=== PATIENT | male | born 1935 | race Caucasian/White ===

== ENCOUNTER 2023-01-17 07:59 | Outpatient (OUT) | payer MEDICARE, SELFPAY ==
[2023-01-17 08:34] LABS: Basophils Percent Auto 0.5 % (0.2-2.0); Eosinophils Absolute Auto 0.3 10^3/uL (0.0-0.7); Eosinophils Percent Auto 3.7 % (0.9-7.0); Hematocrit 41.1 % (42.0-54.0); Hemoglobin 12.4 g/dL (14.0-18.0); Immature Granulocytes Abs Auto 0.02 10^3/uL (0.00-0.03); Immature Granulocytes Pct Auto 0.3 % (0.0-0.5); Lymphocytes Absolute Auto 1.1 10^3/uL (1.2-3.8); Lymphocytes Percent Auto 13.6 % (20.5-60.0); Mean Corpuscular HGB Conc 30.2 g/dL (29.9-35.2); Mean Corpuscular Hemoglobin 26.6 pg (25.9-34.0); Mean Platelet Volume 11.6 fL (9.5-13.5); Monocytes Absolute Auto 0.4 10^3/uL (0.3-0.8); Monocytes Percent Auto 5.5 % (1.7-12.0); Neutrophils Percent Auto 76.4 % (43.0-75.0); Platelet Count 177 10^3/uL (150-450); Red Blood Count 4.67 10^6/uL (4.70-6.10); Red Cell Distribution Width 14.6 % (11.0-15.0); White Blood Count 7.8 10^3/uL (4.0-11.0)
[2023-01-17 09:03] LABS: Estimated Average Glucose 100 mg/dL; Glycohemoglobin A1C 5.1 % (4.5-6.2)
[2023-01-17 10:04] LABS: Alanine Aminotransferase 15 U/L (16-63); Albumin Level 3.7 g/dL (3.4-5.0); Alkaline Phosphatase 84 U/L (46-116); Anion Gap 13.5; Aspartate Amino Transferase 12 U/L (15-37); BUN Creatinine Ratio 11.6; Bilirubin Total 0.6 mg/dL (0.2-1.0); Calcium 9.2 mg/dL (8.5-10.1); Carbon Dioxide 25.6 mmol/L (21.0-32.0); Chloride 106 mmol/L (98-107); Chol HDL Ratio 2.8; Cholesterol 155 mg/dL (<=200); Estimated GFR (African America 43 (>=60); Estimated GFR (Non-African Ame 36 (>=60); Free T3 2.04 pg/mL (2.18-3.98); Globulin 3.7 g/dL; Glucose 105 mg/dL (74-106); HDL Cholesterol 56 mg/dL (40-60); LDL Cholesterol Calculated 70.2 mg/dL; Potassium 4.1 mmol/L (3.5-5.1); Sodium 141 mmol/L (136-145); Total Protein 7.4 g/dL (6.4-8.2); Triglycerides 144 mg/dL (<=150); Uric Acid 7.9 mg/dL (3.5-7.2); VLDL CHOLESTEROL 28.8 mg/dL
[2023-01-17 10:06] LABS: Prostate Specific Antigen Scrn 9.18 ng/mL (<=4.00)
[2023-01-18 10:08] LABS: Insulin 8.3 uIU/mL (2.6-24.9)
== END 2023-01-17 08:00 ==
LOC: LAB 08:07
PROVIDERS: PCP Family Medicine; Visit Provider Family Medicine
DX: E11.9 Type 2 diabetes mellitus without complications (principal); J44.9 Chronic obstructive pulmonary disease, unspecified; E78.5 Hyperlipidemia, unspecified; R73.09 Other abnormal glucose; Z12.5 Encounter for screening for malignant neoplasm of prostate; Z12.12 Encounter for screening for malignant neoplasm of rectum; I11.0 Hypertensive heart disease with heart failure; I50.30 Unspecified diastolic (congestive) heart failure
CPT/HCPCS: 36415; 80053; 80061; 83036; 83525; 83880; 84436; 84443; 84481; 84550; 85025; G0103

== ENCOUNTER 2023-04-07 12:32 | Emergency (ER) | payer MEDICARE, SELFPAY ==
[2023-04-07] VITALS (39 sets, daily range): BP systolic 88–142; BP diastolic 57–85; PULSE 71–130; RESP 14–29; TEMP 36.7–36.8; O2SAT 91–100; BMI 26.6
--- NOTE | 2023-04-07 12:58 | ECG_ITS ---
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
--- NOTE | 2023-04-07 12:59 | XR_ITS ---
The [address] [address] Patient Name: GABY KOO MRN: [id number] date: 1935 Sex: M Assigned Patient Location: ER Current Patient Location: ER Accession/Order Number: [id number] Exam Date: 04/07/2023 13:08 Report Date: 04/07/2023 13:38 At the request of: DELVIS PRASAD Procedure: XR chest 1V XR chest 1V CLINICAL: Hemoptysis COMPARISON: No prior studies are available. TECHNIQUE: Single AP view of the chest. FINDINGS: Heart size is within normal limits for technique. No regional airspace consolidation, effusion or evidence of pneumothorax. Thoracic aorta is tortuous and appears mildly ectatic. Linear densities in the right parahilar region likely atelectasis or scarring. 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 Osseous structures appear intact. Surgical clips noted medial left cardiophrenic angle. XR/XR chest 1V IMPRESSION: No acute cardiac or pulmonary findings. Electronically authenticated by: ELODIA WALKER Date: 04/07/2023 13:38
[2023-04-07 13:29] LABS: Basophils Percent Auto 0.2 % (0.2-2.0); Hematocrit 27.6 % (42.0-54.0); Hemoglobin 8.3 g/dL (14.0-18.0); Immature Granulocytes Abs Auto 0.14 10^3/uL (0.00-0.03); Immature Granulocytes Pct Auto 0.8 % (0.0-0.5); Lymphocytes Absolute Auto 0.8 10^3/uL (1.2-3.8); Lymphocytes Percent Auto 4.9 % (20.5-60.0); Mean Corpuscular HGB Conc 30.1 g/dL (29.9-35.2); Mean Corpuscular Hemoglobin 26.3 pg (25.9-34.0); Mean Corpuscular Volume 87.3 fL (80.0-94.0); Mean Platelet Volume 11.8 fL (9.5-13.5); Monocytes Absolute Auto 0.4 10^3/uL (0.3-0.8); Monocytes Percent Auto 2.6 % (1.7-12.0); Neutrophils Absolute Auto 15.2 10^3/uL (1.4-6.5); Neutrophils Percent Auto 91.5 % (43.0-75.0); Platelet Count 260 10^3/uL (150-450); Red Blood Count 3.16 10^6/uL (4.70-6.10); Red Cell Distribution Width 15.3 % (11.0-15.0); White Blood Count 16.6 10^3/uL (4.0-11.0)
[2023-04-07 13:42] LABS: Ethanol <3 mg/dL; Magnesium 1.7 mg/dL (1.8-2.4)
[2023-04-07] MEDS: ONDANSETRON PF 4 MG/2 ML VIAL IV (13:47)
[2023-04-07] MEDS: 0.9 % SODIUM CHLORIDE 1,000 ML 1000 ML IV (13:47)
[2023-04-07 13:53] LABS: Alanine Aminotransferase 12 U/L (16-63); Albumin Globulin Ratio 0.8; Albumin Level 2.8 g/dL (3.4-5.0); Alkaline Phosphatase 57 U/L (46-116); Anion Gap 16.7; Aspartate Amino Transferase 11 U/L (15-37); BUN Creatinine Ratio 34.3; Bilirubin Total 0.3 mg/dL (0.2-1.0); Calcium 8.4 mg/dL (8.5-10.1); Carbon Dioxide 22.4 mmol/L (21.0-32.0); Chloride 109 mmol/L (98-107); Estimated GFR (African America 43 (>=60); Estimated GFR (Non-African Ame 36 (>=60); Globulin 3.4 g/dL; Glucose 158 mg/dL (74-106); Potassium 5.1 mmol/L (3.5-5.1); Sodium 143 mmol/L (136-145); Total Protein 6.2 g/dL (6.4-8.2); Troponin I High Sensitivity 21.1 pg/mL (4.0-76.1)
[2023-04-07 13:55] LABS: INR 1.14
[2023-04-07] MEDS: PANTOPRAZOLE SODIUM 80 MG in 0.9 % SODIUM CHLORIDE 100 ML 10 MG IV (14:09)
--- NOTE | 2023-04-07 14:26 | ED.GENADUL1 ---
HPI - General Adult General Chief complaint: Nausea/Vomiting/Diarrhea Stated complaint: VOMITING Time Seen by Provider: 04/07/23 12:58 Source: patient and family Mode of arrival: Wheelchair Limitations: no limitations History of Present Illness HPI narrative: pt coming to the ER after he started having black stool last night in addition to 1 episode of vomiting this morning that had blood in it according to the , the patient have no previous history of any ulcer he did mention using NSAID at home The patient denies any abdominal pain no dizziness he denies any complaint at the moment hx of CAD on Plavix Related Data Home Medications Medication Instructions Recorded Confirmed clopidogrel 75 mg tablet 75 mg PO DAILY 04/07/23 04/07/23 diclofenac sodium 75 mg 75 mg PO Q12H 04/07/23 04/07/23 tablet,delayed release metoprolol tartrate 25 mg tablet 25 mg PO Q12H 04/07/23 04/07/23 simvastatin 20 mg tablet 20 mg PO DAILY 04/07/23 04/07/23 Allergies Allergy/AdvReac Type Severity Reaction Status Date / Time No Known Drug Allergies Allergy Verified 04/07/23 14:11 Review of Systems ROS Status of ROS 10 or more systems reviewed and unremarkable except as noted in history and below PFSH PFSH Social History Smoking status: Former smoker Exam Narrative Exam Narrative: Nurses notes and vital signs reviewed and patient is not hypoxic. General: Well-appearing and in no apparent distress. Skin: Warm, dry, no pallor noted. No rash. Head: Normocephalic, atraumatic. Neck: Supple, non-tender. Eye: Pupils are equal, round and EOMI. No scleral icterus. Ears, Nose, Mouth, and Throat: TM are clear, no nasal mucosal hypertrophy. Oral mucosa is moist, no posterior oropharynx erythema, uvula is mid-line Cardiovascular: Regular Rate and Rhythm without murmur, gallop or rub. Respiratory: No accessory muscle use or respiratory distress. Lungs are clear to auscultation, no wheezing, rales or rhonchi Chest Wall: no tenderness Back: No midline thoracic or lumbar vertebral tenderness. No CVA tenderness Musculoskeletal: normal ROM, no calf or popliteal tenderness, no lower extremity edema/swelling GI: Abdomen is soft, non-distended. Normal bowel sounds. No masses appreciated. No tenderness to palpation. No rebound, guarding, or rigidity noted. Neurological: A&O x4. No cranial nerve dysfunction observed. No truncal ataxia. Moves all extremities. Sensation intact. Psychiatric: Cooperative and interactive. Normal mood and affect. Rectal exam The patient have black stool at the rectal verge but no active bleeding and no hemorrhoids Constitutional Vital Signs, click to edit/add: Last Vital Signs Temp 98.0 F 04/07/23 17:00 Pulse 76 04/07/23 17:10 Resp 17 04/07/23 17:10 BP 137/62 04/07/23 17:10 Pulse Ox 97 04/07/23 17:10 O2 Del Method Room Air 04/07/23 14:25 Course Vital Signs Vital signs: Vital Signs Temperature 98.1 F 04/07/23 12:52 Pulse Rate 102 H 04/07/23 12:52 Respiratory Rate 22 04/07/23 12:52 Blood Pressure 124/64 04/07/23 12:52 Pulse Oximetry 95 04/07/23 12:52 Oxygen Delivery Method Room Air 04/07/23 12:52 Temperature 98.0 F 04/07/23 17:00 Pulse Rate 76 04/07/23 17:10 Respiratory Rate 17 04/07/23 17:10 Blood Pressure 137/62 04/07/23 17:10 Pulse Oximetry 97 04/07/23 17:10 Oxygen Delivery Method Room Air 04/07/23 14:25 Medical Decision Making [facility] Narrative Medical decision making narrative: EKG showing sinus rhythm with a heart rate of [address] elevation or depression Acute blood is positive in the stool The patient CBC shows a drop in hemoglobin from 12 in December to 8 and the patient is tachycardic upon presentation at heart rate of 102 The patient blood pressure was maintained within normal and he denies any complaints he also had an elevated BUN/creatinine ratio with a BUN around 60 and the creatinine is 1.8 The patient case was discussed with the neurosurgeon in [facility] and he agreed that patient need to be transferred, right now the patient is stable he will be kept n.p.o. he was started Protonix IV and protonix drip The patient was accepted by and she recommended pt receive 1 unit of PRBCS pt started on 1 unit of PRBCs Lab Data Labs: Lab Results 04/07/23 04/07/23 Range/Units 13:20 14:01 WBC 16.6 H (4.0-11.0) 10^3/uL RBC 3.16 L (4.70-6.10) 10^6/uL Hgb 8.3 L (14.0-18.0) g/dL Hct 27.6 L (42.0-54.0) % MCV 87.3 (80.0-94.0) fL MCH 26.3 (25.9-34.0) pg MCHC 30.1 (29.9-35.2) g/dL RDW 15.3 H (11.0-15.0) % Plt Count 260 (150-450) 10^3/uL MPV 11.8 (9.5-13.5) fL Neut % (Auto) 91.5 H (43.0-75.0) % Lymph % (Auto) 4.9 L (20.5-60.0) % [place] % (Auto) 2.6 (1.7-12.0) % Eos % (Auto) 0.0 L (0.9-7.0) % Baso % (Auto) 0.2 (0.2-2.0) % Neut # (Auto) 15.2 H (1.4-6.5) 10^3/uL Lymph # (Auto) 0.8 L (1.2-3.8) 10^3/uL [place] # (Auto) 0.4 (0.3-0.8) 10^3/uL Eos # (Auto) 0.0 (0.0-0.7) 10^3/uL Baso # (Auto) 0.0 (0.0-0.1) 10^3/uL Abs Immat Gran (auto) 0.14 H (0.00-0.03) 10^3/uL Imm/Tot Granulo (auto) 0.8 H (0.0-0.5) % PT 12.0 H (9.0-11.6) sec INR 1.14 Sodium 143 (136-145) mmol/L Potassium 5.1 (3.5-5.1) mmol/L Chloride 109 H (98-107) mmol/L Carbon Dioxide 22.4 (21.0-32.0) mmol/L Anion Gap 16.7 BUN 62.0 H (7.0-18.0) mg/dL Creatinine 1.81 H (0.70-1.30) mg/dL Est GFR ( Amer) 43 L (>=60) Est GFR (Non-Af Amer) 36 L (>=60) BUN/Creatinine Ratio 34.3 Glucose 158 H (74-106) mg/dL Calcium 8.4 L (8.5-10.1) mg/dL Magnesium 1.7 L (1.8-2.4) mg/dL Total Bilirubin 0.3 (0.2-1.0) mg/dL AST 11 L (15-37) U/L ALT 12 L (16-63) U/L Alkaline Phosphatase 57 (46-116) U/L Troponin I High Sens 21.1 (4.0-76.1) pg/mL Total Protein 6.2 L (6.4-8.2) g/dL Albumin 2.8 L (3.4-5.0) g/dL Globulin 3.4 g/dL Albumin/Globulin Ratio 0.8 Lipase 30.0 L (73.0-393.0) U/L Stool Occult Blood Positive A Ethanol Quant <3 mg/dL Blood Type O Positive Antibody Screen Negative Crossmatch See Detail Discharge Plan Discharge Chief Complaint: Nausea/Vomiting/Diarrhea Clinical Impression: Acute upper gastrointestinal bleeding Patient Disposition: [facility] Time of Disposition Decision: 17:10 Discharge Location: [facility] Discharge Date/Time: 04/07/23 17:28
[2023-04-07 15:30] LABS: Occult Blood Positive
== END 2023-04-07 17:28 | disposition short-term general hospital (02) ==
PROVIDERS: Emergency Provider Emergency Medicine; PCP Family Medicine
DX: K92.2 Gastrointestinal hemorrhage, unspecified (principal); I25.10 Atherosclerotic heart disease of native coronary artery without angina pectoris; Z79.02 Long term (current) use of antithrombotics/antiplatelets; Z87.891 Personal history of nicotine dependence; Z79.899 Other long term (current) drug therapy
CPT/HCPCS: 36415; 36430; 71045; 80053; 80320; 83690; 83735; 84484; 85025; 85610; 86850; 86900; 86901; 86920; 93005; 96365; 96375; 99285; G0328; P9016

== ENCOUNTER 2023-04-11 08:11 | Emergency (ER) | payer MEDICARE, SELFPAY ==
[2023-04-11 08:16] VITALS: BP 153/79; PULSE 90; RESP 16; TEMP 36.8; O2SAT 98; BMI 26.6
--- NOTE | 2023-04-11 08:36 | ECG_ITS ---
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
--- NOTE | 2023-04-11 08:37 | ED.GIBLEED1 ---
HPI - GI Bleed General Chief complaint: Abdominal Pain Stated complaint: ABD PAIN/BLOOD IN STOOL Time Seen by Provider: 04/11/23 08:31 Source: patient and family Mode of arrival: Wheelchair History of Present Illness HPI Narrative: 87-year-old male presents for two issues. 1st he has black stool. He had been admitted to the hospital in [place] and had a workup including endoscopy. An ulcer was identified and he was taken off the aspirin he was on and put on new medication. He was discharged yesterday. he continued to have some black stool today. 2nd, he was having trouble urinating and bladder scan when he arrived here showed seven hundred mL is. He's never had prostate issues in the past. Related Data Home Medications Medication Instructions Recorded Confirmed clopidogrel 75 mg tablet 75 mg PO DAILY 04/07/23 04/11/23 diclofenac sodium 75 mg 75 mg PO Q12H 04/07/23 04/11/23 tablet,delayed release metoprolol tartrate 25 mg tablet 25 mg PO Q12H 04/07/23 04/07/23 simvastatin 20 mg tablet 20 mg PO DAILY 04/07/23 04/11/23 pantoprazole 40 mg tablet,delayed 40 mg PO DAILY 04/11/23 04/11/23 release Previous Rx's Medication Instructions Recorded cephalexin 500 mg tablet 250 mg PO TID 7 days #11 tabs 04/11/23 tamsulosin 0.4 mg capsule (Flomax) 0.4 mg PO DAILY #14 caps 04/11/23 Allergies Allergy/AdvReac Type Severity Reaction Status Date / Time No Known Drug Allergies Allergy Verified 04/11/23 08:22 Review of Systems ROS Narrative A ten point review of systems is negative except as noted above. PFSH PFSH Social History Smoking status: Former smoker Exam Narrative Exam Narrative: Nurses note and vital signs reviewed and patient is not hypoxic. General: The patient appears well and in no apparent distress. Skin: Warm, dry, no pallor noted. There is no rash noted. Head: Normocephalic, atraumatic Eye: Normal conjunctiva, no drainage Ears, Nose, Mouth, and Throat: oral mucosa is moist. Nares patent. Cardiovascular: Regular Rate and Rhythm Respiratory: Patient is in no distress, no accessory muscle use, lungs are clear to auscultation, no wheezing, rales or rhonchi Back: non-tender GI: abdomen is mildly distended Musculoskeletal: The patient has no evidence of calf tenderness, no pitting edema, symmetrical pulses noted bilaterally Neurological: awake and alert Psychiatric: Cooperative Constitutional Vital Signs, click to edit/add: Last Vital Signs Temp 98.2 F 04/11/23 08:16 Pulse 90 04/11/23 08:16 Resp 16 04/11/23 08:16 BP 153/79 H 04/11/23 08:16 Pulse Ox 98 04/11/23 08:16 O2 Del Method Room Air 04/11/23 08:16 Course Vital Signs Vital signs: Vital Signs Temperature 98.2 F 04/11/23 08:16 Pulse Rate 90 04/11/23 08:16 Respiratory Rate 16 04/11/23 08:16 Blood Pressure 153/79 H 04/11/23 08:16 Pulse Oximetry 98 04/11/23 08:16 Oxygen Delivery Method Room Air 04/11/23 08:16 Temperature 98.2 F 04/11/23 08:16 Pulse Rate 90 04/11/23 08:16 Respiratory Rate 16 04/11/23 08:16 Blood Pressure 153/79 H 04/11/23 08:16 Pulse Oximetry 98 04/11/23 08:16 Oxygen Delivery Method Room Air 04/11/23 08:16 MDM - GI Bleed MDM Narrative Medical decision making narrative: the patient's hemoglobin is now up to 9.6. I do not suspect active bleeding. He had endoscopy two days ago and also was treated and he is already on Protonix at home. His main issue today with the urinary retention. Cota catheter placed and he feels much better. He is placed on Flomax and Keflex and he'll follow-up with urology. treatment diagnosis and follow-up were discussed with the patient and his doctor. Differential Diagnosis Differential diagnosis: Likely other (urinary retention, gastrointestinal bleed) Medical Records Attestation: I reviewed the patient's medical records. Medical records narrative: records from [facility] were reviewed including the endoscopy report Lab Data Labs: Lab Results 04/11/23 04/11/23 Range/Units 08:35 08:57 WBC 14.3 H (4.0-11.0) 10^3/uL RBC 3.70 L (4.70-6.10) 10^6/uL Hgb 9.6 L (14.0-18.0) g/dL Hct 30.9 L (42.0-54.0) % MCV 83.5 (80.0-94.0) fL MCH 25.9 (25.9-34.0) pg MCHC 31.1 (29.9-35.2) g/dL RDW 17.6 H (11.0-15.0) % Plt Count 199 (150-450) 10^3/uL MPV 11.6 (9.5-13.5) fL Neut % (Auto) 90.5 H (43.0-75.0) % Lymph % (Auto) 4.9 L (20.5-60.0) % [place] % (Auto) 3.5 (1.7-12.0) % Eos % (Auto) 0.5 L (0.9-7.0) % Baso % (Auto) 0.2 (0.2-2.0) % Neut # (Auto) 12.9 H (1.4-6.5) 10^3/uL Lymph # (Auto) 0.7 L (1.2-3.8) 10^3/uL [place] # (Auto) 0.5 (0.3-0.8) 10^3/uL Eos # (Auto) 0.1 (0.0-0.7) 10^3/uL Baso # (Auto) 0.0 (0.0-0.1) 10^3/uL Abs Immat Gran (auto) 0.06 H (0.00-0.03) 10^3/uL Imm/Tot Granulo (auto) 0.4 (0.0-0.5) % Sodium 138 (136-145) mmol/L Potassium 4.0 (3.5-5.1) mmol/L Chloride 102 (98-107) mmol/L Carbon Dioxide 25.7 (21.0-32.0) mmol/L Anion Gap 14.3 BUN 18.0 (7.0-18.0) mg/dL Creatinine 1.63 H (0.70-1.30) mg/dL Est GFR ( Amer) 49 L (>=60) Est GFR (Non-Af Amer) 40 L (>=60) BUN/Creatinine Ratio 11.0 Glucose 109 H (74-106) mg/dL Calcium 9.4 (8.5-10.1) mg/dL Urine Color Lt. yellow (YELLOW) Urine Clarity Clear (CLEAR) Urine pH 7.0 (5.0-9.0) Ur Specific [place] 1.015 (1.005-1.025) Urine Protein Negative (NEG/TRACE) mg/dL Urine Glucose (UA) Negative (NEGATIVE) mg/dL Urine Ketones Negative (NEGATIVE) mg/dL Urine Occult Blood Small A (NEGATIVE) Urine Nitrite Negative (NEGATIVE) Urine Bilirubin Negative (NEGATIVE) Urine Urobilinogen 0.2 (0.2-1.0) EU/dL Ur Leukocyte Esterase Negative (NEGATIVE) Urine RBC 5-10 A (0-2) #/HPF Urine WBC None seen (NONE SEEN) #/HPF Ur Squamous Epith Cells Rare (NONE/RARE) #/LPF Urine Crystals None seen (None Seen) #/HPF Urine Bacteria None seen (NONE SEEN) #/HPF Urine Casts None seen (NONE SEEN) #/LPF Urine Mucus None seen (NONE SEEN) Ur Culture Indicated? No Discharge Plan Discharge Chief Complaint: Abdominal Pain Clinical Impression: Acute urinary retention Patient Disposition: Home, Self-Care Time of Disposition Decision: 11:10 Condition: Good Mode of Transportation: Private Vehicle Prescriptions / Home Meds: New tamsulosin [Flomax] 0.4 mg capsule 0.4 mg PO DAILY Qty: 14 0RF cephalexin 500 mg tablet 250 mg PO TID 7 Days Qty: 11 0RF No Action clopidogrel 75 mg tablet 75 mg PO DAILY diclofenac sodium 75 mg tablet,delayed release (DR/EC) 75 mg PO Q12H Hold Instructions: Doctor's Order metoprolol tartrate 25 mg tablet 25 mg PO Q12H simvastatin 20 mg tablet 20 mg PO DAILY pantoprazole 40 mg tablet,delayed release (DR/EC) 40 mg PO DAILY Instructions: Urinary Retention in Men (ED), Cota Catheter Placement and Care (ED) Additional Instructions: follow-up with Dr. Adams Stand Alone Forms: Portal Instructions Referrals: Deng Fabian MD [Primary Care Provider] - 1 week
[2023-04-11 09:05] LABS: Basophils Percent Auto 0.2 % (0.2-2.0); Eosinophils Absolute Auto 0.1 10^3/uL (0.0-0.7); Eosinophils Percent Auto 0.5 % (0.9-7.0); Hematocrit 30.9 % (42.0-54.0); Hemoglobin 9.6 g/dL (14.0-18.0); Immature Granulocytes Abs Auto 0.06 10^3/uL (0.00-0.03); Immature Granulocytes Pct Auto 0.4 % (0.0-0.5); Lymphocytes Absolute Auto 0.7 10^3/uL (1.2-3.8); Lymphocytes Percent Auto 4.9 % (20.5-60.0); Mean Corpuscular HGB Conc 31.1 g/dL (29.9-35.2); Mean Corpuscular Hemoglobin 25.9 pg (25.9-34.0); Mean Corpuscular Volume 83.5 fL (80.0-94.0); Mean Platelet Volume 11.6 fL (9.5-13.5); Monocytes Absolute Auto 0.5 10^3/uL (0.3-0.8); Monocytes Percent Auto 3.5 % (1.7-12.0); Neutrophils Absolute Auto 12.9 10^3/uL (1.4-6.5); Neutrophils Percent Auto 90.5 % (43.0-75.0); Platelet Count 199 10^3/uL (150-450); Red Cell Distribution Width 17.6 % (11.0-15.0); White Blood Count 14.3 10^3/uL (4.0-11.0)
[2023-04-11] MEDS: PANTOPRAZOLE SODIUM 40 MG VIAL IV (09:05)
[2023-04-11 09:19] LABS: Anion Gap 14.3; Calcium 9.4 mg/dL (8.5-10.1); Carbon Dioxide 25.7 mmol/L (21.0-32.0); Chloride 102 mmol/L (98-107); Estimated GFR (African America 49 (>=60); Estimated GFR (Non-African Ame 40 (>=60); Glucose 109 mg/dL (74-106); Sodium 138 mmol/L (136-145)
[2023-04-11 09:38] LABS: Bilirubin Urine NEGATIVE (NEGATIVE); Blood Urine SMALL (NEGATIVE); Clarity Urine CLEAR (CLEAR); Color Urine LT. YELLOW (YELLOW); Glucose Urine UA NEGATIVE (NEGATIVE); Ketones Urine NEGATIVE (NEGATIVE); Leukocyte Esterase Urine NEGATIVE (NEGATIVE); Nitrite Urine NEGATIVE (NEGATIVE); Protein Urine NEGATIVE (NEG/TRACE); Specific Gravity Urine 1.015 (1.005-1.025); Urobilinogen Urine 0.2 EU/dL (0.2-1.0)
[2023-04-11 09:47] LABS: Bacteria Urine NONE SEEN #/HPF (NONE SEEN); Cast Seen? NONE SEEN #/LPF (NONE SEEN); Crystals Seen? None Seen #/HPF (None Seen); Mucus Urine NONE SEEN (NONE SEEN); Squamous Epithelial Cell Urine RARE #/LPF (NONE/RARE); Urine Culture Indicated NO; WBC Urine NONE SEEN #/HPF (NONE SEEN)
== END 2023-04-11 11:38 | disposition home or self-care (01) ==
PROVIDERS: Emergency Provider Emergency Medicine; PCP Family Medicine
DX: R33.9 Retention of urine, unspecified (principal); Z79.899 Other long term (current) drug therapy; Z87.891 Personal history of nicotine dependence
CPT/HCPCS: 36415; 80048; 81001; 85025; 93005; 96374; 99285

== ENCOUNTER 2023-04-16 10:26 | Outpatient (OUT) | payer MEDICARE, SELFPAY ==
[2023-04-16 10:49] LABS: Basophils Percent Auto 0.5 % (0.2-2.0); Eosinophils Absolute Auto 0.1 10^3/uL (0.0-0.7); Hematocrit 29.7 % (42.0-54.0); Immature Granulocytes Abs Auto 0.02 10^3/uL (0.00-0.03); Immature Granulocytes Pct Auto 0.3 % (0.0-0.5); Lymphocytes Absolute Auto 0.8 10^3/uL (1.2-3.8); Lymphocytes Percent Auto 10.3 % (20.5-60.0); Mean Corpuscular HGB Conc 30.3 g/dL (29.9-35.2); Mean Corpuscular Hemoglobin 26.2 pg (25.9-34.0); Mean Corpuscular Volume 86.6 fL (80.0-94.0); Monocytes Absolute Auto 0.5 10^3/uL (0.3-0.8); Neutrophils Absolute Auto 6.5 10^3/uL (1.4-6.5); Neutrophils Percent Auto 81.9 % (43.0-75.0); Platelet Count 176 10^3/uL (150-450); Red Blood Count 3.43 10^6/uL (4.70-6.10); Red Cell Distribution Width 17.2 % (11.0-15.0)
== END 2023-04-16 10:27 | disposition home or self-care (01) ==
LOC: LAB 10:28
PROVIDERS: PCP Family Medicine
DX: D62 Acute posthemorrhagic anemia (principal)
CPT/HCPCS: 36415; 85025

== ENCOUNTER 2023-04-19 09:22 | Outpatient (OUT) | payer MEDICARE, SELFPAY ==
[2023-04-19 09:53] LABS: Basophils Absolute Auto 0.1 10^3/uL (0.0-0.1); Basophils Percent Auto 0.7 % (0.2-2.0); Eosinophils Absolute Auto 0.1 10^3/uL (0.0-0.7); Eosinophils Percent Auto 0.9 % (0.9-7.0); Hematocrit 32.6 % (42.0-54.0); Hemoglobin 9.7 g/dL (14.0-18.0); Immature Granulocytes Abs Auto 0.03 10^3/uL (0.00-0.03); Immature Granulocytes Pct Auto 0.4 % (0.0-0.5); Lymphocytes Absolute Auto 0.7 10^3/uL (1.2-3.8); Lymphocytes Percent Auto 8.5 % (20.5-60.0); Mean Corpuscular HGB Conc 29.8 g/dL (29.9-35.2); Mean Corpuscular Hemoglobin 25.9 pg (25.9-34.0); Mean Corpuscular Volume 86.9 fL (80.0-94.0); Mean Platelet Volume 12.4 fL (9.5-13.5); Monocytes Absolute Auto 0.5 10^3/uL (0.3-0.8); Neutrophils Absolute Auto 7.2 10^3/uL (1.4-6.5); Neutrophils Percent Auto 83.5 % (43.0-75.0); Platelet Count 215 10^3/uL (150-450); Red Blood Count 3.75 10^6/uL (4.70-6.10); Red Cell Distribution Width 16.8 % (11.0-15.0); White Blood Count 8.6 10^3/uL (4.0-11.0)
[2023-04-19 10:14] LABS: INR 1.02; Partial Thromboplastin Time 26.3 sec (22.3-36.2); Prothrombin Time 10.8 sec (9.0-11.6)
[2023-04-19 10:15] LABS: Alanine Aminotransferase 13 U/L (16-63); Albumin Level 3.5 g/dL (3.4-5.0); Alkaline Phosphatase 76 U/L (46-116); Anion Gap 14.5; Aspartate Amino Transferase 11 U/L (15-37); BUN Creatinine Ratio 10.7; Bilirubin Total 0.6 mg/dL (0.2-1.0); Calcium 9.1 mg/dL (8.5-10.1); Carbon Dioxide 24.6 mmol/L (21.0-32.0); Chloride 104 mmol/L (98-107); Estimated GFR (African America 50 (>=60); Estimated GFR (Non-African Ame 42 (>=60); Globulin 3.4 g/dL; Glucose 106 mg/dL (74-106); Potassium 4.1 mmol/L (3.5-5.1); Sodium 139 mmol/L (136-145); Total Protein 6.9 g/dL (6.4-8.2)
== END 2023-04-19 09:23 | disposition home or self-care (01) ==
LOC: LAB 09:24
PROVIDERS: PCP Family Medicine; Visit Provider Family Medicine
DX: K25.3 Acute gastric ulcer without hemorrhage or perforation (principal)
CPT/HCPCS: 36415; 80053; 85025; 85610; 85730

== ENCOUNTER 2023-08-31 08:44 | Outpatient (OUT) | payer MEDICARE, SELFPAY ==
--- NOTE | 2023-08-31 09:07 | US_ITS ---
The [address] [address] Patient Name: GABY KOO MRN: [id number] date: 1935 Sex: M Assigned Patient Location: US Current Patient Location: US Accession/Order Number: [id number] Exam Date: 08/31/2023 09:15 Report Date: 08/31/2023 10:46 At the request of: SHILA CHERRY Procedure: US renal bladder EXAMINATION: US renal bladder HISTORY: influenza vaccination given Z23 , hematuria COMPARISON: No relevant comparison available. TECHNIQUE: Ultrasound examination was performed of the kidneys and urinary bladder. FINDINGS: RIGHT KIDNEY: No evidence of pelvocaliectasis, mass, or calculi. Normal renal cortical parenchymal echogenicity. Color Doppler demonstrates blood flow within the kidney. Kidney: 9.6 x 4.7 x 4.9 cm LEFT KIDNEY: No evidence of pelvocaliectasis, mass, or calculi. Normal renal cortical parenchymal echogenicity. Color Doppler demonstrates blood flow within the kidney. Kidney: 9.0 x 3.8 x 4.8 cm BLADDER: Hyperechoic material layering within posterior bladder; likely blood products or proteinaceous material. 8 mm nodule versus blood clot versus noncalcified stone within bladder. Numerous small bladder diverticula. Prevoid volume: 307 mL. Post void residual: 257 mL URETERAL JETS: Visualized bilaterally. US/US renal bladder IMPRESSION: 1. Layering material within bladder suspected represent blood products or proteinaceous material. A small focal area may represent blood products, mass/nodule, or stone. Follow-up ultrasound evaluation or direct visualization is recommended. 2. Very poor emptying of the urinary bladder with joint 57 mL remaining after voiding. 3. Numerous small bladder diverticula. 4. Cholelithiasis incidentally noted with a large stone seen in the noninflamed gallbladder. Electronically authenticated by: GABRIEL ALVAREZ Date: 08/31/2023 10:46
[2023-08-31 09:43] LABS: Basophils Absolute Auto 0.1 10^3/uL (0.0-0.1); Basophils Percent Auto 0.6 % (0.2-2.0); Eosinophils Absolute Auto 0.1 10^3/uL (0.0-0.7); Eosinophils Percent Auto 0.9 % (0.9-7.0); Hematocrit 42.1 % (42.0-54.0); Hemoglobin 12.6 g/dL (14.0-18.0); Immature Granulocytes Abs Auto 0.03 10^3/uL (0.00-0.03); Immature Granulocytes Pct Auto 0.2 % (0.0-0.5); Lymphocytes Absolute Auto 1.3 10^3/uL (1.2-3.8); Lymphocytes Percent Auto 10.1 % (20.5-60.0); Mean Corpuscular HGB Conc 29.9 g/dL (29.9-35.2); Mean Corpuscular Hemoglobin 26.1 pg (25.9-34.0); Mean Corpuscular Volume 87.3 fL (80.0-94.0); Mean Platelet Volume 12.5 fL (9.5-13.5); Monocytes Absolute Auto 0.7 10^3/uL (0.3-0.8); Monocytes Percent Auto 5.7 % (1.7-12.0); Neutrophils Absolute Auto 10.4 10^3/uL (1.4-6.5); Neutrophils Percent Auto 82.5 % (43.0-75.0); Platelet Count 194 10^3/uL (150-450); Red Blood Count 4.82 10^6/uL (4.70-6.10); Red Cell Distribution Width 15.9 % (11.0-15.0); White Blood Count 12.7 10^3/uL (4.0-11.0)
[2023-08-31 09:55] LABS: Alanine Aminotransferase 13 U/L (16-63); Albumin Globulin Ratio 0.9; Albumin Level 3.4 g/dL (3.4-5.0); Alkaline Phosphatase 107 U/L (46-116); Anion Gap 13.7; Aspartate Amino Transferase 13 U/L (15-37); BUN Creatinine Ratio 15.9; Bilirubin Total 0.6 mg/dL (0.2-1.0); Calcium 8.8 mg/dL (8.5-10.1); Carbon Dioxide 25.7 mmol/L (21.0-32.0); Chloride 101 mmol/L (98-107); Estimated GFR (African America 47 (>=60); Estimated GFR (Non-African Ame 38 (>=60); Glucose 95 mg/dL (74-106); Potassium 4.4 mmol/L (3.5-5.1); Sodium 136 mmol/L (136-145); Total Protein 7.4 g/dL (6.4-8.2)
[2023-08-31 10:05] LABS: Prostate Specific Antigen Dx 11.43 ng/mL (<=4.00)
== END 2023-08-31 08:45 | disposition home or self-care (01) ==
LOC: US 08:47
PROVIDERS: PCP Family Medicine; Visit Provider Family Medicine
DX: N32.0 Bladder-neck obstruction (principal); N18.9 Chronic kidney disease, unspecified; Z23 Encounter for immunization; Z12.5 Encounter for screening for malignant neoplasm of prostate; N32.3 Diverticulum of bladder; K80.20 Calculus of gallbladder without cholecystitis without obstruction
CPT/HCPCS: 36415; 76770; 80053; 84153; 85025

== ENCOUNTER 2023-12-27 06:34 | Outpatient (OUT) | payer MEDICARE, SELFPAY ==
--- OUTSIDE RECORDS SUMMARY | 2023-12-27 06:38 | XMS_ITS | CCD ---
Author Organization [facility] Care Team Providers Care Testing Analyst Name Role Phone DR SHILA FABIAN Attending Unavailable DILIP, DR FUCHS Admitting Unavailable DILIP, DR FUCHS Primary Care Unavailable DILIP, DR FUCHS Consulting Unavailable DILIP, DR FUCHS Admitting Unavailable DILIP, DR FUCHS Primary Care Unavailable DILIP, DR FUCHS Consulting Unavailable DILIP, DR FUCHS Attending Unavailable DIO VAZQUEZ Attending Unavailab Shila Marina Primary Care Unavailable Vitaly Kennedy Attending Unavailable Piotr Barnett Admitting Unavailable Asaad, Imad Consulting Unavailable CHOA CHAWLA Attending Unavailable SHILA FABIAN Referring Unavailable SHILA FABIAN Primary Care Unavailable Shila Fabian MD Primary Care Provider [phone] SHILA FABIAN Referring Unavailable SHILA FABIAN Primary Care Unavailable CHAO CHAWLA Admitting Unavailable CHAO CHAWLA Attending Unavailable CHAO CHAWLA Referring Unavailable SHILA FABIAN Primary Care Unavailable Allergies Allergy Classification Reported Allergen(s) Allergy Type Date of Onset Reaction(s) Facility (1 source) No Known Medication Allergies; Translations: [No Known Medication Allergies] Propensity to adverse reactions (disorder) [facility] Repository Medications Current Medications Medication Drug Class(es) Dates Sig (Normalized) Sig (Original) clopidogrel 75 mg oral tablet (1 source) P2Y12 Platelet Inhibitor take 1 tablet by mouth in the morning clopidogreL (PLAVIX) 75 mg tablet Take 1 tablet (75 mg total) by mouth in the morning. 0 Active ibuprofen 600 mg oral tablet (1 source) Nonsteroidal Anti-inflammatory Drug Start: 07-05-2018 take 1 tablet by mouth every six hours as needed for pain ibuprofen (ADVIL,MOTRIN) 600 mg tablet Take 1 tablet (600 mg total) by mouth every 6 (six) hours as needed for pain for up to 30 doses. 30 tablet 0 07/05/2018 Active metoprolol tartrate 25 mg oral tablet (1 source) beta-Adrenergic Jerry take 1 tablet by mouth in the morning, then take 1 tablet by mouth at bedtime metoprolol tartrate (LOPRESSOR) 25 mg tablet Take 1 tablet (25 mg total) by mouth in the morning and 1 tablet (25 mg total) before bedtime. 0 Active pantoprazole 40 mg delayed release oral tablet (1 source) Proton Pump Inhibitor Start: 04-10-2023 pantoprazole (PROTONIX) 40 mg EC tablet Take 1 tablet (40 mg total) by mouth in the morning. Oral for 8 weeks take twice daily then once daily. 0 04/10/2023 Active simvastatin 20 mg oral tablet (1 source) HMG-CoA Reductase Inhibitor Start: 04-10-2023 take 1 tablet by mouth once daily, then take 1 tablet by mouth once daily simvastatin (ZOCOR) 20 mg tablet Take 1 tablet (20 mg total) by mouth nightly. Take one daily 0 04/10/2023 Active tamsulosin hydrochloride 0.4 mg oral capsule (1 source) alpha-Adrenergic Jerry Start: 05-23-2023 take 1 capsule by mouth in the morning tamsulosin (FLOMAX) 0.4 mg capsule Take 1 capsule (0.4 mg total) by mouth in the morning. 30 capsule 11 05/23/2023 Active Problems Active Problems Problem Classification Problem Date Documented Da te Episodic/Chronic Acute posthemorrhagic anemia (1 source) Acute posthemorrhagic anemia; Translations: [Acute posthemorrhagic anemia] Onset: 3 Episodic Chronic obstructive pulmonary disease and bronchiectasis (1 source) Chronic obstructive pulmonary disease, unspecified; Translations: [COPD UNSPECIFIED] Onset: 2 Chronic Congestive heart failure; nonhypertensive (1 source) Unspecified diastolic (congestive) heart failure; Translations: [UNSPECIFIED DIASTOLIC HEART FAILURE] Onset: 2 Chronic Coronary atherosclerosis and other heart disease (1 source) Atherosclerotic heart disease of [place] coronary artery without angina pectoris; Translations: [Atherosclerotic heart disease of [place] coronary artery without angina pectoris] Onset: 3 Chronic Diabetes mellitus with complications (1 source) Type 2 diabetes mellitus with diabetic autonomic (poly)neuropathy; Translations: [TYPE 2 DM W/DIAB AUTONOM NEUROPATHY] Onset: 2 Chronic Diabetes mellitus without complication (5 sources) Type 2 diabetes mellitus without complications; Translations: [TYPE 2 DM WITHOUT COMPLICATIONS] Onset: 1 Chronic Diabetes mellitus without complication (1 source) Other abnormal glucose; Translations: [OTHER ABNORMAL GLUCOSE] Onset: 2 Episodic Disorders of lipid metabolism (3 sources) Hyperlipidemia, unspecified; Translations: [Pure hyperglyceridemia] Onset: 1 Chronic Essential hypertension (1 source) Essential (primary) hypertension; Translations: [ESSENTIAL PRIMARY HYPERTENSION] Onset: 2 Chronic Gastroduodenal ulcer (except hemorrhage) (1 source) Gastric ulcer, unspecified as acute or chronic, without hemorrhage or perforation; Translations: [Gastric ulcer, unspecified as acute or chronic, without hemorrhage or perforation] Onset: 3 Chronic Gastrointestinal hemorrhage (1 source) Melena; Translations: [Melena] Onset: 3 Episodic Gastrointestinal hemorrhage (1 source) Gastrointestinal hemorrhage; Translations: [Gastrointestinal hemorrhage, unspecified] Onset: 3 Hyperplasia of prostate (1 source) Benign prostatic hyperplasia with lower urinary tract symptoms; Translations: [BENIGN PROSTATIC HYPERPLASIA W/LUTS] Onset: 1 Chronic Hypertension with complications and secondary hypertension (1 source) Hypertensive heart disease with heart failure; Translations: [HTN HEART DISEASE W/HEART FAIL] Onset: 2 Chronic Nutritional deficiencies (5 sources) Vitamin D deficiency, unspecified; Translations: [VITAMIN D DEFICIENCY UNSPECIFIED] Onset: 1 Chronic Open wounds of extremities (1 source) Laceration without foreign body of left forearm, initial encounter; Translations: [Laceration without foreign body of left forearm, initial encounter] Onset: 3 Episodic Other aftercare (1 source) retirement (current) use of non-steroidal anti-inflammatories (NSAID); Translations: [retirement (current) use of non-steroidal anti-inflammatories (NSAID)] Onset: 3 Episodic Other diseases of bladder and urethra (2 sources) Bladder disorder, unspecified; Translations: [Bladder disorder, unspecified] Onset: 4 Chronic Other diseases of bladder and urethra (2 sources) Lesion of bladder; Translations: [Bladder disorder, unspecified] Onset: 4 09-13-2023 Chronic Other diseases of kidney and ureters (1 source) Disorder of kidney and ureter, unspecified; Translations: [Disorder of kidney and ureter, unspecified] Onset: 3 Episodic Other nutritional; endocrine; and metabolic disorders (1 source) Abnormal weight loss; Translations: [ABNORMAL WEIGHT LOSS] Onset: 2 Episodic Pulmonary heart disease (1 source) Pulmonary hypertension, unspecified; Translations: [PULMONARY HYPERTENSION UNSPECIFIED] Onset: 1 Chronic Past or Other Problems Problem Classification Problem Date Documented Da te Episodic/Chronic Deficiency and other anemia (1 source) Anemia, unspecified; Translations: [ANEMIA UNSPECIFIED] Onset: 06-09-2021 Episodic Genitourinary symptoms and ill-defined conditions (2 sources) Retention of urine, unspecified; Translations: [Retention of urine] Onset: 04-20-2023 10-09-2023 Episodic Other lower respiratory disease (1 source) Shortness of breath; Translations: [SHORTNESS OF BREATH] Onset: 06-09-2021 Episodic Other screening for suspected conditions (not mental disorders or infectious disease) (3 sources) Encounter for screening for malignant neoplasm of prostate; Translations: [Elevated prostate specific antigen [PSA]] Onset: 04-19-2022 09-04-2023 Episodic Results Test Name Value Interpretation Reference Range Facility Auth for Release of Medical Recordson 04-18-2023 Auth for Release of Medical Records [id number] 1.00CD:127 Normal [facility] Basic Metabolic Panelon 03-30 Anion gap [Moles/Vol] 9.8 mmol/L Normal 6.0-15.0 [facility] Comment on above: Performed By: #### H H #### [address] Calcium [Mass/Vol] 8.3 mg/dL Low 8.6-10.3 [facility] Comment on above: Performed By: #### H H #### [facility] [address] [place] [address] [place] Chloride [Moles/Vol] 108 mmol/L High 98-107 [facility] Comment on above: Performed By: #### H H #### [facility] [address] [place] [address] [place] CO2 [Moles/Vol] 26.2 mmol/L Normal 21.0-31.[address] [facility] Comment on above: Performed By: #### H H #### [facility] [address] [place] [address] [place] Creatinine [Mass/Vol] 1.47 mg/dL High 0.70-1.30 [facility] Comment on above: Performed By: #### H H #### [place] [address] [place] Creatinine Clr Calc Pharmacy 36.74 [facility] Comment on above: Result Comment: PERF ORMED BY: [place] [address] PATHOLOGIST TRANSFORMER MECHANIC FEROZ DIEHL M.D. Performed By: #### H H #### [place] [address] [place] GFR/1.73 sq M.predicted MDRD (S/P/Bld) [Vol rate/Area] 46.453 mL/min/{1.73_m2} [facility] Comment on above: Performed By: #### H H #### [facility] [address] [place] [address] [place] Glucose [Mass/Vol] 96 mg/dL Normal 70-100 [facility] Comment on above: Result Comment: [place] Glucose Reference Range is dependent on time and content of last meal. Glucose of more than 200 mg/dL in a nonstressed, ambulatory subject supports the diagnosis of Diabetes Mellitus. ADA recommended reference range Performed By: #### H H #### [facility] [address] [place] [address] [place] Potassium [Moles/Vol] 4.0 mmol/L Normal 3.5-5.1 [facility] Comment on above: Performed By: #### H H #### [address] Sodium [Moles/Vol] 140 mmol/L Normal 136-145 [facility] Comment on above: Performed By: #### H H #### [address] Urea nitrogen [Mass/Vol] 21 mg/dL Normal 7-25 [facility] Comment on above: Performed By: #### H H #### [address] Complete Blood Count Auto Di ffon 04-10-2023 Basophils (Bld) [#/Vol] 0.1 10*3/uL Normal 0.0-0.2 [facility] Comment on above: Result Comment: PERF ORMED BY: [place] [address] PATHOLOGIST TRANSFORMER MECHANIC FEROZ DIEHL M.D. Performed By: #### H H #### [address] Basophils/100 WBC (Bld) 0.5 % Normal . [facility] Comment on above: Performed By: #### H H #### [address] Eosinophils (Bld) [#/Vol] 0.2 10*3/uL Normal 0.0-0.45 [facility] Comment on above: Performed By: #### H H #### [address] Eosinophils/100 WBC (Bld) 1.5 % Normal . [facility] Comment on above: Performed By: #### H H #### [address] Erythrocyte distribution width (RBC) [Ratio] 17.1 % High 12.0-14.8 [facility] Comment on above: Performed By: #### H H #### [address] Hematocrit (Bld) [Volume fraction] 24.1 % Low 38.8-50.0 [facility] Comment on above: Performed By: #### H H #### [address] Hemoglobin (Bld) [Mass/Vol] 8.0 g/dL Low 13.0-17.0 [facility] Comment on above: Performed By: #### H H #### [address] Lymphocytes (Bld) [#/Vol] 0.8 10*3/uL Low 1.00-4.8 [facility] Comment on above: Performed By: #### H H #### [address] Lymphocytes/100 WBC (Bld) 8.1 % Normal . [facility] Comment on above: Performed By: #### H H #### [address] MCH (RBC) [Entitic mass] 26.3 pg Low 27.5-35.2 [facility] Comment on above: Performed By: #### H H #### [address] MCV (RBC) [Entitic vol] 79.4 fL Low 83.5-101 [facility] Comment on above: Performed By: #### H H #### [address] Mean Corpuscular HGB Conc 33.1 g/dL Normal 32.5-35.6 [facility] Comment on above: Performed By: #### H H #### [address] Monocytes (Bld) [#/Vol] 0.5 10*3/uL Normal 0.0-0.8 [facility] Comment on above: Performed By: #### H H #### [address] [place] [address] [place] Monocytes/100 WBC (Bld) 4.4 % Normal . [facility] Comment on above: Performed By: #### H H #### [address] Neutrophils (Bld) [#/Vol] 8.9 10*3/uL High 1.8-7.7 [facility] Comment on above: Performed By: #### H H #### [address] Neutrophils/100 WBC (Bld) 85.5 % Normal . [facility] Comment on above: Performed By: #### H H #### [address] NRBC% 0.0 /100{WBC} Normal 0-0.5 [facility] Comment on above: Performed By: #### H H #### [address] Platelet mean volume (Bld) [Entitic vol] 8.9 fL Normal 6.6-10.1 [facility] Comment on above: Performed By: #### H H #### [address] Platelets (Bld) [#/Vol] 146 10*3/uL Low 150-450 [facility] Comment on above: Performed By: #### H H #### [address] RBC (Bld) [#/Vol] 3.04 10*6/uL Low 3.90-5.60 [facility] Comment on above: Performed By: #### H H #### [address] WBC (Bld) [#/Vol] 10.5 10*3/uL Normal 4.1-10.5 [facility] Comment on above: Performed By: #### H H #### [address] Basic Metabolic Panelon 09-1 Anion gap [Moles/Vol] 7.3 mmol/L Normal 6.0-15.0 [facility] Comment on above: Performed By: #### C WILBER, BMP #### [facility] [address] Calcium [Mass/Vol] 8.2 mg/dL Low 8.6-10.3 [facility] Comment on above: Performed By: #### C WILBER, BMP #### [facility] [address] Chloride [Moles/Vol] 111 mmol/L High 98-107 [facility] Comment on above: Performed By: #### C WILBER, BMP #### [facility] [address] CO2 [Moles/Vol] 26.2 mmol/L Normal 21.0-31.[address] [facility] Comment on above: Performed By: #### C WILBER, BMP #### [address] Creatinine [Mass/Vol] 1.54 mg/dL High 0.70-1.30 [facility] Comment on above: Performed By: #### C WILBER, BMP #### [place] [address] [place] Creatinine Clr Calc Pharmacy 35.07 [facility] Comment on above: Result Comment: PERF ORMED BY: [place] [address] PATHOLOGIST TRANSFORMER MECHANIC FEROZ DIEHL M.D. Performed By: #### C WILBER, BMP #### [facility] [address] [place] [address] [place] GFR/1.73 sq M.predicted MDRD (S/P/Bld) [Vol rate/Area] 43.931 mL/min/{1.73_m2} [facility] Comment on above: Performed By: #### C WILBER, BMP #### [facility] [address] [place] [address] [place] Glucose [Mass/Vol] 91 mg/dL Normal 70-100 [facility] Comment on above: Result Comment: [place] Glucose Reference Range is dependent on time and content of last meal. Glucose of more than 200 mg/dL in a nonstressed, ambulatory subject supports the diagnosis of Diabetes Mellitus. ADA recommended reference range Performed By: #### C BCNO, BMP #### [facility] [address] Potassium [Moles/Vol] 4.5 mmol/L Normal 3.5-5.1 [facility] Comment on above: Performed By: #### C BCNO, BMP #### [facility] [address] Sodium [Moles/Vol] 140 mmol/L Normal 136-145 [facility] Comment on above: Performed By: #### C BCNO, BMP #### [place] [address] [place] Urea nitrogen [Mass/Vol] 34 mg/dL High 7-25 [facility] Comment on above: Performed By: #### C BCNO, BMP #### [place] [address] [place] Hemoglobin and Hematocriton 04-09-2023 Hematocrit (Bld) [Volume fraction] 25.9 % Low 38.8-50.0 [facility] Comment on above: Result Comment: PERF ORMED BY: [place] [address] PATHOLOGIST TRANSFORMER MECHANIC FEROZ DIEHL M.D. Performed By: #### H H #### [address] Hemoglobin (Bld) [Mass/Vol] 8.4 g/dL Low 13.0-17.0 [facility] Comment on above: Performed By: #### H H #### [address] Hemogram CBC Without Diffon 04-09-2023 Erythrocyte distribution width (RBC) [Ratio] 17.3 % High 12.0-14.8 [facility] Comment on above: Performed By: #### C BCNO, BMP #### [facility] [address] Hematocrit (Bld) [Volume fraction] 22.7 % Low 38.8-50.0 [facility] Comment on above: Performed By: #### C BCNO, BMP #### [facility] [address] Hemoglobin (Bld) [Mass/Vol] 7.5 g/dL Low 13.0-17.0 [facility] Comment on above: Performed By: #### C BCSHAQUILLE, BMP #### [facility] [address] MCH (RBC) [Entitic mass] 26.1 pg Low 27.5-35.2 [facility] Comment on above: Performed By: #### C BCSHAQUILLE, BMP #### [facility] [address] MCV (RBC) [Entitic vol] 79.2 fL Low 83.5-101 [facility] Comment on above: Performed By: #### C WILBER, BMP #### [facility] [address] Mean Corpuscular HGB Conc 32.9 g/dL Normal 32.5-35.6 [facility] Comment on above: Performed By: #### C WILBER, BMP #### [address] Platelet mean volume (Bld) [Entitic vol] 9.0 fL Normal 6.6-10.1 [facility] Comment on above: Result Comment: PERF ORMED BY: [place] [address] PATHOLOGIST TRANSFORMER MECHANIC FEROZ DIEHL M.D. Performed By: #### C BCSHAQUILLE, BMP #### [facility] [address] Platelets (Bld) [#/Vol] 145 10*3/uL Low 150-450 [facility] Comment on above: Performed By: #### C BCSHAQUILLE, BMP #### [facility] [address] RBC (Bld) [#/Vol] 2.86 10*6/uL Low 3.90-5.60 [facility] Comment on above: Performed By: #### C BCNO, BMP #### [facility] [address] [place] [id number] [facility] WBC (Bld) [#/Vol] 9.9 10*3/uL Normal 4.1-10.5 [facility] Comment on above: Performed By: #### C BCNO, BMP #### [facility] [address] Naresh 04-09-2023 L Specimen: [id number] Received: 04/09/23 Status: BENITO Kyaw Num: [id number] Spec Type: Surgical Subm Dr: Sade Pinto MD Tissues: A GASTRIC FOR HP (GASTRIC HP) Procedures: HE/2, Gross/Micro L4, H PYLORI Age/ Patient Sex Location Account Attending Physician Feroz Koo 87/M 4P [id number] Vitaly Kennedy MD SPEC NUM: [id number] RECD: 04/09/23 STATUS: BENITO CARD NUM: [id number] JAZLYN: 04/09/23 DR: Sade Pinto MD ENTERED: 04/09/[address] [facility] [address]: SPEC TYPE: Surgical DEPT: S ORDERED: HE/2, Gross/Micro L4, H PYLORI ORDERED: HE/2, Gross/Micro L4, H PYLORI Pathological Diagnosis Stomach, biopsy: - 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 pylori (immunohistochemical staining) Clinical Information Gastric ulcer, rule out H. pylori Gross Description Received in formalin labeled with the patient's name, date of and gastric biopsies is one kramer tissue measuring 0.4 x 0.3 x 0.2 cm. Entirely submitted in one cassette labeled A1. Microscopic Description Two H E slides reviewed. The microscopic examination confirms the diagnosis. Specimen: [id number] Received: 04/09/23 Status: BENITO Card Num: [id number] Spec Type: Surgical Subm Dr: Sade Pinto MD Tissues: A GASTRIC FOR HP (GASTRIC HP) Procedures: HE/2, Gross/Micro L4, H PYLORI Patient: LarryFeroz Jeremy [id number] (Continued) Specimen: [id number] Received: 04/09/23 (Continued) Signed (signature on file) Porfirio Augustin MD 04/11/23 1434 Specimen: [id number] Received: 04/09/23 Status: BENITO Card Num: [id number] Spec Type: Surgical Subm Dr: Sade Pinto MD Tissues: A GASTRIC FOR HP (GASTRIC HP) Procedures: HE/2, Gross/Micro L4, H PYLORI Patient: SharleneFeroz kern [id number] (Continued) Specimen: [id number] Received: 04/09/23 (Continued) CPT Codes 69306 Specimen: [id number] Received: 04/09/23 Status: BENITO Card Num: [id number] Spec Type: Surgical Subm Dr: Sade Pinto MD Tissues: A GASTRIC FOR HP (GASTRIC HP) Procedures: HE/2, Gross/Micro L4, H PYLORI Patient: Feroz Koo [id number] (Continued) Signed (signature on file) Porfirio Augustin MD 04/11/23 1434 Normal [facility] Complete Blood Count Auto Di ffon 04-08-2023 Basophils (Bld) [#/Vol] 0.0 10*3/uL Normal 0.0-0.2 [facility] Comment on above: Result Comment: PERF ORMED BY: [place] [address] PATHOLOGIST TRANSFORMER MECHANIC FEROZ DIEHL M.D. Performed By: #### H H #### [address] Basophils/100 WBC (Bld) 0.5 % Normal . [facility] Comment on above: Performed By: #### H H #### [address] Eosinophils (Bld) [#/Vol] 0.1 10*3/uL Normal 0.0-0.45 [facility] Comment on above: Performed By: #### H H #### [address] Eosinophils/100 WBC (Bld) 1.0 % Normal . [facility] Comment on above: Performed By: #### H H #### [address] Erythrocyte distribution width (RBC) [Ratio] 15.9 % High 12.0-14.8 [facility] Comment on above: Performed By: #### H H #### [place] [address] [place] Lymphocytes (Bld) [#/Vol] 1.7 10*3/uL Normal 1.00-4.8 [facility] Comment on above: Performed By: #### H H #### [address] Lymphocytes/100 WBC (Bld) 16.6 % Normal . [facility] Comment on above: Performed By: #### H H #### [address] MCH (RBC) [Entitic mass] 26.5 pg Low 27.5-35.2 [facility] Comment on above: Performed By: #### H H #### [address] MCV (RBC) [Entitic vol] 81.8 fL Low 83.5-101 [facility] Comment on above: Performed By: #### H H #### [address] Mean Corpuscular HGB Conc 32.4 g/dL Low 32.5-35.6 [facility] Comment on above: Performed By: #### H H #### [address] Monocytes (Bld) [#/Vol] 0.5 10*3/uL Normal 0.0-0.8 [facility] Comment on above: Performed By: #### H H #### [address] Monocytes/100 WBC (Bld) 4.7 % Normal . [facility] Comment on above: Performed By: #### H H #### [address] Neutrophils (Bld) [#/Vol] 7.8 10*3/uL High 1.8-7.7 [facility] Comment on above: Performed By: #### H H #### [address] Neutrophils/100 WBC (Bld) 77.2 % Normal . [facility] Comment on above: Performed By: #### H H #### [address] NRBC% 0.3 /100{WBC} Normal 0-0.5 [facility] Comment on above: Performed By: #### H H #### [address] Platelet mean volume (Bld) [Entitic vol] 9.4 fL Normal 6.6-10.1 [facility] Comment on above: Performed By: #### H H #### [address] Platelets (Bld) [#/Vol] 173 10*3/uL Normal 150-450 [facility] Comment on above: Performed By: #### H H #### [address] RBC (Bld) [#/Vol] 2.98 10*6/uL Low 3.90-5.60 [facility] Comment on above: Performed By: #### H H #### [address] WBC (Bld) [#/Vol] 10.1 10*3/uL Normal 4.1-10.5 [facility] Comment on above: Performed By: #### H H #### [address] Comprehensive Metabolic Pane naresh 04-08-2023 Albumin [Mass/Vol] 3.1 g/dL Low 3.5-5.7 [facility] Comment on above: Performed By: #### H H #### [address] Albumin/Globulin [Mass ratio] 1.5 {ratio} Normal [facility] Comment on above: Performed By: #### H H #### [address] ALP [Catalytic activity/Vol] 41 U/L Normal 34-104 [facility] Comment on above: Performed By: #### H H #### [facility] [address] [place] [address] ALT [Catalytic activity/Vol] 5 U/L Low 7-52 [facility] Comment on above: Performed By: #### H H #### [address] Anion gap [Moles/Vol] 10.0 mmol/L Normal 6.0-15.0 [facility] Comment on above: Performed By: #### H H #### [facility] [address] [place] [address] AST [Catalytic activity/Vol] 10 U/L Low 13-39 [facility] Comment on above: Performed By: #### H H #### [address] Bilirubin [Mass/Vol] 0.4 mg/dL Normal 0.3-1.0 [facility] Comment on above: Performed By: #### H H #### [address] Calcium [Mass/Vol] 8.5 mg/dL Low 8.6-10.3 [facility] Comment on above: Performed By: #### H H #### [facility] [address] [place] [address] Chloride [Moles/Vol] 113 mmol/L High 98-107 [facility] Comment on above: Performed By: #### H H #### [facility] [address] [place] [address] CO2 [Moles/Vol] 23.1 mmol/L Normal 21.0-31.[address] [facility] Comment on above: Performed By: #### H H #### [facility] [address] [place] [address] Creatinine [Mass/Vol] 1.56 mg/dL High 0.70-1.30 [facility] Comment on above: Performed By: #### H H #### [facility] [address] [place] [address] Creatinine Clr Calc Pharmacy 34.62 [facility] Comment on above: Performed By: #### H H #### [place] [address] [place] GFR/1.73 sq M.predicted MDRD (S/P/Bld) [Vol rate/Area] 43.256 mL/min/{1.73_m2} [facility] Comment on above: Performed By: #### H H #### [place] [address] [place] Globulin (S) [Mass/Vol] 2.1 g/dL [facility] Comment on above: Performed By: #### H H #### [address] Glucose [Mass/Vol] 93 mg/dL Normal 70-100 [facility] Comment on above: Result Comment: [facility] Glucose Reference Range is dependent on time and content of last meal. Glucose of more than 200 mg/dL in a nonstressed, ambulatory subject supports the diagnosis of Diabetes Mellitus. ADA recommended reference range Performed By: #### H H #### [address] Potassium [Moles/Vol] 4.1 mmol/L Normal 3.5-5.1 [facility] Comment on above: Performed By: #### H H #### [address] Protein [Mass/Vol] 5.2 g/dL Low 6.4-8.9 [facility] Comment on above: Performed By: #### H H #### [place] [address] [place] Sodium [Moles/Vol] 142 mmol/L Normal 136-145 [facility] Comment on above: Performed By: #### H H #### [place] [address] [place] Urea nitrogen [Mass/Vol] 47 mg/dL High 7-25 [facility] Comment on above: Performed By: #### H H #### [place] [address] [place] Dipstick and Microscopicon 0 9-10-2023 Appearance (U) Clear Normal Clear [facility] Comment on above: Order Comment: Name Collection Type:: Voided Performed By: #### H H #### [address] Bacteria,Urine None Seen Normal None Seen [facility] Comment on above: Order Comment: Name Collection Type:: Voided Performed By: #### H H #### [place] [address] [place] Bilirubin,Urine Negative Normal Negative [facility] Comment on above: Order Comment: Name Collection Type:: Voided Performed By: #### H H #### [address] Color (U) Yellow Normal Yellow [facility] Comment on above: Order Comment: Name Collection Type:: Voided Performed By: #### H H #### [address] Glucose Ql (U) Normal Normal Normal [facility] Comment on above: Order Comment: Name Collection Type:: Voided Performed By: #### H H #### [address] Hyaline Casts,Urine None Seen Normal 0-8 [facility] Comment on above: Order Comment: Name Collection Type:: Voided Result Comment: PERF ORMED BY: [address] [address] PATHOLOGIST TRANSFORMER MECHANIC FEROZ DIEHL M.D. Performed By: #### H H #### [place] [address] [place] Ketones Ql (U) Negative Normal Negative [facility] Comment on above: Order Comment: Name Collection Type:: Voided Performed By: #### H H #### [address] Leukocyte esterase Test strip Ql (U) 1+ High Negative [facility] Comment on above: Order Comment: Name Collection Type:: Voided Performed By: #### H H #### [address] Nitrite,Urine Negative Normal Negative [facility] Comment on above: Order Comment: Name Collection Type:: Voided Performed By: #### H H #### [address] Occult Blood,Urine Negative Normal Negative [facility] Comment on above: Order Comment: Name Collection Type:: Voided Result Comment: PERF ORMED BY: [place] [address] PATHOLOGIST TRANSFORMER MECHANIC FEROZ DIEHL M.D. Performed By: #### H H #### [address] pH (U) 5.0 [pH] Normal 5.0-9.0 [facility] Comment on above: Order Comment: Name Collection Type:: Voided Performed By: #### H H #### [address] Protein,Urine Negative Normal Negative [facility] Comment on above: Order Comment: Name Collection Type:: Voided Performed By: #### H H #### [address] RBC,Urine None Seen Normal 0-4 [facility] Comment on above: Order Comment: Name Collection Type:: Voided Performed By: #### H H #### [address] Specificy [place],Urine 1.016 Normal 1.001-1.030 [facility] Comment on above: Order Comment: Name Collection Type:: Voided Performed By: #### H H #### [address] Squamous Epithelial Cell,Urine None Seen Normal 0-2 [facility] Comment on above: Order Comment: Name Collection Type:: Voided Performed By: #### H H #### [address] Urobilinogen,Urine Normal Normal Normal [facility] Comment on above: Order Comment: Name Collection Type:: Voided Performed By: #### H H #### [address] WBC LM.HPF (Urine sed) [#/Area] 0 /[HPF] Normal 0-4 [facility] Comment on above: Order Comment: Name Collection Type:: Voided Performed By: #### H H #### [address] Hemoglobin and Hematocriton 04-08-2023 Hematocrit (Bld) [Volume fraction] 25.0 % Low 38.8-50.0 [facility] Comment on above: Result Comment: PERF ORMED BY: [place] [address] PATHOLOGIST TRANSFORMER MECHANIC FEROZ DIEHL M.D. Performed By: #### H H #### [address] Hemoglobin (Bld) [Mass/Vol] 8.2 g/dL Low 13.0-17.0 [facility] Comment on above: Performed By: #### H H #### [address] Hematocrit (Bld) [Volume fraction] 22.3 % Low 38.8-50.0 [facility] Comment on above: Result Comment: PERF ORMED BY: [place] [address] PATHOLOGIST TRANSFORMER MECHANIC FEROZ DIEHL M.D. Performed By: #### H H #### [address] Hemoglobin (Bld) [Mass/Vol] 7.4 g/dL Low 13.0-17.0 [facility] Comment on above: Performed By: #### H H #### [address] Hematocrit (Bld) [Volume fraction] 24.3 % Low 38.8-50.0 [facility] Comment on above: Result Comment: PERF ORMED BY: [address] [address] PATHOLOGIST TRANSFORMER MECHANIC FEROZ DIEHL M.D. Performed By: #### H H #### [facility] [address] Hemoglobin (Bld) [Mass/Vol] 7.9 g/dL Low 13.0-17.0 [facility] Comment on above: Performed By: #### H H #### [address] Hematocrit (Bld) [Volume fraction] 24.4 % Low 38.8-50.0 [facility] Comment on above: Result Comment: PERF ORMED BY: [place] [address] PATHOLOGIST TRANSFORMER MECHANIC FEROZ DIEHL M.D. Performed By: #### H H #### [address] Hemoglobin (Bld) [Mass/Vol] 7.8 g/dL Low 13.0-17.0 [facility] Comment on above: Performed By: #### H H #### [address] Magnesiumon 04-08-2023 Magnesium [Mass/Vol] 1.6 mg/dL Low 1.9-2.7 [facility] Comment on above: Result Comment: PERF ORMED BY: [place] [address] PATHOLOGIST TRANSFORMER MECHANIC FEROZ DIEHL M.D. Performed By: #### H H #### [address] Prothrombin Time INRon 04-08 INR Coag (PPP) [Relative time] 1.1 {INR} Normal [facility] Comment on above: Result Comment: INR Therapeutic Range A) Pre- and Peroperative OAT started two weeks before surgery. NOT HIP SURGERY: 1.5 - 2.5 HIP SURGERY: 2 - 3 B) Primary and secondary prevention of venous THROMBOSIS: 2 - 3 C) Active venous thrombosis, pulmonary embolism and prevention of recurrent venous thrombosis: 2 - 3 D) Prevention of arterial thromboembolism including patients with mechanical heart valves: 3 - 4.5 PERFORMED BY: [place] [address] PATHOLOGIST TRANSFORMER MECHANIC FEROZ DIEHL M.D. Performed By: #### H H #### [address] PT Coag (PPP) [Time] 13.2 s High 9.0-12.9 [facility] Comment on above: Result Comment: A he matocrit value greater than 55% may lead to inaccurate results in coagulation testing. Patients having hematocrit values >55% require a special collection tube for coagulation studies. Please contact the laboratory at [phone] for redraw instructions. Performed By: #### H H #### [address] ABO/Rh Retypeon 04-07-2023 ABO/RH Recheck Result Positive Normal [facility] Comment on above: Result Comment: PERF ORMED BY: [place] [address] PATHOLOGIST TRANSFORMER MECHANIC FEROZ DIEHL M.D. Complete Blood Count Auto Di ffon 04-07-2023 Basophils (Bld) [#/Vol] 0.0 10*3/uL Normal 0.0-0.2 [facility] Comment on above: Result Comment: PERF ORMED BY: [place] [address] PATHOLOGIST TRANSFORMER MECHANIC FEROZ DIEHL M.D. Performed By: #### C BC, CMP #### [place] [address] [place] Basophils/100 WBC (Bld) 0.1 % Normal . [facility] Comment on above: Performed By: #### C BC, CMP #### [address] Eosinophils (Bld) [#/Vol] 0.0 10*3/uL Normal 0.0-0.45 [facility] Comment on above: Performed By: #### C BC, CMP #### [facility] [address] Eosinophils/100 WBC (Bld) 0.1 % Normal . [facility] Comment on above: Performed By: #### C BC, CMP #### [facility] [address] Erythrocyte distribution width (RBC) [Ratio] 16.1 % High 12.0-14.8 [facility] Comment on above: Performed By: #### C BC, CMP #### [facility] [address] Hematocrit (Bld) [Volume fraction] 26.6 % Low 38.8-50.0 [facility] Comment on above: Performed By: #### C BC, CMP #### [address] Hemoglobin (Bld) [Mass/Vol] 8.6 g/dL Low 13.0-17.0 [facility] Comment on above: Performed By: #### C BC, CMP #### [address] Lymphocytes (Bld) [#/Vol] 1.1 10*3/uL Normal 1.00-4.8 [facility] Comment on above: Performed By: #### C BC, CMP #### [address] Lymphocytes/100 WBC (Bld) 9.8 % Normal . [facility] Comment on above: Performed By: #### C BC, CMP #### [place] [address] [place] MCH (RBC) [Entitic mass] 26.3 pg Low 27.5-35.2 [facility] Comment on above: Performed By: #### C BC, CMP #### [address] MCV (RBC) [Entitic vol] 81.8 fL Low 83.5-101 [facility] Comment on above: Performed By: #### C BC, CMP #### [address] Mean Corpuscular HGB Conc 32.2 g/dL Low 32.5-35.6 [facility] Comment on above: Performed By: #### C BC, CMP #### [address] Monocytes (Bld) [#/Vol] 0.5 10*3/uL Normal 0.0-0.8 [facility] Comment on above: Performed By: #### C BC, CMP #### [address] Monocytes/100 WBC (Bld) 4.3 % Normal . [facility] Comment on above: Performed By: #### C BC, CMP #### [address] Neutrophils (Bld) [#/Vol] 9.7 10*3/uL High 1.8-7.7 [facility] Comment on above: Performed By: #### C BC, CMP #### [address] Neutrophils/100 WBC (Bld) 85.7 % Normal . [facility] Comment on above: Performed By: #### C BC, CMP #### [address] NRBC% 0.1 /100{WBC} Normal 0-0.5 [facility] Comment on above: Performed By: #### C BC, CMP #### [address] Platelet mean volume (Bld) [Entitic vol] 9.4 fL Normal 6.6-10.1 [facility] Comment on above: Performed By: #### C BC, CMP #### [address] Platelets (Bld) [#/Vol] 184 10*3/uL Normal 150-450 [facility] Comment on above: Performed By: #### C BC, CMP #### [place] [address] [place] RBC (Bld) [#/Vol] 3.25 10*6/uL Low 3.90-5.60 [facility] Comment on above: Performed By: #### C BC, CMP #### [facility] [address] WBC (Bld) [#/Vol] 11.3 10*3/uL High 4.1-10.5 [facility] Comment on above: Performed By: #### C BC, CMP #### [facility] [address] Comprehensive Metabolic Pane naresh 04-07-2023 Albumin [Mass/Vol] 3.2 g/dL Low 3.5-5.7 [facility] Comment on above: Performed By: #### C BC, CMP #### [address] Albumin/Globulin [Mass ratio] 1.5 {ratio} Normal [facility] Comment on above: Performed By: #### C BC, CMP #### [address] ALP [Catalytic activity/Vol] 43 U/L Normal 34-104 [facility] Comment on above: Performed By: #### C BC, CMP #### [address] ALT [Catalytic activity/Vol] 5 U/L Low 7-52 [facility] Comment on above: Performed By: #### C BC, CMP #### [address] Anion gap [Moles/Vol] 12.0 mmol/L Normal 6.0-15.0 [facility] Comment on above: Performed By: #### C BC, CMP #### [address] AST [Catalytic activity/Vol] 10 U/L Low 13-39 [facility] Comment on above: Performed By: #### C BC, CMP #### [address] Bilirubin [Mass/Vol] 0.4 mg/dL Normal 0.3-1.0 [facility] Comment on above: Performed By: #### C BC, CMP #### [facility] [address] Calcium [Mass/Vol] 8.2 mg/dL Low 8.6-10.3 [facility] Comment on above: Performed By: #### C BC, CMP #### [facility] [address] Chloride [Moles/Vol] 110 mmol/L High 98-107 [facility] Comment on above: Performed By: #### C BC, CMP #### [facility] [address] CO2 [Moles/Vol] 21.0 mmol/L Normal 21.0-31.[address] [facility] Comment on above: Performed By: #### C BC, CMP #### [facility] [address] Creatinine [Mass/Vol] 1.52 mg/dL High 0.70-1.30 [facility] Comment on above: Performed By: #### C BC, CMP #### [facility] [address] Creatinine Clr Calc Pharmacy 35.53 [facility] Comment on above: Result Comment: PERF ORMED BY: [place] [address] PATHOLOGIST TRANSFORMER MECHANIC FEROZ DIEHL M.D. Performed By: #### C BC, CMP #### [facility] [address] GFR/1.73 sq M.predicted MDRD (S/P/Bld) [Vol rate/Area] 44.626 mL/min/{1.73_m2} [facility] Comment on above: Performed By: #### C BC, CMP #### [facility] [address] Globulin (S) [Mass/Vol] 2.1 g/dL [facility] Comment on above: Performed By: #### C BC, CMP #### [facility] [address] [place] [address] [place] Glucose [Mass/Vol] 106 mg/dL High 70-100 [facility] Comment on above: Result Comment: [place] Glucose Reference Range is dependent on time and content of last meal. Glucose of more than 200 mg/dL in a nonstressed, ambulatory subject supports the diagnosis of Diabetes Mellitus. ADA recommended reference range Performed By: #### C BC, CMP #### [facility] [address] Potassium [Moles/Vol] 4.0 mmol/L Normal 3.5-5.1 [facility] Comment on above: Performed By: #### C BC, CMP #### [facility] [address] Protein [Mass/Vol] 5.3 g/dL Low 6.4-8.9 [facility] Comment on above: Performed By: #### C BC, CMP #### [facility] [address] Sodium [Moles/Vol] 139 mmol/L Normal 136-145 [facility] Comment on above: Performed By: #### C BC, CMP #### [facility] [address] [place] [id number] [place] Urea nitrogen [Mass/Vol] 55 mg/dL High 7-25 [facility] Comment on above: Performed By: #### C BC, CMP #### [facility] [address] [place] [address] [place] LeukoReduced RBCon 3 LeukoReduced RBC TRANSFUSED 04/08/23 1406 [facility] Type and Screenon 04-07-2023 ABO and Rh group Nom (Bld) Blood group O Rh(D) positive [facility] Comment on above: Order Comment: Trans fuse now? Y Number of units to transfuse now? 1 INSULINon 04-19-2022 Insulin 8.1 uIU/mL Normal 2.6-24.9 [facility] Comment on above: Performed By: #### C MP, TSH, BNP, LIPID, T7 #### [facility] [address] [place], [place] [address] Dr. Juan Hill PSA, FREE AND TOTAL RATIOon 04-19-2022 % Free PSA 25.1 % Normal [facility] Comment on above: Result Comment: The table below lists the probability of prostate cancer for men with non-suspicious DEISI results and total PSA between 4 and 10 ng/mL, by patient age (Promise et al, HELEN 1998, 279:1542). % Free PSA 50-64 yr 65-75 yr 0.00-10.00% 56% 55% 10.01-15.00% 24% 35% 15.01-20.00% 17% 23% 20.01-25.00% 10% 20% >25.00% 5% 9% Please note: Promise et al did not make specific recommendations regarding the use of percent free PSA for any other population of men. Performed By: #### C MP, TSH, BNP, LIPID, T7 #### [facility] [address] [place] [address] [address] uJan Hill Prostate specific Ag [Mass/Vol] 10.1 ng/mL Critically high 0.0-4.0 [facility] Comment on above: Result Comment: Sharda montenegro ECLIA methodology. . According to the [place] [employer], Serum PSA should decrease and remain at undetectable levels after radical prostatectomy. The AUA defines biochemical recurrence as an initial PSA value 0.2 ng/mL or greater followed by a subsequent confirmatory PSA value 0.2 ng/mL or greater. Values obtained with different assay methods or kits cannot be used interchangeably. Results cannot be interpreted as absolute evidence of the presence or absence of malignant disease. Performed By: #### C MP, TSH, BNP, LIPID, T7 #### [facility] [address] [place], [place] [address] Dr. Juan Hill PSA, Free 2.54 ng/mL Normal N/A [facility] Comment on above: Result Comment: Roch lan ECLIA methodology. Performed By: #### C MP, TSH, BNP, LIPID, T7 #### [facility] [address] [place] [id number] Juan Hill T4, T3U, FTI LABCORPon 04-19 Free Thyroxine Index 1.4 Normal 1.2-4.9 [facility] Comment on above: Performed By: #### C MP, TSH, BNP, LIPID, T7 #### [facility] [address] [place] [address] Dr. Juan Hill T3 Uptake 28 % Normal 24-39 [facility] Comment on above: Performed By: #### C MP, TSH, BNP, LIPID, T7 #### [facility] [address] [place] [address] Dr. Juan Hill T4 [Mass/Vol] 5.1 ug/dL Normal 4.5-12.0 [facility] Comment on above: Performed By: #### C MP, TSH, BNP, LIPID, T7 #### [facility] [address] [place] [address] Dr. Juan Hill BNPon 04-18-2022 Natriuretic peptide B (Bld) [Mass/Vol] 360.0 pg/mL Normal <=1,800.0 [facility] Comment on above: Performed By: #### U SUSANNAH, CMP, LIPID, TSH, BNP #### [facility] [address] [place] [address] Dr. Juan Hill CBC AUTO DIFFon 04-18-2022 BASO # 0.1 103/ul Normal 0.0-0.1 [facility] Comment on above: Performed By: #### C MP, TSH, BNP, LIPID, T7 #### [facility] [address] [place] [address] Dr. Juan Hill Basophils/100 WBC (Bld) 0.9 % Normal 0.2-2.0 [facility] Comment on above: Performed By: #### C MP, TSH, BNP, LIPID, T7 #### [facility] [address] [place] [address] Dr. Juan Hill EO # 0.2 103/ul Normal 0.0-0.7 [facility] Comment on above: Performed By: #### C MP, TSH, BNP, LIPID, T7 #### [facility] [address] [place] [address] Dr. Juan Hill Eosinophils/100 WBC (Bld) 3.0 % Normal 0.9-7.0 [facility] Comment on above: Performed By: #### C MP, TSH, BNP, LIPID, T7 #### [facility] [address] [place] [address] Dr. Juan Hill Erythrocyte distribution width (RBC) [Ratio] 15.7 % Critically high 11.0-15.0 [facility] Comment on above: Performed By: #### C MP, TSH, BNP, LIPID, T7 #### [facility] [address] [place] [address] Dr. Juan Hill Hematocrit (Bld) [Volume fraction] 40.4 % Critically low 42.0-54.0 [facility] Comment on above: Performed By: #### C MP, TSH, BNP, LIPID, T7 #### [facility] [address] [place] [address] Dr. Juan Hill Hemoglobin (Bld) [Mass/Vol] 12.4 g/dL Critically low 14.0-18.0 [facility] Comment on above: Performed By: #### C MP, TSH, BNP, LIPID, T7 #### [facility] [address] [place] [address] Dr. Juan Hill IG # 0.02 10e3/ul Normal 0.00-0.03 [facility] Comment on above: Performed By: #### C MP, TSH, BNP, LIPID, T7 #### [facility] [address] [place] [address] Dr. Juan Hill IG % 0.3 % Normal 0.0-0.5 [facility] Comment on above: Performed By: #### C MP, TSH, BNP, LIPID, T7 #### [facility] [address] [place] [address] Dr. Juan Hill LYMPH # 1.2 103/ul Normal 1.2-3.8 [facility] Comment on above: Performed By: #### C MP, TSH, BNP, LIPID, T7 #### [facility] [address] [place] [address] Dr. Juan Hill Lymphocytes/100 WBC (Bld) 15.6 % Critically low 20.5-60.0 [facility] Comment on above: Performed By: #### C MP, TSH, BNP, LIPID, T7 #### [facility] [address] [place] [address] Dr. Juan Hill MANUAL DIFF REQ NO Normal [facility] Comment on above: Performed By: #### C MP, TSH, BNP, LIPID, T7 #### [facility] [address] [place] [address] Dr. Juan Hill MCH (RBC) [Entitic mass] 27.3 pg Normal 25.9-34.0 [facility] Comment on above: Performed By: #### C MP, TSH, BNP, LIPID, T7 #### [facility] [address] [place] [address] Dr. Juan Hill MCHC (RBC) [Mass/Vol] 30.7 g/dL Normal 29.9-35.2 [facility] Comment on above: Performed By: #### C MP, TSH, BNP, LIPID, T7 #### [facility] [address] [place] [address] Dr. Juan Hill MCV (RBC) [Entitic vol] 89.0 fL Normal 80.0-94.0 [facility] Comment on above: Performed By: #### C MP, TSH, BNP, LIPID, T7 #### [facility] [address] [place] [address] Dr. Juan Hill MONO # 0.5 103/ul Normal 0.3-0.8 [facility] Comment on above: Performed By: #### C MP, TSH, BNP, LIPID, T7 #### [facility] [address] [place] [address] Dr. Juan Hill Monocytes/100 WBC (Bld) 6.2 % Normal 1.7-12.0 [facility] Comment on above: Performed By: #### C MP, TSH, BNP, LIPID, T7 #### [facility] [address] [place] [address] Dr. Juan Hill NEUT # 5.9 103/ul Normal 1.4-6.5 [facility] Comment on above: Performed By: #### C MP, TSH, BNP, LIPID, T7 #### [facility] [address] [place] [address] [address] Juan Hill Neutrophils/100 WBC (Bld) 74.0 % Normal 43.0-75.0 [facility] Comment on above: Performed By: #### C MP, TSH, BNP, LIPID, T7 #### [facility] [address] [place] [address] [address] Juan Hill Platelet mean volume (Bld) [Entitic vol] 12.1 fL Normal 9.5-13.5 [facility] Comment on above: Performed By: #### C MP, TSH, BNP, LIPID, T7 #### [facility] [address] [place] [address] Dr. Juan Hill PLT 180 103/ul Normal 150-450 [facility] Comment on above: Performed By: #### C MP, TSH, BNP, LIPID, T7 #### [facility] [address] [place] [address] Dr. Juan Hill RBC 4.54 106/ul Critically low 4.70-6.10 [facility] Comment on above: Performed By: #### C MP, TSH, BNP, LIPID, T7 #### [facility] [address] [place] [address] Dr. Juan Hill WBC 8.0 103/ul Normal 4.0-11.0 [facility] Comment on above: Performed By: #### C MP, TSH, BNP, LIPID, T7 #### [facility] [address] [place] [address] Dr. Juan Hill GLYCOHEMOGLOBIN A1Con 2021 ADA RECOMMENDATION SEE BELOW Normal [facility] Comment on above: Result Comment: ADA RECOMMENDED LIMIT 4.0 - 6.0 ADA THERAPEUTIC TARGET < 7.0 ACTION SUGGESTED > 7.0 Performed By: #### C MP, TSH, BNP, LIPID, T7 #### [facility] [address] [place] [address] Dr. Juan Hill Glucose [Mass/Vol] 100 mg/dL Normal [facility] Comment on above: Performed By: #### C MP, TSH, BNP, LIPID, T7 #### [facility] [address] [place] [address] [address] Juan Hill HbA1c (Bld) [Mass fraction] 5.1 % Normal 4.5-6.2 [facility] Comment on above: Performed By: #### C MP, TSH, BNP, LIPID, T7 #### [facility] [address] [address] [address] Juan Hill LIPID PROFILEon 04-18-2022 CHOL-HDL RATIO NORM SEE BELOW Normal [facility] Comment on above: Result Comment: 3.3 - 4.4 LOW RISK 4.4 - 7.1 AVERAGE RISK 7.1 - 11.0 MODERATE RISK >11.0 HIGH RISK Performed By: #### U SUSANNAH, CMP, LIPID, TSH, BNP #### [facility] [address] [place] [address] Dr. Juan Hill Cholesterol [Mass/Vol] 166 mg/dL Normal <=200 [facility] Comment on above: Performed By: #### U SUSANNAH, CMP, LIPID, TSH, BNP #### [facility] [address] [place] [address] Dr. Juan Hill Cholesterol in HDL [Mass/Vol] 46 mg/dL Normal 40-60 [facility] Comment on above: Performed By: #### U SUSANNAH, CMP, LIPID, TSH, BNP #### [facility] [address] [place] [address] Dr. Juan Hill Cholesterol in LDL [Mass/Vol] 90.6 mg/dL Normal [facility] Comment on above: Performed By: #### U SUSANNAH, CMP, LIPID, TSH, BNP #### [facility] [address] [place] [address] Dr. Juan Hill Cholesterol.total/Cho lesterol in HDL [Mass ratio] 3.6 {ratio} Normal [facility] Comment on above: Performed By: #### U SUSANNAH, CMP, LIPID, TSH, BNP #### [facility] [address] [place] [address] Dr. Juan Hill HDL NORMAL > or = 60 mg/dl - LOW CARDIOVASCULAR RISK <40 mg/dl - HIGH CARDIOVASCULAR RISK Normal [facility] Comment on above: Performed By: #### U SUSANNAH, CMP, LIPID, TSH, BNP #### [facility] [address] [address] [address] Juan Hill LDL CALC NORMAL SEE BELOW Normal [facility] Comment on above: Result Comment: <100 mg/dl OPTIMAL 100 - 129 mg/dl NEAR OR ABOVE OPTIMAL 130 - 159 mg/dl BORDERLINE HIGH 160 - 189 mg/dl HIGH >190 mg/dl VERY HIGH Performed By: #### U SUSANNAH, CMP, LIPID, TSH, BNP #### [facility] [address] [address] [address] Juan Hill Triglyceride [Mass/Vol] 147 mg/dL Normal <=150 [facility] Comment on above: Performed By: #### U SUSANNAH, CMP, LIPID, TSH, BNP #### [facility] [address] [address] [address] Juan Hill VLDL CALC 29.4 mg/dL Normal [facility] Comment on above: Performed By: #### U SUSANNAH, CMP, LIPID, TSH, BNP #### [facility] [address] [address] [address] Juan Hill PROF 14(COMP METB)on 022 Albumin [Mass/Vol] 4.0 g/dL Normal 3.4-5.0 [facility] Comment on above: Performed By: #### U SUSANNAH, CMP, LIPID, TSH, BNP #### [facility] [address] [address] [address] Juan Hill Albumin/Globulin [Mass ratio] 1.2 {ratio} Normal [facility] Comment on above: Performed By: #### U SUSANNAH, CMP, LIPID, TSH, BNP #### [facility] [address] [address] [address] Juan Hill ALP [Catalytic activity/Vol] 96 U/L Normal 46-116 [facility] Comment on above: Performed By: #### U SUSANNAH, CMP, LIPID, TSH, BNP #### [facility] [address] [address] [address] Juan Hill ALT [Catalytic activity/Vol] 11 U/L Critically low 16-63 [facility] Comment on above: Performed By: #### U SUSANNAH, CMP, LIPID, TSH, BNP #### [facility] [address] [address] [address] Juan Hill Anion gap [Moles/Vol] 11.9 mmol/L Normal [facility] Comment on above: Performed By: #### U SUSANNAH, CMP, LIPID, TSH, BNP #### [facility] [address] [address] [address] Juan Hill AST [Catalytic activity/Vol] 13 U/L Critically low 15-37 [facility] Comment on above: Performed By: #### U SUSANNAH, CMP, LIPID, TSH, BNP #### [facility] [address] [place] [address] Dr. Juan Hill Bilirubin [Mass/Vol] 0.7 mg/dL Normal 0.2-1.0 [facility] Comment on above: Performed By: #### U SUSANNAH, CMP, LIPID, TSH, BNP #### [facility] [address] [address] [address] Juan Hill Calcium [Mass/Vol] 9.2 mg/dL Normal 8.5-10.1 [facility] Comment on above: Performed By: #### U SUSANNAH, CMP, LIPID, TSH, BNP #### [facility] [address] [address] [address] Juan Hill Chloride [Moles/Vol] 108 mmol/L Critically high 98-107 [facility] Comment on above: Performed By: #### U SUSANNAH, CMP, LIPID, TSH, BNP #### [facility] [address] [address] [address] Juan Hill CO2 [Moles/Vol] 26.5 mmol/L Normal 21.0-32.0 [facility] Comment on above: Performed By: #### U SUSANNAH, CMP, LIPID, TSH, BNP #### [facility] [address] [place] [address] Dr. Juan Hill Creatinine [Mass/Vol] 2.38 mg/dL Critically high 0.70-1.30 [facility] Comment on above: Performed By: #### U SUSANNAH, CMP, LIPID, TSH, BNP #### [facility] [address] [address] [address] Juan Hill EGFR-AF ENGLISH 32 mL/min/1.73m2 Critically low >=60 [facility] Comment on above: Performed By: #### U SUSANNAH, CMP, LIPID, TSH, BNP #### [facility] [address] [address] [address] Juan Hill EGFR-NON AF ENGLISH 26 mL/min/1.73m2 Critically low >=60 [facility] Comment on above: Performed By: #### U SUSANNAH, CMP, LIPID, TSH, BNP #### [facility] [address] [address] [address] Juan Hill Globulin (S) [Mass/Vol] 3.4 g/dL Normal [facility] Comment on above: Performed By: #### U SUSANNAH, CMP, LIPID, TSH, BNP #### [facility] [address] [address] [address] Juan Hill Glucose [Mass/Vol] 98 mg/dL Normal 74-106 [facility] Comment on above: Performed By: #### U SUSANNAH, CMP, LIPID, TSH, BNP #### [facility] [address] [address] [address] Juan Hill Potassium [Moles/Vol] 4.4 mmol/L Normal 3.5-5.1 [facility] Comment on above: Performed By: #### U SUSANNAH, CMP, LIPID, TSH, BNP #### [facility] [address] [address] [address] Juan Hill Protein [Mass/Vol] 7.4 g/dL Normal 6.4-8.2 [facility] Comment on above: Performed By: #### U SUSANNAH, CMP, LIPID, TSH, BNP #### [facility] [address] [address] [address] Juan Hill Sodium [Moles/Vol] 142 mmol/L Normal 136-145 [facility] Comment on above: Performed By: #### U SUSANNAH, CMP, LIPID, TSH, BNP #### [facility] [address] [place] [address] Dr. Juan Hill Urea nitrogen [Mass/Vol] 36.0 mg/dL Critically high 7.0-18.0 [facility] Comment on above: Performed By: #### U SUSANNAH, CMP, LIPID, TSH, BNP #### [facility] [address] [place] [address] Dr. Juan Hill Urea nitrogen/Creatinine [Mass ratio] 15.1 mg/mg Normal [facility] Comment on above: Performed By: #### U SUSANNAH, CMP, LIPID, TSH, BNP #### [facility] [address] [place] [address] Dr. Juan Hill TSHon 04-18-2022 TSH 1.492 uIU/mL Normal 0.358-3.740 [facility] Comment on above: Performed By: #### U SUSANNAH, CMP, LIPID, TSH, BNP #### [facility] [address] [place] [address] Dr. Juan Hill URIC ACID SERUMon 04-18-2022 Urate [Mass/Vol] 9.2 mg/dL Critically high 3.5-7.2 [facility] Comment on above: Performed By: #### C MP, TSH, BNP, LIPID, T7 #### [facility] [address] [place] [address] Dr. Juan Hill VITAMIN D 25 OHon 04-18-2022 VIT D 25-OH 42.8 ng/mL Normal [facility] Comment on above: Performed By: #### V ITAD #### [facility] [address] [place] [address] Dr. Juan Hill VIT D RANGES SEE BELOW Normal [facility] Comment on above: Result Comment: <20 ng/mL Vit D deficient 20 - <30 ng/mL Vit D insufficient 30 - 100 ng/mL Vit D sufficient >100 ng/mL Potential Toxicity Performed By: #### V ITAD #### [facility] [address] [place] [address] Dr. Juan Hill PSA, FREE AND TOTAL RATIOon 06-03-2021 % Free PSA 28.1 % Normal [facility] Comment on above: Result Comment: The table below lists the probability of prostate cancer for men with non-suspicious DEISI results and total PSA between 4 and 10 ng/mL, by patient age (Promise et al, HELEN 1998, 279:1542). % Free PSA 50-64 yr 65-75 yr 0.00-10.00% 56% 55% 10.01-15.00% 24% 35% 15.01-20.00% 17% 23% 20.01-25.00% 10% 20% >25.00% 5% 9% Please note: Promise et al did not make specific recommendations regarding the use of percent free PSA for any other population of men. Performed By: #### C MP, TSH, BNP, LIPID, T7 #### [facility] [address] [address] [address] Juan Hill Prostate specific Ag [Mass/Vol] 9.1 ng/mL Critically high 0.0-4.0 [facility] Comment on above: Result Comment: Roch e ECLIA methodology. . According to the [employer] [employer], Serum PSA should decrease and remain at undetectable levels after radical prostatectomy. The AUA defines biochemical recurrence as an initial PSA value 0.2 ng/mL or greater followed by a subsequent confirmatory PSA value 0.2 ng/mL or greater. Values obtained with different assay methods or kits cannot be used interchangeably. Results cannot be interpreted as absolute evidence of the presence or absence of malignant disease. Performed By: #### C MP, TSH, BNP, LIPID, T7 #### [facility] [address] [address] [address] Juan Hill PSA, Free 2.56 ng/mL Normal N/A [facility] Comment on above: Result Comment: Roch e ECLIA methodology. Performed By: #### C MP, TSH, BNP, LIPID, T7 #### [facility] [address] [address] [address] Juan Hill INSULINon 06-02-2021 Insulin 9.6 uIU/mL Normal 2.6-24.9 [facility] Comment on above: Performed By: #### C MP, TSH, BNP, LIPID, T7 #### [facility] [address] [address] [address] Juan Hill BNPon 06-01-2021 Natriuretic peptide B (Bld) [Mass/Vol] 269.0 pg/mL Normal <=1,800.0 [facility] Comment on above: Performed By: #### C MP, TSH, BNP, LIPID, T7 #### [facility] [address] [place] [address] Dr. Juan Hill CBC AUTO DIFFon 06-01-2021 BASO # 0.1 103/ul Normal 0.0-0.1 [facility] Comment on above: Performed By: #### C MP, TSH, BNP, LIPID, T7 #### [facility] [address] [place] [address] Dr. Juan Hill Basophils/100 WBC (Bld) 0.7 % Normal 0.2-2.0 [facility] Comment on above: Performed By: #### C MP, TSH, BNP, LIPID, T7 #### [facility] [address] [place] [address] Dr. Juan Hill EO # 0.2 103/ul Normal 0.0-0.7 [facility] Comment on above: Performed By: #### C MP, TSH, BNP, LIPID, T7 #### [facility] [address] [place] [address] Dr. Juan Hill Eosinophils/100 WBC (Bld) 2.0 % Normal 0.9-7.0 [facility] Comment on above: Performed By: #### C MP, TSH, BNP, LIPID, T7 #### [facility] [address] [place] [address] Dr. Juan Hill Erythrocyte distribution width (RBC) [Ratio] 14.7 % Normal 11.0-15.0 [facility] Comment on above: Performed By: #### C MP, TSH, BNP, LIPID, T7 #### [facility] [address] [place] [address] Dr. Juan Hill Hematocrit (Bld) [Volume fraction] 43.9 % Normal 42.0-54.0 [facility] Comment on above: Performed By: #### C MP, TSH, BNP, LIPID, T7 #### [facility] [address] [place] [address] Dr. Juan Hill Hemoglobin (Bld) [Mass/Vol] 13.6 g/dL Critically low 14.0-18.0 [facility] Comment on above: Performed By: #### C MP, TSH, BNP, LIPID, T7 #### [facility] [address] [place] [address] Dr. Juan Hill IG # 0.01 10e3/ul Normal 0.00-0.03 [facility] Comment on above: Performed By: #### C MP, TSH, BNP, LIPID, T7 #### [facility] [address] [place] [address] Dr. Juan Hill IG % 0.1 % Normal 0.0-0.5 [facility] Comment on above: Performed By: #### C MP, TSH, BNP, LIPID, T7 #### [facility] [address] [place] [address] Dr. Juan Hill LYMPH # 1.1 103/ul Critically low 1.2-3.8 [facility] Comment on above: Performed By: #### C MP, TSH, BNP, LIPID, T7 #### [facility] [address] [place] [address] Dr. Juan Hill Lymphocytes/100 WBC (Bld) 14.9 % Critically low 20.5-60.0 [facility] Comment on above: Performed By: #### C MP, TSH, BNP, LIPID, T7 #### [facility] [address] [place] [address] Dr. Juan Hill MANUAL DIFF REQ NO Normal [facility] Comment on above: Performed By: #### C MP, TSH, BNP, LIPID, T7 #### [facility] [address] [place] [address] Dr. Juan Hill MCH (RBC) [Entitic mass] 28.0 pg Normal 25.9-34.0 [facility] Comment on above: Performed By: #### C MP, TSH, BNP, LIPID, T7 #### [facility] [address] [place] [address] Dr. Juan Hill MCHC (RBC) [Mass/Vol] 31.0 g/dL Normal 29.9-35.2 [facility] Comment on above: Performed By: #### C MP, TSH, BNP, LIPID, T7 #### [facility] [address] [place] [address] Dr. Juan Hill MCV (RBC) [Entitic vol] 90.5 fL Normal 80.0-94.0 [facility] Comment on above: Performed By: #### C MP, TSH, BNP, LIPID, T7 #### [facility] [address] [place] [address] Dr. Juan Hill MONO # 0.4 103/ul Normal 0.3-0.8 [facility] Comment on above: Performed By: #### C MP, TSH, BNP, LIPID, T7 #### [facility] [address] [place] [address] Dr. Juan Hill Monocytes/100 WBC (Bld) 6.0 % Normal 1.7-12.0 [facility] Comment on above: Performed By: #### C MP, TSH, BNP, LIPID, T7 #### [facility] [address] [place] [address] Dr. Juan Hill NEUT # 5.6 103/ul Normal 1.4-6.5 [facility] Comment on above: Performed By: #### C MP, TSH, BNP, LIPID, T7 #### [facility] [address] [place] [address] Dr. Juan Hill Neutrophils/100 WBC (Bld) 76.3 % Critically high 43.0-75.0 [facility] Comment on above: Performed By: #### C MP, TSH, BNP, LIPID, T7 #### [facility] [address] [place] [address] Dr. Juan Hill Platelet mean volume (Bld) [Entitic vol] 11.6 fL Normal 9.5-13.5 [facility] Comment on above: Performed By: #### C MP, TSH, BNP, LIPID, T7 #### [facility] [address] [place] [address] Dr. Juan Hill PLT 163 103/ul Normal 150-450 [facility] Comment on above: Performed By: #### C MP, TSH, BNP, LIPID, T7 #### [facility] [address] [place] [address] Dr. Juan Hill RBC 4.85 106/ul Normal 4.70-6.10 [facility] Comment on above: Performed By: #### C MP, TSH, BNP, LIPID, T7 #### [facility] [address] [place] [address] Dr. Juan Hill WBC 7.4 103/ul Normal 4.0-11.0 [facility] Comment on above: Performed By: #### C MP, TSH, BNP, LIPID, T7 #### [facility] [address] [place] [address] Dr. Juan Hill FREE THYROXINE INDEX T7on FTI 1.72 Normal [facility] Comment on above: Performed By: #### C MP, TSH, BNP, LIPID, T7 #### [facility] [address] [place] [address] Dr. Juan Hill T3U 33.0 % Normal 23.5-40.5 [facility] Comment on above: Performed By: #### C MP, TSH, BNP, LIPID, T7 #### [facility] [address] [place] [address] Dr. Juan Hill T4 [Mass/Vol] 5.20 ug/dL Critically low 5.53-11.00 [facility] Comment on above: Performed By: #### C MP, TSH, BNP, LIPID, T7 #### [facility] [address] [place] [address] Dr. Juan Hill GLYCOHEMOGLOBIN A1Con 2020 ADA RECOMMENDATION ADA THERAPEUTIC TARGET 6.0 - 7.0 ACTION SUGGESTED > 7.0 Normal [facility] Comment on above: Performed By: #### C MP, TSH, BNP, LIPID, T7 #### [facility] [address] [address] [address] Juan Hill Glucose [Mass/Vol] 100 mg/dL Normal [facility] Comment on above: Performed By: #### C MP, TSH, BNP, LIPID, T7 #### [facility] [address] [address] [address] Juan Hill HbA1c (Bld) [Mass fraction] 5.1 % Normal <=6.0 [facility] Comment on above: Performed By: #### C MP, TSH, BNP, LIPID, T7 #### [facility] [address] [address] [address] Juan Hill IRONon 06-01-2021 Iron [Mass/Vol] 81.0 ug/dL Normal 49.0-181.0 [facility] Comment on above: Performed By: #### C MP, TSH, BNP, LIPID, T7 #### [facility] [address] [address] [address] Juan Hill LIPID PROFILEon 06-01-2021 CHOL-HDL RATIO NORM SEE BELOW Normal [facility] Comment on above: Result Comment: 3.3 - 4.4 LOW RISK 4.4 - 7.1 AVERAGE RISK 7.1 - 11.0 MODERATE RISK >11.0 HIGH RISK Performed By: #### C MP, TSH, BNP, LIPID, T7 #### [facility] [address] [address] [address] Juan Hill Cholesterol [Mass/Vol] 187 mg/dL Normal <=200 [facility] Comment on above: Performed By: #### C MP, TSH, BNP, LIPID, T7 #### [facility] [address] [address] [address] Juan iHll Cholesterol in HDL [Mass/Vol] 48 mg/dL Normal [facility] Comment on above: Performed By: #### C MP, TSH, BNP, LIPID, T7 #### [facility] [address] [address] [address] Juan Hill Cholesterol in LDL [Mass/Vol] 110.6 mg/dL Normal [facility] Comment on above: Performed By: #### C MP, TSH, BNP, LIPID, T7 #### [facility] [address] [address] [address] Juan Hill Cholesterol.total/Cho lesterol in HDL [Mass ratio] 3.9 {ratio} Normal [facility] Comment on above: Performed By: #### C MP, TSH, BNP, LIPID, T7 #### [facility] [address] [address] [address] Juan Hill HDL NORMAL > or = 60 mg/dl - LOW CARDIOVASCULAR RISK <40 mg/dl - HIGH CARDIOVASCULAR RISK Normal [facility] Comment on above: Performed By: #### C MP, TSH, BNP, LIPID, T7 #### [facility] [address] [address] [address] Juan Hill LDL CALC NORMAL SEE BELOW Normal [facility] Comment on above: Result Comment: <100 mg/dl OPTIMAL 100 - 129 mg/dl NEAR OR ABOVE OPTIMAL 130 - 159 mg/dl BORDERLINE HIGH 160 - 189 mg/dl HIGH >190 mg/dl VERY HIGH Performed By: #### C MP, TSH, BNP, LIPID, T7 #### [facility] [address] [address] [address] Juan Hill Triglyceride [Mass/Vol] 142 mg/dL Normal <=150 [facility] Comment on above: Performed By: #### C MP, TSH, BNP, LIPID, T7 #### [facility] [address] [address] [address] Juan Hill VLDL CALC 28.4 mg/dL Normal [facility] Comment on above: Performed By: #### C MP, TSH, BNP, LIPID, T7 #### [facility] [address] [address] [address] Juan Hill PROF 14(COMP METB)on 021 Albumin [Mass/Vol] 4.0 g/dL Normal 3.5-5.0 [facility] Comment on above: Performed By: #### C MP, TSH, BNP, LIPID, T7 #### [facility] [address] [address] [address] Juan Hill Albumin/Globulin [Mass ratio] 1.1 {ratio} Normal [facility] Comment on above: Performed By: #### C MP, TSH, BNP, LIPID, T7 #### [facility] [address] [place] [address] Dr. Juan Hill ALP [Catalytic activity/Vol] 99 U/L Normal 38-126 [facility] Comment on above: Performed By: #### C MP, TSH, BNP, LIPID, T7 #### [facility] [address] [place] [address] Dr. Juan Hill ALT [Catalytic activity/Vol] 11 U/L Critically low 21-72 [facility] Comment on above: Performed By: #### C MP, TSH, BNP, LIPID, T7 #### [facility] [address] [place] [address] Dr. Juan Hill Anion gap [Moles/Vol] 10.8 mmol/L Normal [facility] Comment on above: Performed By: #### C MP, TSH, BNP, LIPID, T7 #### [facility] [address] [place] [address] Dr. Juan Hill AST [Catalytic activity/Vol] 12 U/L Critically low 17-59 [facility] Comment on above: Performed By: #### C MP, TSH, BNP, LIPID, T7 #### [facility] [address] [place] [address] Dr. Juan Hill Bilirubin [Mass/Vol] 0.6 mg/dL Normal 0.2-1.3 [facility] Comment on above: Performed By: #### C MP, TSH, BNP, LIPID, T7 #### [facility] [address] [place] [address] Dr. Juan Hill Calcium [Mass/Vol] 9.4 mg/dL Normal 8.4-10.2 [facility] Comment on above: Performed By: #### C MP, TSH, BNP, LIPID, T7 #### [facility] [address] [place] [address] Dr. Juan Hill Chloride [Moles/Vol] 104 mmol/L Normal 98-107 [facility] Comment on above: Performed By: #### C MP, TSH, BNP, LIPID, T7 #### [facility] [address] [address] [address] Juan Hill CO2 [Moles/Vol] 29.2 mmol/L Normal 22.0-30.0 [facility] Comment on above: Performed By: #### C MP, TSH, BNP, LIPID, T7 #### [facility] [address] [place] [address] Dr. Juan Hill Creatinine [Mass/Vol] 2.04 mg/dL Critically high 0.66-1.25 [facility] Comment on above: Performed By: #### C MP, TSH, BNP, LIPID, T7 #### [facility] [address] [place] [address] Dr. Juan Hill EGFR-AF ENGLISH 38 mL/min/1.73m2 Critically low >=60 [facility] Comment on above: Performed By: #### C MP, TSH, BNP, LIPID, T7 #### [facility] [address] [place] [address] Dr. Juan Hill EGFR-NON AF ENGLISH 31 mL/min/1.73m2 Critically low >=60 [facility] Comment on above: Performed By: #### C MP, TSH, BNP, LIPID, T7 #### [facility] [address] [place] [address] Dr. Juan Hill Globulin (S) [Mass/Vol] 3.7 g/dL Normal [facility] Comment on above: Performed By: #### C MP, TSH, BNP, LIPID, T7 #### [facility] [address] [place] [address] Dr. Juan Hill Glucose [Mass/Vol] 98 mg/dL Normal 74-106 [facility] Comment on above: Performed By: #### C MP, TSH, BNP, LIPID, T7 #### [facility] [address] [place] [address] Dr. Juan Hill Potassium [Moles/Vol] 5.0 mmol/L Normal 3.4-5.0 [facility] Comment on above: Performed By: #### C MP, TSH, BNP, LIPID, T7 #### [facility] [address] [place] [address] Dr. Juan Hill Protein [Mass/Vol] 7.7 g/dL Normal 6.1-8.2 [facility] Comment on above: Performed By: #### C MP, TSH, BNP, LIPID, T7 #### [facility] [address] [place] [address] Dr. Juan Hill Sodium [Moles/Vol] 139 mmol/L Normal 137-145 [facility] Comment on above: Performed By: #### C MP, TSH, BNP, LIPID, T7 #### [facility] [address] [place] [address] Dr. Juan Hill Urea nitrogen [Mass/Vol] 26.0 mg/dL Critically high 9.0-20.0 [facility] Comment on above: Performed By: #### C MP, TSH, BNP, LIPID, T7 #### [facility] [address] [place] [address] Dr. Juan Hill Urea nitrogen/Creatinine [Mass ratio] 12.7 mg/mg Normal [facility] Comment on above: Performed By: #### C MP, TSH, BNP, LIPID, T7 #### [facility] [address] [place] [address] Dr. Juan Hill TSHon 06-01-2021 TSH 2.986 uIU/mL Normal 0.470-4.680 [facility] Comment on above: Performed By: #### C MP, TSH, BNP, LIPID, T7 #### [facility] [address] [place] [address] Dr. Juan Hill TSH RANGE SEE BELOW Normal [facility] Comment on above: Result Comment: <0.3 4 UIU/ml HYPERTHYROID 0.34-5.60 UIU/ml EUTHYROID >5.60 UIU/ml HYPOTHYROID Performed By: #### C MP, TSH, BNP, LIPID, T7 #### [facility] [address] [place] [address] Dr. Juan Hill VITAMIN D 25 OHon 06-01-2021 VIT D 25-OH 43.8 ng/mL Normal [facility] Comment on above: Performed By: #### C MP, TSH, BNP, LIPID, T7 #### [facility] [address], [place] [address] Dr. Juan Hill VIT D RANGES SEE BELOW Normal [facility] Comment on above: Result Comment: <20 ng/mL Vit D deficient 20 - <30 ng/mL Vit D insufficient 30 - 100 ng/mL Vit D sufficient >100 ng/mL Potential Toxicity Performed By: #### C MP, TSH, BNP, LIPID, T7 #### [facility] [address], [place] [address] Dr. Juan Hill Encounters Encounter Date Encounter Type Care Provider Facility Start: 10-09-2023 End: 10-09-2023 Evaluation and management of inpatient [facility] Start: 10-08-2023 End: 10-08-2023 ambulatory [facility] Pat Phone Call Provider 1 [facility] - Pre Admit Start: 10-08-2023 End: 10-08-2023 ambulatory SHILA FABIAN [facility] Start: 09-04-2023 End: 09-04-2023 ambulatory [facility] Start: 05-01-2023 ambulatory MONICA-Musa Ambrocio acility:[facility] [place] Start: 04-07-2023 End: 04-10-2023 Evaluation and management of inpatient Shila Fabian Facility:[facility] Start: 04-18-2022 End: 04-19-[address] SHILA FABIAN Facility:[facility] Start: 06-01-2021 End: 06-02-[address] SHILA FBAIAN Facility:[facility] Procedures Date Procedure Procedure Detail Performing Clinician Start: 09-04-2023 Follow-up visit Follow-up CHAO Jacques CAMMY Start: 04-07-2023 Antibody screen Shila Fabian Comment on above: Order Comment: Trans fuse now? Y Number of units to transfuse now? 1 Result Comment: PERF ORMED BY: [facility] [address] [place] [place] [address] PATHOLOGIST TRANSFORMER MECHANIC FEROZ DIEHL M.D. Start: 06-01-[address] LÓPEZ FABIAN Comment on above: Performed By: #### C MP, TSH, BNP, LIPID, T7 #### [facility] [address] [place] [address] Dr. Juan Hill Plan of Treatment Date Care Activity Detail Author Start: 10-08-2024 Tobacco Screening Tobacco Screening [facility] Start: 09-04-2024 Adult BMI Screening Adult BMI Screening [facility] Start: 03-30-2023 COVID-19 Vaccine () COVID-19 Vaccine ( season) [facility] Start: 03-30-2023 Influenza vaccination Influenza Vaccine [facility] Start: 2002 Fall Risk Screening Fall Risk Screening [facility] Start: 12-25-1987 Administration of varicella zoster vaccine Zoster (Shingles) Vaccine (1 of 2) [facility] Start: 1956 DTaP,Tdap and Td Vaccines (1 - Tdap) DTaP,Tdap and Td Vaccines (1 - Tdap) [facility] Start: 12-25-1955 Adult BMI Follow Up Plan Adult BMI Follow Up Plan [facility] Start: 1949 Depression Screening Depression Screening [facility] Start: 1935 Medicare Annual Wellness Visit Medicare Annual Wellness Visit [facility] Immunizations Immunization Date Immunization Notes Care Provider Fa wilder 09-16-2020 COVID-19, mRNA, LNP- S, PF, 100mcg/0.5mL Dose Pmh 1 [facility] 08-20-2020 COVID-19, mRNA, LNP- S, PF, 100mcg/0.5mL Dose P[facility] 1 [facility] 06-18-2020 influenza virus vacc ine, unspecified formulation Pmh 1 [facility] Payers Date Payer Category Payer Medicare [id number] 2023 Self-pay 2021 Medicare A[employer]NA MEDICARE A ETNA MEDICARE PLAN (PPO) [id number] 2021-Present [phone] [address] [place] [address] [id number] 1959 Medicare [id number] 1959 Medicare [id number] 1935 Unknown [id number] 1935 Unknown [id number] 1937 Unknown [id number] 1937 Unknown [id number] 1937 Unknown [id number] 1937 Unknown [id number] Unknown [id number] Social History Date Type Detail Facility Start: 04-20-2023 Tobacco smoking stat [facility] Ex-smoker [facility] History of tobacco use Current smoker [facility] Start: 04-20-2023 Tobacco use and exposure Smoke less tobacco non-user [facility] Start: 09-04-2023 Alcohol intake Current non-dr brick setter of alcohol (finding) [facility] Start: 07-05-2018 End: 08-19-2020 History of Social function [facility] Start: 07-05-2018 End: 08-19-2020 Alcohol Use Disorder Identification Test - Consumption [AUDIT-C] [facility] Frequency of Alcohol Consumption Never [facility] Start: 1935 Sex Assigned At Not on file P [facility] Note 10-08-2023 Perioperative Nursing Note - Amanda Corbin RN - 10/08/2023 3:40 PM EDT Note Date & Type Note Facility 10-08-2023 Miscellaneous Notes Formattin g of this note is different from the original. Preoperative Education Checklist- General Surgery date: 10/10/23 Surgery time: 1030 Arrival time: 929 1. Bring a photo ID and your insurance card with you the day of surgery. You will check in at the main lobby at the registration desk near the [facility]. 2. If you have a Living Will/Durable Power of Screw Machine Operator Single Spindle for Health Care that is not on file here, please bring a copy the day of surgery. 3. Please shower/tub bath the night before surgery or morning of. 4. NO powder, lotion, perfume/cologne, aftershave, make-up, nail english, deodorant, or hair products after you have bathed. 5. Avoid ALL Aspirin and non-steroidal anti-inflammatory drugs (Ibuprofen, Advil, Aleve, Excedrin, Meloxicam, etc.) for 7 days prior to surgery OR as instructed by your surgeon. Tylenol IS ALLOWED. If you are on Ticlid, Xarelto, Eliquis, Pradaxa, Plavix, or Coumadin, please check with your prescribing doctor for instructions for when to stop them. 6. Refrain from smoking or any type of tobacco use for at least 8 hours prior to arrival for your surgery. Pre-Surgery Instructions: Medication Instructions clopidogreL (PLAVIX) 75 mg tablet Check with prescribing doctor for instructions ibuprofen (ADVIL,MOTRIN) 600 mg tablet Check with prescribing doctor for instructions metoprolol tartrate (LOPRESSOR) 25 mg tablet Check with prescribing doctor for instructions pantoprazole (PROTONIX) 40 mg EC tablet Check with prescribing doctor for instructions simvastatin (ZOCOR) 20 mg tablet Check with prescribing doctor for instructions tamsulosin (FLOMAX) 0.4 mg capsule Check with prescribing doctor for instructions documented in this encounter [facility] Nurse Note 10-08-2023 Perioperative Nursing Note - Amanda Corbin RN - 10/08/2023 3:40 PM EDT Note Date & Type Note Facility 10-08-2023 Nurse Note Preoperative Education Checklist- General Surgery date: 10/10/23 Surgery time: 1030 Arrival time: 929 1. Bring a photo ID and your insurance card with you the day of surgery. You will check in at the main lobby at the registration desk near the [facility]. 2. If you have a Living Will/Durable Power of Screw Machine Operator Single Spindle for Health Care that is not on file here, please bring a copy the day of surgery. 3. Please shower/tub bath the night before surgery or morning of. 4. NO powder, lotion, perfume/cologne, aftershave, make-up, nail english, deodorant, or hair products after you have bathed. 5. Avoid ALL Aspirin and non-steroidal anti-inflammatory drugs (Ibuprofen, Advil, Aleve, Excedrin, Meloxicam, etc.) for 7 days prior to surgery OR as instructed by your surgeon. Tylenol IS ALLOWED. If you are on Ticlid, Xarelto, Eliquis, Pradaxa, Plavix, or Coumadin, please check with your prescribing doctor for instructions for when to stop them. 6. Refrain from smoking or any type of tobacco use for at least 8 hours prior to arrival for your surgery. Pre-Surgery Instructions: Medication Instructions clopidogreL (PLAVIX) 75 mg tablet Check with prescribing doctor for instructions ibuprofen (ADVIL,MOTRIN) 600 mg tablet Check with prescribing doctor for instructions metoprolol tartrate (LOPRESSOR) 25 mg tablet Check with prescribing doctor for instructions pantoprazole (PROTONIX) 40 mg EC tablet Check with prescribing doctor for instructions simvastatin (ZOCOR) 20 mg tablet Check with prescribing doctor for instructions tamsulosin (FLOMAX) 0.4 mg capsule Check with prescribing doctor for instructions [facility] Instructions Note Date & Type Note Facility Instructions Not on filedocumented in this en counter [facility] Summary Purpose Family History No Family History Records FoundNo Family History Records FoundNo Family History Records FoundNo Family History Records FoundNo Family History Records Found Advance Directives No Advanced Directives Records FoundDocuments on File Type Date Recorded Patient Social Worker Health Services Expl anation Durable Power of Screw Machine Operator Single Spindle 04/23/2023 9:17 AM [facility] / [facility] 08/12/12 Living Will 04/23/2023 9:15 AM [facility] / [facility] 1/14/13 Additional Source Comments (unrecognized sect ion and content) No Status Records FoundNo Status Records FoundNo Status Records FoundNo Status Records FoundNo Status Records Found INFORMATION SOURCE (unrecogn ized section and content) DATE CREATED AUTHOR 04/30/2022 [facility] DATE CREATED AUTHOR AUTHOR'S ORGANIZ ATION 04/19/2023 Puga Syed [facility] DATE CREATED AUTHOR AUTHOR'S ORGANIZ ATION 04/20/2023 [facility] DATE CREATED AUTHOR AUTHOR'S ORGANIZ ATION 09/10/2023 [facility] DATE CREATED AUTHOR AUTHOR'S ORGANIZ ATION 10/10/2023 [facility] Care Teams (unrecognized sec tion and content) Testing Analyst Relationship Specialty Start Date End Date Shila Fabian MD [address] [place] [address] PCP - General 07/05/18 FOR RECORDS PERTAINING TO PATIENTS WHO ARE OR HAVE BEEN ENROLLED IN A CHEMICAL DEPENDENCY/SUBSTANCEABUSE PROGRAM, SOME INFORMATION MAY BE OMITTED. This clinical summary was aggregated from multiple sources. Caution should be exercised in using it in the provision of clinical care. This summary normalizes information from multiple sources, and as a consequence, information in this document may materially change the coding, format and clinical context of patient data. In addition, data may be omitted in some cases. CLINICAL DECISIONS SHOULD BE BASED ON THE PRIMARY CLINICAL RECORDS. [facility] [employer] [facility]. provides no warranty or guarantee of the accuracy or completeness of information in this document.
--- NOTE | 2023-12-27 07:01 | XR_ITS ---
The [address] [address] Patient Name: GABY KOO MRN: [id number] date: 1935 Sex: M Assigned Patient Location: LAB Current Patient Location: LAB Accession/Order Number: [id number] Exam Date: 12/27/2023 06:55 Report Date: 12/27/2023 07:29 At the request of: SHILA CHERRY Procedure: XR chest 2V EXAMINATION: XR chest 2V HISTORY: Advanced Chronic Obstructive Pulmonary Disease J44.9 COMPARISON: 04/07/2023 TECHNIQUE: AP portable FINDINGS: LUNGS: No significant pulmonary parenchymal abnormalities. VASCULATURE: No increased pulmonary vasculature. PLEURA: No pneumothorax, effusion, or pleural thickening. CARDIAC: No cardiomegaly or cardiac silhouette abnormality. MEDIASTINUM: No visible mass or adenopathy. Median sternotomy wires BONES: No fracture or visible bone lesion. Remote healed right posterior rib fractures OTHER: Negative. XR/XR chest 2V IMPRESSION: No acute cardiopulmonary process Electronically authenticated by: ELODIA ALONZO Date: 12/27/2023 07:29
[2023-12-27 07:27] LABS: Alanine Aminotransferase 11 U/L (16-63); Albumin Globulin Ratio 0.9; Albumin Level 3.5 g/dL (3.4-5.0); Alkaline Phosphatase 114 U/L (46-116); Anion Gap 14.2; Aspartate Amino Transferase 15 U/L (15-37); BUN Creatinine Ratio 13.6; Bilirubin Total 0.7 mg/dL (0.2-1.0); Calcium 8.9 mg/dL (8.5-10.1); Chloride 107 mmol/L (98-107); Estimated GFR (African America 43 (>=60); Estimated GFR (Non-African Ame 35 (>=60); Globulin 3.8 g/dL; Glucose 101 mg/dL (74-106); Potassium 4.2 mmol/L (3.5-5.1); Sodium 143 mmol/L (136-145); Total Protein 7.3 g/dL (6.4-8.2)
[2023-12-27 07:38] LABS: Basophils Absolute Auto 0.1 10^3/uL (0.0-0.1); Basophils Percent Auto 0.8 % (0.2-2.0); Eosinophils Absolute Auto 0.2 10^3/uL (0.0-0.7); Eosinophils Percent Auto 1.9 % (0.9-7.0); Hematocrit 41.4 % (42.0-54.0); Hemoglobin 12.3 g/dL (14.0-18.0); Immature Granulocytes Abs Auto 0.02 10^3/uL (0.00-0.03); Immature Granulocytes Pct Auto 0.3 % (0.0-0.5); Lymphocytes Absolute Auto 1.4 10^3/uL (1.2-3.8); Mean Corpuscular HGB Conc 29.7 g/dL (29.9-35.2); Mean Corpuscular Hemoglobin 25.5 pg (25.9-34.0); Mean Corpuscular Volume 85.9 fL (80.0-94.0); Mean Platelet Volume 12.6 fL (9.5-13.5); Monocytes Absolute Auto 0.5 10^3/uL (0.3-0.8); Monocytes Percent Auto 5.8 % (1.7-12.0); Neutrophils Absolute Auto 5.7 10^3/uL (1.4-6.5); Neutrophils Percent Auto 73.2 % (43.0-75.0); Platelet Count 156 10^3/uL (150-450); Red Blood Count 4.82 10^6/uL (4.70-6.10); Red Cell Distribution Width 14.6 % (11.0-15.0); White Blood Count 7.7 10^3/uL (4.0-11.0)
== END 2023-12-27 06:35 | disposition home or self-care (01) ==
LOC: LAB 06:36
PROVIDERS: PCP Family Medicine; Visit Provider Family Medicine
DX: J44.9 Chronic obstructive pulmonary disease, unspecified (principal)
CPT/HCPCS: 36415; 71046; 80053; 83880; 85025

== ENCOUNTER 2024-01-01 09:44 | Outpatient (RCR) | payer MEDICARE, SELFPAY | END 2024-01-02 12:00 | disposition home or self-care (01) | LOC: PT 09:44 | PROVIDERS: PCP Family Medicine; Visit Provider Family Medicine | DX: R42 Dizziness and giddiness (principal) | CPT/HCPCS: 97140; 97162 ==

== ENCOUNTER 2024-05-19 07:36 | Outpatient (OUT) | payer MEDICARE, SELFPAY ==
--- OUTSIDE RECORDS SUMMARY | 2024-05-19 07:41 | XMS_ITS | CCD ---
Author Organization [facility] ion Partnership [facility] Care Team Providers Care Melangeur Operator Name Role Phone DR SHILA FABIAN Attending [...] Barnett Admitting Unavailable Asaad, Imad Consulting Unavailable CHAO CHAWLA Attending Unavailable SHILA FABIAN Referring Unavailable SHILA FABIAN Primary Care Unavailable Shila Fabian MD Primary Care Provider [phone] SHILA FABIAN Referring Unavailable SHILA FABIAN Primary Care Unavailable CHAO CHAWLA Admitting Unavailable CHAO CHAWLA Attending Unavailable CHAO CHAWLA Referring Unavailable SHILA FABIAN Primary Care Unavailable Allergies Allergy Classification Reported Allergen(s) Allergy Type Date of Onset Reaction(s) Facility (1 source) No Known Medication Allergies; Translations: [No Known Medication Allergies] Propensity to adverse reactions (disorder) [facility] Repository Medications Current Medications Medication Drug Class(es) [...] disease (1 source) Atherosclerotic heart disease of [place] coronary artery without angina pectoris; Translations: [Atherosclerotic heart disease of [place] coronary artery without angina pectoris] Onset: 3 [...] Onset: 3 Episodic Other aftercare (1 source) residential (current) use of non-steroidal anti-inflammatories (NSAID); Translations: [residential (current) use of non-steroidal anti-inflammatories (NSAID)] Onset: [...] 04-18-2023 Auth for Release of Medical Records [id number] 1.00CD:127 Normal [facility] Basic Metabolic Panelon 03-30 Anion gap [Moles/Vol] 9.8 mmol/L Normal 6.0-15.0 [facility] Comment on above: Performed By: #### H H #### [address] Calcium [Mass/Vol] 8.3 mg/dL Low 8.6-10.3 [facility] Comment on above: Performed By: #### H H #### [facility] [address] [place] [address] [place] Chloride [Moles/Vol] 108 mmol/L High 98-[address] [facility] Comment on above: Performed By: #### H H #### [facility] [address] CO2 [Moles/Vol] 26.2 mmol/L Normal 21.0-31.[address] [facility] Comment on above: Performed By: #### H H #### [address] Creatinine [Mass/Vol] 1.47 mg/dL High 0.70-1.30 [facility] Comment on above: Performed By: #### H H #### [address] Creatinine Clr Calc Pharmacy 36.74 [facility] Comment on above: Result Comment: PERF ORMED BY: [place] [address] PATHOLOGIST HUMAN RELATIONS MANAGER FEROZ DIEHL M.D. Performed By: #### H H #### [address] GFR/1.73 sq M.predicted MDRD (S/P/Bld) [Vol rate/Area] 46.453 mL/min/{1.73_m2} Normal [facility] Comment on above: Performed By: #### H H #### [address] Glucose [Mass/Vol] 96 mg/dL Normal 70-100 [facility] Comment on above: Result Comment: [place] om Glucose Reference Range is dependent on time and content of last meal. Glucose of more than 200 mg/dL in a nonstressed, ambulatory subject supports the diagnosis of Diabetes Mellitus. ADA recommended reference range Performed By: #### H H #### [place] [address] [place] Potassium [Moles/Vol] 4.0 mmol/L Normal 3.5-5.1 [facility] Comment on above: Performed By: #### H H #### [address] Sodium [Moles/Vol] 140 mmol/L Normal 136-145 [facility] Comment on above: Performed By: #### H H #### [address] Urea nitrogen [Mass/Vol] 21 mg/dL Normal 7-25 [facility] Comment on above: Performed By: #### H H #### [address] Complete Blood Count Auto Di ffon 04-10-2023 Basophils (Bld) [#/Vol] 0.1 10*3/uL Normal 0.0-0.2 [facility] Comment on above: Result Comment: PERF ORMED BY: [place] [address] PATHOLOGIST HUMAN RELATIONS MANAGER FEROZ DIEHL M.D. Performed By: #### H H #### [address] Basophils/100 WBC (Bld) 0.5 % Normal . [facility] Comment on above: Performed By: #### H H #### [address] Eosinophils (Bld) [#/Vol] 0.2 10*3/uL Normal 0.0-0.45 [facility] Comment on above: Performed By: #### H H #### [address] Eosinophils/100 WBC (Bld) 1.5 % Normal . [facility] Comment on above: Performed By: #### H H #### [address] Erythrocyte distribution width (RBC) [Ratio] 17.1 % High 12.0-14.8 [facility] Comment on above: Performed By: #### H H #### [place] [address] Hematocrit (Bld) [Volume fraction] 24.1 % Low 38.8-50.0 [facility] Comment on above: Performed By: #### H H #### [address] Hemoglobin (Bld) [Mass/Vol] 8.0 g/dL Low 13.0-17.0 [facility] Comment on above: Performed By: #### H H #### [address] Lymphocytes (Bld) [#/Vol] 0.8 10*3/uL Low 1.00-4.8 [facility] Comment on above: Performed By: #### H H #### [address] Lymphocytes/100 WBC (Bld) 8.1 % Normal . [facility] Comment on above: Performed By: #### H H #### [address] MCH (RBC) [Entitic mass] 26.3 pg Low 27.5-35.2 [facility] Comment on above: Performed By: #### H H #### [address] MCV (RBC) [Entitic vol] 79.4 fL Low 83.5-101 [facility] Comment on above: Performed By: #### H H #### [address] Mean Corpuscular HGB Conc 33.1 g/dL Normal 32.5-35.6 [facility] Comment on above: Performed By: #### H H #### [address] Monocytes (Bld) [#/Vol] 0.5 10*3/uL Normal 0.0-0.8 [facility] Comment on above: Performed By: #### H H #### [address] Monocytes/100 WBC (Bld) 4.4 % Normal . [facility] Comment on above: Performed By: #### H H #### [facility] [address] Neutrophils (Bld) [#/Vol] 8.9 10*3/uL High 1.8-7.7 [facility] Comment on above: Performed By: #### H H #### [facility] [address] Neutrophils/100 WBC (Bld) 85.5 % Normal . [facility] Comment on above: Performed By: #### H H #### [facility] [address] NRBC% 0.0 /100{WBC} Normal 0-0.5 [facility] Comment on above: Performed By: #### H H #### [address] Platelet mean volume (Bld) [Entitic vol] 8.9 fL Normal 6.6-10.1 [facility] Comment on above: Performed By: #### H H #### [address] Platelets (Bld) [#/Vol] 146 10*3/uL Low 150-450 [facility] Comment on above: Performed By: #### H H #### [address] RBC (Bld) [#/Vol] 3.04 10*6/uL Low 3.90-5.60 [facility] Comment on above: Performed By: #### H H #### [place] [address] [place] WBC (Bld) [#/Vol] 10.5 10*3/uL Normal 4.1-10.5 [facility] Comment on above: Performed By: #### H H #### [address] Basic Metabolic Panelon 03-30 Anion gap [Moles/Vol] 7.3 mmol/L Normal 6.0-15.0 [facility] Comment on above: Performed By: #### C BCNO, BMP #### [facility] [address] [place] [address] [place] Calcium [Mass/Vol] 8.2 mg/dL Low 8.6-10.3 [facility] Comment on above: Performed By: #### C BCNO, BMP #### [facility] [address] [place] [address] [place] Chloride [Moles/Vol] 111 mmol/L High 98-[address] [facility] Comment on above: Performed By: #### C BCNO, BMP #### [facility] [address] [place] [address] [place] CO2 [Moles/Vol] 26.2 mmol/L Normal 21.0-31.[address] [facility] Comment on above: Performed By: #### C BCSHAQUILLE, BMP #### [facility] [address] [place] [address] [place] Creatinine [Mass/Vol] 1.54 mg/dL High 0.70-1.30 [facility] Comment on above: Performed By: #### C BCSHAQUILLE, BMP #### [facility] [address] [place] [address] [place] Creatinine Clr Calc Pharmacy 35.07 [facility] Comment on above: Result Comment: PERF ORMED BY: [place] [address] PATHOLOGIST HUMAN RELATIONS MANAGER FEROZ DIEHL M.D. Performed By: #### C BCNO, BMP #### [facility] [address] [place] [address] [place] GFR/1.73 sq M.predicted MDRD (S/P/Bld) [Vol rate/Area] 43.931 mL/min/{1.73_m2} [facility] Comment on above: Performed By: #### C BCNO, BMP #### [facility] [address] [place] [address] [place] Glucose [Mass/Vol] 91 mg/dL Normal 70-100 [facility] Comment on above: Result Comment: [place] Glucose Reference Range is dependent on time and content of last meal. Glucose of more than 200 mg/dL in a nonstressed, ambulatory subject supports the diagnosis of Diabetes Mellitus. ADA recommended reference range Performed By: #### C WILBER, BMP #### [facility] [address] Potassium [Moles/Vol] 4.5 mmol/L Normal 3.5-5.1 [facility] Comment on above: Performed By: #### C WILBER, BMP #### [facility] [address] Sodium [Moles/Vol] 140 mmol/L Normal 136-145 [facility] Comment on above: Performed By: #### C WILBER, BMP #### [address] Urea nitrogen [Mass/Vol] 34 mg/dL High 7-25 [facility] Comment on above: Performed By: #### C WILBER, BMP #### [address] Hemoglobin and Hematocriton 04-09-2023 Hematocrit (Bld) [Volume fraction] 25.9 % Low 38.8-50.0 [facility] Comment on above: Result Comment: PERF ORMED BY: [place] [address] PATHOLOGIST HUMAN RELATIONS MANAGER FEROZ DIEHL M.D. Performed By: #### H H #### [address] Hemoglobin (Bld) [Mass/Vol] 8.4 g/dL Low 13.0-17.0 [facility] Comment on above: Performed By: #### H H #### [address] Hemogram CBC Without Diffon 04-09-2023 Erythrocyte distribution width (RBC) [Ratio] 17.3 % High 12.0-14.8 [facility] Comment on above: Performed By: #### C WILBER, BMP #### [address] [place] [address] [place] Hematocrit (Bld) [Volume fraction] 22.7 % Low 38.8-50.0 [facility] Comment on above: Performed By: #### C WILBER, BMP #### [address] Hemoglobin (Bld) [Mass/Vol] 7.5 g/dL Low 13.0-17.0 [facility] Comment on above: Performed By: #### C WILBER, BMP #### [address] MCH (RBC) [Entitic mass] 26.1 pg Low 27.5-35.2 [facility] Comment on above: Performed By: #### C WILBER, BMP #### [address] MCV (RBC) [Entitic vol] 79.2 fL Low 83.5-101 [facility] Comment on above: Performed By: #### C WILBER, BMP #### [address] Mean Corpuscular HGB Conc 32.9 g/dL Normal 32.5-35.6 [facility] Comment on above: Performed By: #### C WILBER, BMP #### [address] Platelet mean volume (Bld) [Entitic vol] 9.0 fL Normal 6.6-10.1 [facility] Comment on above: Result Comment: PERF ORMED BY: [place] [address] PATHOLOGIST HUMAN RELATIONS MANAGER FEROZ DIEHL M.D. Performed By: #### C WILBER, BMP #### [address] Platelets (Bld) [#/Vol] 145 10*3/uL Low 150-450 [facility] Comment on above: Performed By: #### C WILBER, BMP #### [address] RBC (Bld) [#/Vol] 2.86 10*6/uL Low 3.90-5.60 [facility] Comment on above: Performed By: #### C BCNO, BMP #### [facility] [address] WBC (Bld) [#/Vol] 9.9 10*3/uL Normal 4.1-10.5 [facility] Comment on above: Performed By: #### C BCNO, BMP #### [facility] [address] Naresh 04-09-2023 L Specimen: [id number] Received: 04/09/23 Status: BENITO Garciajose Num: [id number] Spec Type: Surgical Subm Dr: Sade Pinto MD Tissues: A GASTRIC FOR HP (GASTRIC HP) Procedures: HE/2, Gross/Micro L4, H PYLORI Age/ Patient Sex Location Account Attending Physician Batesole,Feroz D 87/M 4P [id number] Vitaly Kennedy MD SPEC NUM: [id number] RECD: 04/09/23 STATUS: RIDDHIAustin CARD NUM: [id number] JAZLYN: 04/09/23 DR: Sade Pinto MD ENTERED: 04/09/23 [facility] DR: SPEC TYPE: Surgical DEPT: [...] The microscopic examination confirms the diagnosis. Specimen: [id number] Received: 04/09/23 Status: BENITO Kyaw Num: [id number] Spec Type: Surgical Subm Dr: Sade Pinto MD Tissues: A GASTRIC FOR HP (GASTRIC HP) Procedures: HE/2, Gross/Micro L4, H PYLORI Patient: Feroz Koo [id number] (Continued) Specimen: [id number] Received: 04/09/23 (Continued) Signed (signature on file) Porfirio Augustin MD 04/11/23 1434 Specimen: [id number] Received: 04/09/23 Status: BENITO Card Num: [id number] Spec Type: Surgical Subm Dr: Sade Pinto MD Tissues: A GASTRIC FOR HP (GASTRIC HP) Procedures: HE/2, Gross/Micro L4, H PYLORI Patient: Feroz Koo [id number] (Continued) Specimen: [id number] Received: 04/09/23 (Continued) CPT Codes 77340 Specimen: [id number] Received: 04/09/23 Status: BENITO Card Num: [id number] Spec Type: Surgical Subm Dr: Sade Pinto MD Tissues: A GASTRIC FOR HP (GASTRIC HP) Procedures: HE/2, Gross/Micro L4, H PYLORI Patient: Feroz Koo [id number] (Continued) Signed (signature on file) Porfirio Augustin MD 04/11/23 1434 Normal [facility] Complete Blood Count Auto Di ffon 04-08-2023 Basophils (Bld) [#/Vol] 0.0 10*3/uL Normal 0.0-0.2 [facility] Comment on above: Result Comment: PERF ORMED BY: [place] [address] PATHOLOGIST HUMAN RELATIONS MANAGER FEROZ DEIHL M.D. Performed By: #### H H #### [address] Basophils/100 WBC (Bld) 0.5 % Normal . [facility] Comment on above: Performed By: #### H H #### [address] Eosinophils (Bld) [#/Vol] 0.1 10*3/uL Normal 0.0-0.45 [facility] Comment on above: Performed By: #### H H #### [address] Eosinophils/100 WBC (Bld) 1.0 % Normal . [facility] Comment on above: Performed By: #### H H #### [address] Erythrocyte distribution width (RBC) [Ratio] 15.9 % High 12.0-14.8 [facility] Comment on above: Performed By: #### H H #### [address] Lymphocytes (Bld) [#/Vol] 1.7 10*3/uL Normal 1.00-4.8 [facility] Comment on above: Performed By: #### H H #### [place] [address] [place] Lymphocytes/100 WBC (Bld) 16.6 % Normal . [facility] Comment on above: Performed By: #### H H #### [address] MCH (RBC) [Entitic mass] 26.5 pg Low 27.5-35.2 [facility] Comment on above: Performed By: #### H H #### [address] MCV (RBC) [Entitic vol] 81.8 fL Low 83.5-101 [facility] Comment on above: Performed By: #### H H #### [address] Mean Corpuscular HGB Conc 32.4 g/dL Low 32.5-35.6 [facility] Comment on above: Performed By: #### H H #### [place] [address] [place] Monocytes (Bld) [#/Vol] 0.5 10*3/uL Normal 0.0-0.8 [facility] Comment on above: Performed By: #### H H #### [address] Monocytes/100 WBC (Bld) 4.7 % Normal . [facility] Comment on above: Performed By: #### H H #### [address] Neutrophils (Bld) [#/Vol] 7.8 10*3/uL High 1.8-7.7 [facility] Comment on above: Performed By: #### H H #### [address] Neutrophils/100 WBC (Bld) 77.2 % Normal . [facility] Comment on above: Performed By: #### H H #### [place] [address] NRBC% 0.3 /100{WBC} Normal 0-0.5 [facility] Comment on above: Performed By: #### H H #### [address] Platelet mean volume (Bld) [Entitic vol] 9.4 fL Normal 6.6-10.1 [facility] Comment on above: Performed By: #### H H #### [address] Platelets (Bld) [#/Vol] 173 10*3/uL Normal 150-450 [facility] Comment on above: Performed By: #### H H #### [address] RBC (Bld) [#/Vol] 2.98 10*6/uL Low 3.90-5.60 [facility] Comment on above: Performed By: #### H H #### [address] WBC (Bld) [#/Vol] 10.1 10*3/uL Normal 4.1-10.5 [facility] Comment on above: Performed By: #### H H #### [address] Comprehensive Metabolic Pane naresh 04-08-2023 Albumin [Mass/Vol] 3.1 g/dL Low 3.5-5.7 [facility] Comment on above: Performed By: #### H H #### [address] Albumin/Globulin [Mass ratio] 1.5 {ratio} Normal [facility] Comment on above: Performed By: #### H H #### [address] ALP [Catalytic activity/Vol] 41 U/L Normal 34-104 [facility] Comment on above: Performed By: #### H H #### [address] ALT [Catalytic activity/Vol] 5 U/L Low 7-52 [facility] Comment on above: Performed By: #### H H #### [facility] [address] Anion gap [Moles/Vol] 10.0 mmol/L Normal 6.0-15.0 [facility] Comment on above: Performed By: #### H H #### [facility] [address] [place] [address] AST [Catalytic activity/Vol] 10 U/L Low 13-39 [facility] Comment on above: Performed By: #### H H #### [facility] [address] [place] [address] Bilirubin [Mass/Vol] 0.4 mg/dL Normal 0.3-1.[address] [facility] Comment on above: Performed By: #### H H #### [facility] [address] [place] [address] Calcium [Mass/Vol] 8.5 mg/dL Low 8.6-10.3 [facility] Comment on above: Performed By: #### H H #### [facility] [address] [place] [address] Chloride [Moles/Vol] 113 mmol/L High 98-[address] [facility] Comment on above: Performed By: #### H H #### [facility] [address] [place] [address] CO2 [Moles/Vol] 23.1 mmol/L Normal 21.0-31.[address] [facility] Comment on above: Performed By: #### H H #### [facility] [address] [place] [address] Creatinine [Mass/Vol] 1.56 mg/dL High 0.70-1.30 [facility] Comment on above: Performed By: #### H H #### [facility] [address] [place] [address] Creatinine Clr Calc Pharmacy 34.62 Normal [facility] Comment on above: Performed By: #### H H #### [place] [address] [place] GFR/1.73 sq M.predicted MDRD (S/P/Bld) [Vol rate/Area] 43.256 mL/min/{1.73_m2} Normal [facility] Comment on above: Performed By: #### H H #### [address] Globulin (S) [Mass/Vol] 2.1 g/dL Normal [facility] Comment on above: Performed By: #### H H #### [address] Glucose [Mass/Vol] 93 mg/dL Normal 70-100 [facility] Comment on above: Result Comment: [facility] Glucose Reference Range is dependent on time and content of last meal. Glucose of more than 200 mg/dL in a nonstressed, ambulatory subject supports the diagnosis of Diabetes Mellitus. ADA recommended reference range Performed By: #### H H #### [address] Potassium [Moles/Vol] 4.1 mmol/L Normal 3.5-5.1 [facility] Comment on above: Performed By: #### H H #### [address] Protein [Mass/Vol] 5.2 g/dL Low 6.4-8.9 [facility] Comment on above: Performed By: #### H H #### [address] Sodium [Moles/Vol] 142 mmol/L Normal 136-145 [facility] Comment on above: Performed By: #### H H #### [address] Urea nitrogen [Mass/Vol] 47 mg/dL High 7-25 [facility] Comment on above: Performed By: #### H H #### [place] [address] [place] Dipstick and Microscopicon 0 04-08-2023 Appearance (U) Clear Normal Clear [facility] Comment on above: Order Comment: Name Collection Type:: Voided Performed By: #### H H #### [place] [address] [place] Bacteria,Urine None Seen Normal None Seen [facility] Comment on above: Order Comment: Name Collection Type:: Voided Performed By: #### H H #### [place] [address] [place] Bilirubin,Urine Negative Normal Negative [facility] Comment on above: Order Comment: Name Collection Type:: Voided Performed By: #### H H #### [address] Color (U) Yellow Normal Yellow [facility] Comment on above: Order Comment: Name Collection Type:: Voided Performed By: #### H H #### [address] Glucose Ql (U) Normal Normal Normal [facility] Comment on above: Order Comment: Name Collection Type:: Voided Performed By: #### H H #### [address] Hyaline Casts,Urine None Seen Normal 0-8 [facility] Comment on above: Order Comment: Name Collection Type:: Voided Result Comment: PERF ORMED BY: [place] [address] PATHOLOGIST HUMAN RELATIONS MANAGER FEROZ DIEHL M.D. Performed By: #### H H #### [address] Ketones Ql (U) Negative Normal Negative [facility] Comment on above: Order Comment: Name Collection Type:: Voided Performed By: #### H H #### [address] Leukocyte esterase Test strip Ql (U) 1+ High Negative [facility] Comment on above: Order Comment: Name Collection Type:: Voided Performed By: #### H H #### [place] [address] [place] Nitrite,Urine Negative Normal Negative [facility] Comment on above: Order Comment: Name Collection Type:: Voided Performed By: #### H H #### [address] Occult Blood,Urine Negative Normal Negative [facility] Comment on above: Order Comment: Name Collection Type:: Voided Result Comment: PERF ORMED BY: [place] [address] PATHOLOGIST HUMAN RELATIONS MANAGER FEROZ DIEHL M.D. Performed By: #### H H #### [address] pH (U) 5.0 [pH] Normal 5.0-9.0 [facility] Comment on above: Order Comment: Name Collection Type:: Voided Performed By: #### H H #### [address] Protein,Urine Negative Normal Negative [facility] Comment on above: Order Comment: Name Collection Type:: Voided Performed By: #### H H #### [address] RBC,Urine None Seen Normal 0-4 [facility] Comment on above: Order Comment: Name Collection Type:: Voided Performed By: #### H H #### [address] Specificy [place],Urine 1.016 Normal 1.001-1.030 [facility] Comment on above: Order Comment: Name Collection Type:: Voided Performed By: #### H H #### [address] Squamous Epithelial Cell,Urine None Seen Normal 0-2 [facility] Comment on above: Order Comment: Name Collection Type:: Voided Performed By: #### H H #### [address] Urobilinogen,Urine Normal Normal Normal [facility] Comment on above: Order Comment: Name Collection Type:: Voided Performed By: #### H H #### [facility] [address] WBC LM.HPF (Urine sed) [#/Area] 0 /[HPF] Normal 0-4 [facility] Comment on above: Order Comment: Name Collection Type:: Voided Performed By: #### H H #### [address] Hemoglobin and Hematocriton 04-08-2023 Hematocrit (Bld) [Volume fraction] 25.0 % Low 38.8-50.0 [facility] Comment on above: Result Comment: PERF ORMED BY: [place] [address] PATHOLOGIST HUMAN RELATIONS MANAGER FEROZ DIEHL M.D. Performed By: #### H H #### [address] Hemoglobin (Bld) [Mass/Vol] 8.2 g/dL Low 13.0-17.0 [facility] Comment on above: Performed By: #### H H #### [address] Hematocrit (Bld) [Volume fraction] 22.3 % Low 38.8-50.0 [facility] Comment on above: Result Comment: PERF ORMED BY: [place] [address] PATHOLOGIST HUMAN RELATIONS MANAGER FEROZ DIEHL M.D. Performed By: #### H H #### [address] Hemoglobin (Bld) [Mass/Vol] 7.4 g/dL Low 13.0-17.0 [facility] Comment on above: Performed By: #### H H #### [address] Hematocrit (Bld) [Volume fraction] 24.3 % Low 38.8-50.0 [facility] Comment on above: Result Comment: PERF ORMED BY: [place] [address] PATHOLOGIST HUMAN RELATIONS MANAGER FEROZ DIEHL M.D. Performed By: #### H H #### [address] Hemoglobin (Bld) [Mass/Vol] 7.9 g/dL Low 13.0-17.0 [facility] Comment on above: Performed By: #### H H #### [address] Hematocrit (Bld) [Volume fraction] 24.4 % Low 38.8-50.0 [facility] Comment on above: Result Comment: PERF ORMED BY: [place] [address] PATHOLOGIST HUMAN RELATIONS MANAGER FEROZ DIEHL M.D. Performed By: #### H H #### [address] Hemoglobin (Bld) [Mass/Vol] 7.8 g/dL Low 13.0-17.0 [facility] Comment on above: Performed By: #### H H #### [address] Magnesiumon 04-08-2023 Magnesium [Mass/Vol] 1.6 mg/dL Low 1.9-2.[address] [facility] Comment on above: Result Comment: PERF ORMED BY: [place] [address] PATHOLOGIST HUMAN RELATIONS MANAGER FEROZ DIEHL M.D. Performed By: #### H H #### [address] Prothrombin Time INRon 04-08 INR Coag (PPP) [Relative time] 1.1 {INR} Normal [facility] Comment on above: Result Comment: INR [...] heart valves: 3 - 4.5 PERFORMED BY: [place] [address] PATHOLOGIST HUMAN RELATIONS MANAGER FEROZ DIEHL M.D. Performed By: #### H H #### [address] PT Coag (PPP) [Time] 13.2 s High 9.0-12.[address] [facility] Comment on above: Result Comment: A he matocrit value greater than 55% may lead to inaccurate results in coagulation testing. Patients having hematocrit values >55% require a special collection tube for coagulation studies. Please contact the laboratory at [phone] for redraw instructions. Performed By: #### H H #### [address] ABO/Rh Retypeon 04-07-2023 ABO/RH Recheck Result Positive Normal [facility] Comment on above: Result Comment: PERF ORMED BY: [place] [address] PATHOLOGIST HUMAN RELATIONS MANAGER FEROZ DIEHL M.D. Complete Blood Count Auto Di ffon 04-07-2023 Basophils (Bld) [#/Vol] 0.0 10*3/uL Normal 0.0-0.2 [facility] Comment on above: Result Comment: PERF ORMED BY: [place] [address] PATHOLOGIST HUMAN RELATIONS MANAGER FEROZ DIEHL M.D. Performed By: #### C BC, CMP #### [place] [address] [place] Basophils/100 WBC (Bld) 0.1 % Normal . [facility] Comment on above: Performed By: #### C BC, CMP #### [place] [address] [place] Eosinophils (Bld) [#/Vol] 0.0 10*3/uL Normal 0.0-0.45 [facility] Comment on above: Performed By: #### C BC, CMP #### [address] [place] [address] [place] Eosinophils/100 WBC (Bld) 0.1 % Normal . [facility] Comment on above: Performed By: #### C BC, CMP #### [address] Erythrocyte distribution width (RBC) [Ratio] 16.1 % High 12.0-14.8 [facility] Comment on above: Performed By: #### C BC, CMP #### [address] Hematocrit (Bld) [Volume fraction] 26.6 % Low 38.8-50.0 [facility] Comment on above: Performed By: #### C BC, CMP #### [address] Hemoglobin (Bld) [Mass/Vol] 8.6 g/dL Low 13.0-17.0 [facility] Comment on above: Performed By: #### C BC, CMP #### [address] Lymphocytes (Bld) [#/Vol] 1.1 10*3/uL Normal 1.00-4.8 [facility] Comment on above: Performed By: #### C BC, CMP #### [address] Lymphocytes/100 WBC (Bld) 9.8 % Normal . [facility] Comment on above: Performed By: #### C BC, CMP #### [address] MCH (RBC) [Entitic mass] 26.3 pg Low 27.5-35.2 [facility] Comment on above: Performed By: #### C BC, CMP #### [address] MCV (RBC) [Entitic vol] 81.8 fL Low 83.5-101 [facility] Comment on above: Performed By: #### C BC, CMP #### [address] Mean Corpuscular HGB Conc 32.2 g/dL Low 32.5-35.6 [facility] Comment on above: Performed By: #### C BC, CMP #### [address] Monocytes (Bld) [#/Vol] 0.5 10*3/uL Normal 0.0-0.8 [facility] Comment on above: Performed By: #### C BC, CMP #### [address] Monocytes/100 WBC (Bld) 4.3 % Normal . [facility] Comment on above: Performed By: #### C BC, CMP #### [address] Neutrophils (Bld) [#/Vol] 9.7 10*3/uL High 1.8-7.7 [facility] Comment on above: Performed By: #### C BC, CMP #### [address] Neutrophils/100 WBC (Bld) 85.7 % Normal . [facility] Comment on above: Performed By: #### C BC, CMP #### [address] NRBC% 0.1 /100{WBC} Normal 0-0.5 [facility] Comment on above: Performed By: #### C BC, CMP #### [address] Platelet mean volume (Bld) [Entitic vol] 9.4 fL Normal 6.6-10.1 [facility] Comment on above: Performed By: #### C BC, CMP #### [place] [address] [place] Platelets (Bld) [#/Vol] 184 10*3/uL Normal 150-450 [facility] Comment on above: Performed By: #### C BC, CMP #### [address] RBC (Bld) [#/Vol] 3.25 10*6/uL Low 3.90-5.60 [facility] Comment on above: Performed By: #### C BC, CMP #### [address] WBC (Bld) [#/Vol] 11.3 10*3/uL High 4.1-10.5 [facility] Comment on above: Performed By: #### C BC, CMP #### [address] Comprehensive Metabolic Pane naresh 04-07-2023 Albumin [Mass/Vol] 3.2 g/dL Low 3.5-5.7 [facility] Comment on above: Performed By: #### C BC, CMP #### [address] Albumin/Globulin [Mass ratio] 1.5 {ratio} Normal [facility] Comment on above: Performed By: #### C BC, CMP #### [address] ALP [Catalytic activity/Vol] 43 U/L Normal 34-104 [facility] Comment on above: Performed By: #### C BC, CMP #### [address] ALT [Catalytic activity/Vol] 5 U/L Low 7-52 [facility] Comment on above: Performed By: #### C BC, CMP #### [address] Anion gap [Moles/Vol] 12.0 mmol/L Normal 6.0-15.0 [facility] Comment on above: Performed By: #### C BC, CMP #### [address] AST [Catalytic activity/Vol] 10 U/L Low 13-39 [facility] Comment on above: Performed By: #### C BC, CMP #### [address] Bilirubin [Mass/Vol] 0.4 mg/dL Normal 0.3-1.[address] [facility] Comment on above: Performed By: #### C BC, CMP #### [facility] [address] Calcium [Mass/Vol] 8.2 mg/dL Low 8.6-10.3 [facility] Comment on above: Performed By: #### C BC, CMP #### [facility] [address] Chloride [Moles/Vol] 110 mmol/L High 98-[address] [facility] Comment on above: Performed By: #### C BC, CMP #### [facility] [address] CO2 [Moles/Vol] 21.0 mmol/L Normal 21.0-31.[address] [facility] Comment on above: Performed By: #### C BC, CMP #### [facility] [address] Creatinine [Mass/Vol] 1.52 mg/dL High 0.70-1.30 [facility] Comment on above: Performed By: #### C BC, CMP #### [facility] [address] [place] [address] [place] Creatinine Clr Calc Pharmacy 35.53 [facility] Comment on above: Result Comment: PERF ORMED BY: [place] [address] PATHOLOGIST HUMAN RELATIONS MANAGER FEROZ DIEHL M.D. Performed By: #### C BC, CMP #### [facility] [address] [place] [address] [place] GFR/1.73 sq M.predicted MDRD (S/P/Bld) [Vol rate/Area] 44.626 mL/min/{1.73_m2} [facility] Comment on above: Performed By: #### C BC, CMP #### [facility] [address] Globulin (S) [Mass/Vol] 2.1 g/dL [facility] Comment on above: Performed By: #### C BC, CMP #### [facility] [address] Glucose [Mass/Vol] 106 mg/dL High 70-100 [facility] Comment on above: Result Comment: [facility] Glucose Reference Range is dependent on time and content of last meal. Glucose of more than 200 mg/dL in a nonstressed, ambulatory subject supports the diagnosis of Diabetes Mellitus. ADA recommended reference range Performed By: #### C BC, CMP #### [facility] [address] Potassium [Moles/Vol] 4.0 mmol/L Normal 3.5-5.1 [facility] Comment on above: Performed By: #### C BC, CMP #### [facility] [address] Protein [Mass/Vol] 5.3 g/dL Low 6.4-8.9 [facility] Comment on above: Performed By: #### C BC, CMP #### [address] Sodium [Moles/Vol] 139 mmol/L Normal 136-145 [facility] Comment on above: Performed By: #### C BC, CMP #### [address] Urea nitrogen [Mass/Vol] 55 mg/dL High 7-25 [facility] Comment on above: Performed By: #### C BC, CMP #### [facility] [address] [place] [address] [place] LeukoReduced RBCon 3 LeukoReduced RBC TRANSFUSED 04/08/23 1406 [facility] Type and Screenon 04-07-2023 ABO and Rh group Nom (Bld) Blood group O Rh(D) positive [facility] Comment on above: Order Comment: Trans fuse now? Y Number of units to transfuse now? 1 INSULINon 04-19-2022 Insulin 8.1 uIU/mL Normal 2.6-24.9 [facility] Comment on above: Performed By: #### C MP, TSH, BNP, LIPID, T7 #### [facility] [address] [place], [place] [address] Dr. Juan Hill PSA, FREE AND TOTAL RATIOon 04-19-2022 % Free PSA 25.1 % Normal [facility] Comment on above: Result Comment: The table [...] C MP, TSH, BNP, LIPID, T7 #### [facility] [address] [place] [address] [address] Juan Hill Prostate specific Ag [Mass/Vol] 10.1 ng/mL Critically high 0.0-4.0 [facility] Comment on above: Result Comment: [employer] lan ECLIA methodology. . According to the [place] [employer], Serum PSA should decrease and [...] C MP, TSH, BNP, LIPID, T7 #### [facility] [address] [place], [place] [address] Dr. Juan Hill PSA, Free 2.54 ng/mL Normal N/A [facility] Comment on above: Result Comment: Roch e ECLIA methodology. Performed By: #### C MP, TSH, BNP, LIPID, T7 #### [facility] [address] [place], [place] [address] Dr. Juan Hill T4, T3U, FTI LABCORPon 04-19 Free Thyroxine Index 1.4 Normal 1.2-4.9 [facility] Comment on above: Performed By: #### C MP, TSH, BNP, LIPID, T7 #### [facility] [address] [place] [address] Dr. Juan Hill T3 Uptake 28 % Normal 24-39 [facility] Comment on above: Performed By: #### C MP, TSH, BNP, LIPID, T7 #### [facility] [address] [place] [address] Dr. Juan Hill T4 [Mass/Vol] 5.1 ug/dL Normal 4.5-12.0 [facility] Comment on above: Performed By: #### C MP, TSH, BNP, LIPID, T7 #### [facility] [address] [place] [address] Dr. Juan Hill BNPon 04-18-2022 Natriuretic peptide B (Bld) [Mass/Vol] 360.0 pg/mL Normal <=1,800.0 [facility] Comment on above: Performed By: #### U SUSANNAH, CMP, LIPID, TSH, BNP #### [facility] [address] [place] [address] Dr. Juan Hill CBC AUTO DIFFon 04-18-2022 BASO # 0.1 103/ul Normal 0.0-0.1 [facility] Comment on above: Performed By: #### C MP, TSH, BNP, LIPID, T7 #### [facility] [address] [place] [address] Dr. Juan Hill Basophils/100 WBC (Bld) 0.9 % Normal 0.2-2.0 [facility] Comment on above: Performed By: #### C MP, TSH, BNP, LIPID, T7 #### [facility] [address] [place] [address] Dr. Juan Hill EO # 0.2 103/ul Normal 0.0-0.7 [facility] Comment on above: Performed By: #### C MP, TSH, BNP, LIPID, T7 #### [facility] [address] [place] [address] Dr. Juan Hill Eosinophils/100 WBC (Bld) 3.0 % Normal 0.9-7.0 [facility] Comment on above: Performed By: #### C MP, TSH, BNP, LIPID, T7 #### [facility] [address] [place] [address] Dr. Juan Hill Erythrocyte distribution width (RBC) [Ratio] 15.7 % Critically high 11.0-15.0 [facility] Comment on above: Performed By: #### C MP, TSH, BNP, LIPID, T7 #### [facility] [address] [place] [address] Dr. Juan Hill Hematocrit (Bld) [Volume fraction] 40.4 % Critically low 42.0-54.0 [facility] Comment on above: Performed By: #### C MP, TSH, BNP, LIPID, T7 #### [facility] [address] [place] [address] Dr. Juan Hill Hemoglobin (Bld) [Mass/Vol] 12.4 g/dL Critically low 14.0-18.0 [facility] Comment on above: Performed By: #### C MP, TSH, BNP, LIPID, T7 #### [facility] [address] [place] [address] Dr. Juan Hill IG # 0.02 10e3/ul Normal 0.00-0.03 [facility] Comment on above: Performed By: #### C MP, TSH, BNP, LIPID, T7 #### [facility] [address] [place] [address] Dr. Juan Hill IG % 0.3 % Normal 0.0-0.5 [facility] Comment on above: Performed By: #### C MP, TSH, BNP, LIPID, T7 #### [facility] [address] [place] [address] Dr. Juan Hill LYMPH # 1.2 103/ul Normal 1.2-3.8 [facility] Comment on above: Performed By: #### C MP, TSH, BNP, LIPID, T7 #### [facility] [address] [place] [address] Dr. Juan Hill Lymphocytes/100 WBC (Bld) 15.6 % Critically low 20.5-60.0 [facility] Comment on above: Performed By: #### C MP, TSH, BNP, LIPID, T7 #### [facility] [address] [place] [address] Dr. Juan Hill MANUAL DIFF REQ NO Normal [facility] Comment on above: Performed By: #### C MP, TSH, BNP, LIPID, T7 #### [facility] [address] [place] [address] Dr. Juan Hill MCH (RBC) [Entitic mass] 27.3 pg Normal 25.9-34.0 [facility] Comment on above: Performed By: #### C MP, TSH, BNP, LIPID, T7 #### [facility] [address] [place] [address] Dr. Juan Hill MCHC (RBC) [Mass/Vol] 30.7 g/dL Normal 29.9-35.2 [facility] Comment on above: Performed By: #### C MP, TSH, BNP, LIPID, T7 #### [facility] [address] [place] [address] Dr. Juan Hill MCV (RBC) [Entitic vol] 89.0 fL Normal 80.0-94.0 [facility] Comment on above: Performed By: #### C MP, TSH, BNP, LIPID, T7 #### [facility] [address] [place] [address] Dr. Juan Hill MONO # 0.5 103/ul Normal 0.3-0.8 [facility] Comment on above: Performed By: #### C MP, TSH, BNP, LIPID, T7 #### [facility] [address] [place] [address] Dr. Juan Hill Monocytes/100 WBC (Bld) 6.2 % Normal 1.7-12.0 [facility] Comment on above: Performed By: #### C MP, TSH, BNP, LIPID, T7 #### [facility] [address] [place] [address] Dr. Juan Hill NEUT # 5.9 103/ul Normal 1.4-6.5 [facility] Comment on above: Performed By: #### C MP, TSH, BNP, LIPID, T7 #### [facility] [address] [place] [address] [address] Juan Hill Neutrophils/100 WBC (Bld) 74.0 % Normal 43.0-75.0 [facility] Comment on above: Performed By: #### C MP, TSH, BNP, LIPID, T7 #### [facility] [address] [place] [address] [address] Juan Hill Platelet mean volume (Bld) [Entitic vol] 12.1 fL Normal 9.5-13.5 [facility] Comment on above: Performed By: #### C MP, TSH, BNP, LIPID, T7 #### [facility] [address] [place] [address] [address] Juan Hill PLT 180 103/ul Normal 150-450 [facility] Comment on above: Performed By: #### C MP, TSH, BNP, LIPID, T7 #### [facility] [address] [place] [address] [address] Juan Hill RBC 4.54 106/ul Critically low 4.70-6.10 [facility] Comment on above: Performed By: #### C MP, TSH, BNP, LIPID, T7 #### [facility] [address] [place] [address] Dr. Juan Hill WBC 8.0 103/ul Normal 4.0-11.0 [facility] Comment on above: Performed By: #### C MP, TSH, BNP, LIPID, T7 #### [facility] [address] [place] [address] Dr. Juan Hill GLYCOHEMOGLOBIN A1Con 2021 ADA RECOMMENDATION SEE BELOW Normal [facility] [place] Comment on above: Result Comment: ADA RECOMMENDED LIMIT 4.0 - 6.0 ADA THERAPEUTIC TARGET < 7.0 ACTION SUGGESTED > 7.0 Performed By: #### C MP, TSH, BNP, LIPID, T7 #### [facility] [address] [place] [address] Dr. Juan Hill Glucose [Mass/Vol] 100 mg/dL Normal [facility] [place] Comment on above: Performed By: #### C MP, TSH, BNP, LIPID, T7 #### [facility] [address] [place] [address] [address] Juan Hill HbA1c (Bld) [Mass fraction] 5.1 % Normal 4.5-6.2 [facility] Comment on above: Performed By: #### C MP, TSH, BNP, LIPID, T7 #### [facility] [address] [place] [address] [address] Juan Hill LIPID PROFILEon 04-18-2022 CHOL-HDL RATIO NORM SEE BELOW Normal [facility] Comment on above: Result Comment: 3.3 - 4.4 LOW RISK 4.4 - 7.1 AVERAGE RISK 7.1 - 11.0 MODERATE RISK >11.0 HIGH RISK Performed By: #### U SUSANNAH, CMP, LIPID, TSH, BNP #### [facility] [address] [place] [address] [address] Juan Hill Cholesterol [Mass/Vol] 166 mg/dL Normal <=200 [facility] Comment on above: Performed By: #### U SUSANNAH, CMP, LIPID, TSH, BNP #### [facility] [address] [place] [address] [address] Juan Hill Cholesterol in HDL [Mass/Vol] 46 mg/dL Normal 40-60 [facility] Comment on above: Performed By: #### U SUSANNAH, CMP, LIPID, TSH, BNP #### [facility] [address] [place] [address] [address] Juan Hill Cholesterol in LDL [Mass/Vol] 90.6 mg/dL Normal [facility] Comment on above: Performed By: #### U SUSANNAH, CMP, LIPID, TSH, BNP #### [facility] [address] [place] [address] [address] Juan Hill Cholesterol.total/Cho lesterol in HDL [Mass ratio] 3.6 {ratio} Normal [facility] Comment on above: Performed By: #### U SUSANNAH, CMP, LIPID, TSH, BNP #### [facility] [address] [place] [address] [address] Juan Hill HDL NORMAL > or = 60 mg/dl - LOW CARDIOVASCULAR RISK <40 mg/dl - HIGH CARDIOVASCULAR RISK Normal [facility] Comment on above: Performed By: #### U SUSANNAH, CMP, LIPID, TSH, BNP #### [facility] [address] [place] [address] [address] Juan Hill LDL CALC NORMAL SEE BELOW Normal [facility] Comment on above: Result Comment: <100 mg/dl OPTIMAL 100 - 129 mg/dl NEAR OR ABOVE OPTIMAL 130 - 159 mg/dl BORDERLINE HIGH 160 - 189 mg/dl HIGH >190 mg/dl VERY HIGH Performed By: #### U SUSANNAH, CMP, LIPID, TSH, BNP #### [facility] [address] [place] [address] [address] Juan Hill Triglyceride [Mass/Vol] 147 mg/dL Normal <=150 [facility] Comment on above: Performed By: #### U SUSANNAH, CMP, LIPID, TSH, BNP #### [facility] [address] [place] [address] [address] Juan Hill VLDL CALC 29.4 mg/dL Normal [facility] Comment on above: Performed By: #### U SUSANNAH, CMP, LIPID, TSH, BNP #### [facility] [address] [place] [address] [address] Juan Hill PROF 14(COMP METB)on 022 Albumin [Mass/Vol] 4.0 g/dL Normal 3.4-5.0 [facility] Comment on above: Performed By: #### U SUSANNAH, CMP, LIPID, TSH, BNP #### [facility] [address] [place] [address] [address] Juan Hill Albumin/Globulin [Mass ratio] 1.2 {ratio} Normal [facility] Comment on above: Performed By: #### U SUSANNAH, CMP, LIPID, TSH, BNP #### [facility] [address] [place] [address] [address] Juan Hill ALP [Catalytic activity/Vol] 96 U/L Normal 46-116 [facility] Comment on above: Performed By: #### U SUSANNAH, CMP, LIPID, TSH, BNP #### [facility] [address] [place] [address] [address] Juan Hill ALT [Catalytic activity/Vol] 11 U/L Critically low 16-63 [facility] Comment on above: Performed By: #### U SUSANNAH, CMP, LIPID, TSH, BNP #### [facility] [address] [place] [address] [address] Juan Hill Anion gap [Moles/Vol] 11.9 mmol/L Normal Th e [facility] Comment on above: Performed By: #### U SUSANNAH, CMP, LIPID, TSH, BNP #### [facility] [address] [place] [address] [address] Juan Hill AST [Catalytic activity/Vol] 13 U/L Critically low 15-37 [facility] Comment on above: Performed By: #### U SUSANNAH, CMP, LIPID, TSH, BNP #### [facility] [address] [place] [address] [address] Juan Hill Bilirubin [Mass/Vol] 0.7 mg/dL Normal 0.2-1.0 [facility] Comment on above: Performed By: #### U SUSANNAH, CMP, LIPID, TSH, BNP #### [facility] [address] [place] [address] [address] Juan Hill Calcium [Mass/Vol] 9.2 mg/dL Normal 8.5-10.1 [facility] [place] Comment on above: Performed By: #### U SUSANNAH, CMP, LIPID, TSH, BNP #### [facility] [address] [place] [address] [address] Juan Hill Chloride [Moles/Vol] 108 mmol/L Critically high 98-107 [facility] Comment on above: Performed By: #### U SUSANNAH, CMP, LIPID, TSH, BNP #### [facility] [address] [place] [address] [address] Juan Hill CO2 [Moles/Vol] 26.5 mmol/L Normal 21.0-32.0 [facility] Comment on above: Performed By: #### U SUSANNAH, CMP, LIPID, TSH, BNP #### [facility] [address] [place] [address] [address] Juan Hill Creatinine [Mass/Vol] 2.38 mg/dL Critically high 0.70-1.30 [facility] Comment on above: Performed By: #### U SUSANNAH, CMP, LIPID, TSH, BNP #### [facility] [address] [place] [address] Dr. Juan Hill EGFR-AF GUATEMALAN 32 mL/min/1.73m2 Critically low >=60 [facility] Comment on above: Performed By: #### U SUSANNAH, CMP, LIPID, TSH, BNP #### [facility] [address] [place] [address] [address] Juan Hill EGFR-NON AF GUATEMALAN 26 mL/min/1.73m2 Critically low >=60 [facility] Comment on above: Performed By: #### U SUSANNAH, CMP, LIPID, TSH, BNP #### [facility] [address] [place] [address] Dr. Juan Hill Globulin (S) [Mass/Vol] 3.4 g/dL Normal [facility] Comment on above: Performed By: #### U SUSANNAH, CMP, LIPID, TSH, BNP #### [facility] [address] [place] [address] Dr. Juan Hill Glucose [Mass/Vol] 98 mg/dL Normal 74-106 [facility] Comment on above: Performed By: #### U SUSANNAH, CMP, LIPID, TSH, BNP #### [facility] [address] [place] [address] Dr. Juan Hill Potassium [Moles/Vol] 4.4 mmol/L Normal 3.5-5.1 [facility] [facility] Comment on above: Performed By: #### U SUSANNAH, CMP, LIPID, TSH, BNP #### [facility] [address] [place] [address] Dr. Juan Hill Protein [Mass/Vol] 7.4 g/dL Normal 6.4-8.2 [facility] Comment on above: Performed By: #### U SUSANNAH, CMP, LIPID, TSH, BNP #### [facility] [address] [place] [address] Dr. Juan Hill Sodium [Moles/Vol] 142 mmol/L Normal 136-145 [facility] Comment on above: Performed By: #### U SUSANNAH, CMP, LIPID, TSH, BNP #### [facility] [address] [place] [address] Dr. Juan Hill Urea nitrogen [Mass/Vol] 36.0 mg/dL Critically high 7.0-18.0 [facility] Comment on above: Performed By: #### U SUSANNAH, CMP, LIPID, TSH, BNP #### [facility] [address] [place] [address] Dr. Juan Hill Urea nitrogen/Creatinine [Mass ratio] 15.1 mg/mg Normal [facility] Comment on above: Performed By: #### U SUSANNAH, CMP, LIPID, TSH, BNP #### [facility] [address] [place] [address] Dr. Juan Hill TSHon 04-18-2022 TSH 1.492 uIU/mL Normal 0.358-3.740 [facility] Comment on above: Performed By: #### U SUSANNAH, CMP, LIPID, TSH, BNP #### [facility] [address] [place] [address] Dr. Juan Hill URIC ACID SERUMon 04-18-2022 Urate [Mass/Vol] 9.2 mg/dL Critically high 3.5-7.2 [facility] Comment on above: Performed By: #### C MP, TSH, BNP, LIPID, T7 #### [facility] [address] [place] [address] Dr. Juan Hill VITAMIN D 25 OHon 04-18-2022 VIT D 25-OH 42.8 ng/mL Normal [facility] Comment on above: Performed By: #### V ITAD #### [facility] [address] [place] [address] Dr. Juan Hill VIT D RANGES SEE BELOW Normal [facility] Comment on above: Result Comment: <20 ng/mL Vit D deficient 20 - <30 ng/mL Vit D insufficient 30 - 100 ng/mL Vit D sufficient >100 ng/mL Potential Toxicity Performed By: #### V ITAD #### [facility] [address] [place] [address] Dr. Juan Hill PSA, FREE AND TOTAL RATIOon 06-03-2021 % Free PSA 28.1 % Normal [facility] Comment on above: Result Comment: The table [...] C MP, TSH, BNP, LIPID, T7 #### [facility] [address] [place] [address] Dr. Juan Hill Prostate specific Ag [Mass/Vol] 9.1 ng/mL Critically high 0.0-4.0 [facility] Comment on above: Result Comment: Roch e ECLIA methodology. . According to the [place] [employer], Serum PSA should decrease and [...] C MP, TSH, BNP, LIPID, T7 #### [facility] [address] [place] [address] Dr. Juan Hill PSA, Free 2.56 ng/mL Normal N/A [facility] Comment on above: Result Comment: Roch e ECLIA methodology. Performed By: #### C MP, TSH, BNP, LIPID, T7 #### [facility] [address] [place] [address] Dr. Juan Hill INSULINon 06-02-2021 Insulin 9.6 uIU/mL Normal 2.6-24.9 [facility] Comment on above: Performed By: #### C MP, TSH, BNP, LIPID, T7 #### [facility] [address] [place] [address] Dr. uJan Hill BNPon 06-01-2021 Natriuretic peptide B (Bld) [Mass/Vol] 269.0 pg/mL Normal <=1,800.0 [facility] Comment on above: Performed By: #### C MP, TSH, BNP, LIPID, T7 #### [facility] [address] [place] [address] Dr. Juan Hill CBC AUTO DIFFon 06-01-2021 BASO # 0.1 103/ul Normal 0.0-0.1 [facility] Comment on above: Performed By: #### C MP, TSH, BNP, LIPID, T7 #### [facility] [address] [place] [address] Dr. Juan iHll Basophils/100 WBC (Bld) 0.7 % Normal 0.2-2.0 [facility] Comment on above: Performed By: #### C MP, TSH, BNP, LIPID, T7 #### [facility] [address] [place] [address] Dr. Juan Hill EO # 0.2 103/ul Normal 0.0-0.7 [facility] Comment on above: Performed By: #### C MP, TSH, BNP, LIPID, T7 #### [facility] [address] [place] [address] Dr. Juan Hill Eosinophils/100 WBC (Bld) 2.0 % Normal 0.9-7.0 [facility] Comment on above: Performed By: #### C MP, TSH, BNP, LIPID, T7 #### [facility] [address] [place] [address] Dr. Juan Hill Erythrocyte distribution width (RBC) [Ratio] 14.7 % Normal 11.0-15.0 [facility] Comment on above: Performed By: #### C MP, TSH, BNP, LIPID, T7 #### [facility] [address] [place] [address] Dr. Juan Hill Hematocrit (Bld) [Volume fraction] 43.9 % Normal 42.0-54.0 [facility] Comment on above: Performed By: #### C MP, TSH, BNP, LIPID, T7 #### [facility] [address] [place] [address] Dr. Juan Hill Hemoglobin (Bld) [Mass/Vol] 13.6 g/dL Critically low 14.0-18.0 [facility] Comment on above: Performed By: #### C MP, TSH, BNP, LIPID, T7 #### [facility] [address] [place] [address] Dr. Juan Hill IG # 0.01 10e3/ul Normal 0.00-0.03 [facility] Comment on above: Performed By: #### C MP, TSH, BNP, LIPID, T7 #### [facility] [address] [place] [address] Dr. Juan Hill IG % 0.1 % Normal 0.0-0.5 [facility] Comment on above: Performed By: #### C MP, TSH, BNP, LIPID, T7 #### [facility] [address] [place] [address] Dr. Juan Hill LYMPH # 1.1 103/ul Critically low 1.2-3.8 [facility] Comment on above: Performed By: #### C MP, TSH, BNP, LIPID, T7 #### [facility] [address] [place] [address] Dr. Juan Hill Lymphocytes/100 WBC (Bld) 14.9 % Critically low 20.5-60.0 [facility] Comment on above: Performed By: #### C MP, TSH, BNP, LIPID, T7 #### [facility] [address] [place] [address] Dr. Juan Hill MANUAL DIFF REQ NO Normal [facility] Comment on above: Performed By: #### C MP, TSH, BNP, LIPID, T7 #### [facility] [address] [place] [address] Dr. Juan Hill MCH (RBC) [Entitic mass] 28.0 pg Normal 25.9-34.0 [facility] Comment on above: Performed By: #### C MP, TSH, BNP, LIPID, T7 #### [facility] [address] [place] [address] Dr. Juan Hill MCHC (RBC) [Mass/Vol] 31.0 g/dL Normal 29.9-35.2 [facility] Comment on above: Performed By: #### C MP, TSH, BNP, LIPID, T7 #### [facility] [address] [place] [address] Dr. Juan Hill MCV (RBC) [Entitic vol] 90.5 fL Normal 80.0-94.0 [facility] Comment on above: Performed By: #### C MP, TSH, BNP, LIPID, T7 #### [facility] [address] [place] [address] Dr. Juan Hill MONO # 0.4 103/ul Normal 0.3-0.8 [facility] Comment on above: Performed By: #### C MP, TSH, BNP, LIPID, T7 #### [facility] [address] [place] [address] Dr. Juan Hill Monocytes/100 WBC (Bld) 6.0 % Normal 1.7-12.0 [facility] Comment on above: Performed By: #### C MP, TSH, BNP, LIPID, T7 #### [facility] [address] [place] [address] Dr. Juan Hill NEUT # 5.6 103/ul Normal 1.4-6.5 [facility] Comment on above: Performed By: #### C MP, TSH, BNP, LIPID, T7 #### [facility] [address] [place] [address] Dr. Juan Hill Neutrophils/100 WBC (Bld) 76.3 % Critically high 43.0-75.0 [facility] Comment on above: Performed By: #### C MP, TSH, BNP, LIPID, T7 #### [facility] [address] [place] [address] Dr. Juan Hill Platelet mean volume (Bld) [Entitic vol] 11.6 fL Normal 9.5-13.5 [facility] Comment on above: Performed By: #### C MP, TSH, BNP, LIPID, T7 #### [facility] [address] [address] [address] Juan Hill PLT 163 103/ul Normal 150-450 [facility] Comment on above: Performed By: #### C MP, TSH, BNP, LIPID, T7 #### [facility] [address] [address] [address] Juan Hill RBC 4.85 106/ul Normal 4.70-6.10 [facility] Comment on above: Performed By: #### C MP, TSH, BNP, LIPID, T7 #### [facility] [address] [address] [address] Juan Hill WBC 7.4 103/ul Normal 4.0-11.0 [facility] Comment on above: Performed By: #### C MP, TSH, BNP, LIPID, T7 #### [facility] [address] [place] [address] Dr. Juan Hill FREE THYROXINE INDEX T7on FTI 1.72 Normal [facility] Comment on above: Performed By: #### C MP, TSH, BNP, LIPID, T7 #### [facility] [address] [address] [address] Juan Hill T3U 33.0 % Normal 23.5-40.5 [facility] Comment on above: Performed By: #### C MP, TSH, BNP, LIPID, T7 #### [facility] [address] [address] [address] Juan Hill T4 [Mass/Vol] 5.20 ug/dL Critically low 5.53-11.00 [facility] Comment on above: Performed By: #### C MP, TSH, BNP, LIPID, T7 #### [facility] [address] [address] [address] Juan Hill GLYCOHEMOGLOBIN A1Con 2020 ADA RECOMMENDATION ADA THERAPEUTIC TARGET 6.0 - 7.0 ACTION SUGGESTED > 7.0 Normal [facility] Comment on above: Performed By: #### C MP, TSH, BNP, LIPID, T7 #### [facility] [address] [place] [address] Dr. Juan Hill Glucose [Mass/Vol] 100 mg/dL Normal [facility] Comment on above: Performed By: #### C MP, TSH, BNP, LIPID, T7 #### [facility] [address] [address] [address] Juan Hill HbA1c (Bld) [Mass fraction] 5.1 % Normal <=6.0 [facility] Comment on above: Performed By: #### C MP, TSH, BNP, LIPID, T7 #### [facility] [address] [address] [address] Juan Hill IRONon 06-01-2021 Iron [Mass/Vol] 81.0 ug/dL Normal 49.0-181.0 [facility] Comment on above: Performed By: #### C MP, TSH, BNP, LIPID, T7 #### [facility] [address] [place] [address] Dr. Juan Hill LIPID PROFILEon 06-01-2021 CHOL-HDL RATIO NORM SEE BELOW Normal [facility] Comment on above: Result Comment: 3.3 - 4.4 LOW RISK 4.4 - 7.1 AVERAGE RISK 7.1 - 11.0 MODERATE RISK >11.0 HIGH RISK Performed By: #### C MP, TSH, BNP, LIPID, T7 #### [facility] [address] [place] [address] Dr. Juan Hill Cholesterol [Mass/Vol] 187 mg/dL Normal <=200 [facility] Comment on above: Performed By: #### C MP, TSH, BNP, LIPID, T7 #### [facility] [address] [place] [address] Dr. Juan Hill Cholesterol in HDL [Mass/Vol] 48 mg/dL Normal [facility] Comment on above: Performed By: #### C MP, TSH, BNP, LIPID, T7 #### [facility] [id number] Juan Hill Cholesterol in LDL [Mass/Vol] 110.6 mg/dL Normal [facility] Comment on above: Performed By: #### C MP, TSH, BNP, LIPID, T7 #### [facility] [address] [address] [address] Juan Hill Cholesterol.total/Cho lesterol in HDL [Mass ratio] 3.9 {ratio} Normal [facility] Comment on above: Performed By: #### C MP, TSH, BNP, LIPID, T7 #### [facility] [address] [address] [address] Juan Hill HDL NORMAL > or = 60 mg/dl - LOW CARDIOVASCULAR RISK <40 mg/dl - HIGH CARDIOVASCULAR RISK Normal [facility] Comment on above: Performed By: #### C MP, TSH, BNP, LIPID, T7 #### [facility] [address] [address] [address] Juan Hill LDL CALC NORMAL SEE BELOW Normal [facility] Comment on above: Result Comment: <100 mg/dl OPTIMAL 100 - 129 mg/dl NEAR OR ABOVE OPTIMAL 130 - 159 mg/dl BORDERLINE HIGH 160 - 189 mg/dl HIGH >190 mg/dl VERY HIGH Performed By: #### C MP, TSH, BNP, LIPID, T7 #### [facility] [address] [address] [address] Juan Hill Triglyceride [Mass/Vol] 142 mg/dL Normal <=150 [facility] Comment on above: Performed By: #### C MP, TSH, BNP, LIPID, T7 #### [facility] [address] [place] [address] Dr. Juan Hill VLDL CALC 28.4 mg/dL Normal [facility] Comment on above: Performed By: #### C MP, TSH, BNP, LIPID, T7 #### [facility] [address] [address] [address] Juan Hill PROF 14(COMP METB)on 021 Albumin [Mass/Vol] 4.0 g/dL Normal 3.5-5.0 [facility] Comment on above: Performed By: #### C MP, TSH, BNP, LIPID, T7 #### [facility] [address] [place] [address] Dr. Juan Hill Albumin/Globulin [Mass ratio] 1.1 {ratio} Normal [facility] Comment on above: Performed By: #### C MP, TSH, BNP, LIPID, T7 #### [facility] [address] [place] [address] Dr. Juan Hill ALP [Catalytic activity/Vol] 99 U/L Normal 38-126 [facility] Comment on above: Performed By: #### C MP, TSH, BNP, LIPID, T7 #### [facility] [address] [place] [address] Dr. Juan Hill ALT [Catalytic activity/Vol] 11 U/L Critically low 21-72 [facility] Comment on above: Performed By: #### C MP, TSH, BNP, LIPID, T7 #### [facility] [address] [place] [address] Dr. Juan Hill Anion gap [Moles/Vol] 10.8 mmol/L Normal [facility] Comment on above: Performed By: #### C MP, TSH, BNP, LIPID, T7 #### [facility] [address] [place] [address] Dr. Juan Hill AST [Catalytic activity/Vol] 12 U/L Critically low 17-59 [facility] Comment on above: Performed By: #### C MP, TSH, BNP, LIPID, T7 #### [facility] [address] [place] [address] Dr. Juan Hill Bilirubin [Mass/Vol] 0.6 mg/dL Normal 0.2-1.3 [facility] Comment on above: Performed By: #### C MP, TSH, BNP, LIPID, T7 #### [facility] [address] [place] [address] Dr. Juan Hill Calcium [Mass/Vol] 9.4 mg/dL Normal 8.4-10.2 [facility] Comment on above: Performed By: #### C MP, TSH, BNP, LIPID, T7 #### [facility] [address] [place] [address] Dr. Juan Hill Chloride [Moles/Vol] 104 mmol/L Normal 98-107 [facility] Comment on above: Performed By: #### C MP, TSH, BNP, LIPID, T7 #### [facility] [address] [place], [place] [id number] Dr. Juan Hill CO2 [Moles/Vol] 29.2 mmol/L Normal 22.0-30.0 [facility] Comment on above: Performed By: #### C MP, TSH, BNP, LIPID, T7 #### [facility] [address] [place] [address] Dr. Juan Hill Creatinine [Mass/Vol] 2.04 mg/dL Critically high 0.66-1.25 [facility] Comment on above: Performed By: #### C MP, TSH, BNP, LIPID, T7 #### [facility] [address] [place] [address] Dr. Juan Hill EGFR-AF GUATEMALAN 38 mL/min/1.73m2 Critically low >=60 [facility] Comment on above: Performed By: #### C MP, TSH, BNP, LIPID, T7 #### [facility] [address] [place] [address] Dr. Juan Hill EGFR-NON AF GUATEMALAN 31 mL/min/1.73m2 Critically low >=60 [facility] Comment on above: Performed By: #### C MP, TSH, BNP, LIPID, T7 #### [facility] [address] [place] [address] Dr. Juan Hill Globulin (S) [Mass/Vol] 3.7 g/dL Normal [facility] Comment on above: Performed By: #### C MP, TSH, BNP, LIPID, T7 #### [facility] [address] [place] [address] Dr. Juan Hill Glucose [Mass/Vol] 98 mg/dL Normal 74-106 [facility] Comment on above: Performed By: #### C MP, TSH, BNP, LIPID, T7 #### [facility] [address] [place] [address] Dr. Juan Hill Potassium [Moles/Vol] 5.0 mmol/L Normal 3.4-5.0 [facility] Comment on above: Performed By: #### C MP, TSH, BNP, LIPID, T7 #### [facility] [address] [place] [address] Dr. Juan Hill Protein [Mass/Vol] 7.7 g/dL Normal 6.1-8.2 [facility] Comment on above: Performed By: #### C MP, TSH, BNP, LIPID, T7 #### [facility] [address] [place] [address] Dr. Juan Hill Sodium [Moles/Vol] 139 mmol/L Normal 137-145 [facility] Comment on above: Performed By: #### C MP, TSH, BNP, LIPID, T7 #### [facility] [address] [place] [address] Dr. Juan Hill Urea nitrogen [Mass/Vol] 26.0 mg/dL Critically high 9.0-20.0 [facility] Comment on above: Performed By: #### C MP, TSH, BNP, LIPID, T7 #### [facility] [address] [place] [address] Dr. Juan Hill Urea nitrogen/Creatinine [Mass ratio] 12.7 mg/mg Normal [facility] Comment on above: Performed By: #### C MP, TSH, BNP, LIPID, T7 #### [facility] [address] [place] [address] Dr. Juan Hill TSHon 06-01-2021 TSH 2.986 uIU/mL Normal 0.470-4.680 [facility] Comment on above: Performed By: #### C MP, TSH, BNP, LIPID, T7 #### [facility] [address] [place] [address] Dr. Juan Hill TSH RANGE SEE BELOW Normal [facility] Comment on above: Result Comment: <0.3 4 UIU/ml HYPERTHYROID 0.34-5.60 UIU/ml EUTHYROID >5.60 UIU/ml HYPOTHYROID Performed By: #### C MP, TSH, BNP, LIPID, T7 #### [facility] [address] [place] [address] Dr. Juan Hill VITAMIN D 25 OHon 06-01-2021 VIT D 25-OH 43.8 ng/mL Normal [facility] Comment on above: Performed By: #### C MP, TSH, BNP, LIPID, T7 #### [facility] [address] [place], [place] [address] Dr. Juan Hill VIT D RANGES SEE BELOW Normal [facility] Comment on above: Result Comment: <20 ng/mL Vit D deficient 20 - <30 ng/mL Vit D insufficient 30 - 100 ng/mL Vit D sufficient >100 ng/mL Potential Toxicity Performed By: #### C MP, TSH, BNP, LIPID, T7 #### [facility] [address] [place], [place] [address] Dr. Juan Hill Encounters Encounter Date Encounter Type Care Provider Facility Start: 10-09-2023 End: 10-09-2023 Evaluation and management of inpatient [facility] Start: 10-08-2023 End: 10-08-2023 ambulatory [facility] Phone Call Provider 1 [facility] Start: 10-08-2023 End: 10-08-2023 ambulatory SHILA Donis [facility] Start: 09-04-2023 End: 09-04-2023 ambulatory [facility] Start: 05-01-2023 ambulatory PA-C MADHU Ambrocio acility:[facility] Start: 04-07-2023 End: 04-10-2023 Evaluation and management of inpatient Shila Fabian Facility:[facility] Start: 04-18-2022 End: 04-19-[address] SHILA FABIAN Facility:[facility] Start: 06-01-2021 End: 06-02-[address] SHILA FABIAN Facility:[facility] Procedures Date Procedure Procedure Detail Performing Clinician Start: 09-04-2023 Follow-up visit Follow-up CHAODEMETRIO CHAWLA Start: 04-07-2023 Antibody screen Shila Fabian Comment on above: Order Comment: Trans fuse now? Y Number of units to transfuse now? 1 Result Comment: PERF ORMED BY: [facility] [address] [place] [address] PATHOLOGIST [employer] MANAGER FEROZ DIEHL M.D. Start: 06-01-[address] LÓPEZ FABIAN Comment on above: Performed By: #### C MP, TSH, BNP, LIPID, T7 #### [facility] [address] [address] [address] Juan Hill Plan of Treatment Date Care Activity Detail Author Start: 10-08-2024 Tobacco Screening Tobacco Screening [facility] Start: 09-04-2024 Adult BMI Screening Adult BMI Screening [facility] Start: 03-30-2023 COVID-19 Vaccine ( season) COVID-19 Vaccine () [facility] Start: 03-30-2023 Influenza vaccination Influenza Vaccine [facility] Start: 2002 Fall Risk Screening Fall Risk Screening [facility] Start: 12-25-1987 Administration of varicella zoster vaccine Zoster (Shingles) Vaccine (1 of 2) [facility] Start: 1956 DTaP,Tdap and Td Vaccines (1 - Tdap) DTaP,Tdap and Td Vaccines (1 - Tdap) [facility] Start: 12-25-1955 Adult BMI Follow Up Plan Adult BMI Follow Up Plan [facility] Start: 1949 Depression Screening Depression Screening [facility] Start: 1937 Medicare Annual Wellness Visit Medicare Annual Wellness Visit [facility] Immunizations Immunization Date Immunization Notes Care Provider Fa cility 09-16-2020 COVID-19, mRNA, LNP- S, PF, 100mcg/0.5mL Dose [facility] 08-20-2020 COVID-19, mRNA, LNP- S, PF, 100mcg/0.5mL Dose [facility] 06-18-2020 influenza virus vacc ine, unspecified formulation [facility] Payers Date Payer Category Payer Medicare [id number] 2023 Self-pay 2021 Medicare A[employer] MEDICARE A ETNA MEDICARE PLAN (PPO) [id number] 2021-Present [phone] [address] [place] [address] [id number] 1957 Medicare [id number] 1957 Medicare [id number] 1935 Unknown [id number] 1937 Unknown [id number] 1937 Unknown [id number] 1937 Unknown [id number] 1937 Unknown [id number] 1937 Unknown [id number] Unknown [id number] Social History Date Type Detail Facility Start: 04-20-2023 Tobacco smoking stat [facility] Ex-smoker [facility] History of tobacco use Current smoker [facility] Start: 04-20-2023 Tobacco use and exposure Smoke less tobacco non-user [facility] Start: 09-04-2023 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) [facility] Start: 07-05-2018 End: 08-19-2020 History of Social function [facility] Start: 07-05-2018 End: 08-19-2020 Alcohol Use Disorder Identification Test - Consumption [AUDIT-C] [facility] Frequency of Alcohol Consumption Never [facility] Start: 1935 Sex Assigned At Not on file [facility] Note 10-08-2023 Perioperative Nursing Note - Amanda Corbin RN - 10/08/2023 3:40 PM EDT Note Date & Type Note Facility 10-08-2023 Miscellaneous Notes Formattin g of this note is different from the original. Preoperative Education Checklist- General Surgery date: 10/10/23 Surgery time: 1030 Arrival time: 0930 1. Bring a photo ID and your insurance card with you the day of surgery. You will check in at the main lobby at the registration desk near the [facility]. 2. If you have a Living Will/Durable Power of Stage Electric[employer] Hel[employer] for Health Care that is not on file here, please bring a copy the day of surgery. 3. Please shower/tub bath the night before surgery or morning of. 4. NO powder, lotion, perfume/cologne, aftershave, make-up, nail tristanian, deodorant, or hair products after you have [...] doctor for instructions documented in this encounter [facility] Nurse Note 10-08-2023 Perioperative Nursing Note [...] lobby at the registration desk near the [facility]. 2. If you have a Living Will/Durable Power of Stage [employer] for Health Care that is not on file here, please bring a copy the day of surgery. 3. Please shower/tub bath the night before surgery or morning of. 4. NO powder, lotion, perfume/cologne, aftershave, make-up, nail tristanian, deodorant, or hair products after you have [...] capsule Check with prescribing doctor for instructions [facility] Instructions Note Date & Type Note Facility Instructions Not on filedocumented in this en counter [facility] Purpose Family History No Family History Records FoundNo Family History Records FoundNo Family History Records FoundNo Family History Records FoundNo Family History Records Found Advance Directives No Advanced Directives Records FoundDocuments on File Type Date Recorded Patient [employer] Expl anation Durable Power of Stage 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 08/12/12 Living Will 04/23/2023 9:15 AM [facility] 08/12/12 Additional Source Comments (unrecognized sect ion and content) No Status Records FoundNo Status Records FoundNo Status Records FoundNo Status Records FoundNo Status Records Found INFORMATION SOURCE (unrecogn ized section and content) DATE CREATED AUTHOR 04/30/2022 [facility] DATE CREATED AUTHOR AUTHOR'S ORGANIZ ATION 04/19/2023 [facility] DATE CREATED AUTHOR AUTHOR'S ORGANIZ ATION 04/20/2023 [facility] DATE CREATED AUTHOR AUTHOR'S ORGANIZ ATION 09/10/2023 [facility] DATE CREATED AUTHOR AUTHOR'S ORGANIZ ATION 10/10/2023 [facility] Care Teams (unrecognized sec tion and content) Melangeur Operator Relationship Specialty Start Date End Date Shila Fabian MD [address] [place] [address] PCP - General 07/05/18 FOR RECORDS PERTAINING [...] BE BASED ON THE PRIMARY CLINICAL RECORDS. [facility]. provides no warranty or guarantee of the accuracy or completeness of information in this document.
[2024-05-19 08:53] LABS: Estimated Average Glucose 94 mg/dL; Glycohemoglobin A1C 4.9 % (4.5-6.2)
[2024-05-19 08:56] LABS: Basophils Absolute Auto 0.1 10^3/uL (0.0-0.1); Basophils Percent Auto 0.7 % (0.2-2.0); Eosinophils Absolute Auto 0.1 10^3/uL (0.0-0.7); Eosinophils Percent Auto 1.8 % (0.9-7.0); Hemoglobin 12.6 g/dL (14.0-18.0); Immature Granulocytes Abs Auto 0.01 10^3/uL (0.00-0.03); Immature Granulocytes Pct Auto 0.1 % (0.0-0.5); Lymphocytes Absolute Auto 1.4 10^3/uL (1.2-3.8); Lymphocytes Percent Auto 19.1 % (20.5-60.0); Mean Corpuscular Hemoglobin 25.3 pg (25.9-34.0); Mean Corpuscular Volume 84.3 fL (80.0-94.0); Mean Platelet Volume 12.6 fL (9.5-13.5); Monocytes Absolute Auto 0.4 10^3/uL (0.3-0.8); Monocytes Percent Auto 6.1 % (1.7-12.0); Neutrophils Absolute Auto 5.1 10^3/uL (1.4-6.5); Neutrophils Percent Auto 72.2 % (43.0-75.0); Platelet Count 151 10^3/uL (150-450); Red Blood Count 4.98 10^6/uL (4.70-6.10); Red Cell Distribution Width 15.6 % (11.0-15.0); White Blood Count 7.1 10^3/uL (4.0-11.0)
[2024-05-19 09:06] LABS: Free T4 1.02 ng/dL (0.76-1.46)
[2024-05-19 09:13] LABS: Alanine Aminotransferase <6 U/L (16-63); Albumin Level 3.6 g/dL (3.4-5.0); Alkaline Phosphatase 85 U/L (46-116); Anion Gap 13.8; Aspartate Amino Transferase 11 U/L (15-37); BUN Creatinine Ratio 10.9; Bilirubin Total 0.8 mg/dL (0.2-1.0); Calcium 9.1 mg/dL (8.5-10.1); Carbon Dioxide 25.3 mmol/L (21.0-32.0); Chloride 107 mmol/L (98-107); Chol HDL Ratio 2.2; Cholesterol 161 mg/dL (<=200); Estimated GFR (African America 40 (>=60 mL/min/1.73m^2); Estimated GFR (Non-African Ame 33 (>=60 mL/min/1.73m^2); Free T3 2.11 pg/mL (2.18-3.98); Globulin 3.5 g/dL; Glucose 99 mg/dL (74-106); HDL Cholesterol 72 mg/dL (40-60); Potassium 4.1 mmol/L (3.5-5.1); Sodium 142 mmol/L (136-145); Total Protein 7.1 g/dL (6.4-8.2); Triglycerides 114 mg/dL (<=150); VLDL CHOLESTEROL 22.8 mg/dL
[2024-05-19 09:15] LABS: Thyroid Stimulating Hormone 2.667 uIU/mL (0.358-3.740)
[2024-05-20 04:08] LABS: PSA, Free 2.18 ng/mL; Prostate Specific Ag 7.7 ng/mL (0.0-4.0)
== END 2024-05-19 07:37 | disposition home or self-care (01) ==
LOC: LAB 07:38
PROVIDERS: PCP Family Medicine; Visit Provider Family Medicine
DX: E78.00 Pure hypercholesterolemia, unspecified (principal); R53.83 Other fatigue; I10 Essential (primary) hypertension; Z12.5 Encounter for screening for malignant neoplasm of prostate; E11.9 Type 2 diabetes mellitus without complications
CPT/HCPCS: 36415; 80053; 80061; 83036; 84153; 84154; 84270; 84439; 84443; 84481; 85025

== ENCOUNTER 2024-05-23 07:38 | Outpatient (RCR) | payer MEDICARE, SELFPAY ==
[2024-05-23 12:12] VITALS: BP 141/74; PULSE 84; TEMP 36.6; O2SAT 96
[2024-05-23] MEDS: IRON SUCROSE COMPLEX 200 MG in 0.9 % SODIUM CHLORIDE 100 ML 220 MG IV (12:15)
== END 2024-05-29 23:59 | disposition home or self-care (01) ==
LOC: INF 07:38
PROVIDERS: PCP Family Medicine; Visit Provider Family Medicine
DX: D50.9 Iron deficiency anemia, unspecified (principal)
CPT/HCPCS: 96365; J1756

== ENCOUNTER 2024-05-28 08:29 | Outpatient (OUT) | payer MEDICARE, SELFPAY ==
--- OUTSIDE RECORDS SUMMARY | 2024-05-28 08:48 | XMS_ITS | CCD ---
Author Organization [facility] Care Team Providers Care Electronic Systems Technician Name Role Phone DR SHILA FABIAN Attending Unavailable DILIP, DR FUCHS Admitting Unavailable DILIP, DR FUCHS Primary Care Unavailable DILIP, DR FUCHS Consulting Unavailable DILIP, DR FUCHS Admitting Unavailable DILIP, DR FUCHS Primary Care Unavailable HOY, DR FUCHS Consulting Unavailable DILIP, DR FUCHS Attending Unavailable DIO VAZQUEZ Attending Unavailab Shila Marina Primary Care Unavailable Vitaly Kennedy Attending Unavailable DaromaPiotr hartley Admitting Unavailable Asaad, Imad Consulting Unavailable KAPIL CHAWLAOTHY G Attending Unavailable SHILA FABIAN Referring Unavailable SHILA FABIAN Primary Care Unavailable Shila Fabian MD Primary Care Provider [phone] SHILA FABIAN Referring Unavailable SHILA FABIAN Primary Care Unavailable CAMMY, CHAO G Admitting Unavailable CAMMY CHAO G Attending Unavailable CMAMY CHAO G Referring Unavailable SHILA FABIAN Primary Care Unavailable Shila Fabian MD Primary Care Provider [phone] Allergies Allergy Classification Reported Allergen(s) Allergy Type Date of Onset Reaction(s) Facility (1 source) No Known Medication Allergies; Translations: [No Known Medication Allergies] Propensity to adverse reactions (disorder) [facility] Repository Medications Current Medications Medication Drug Class(es) Dates Sig (Normalized) Sig (Original) clopidogrel 75 mg oral tablet (3 sources) P2Y12 Platelet Inhibitor take 1 tablet by mouth in the morning clopidogreL (PLAVIX) 75 mg tablet Take 1 tablet (75 mg total) by mouth in the morning. Active ibuprofen 600 mg oral tablet (3 sources) Nonsteroidal Anti-inflammatory Drug Start: 07-05-2018 take 1 tablet by mouth every six hours as needed for pain ibuprofen (ADVIL,MOTRIN) 600 mg tablet Take 1 tablet (600 mg total) by mouth every 6 (six) hours as needed for pain for up to 30 doses. 30 tablet 07/05/2018 Active metoprolol tartrate 25 mg oral tablet (3 sources) beta-Adrenergic Jerry take 1 tablet by mouth in the morning, then take 1 tablet by mouth at bedtime metoprolol tartrate (LOPRESSOR) 25 mg tablet Take 1 tablet (25 mg total) by mouth in the morning and 1 tablet (25 mg total) before bedtime. Active pantoprazole 40 mg delayed release oral tablet (3 sources) Proton Pump Inhibitor Start: 04-10-2023 pantoprazole (PROTONIX) 40 mg EC tablet Take 1 tablet (40 mg total) by mouth in the morning. Oral for 8 weeks take twice daily then once daily. 04/10/2023 Active simvastatin 20 mg oral tablet (3 sources) HMG-CoA Reductase Inhibitor Start: 04-10-2023 take 1 tablet by mouth once daily, then take 1 tablet by mouth once daily simvastatin (ZOCOR) 20 mg tablet Take 1 tablet (20 mg total) by mouth nightly. Take one daily 04/10/2023 Active tamsulosin hydrochloride 0.4 mg oral capsule (3 sources) alpha-Adrenergic Jerry Start: 11-26-2023 take 2 capsules by mouth in the morning tamsulosin (FLOMAX) 0.4 mg capsule Take 2 capsules (0.8 mg total) by mouth in the morning. 180 capsule 3 11/26/2023 Active Start: 05-23-2023 take 1 capsule by mo [facility] in the morning tamsulosin (FLOMAX) 0.4 mg [...] disease (1 source) Atherosclerotic heart disease of [place] coronary artery without angina pectoris; Translations: [Atherosclerotic heart disease of 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)] Onset: 3 Episodic Other diseases of bladder and urethra (2 sources) Bladder disorder, unspecified; Translations: [Bladder disorder, unspecified] Onset: 4 Chronic Other diseases of bladder and urethra (4 sources) Lesion of bladder; Translations: [Bladder disorder, [...] 06-09-2021 Episodic Genitourinary symptoms and ill-defined conditions (4 sources) Retention of urine, unspecified; Translations: [Retention of urine] Onset: 04-20-2023 10-09-2023 Episodic Other lower respiratory disease (1 source) Shortness of breath; Translations: [SHORTNESS OF BREATH] Onset: 06-09-2021 Episodic Other screening for suspected conditions (not mental disorders or infectious disease) (5 sources) Encounter for screening for malignant neoplasm of prostate; Translations: [Elevated prostate specific antigen [PSA]] Onset: 04-19-2022 09-04-2023 Episodic Results Test Name Value Interpretation Reference Range Facility Auth for Release of Medical Recordson 04-18-2023 Auth for Release of Medical Records [id number] 1.00CD:127 Normal [facility] Basic Metabolic Panelon 03-30 Anion gap [Moles/Vol] 9.8 mmol/L Normal 6.0-15.0 [facility] Comment on above: Performed By: #### H H #### [facility] [address] [place] [address] Calcium [Mass/Vol] 8.3 mg/dL Low 8.6-10.3 [facility] Comment on above: Performed By: #### H H #### [address] Chloride [Moles/Vol] 108 mmol/L High 98-107 [facility] Comment on above: Performed By: #### H H #### [facility] [address] [place] [address] CO2 [Moles/Vol] 26.2 mmol/L Normal 21.0-31.0 [facility] Comment on above: Performed By: #### H H #### [address] Creatinine [Mass/Vol] 1.47 mg/dL High 0.70-1.30 [facility] Comment on above: Performed By: #### H H #### [address] Creatinine Clr Calc Pharmacy 36.74 [facility] Comment on above: Result Comment: PERF ORMED BY: [place] [address] PATHOLOGIST COMPOUNDING TECHNICIAN FEROZ DIEHL M.D. Performed By: #### H H #### [address] GFR/1.73 sq M.predicted MDRD (S/P/Bld) [Vol rate/Area] 46.453 mL/min/{1.73_m2} [facility] Comment on above: Performed By: #### H H #### [address] Glucose [Mass/Vol] 96 mg/dL Normal 70-100 [facility] Comment on above: Result Comment: Redig Glucose Reference Range is dependent on time and content of last meal. Glucose of more than 200 mg/dL in a nonstressed, ambulatory subject supports the diagnosis of Diabetes Mellitus. ADA recommended reference range Performed By: #### H H #### [address] Potassium [Moles/Vol] 4.0 mmol/L Normal 3.5-5.1 [facility] Comment on above: Performed By: #### H H #### [address] Sodium [Moles/Vol] 140 mmol/L Normal 136-145 [facility] Comment on above: Performed By: #### H H #### [address] Urea nitrogen [Mass/Vol] 21 mg/dL Normal 7-25 [facility] Comment on above: Performed By: #### H H #### [address] Complete Blood Count Auto Di ffon 04-10-2023 Basophils (Bld) [#/Vol] 0.1 10*3/uL Normal 0.0-0.2 [facility] Comment on above: Result Comment: PERF ORMED BY: [place] [address] PATHOLOGIST COMPOUNDING TECHNICIAN FEROZ DIEHL M.D. Performed By: #### H H #### [address] Basophils/100 WBC (Bld) 0.5 % Normal . [facility] Comment on above: Performed By: #### H H #### [address] Eosinophils (Bld) [#/Vol] 0.2 10*3/uL Normal 0.0-0.45 [facility] Comment on above: Performed By: #### H H #### [place] [address] [place] Eosinophils/100 WBC (Bld) 1.5 % Normal . [facility] Comment on above: Performed By: #### H H #### [address] Erythrocyte distribution width (RBC) [Ratio] 17.1 % High 12.0-14.8 [facility] Comment on above: Performed By: #### H H #### [address] Hematocrit (Bld) [Volume fraction] 24.1 % Low 38.8-50.0 [facility] Comment on above: Performed By: #### H H #### [address] Hemoglobin (Bld) [Mass/Vol] 8.0 g/dL Low 13.0-17.0 [facility] Comment on above: Performed By: #### H H #### [address] Lymphocytes (Bld) [#/Vol] 0.8 10*3/uL Low 1.00-4.8 [facility] Comment on above: Performed By: #### H H #### [address] Lymphocytes/100 WBC (Bld) 8.1 % Normal . [facility] Comment on above: Performed By: #### H H #### [address] MCH (RBC) [Entitic mass] 26.3 pg Low 27.5-35.2 [facility] Comment on above: Performed By: #### H H #### [address] MCV (RBC) [Entitic vol] 79.4 fL Low 83.5-101 [facility] Comment on above: Performed By: #### H H #### [address] Mean Corpuscular HGB Conc 33.1 g/dL Normal 32.5-35.6 [facility] Comment on above: Performed By: #### H H #### [address] Monocytes (Bld) [#/Vol] 0.5 10*3/uL Normal 0.0-0.8 [facility] Comment on above: Performed By: #### H H #### [facility] [address] [place] [address] [place] Monocytes/100 WBC (Bld) 4.4 % Normal . [facility] Comment on above: Performed By: #### H H #### [facility] [address] Neutrophils (Bld) [#/Vol] 8.9 10*3/uL High 1.8-7.7 [facility] Comment on above: Performed By: #### H H #### [address] Neutrophils/100 WBC (Bld) 85.5 % Normal . [facility] Comment on above: Performed By: #### H H #### [address] NRBC% 0.0 /100{WBC} Normal 0-0.5 [facility] Comment on above: Performed By: #### H H #### [address] Platelet mean volume (Bld) [Entitic vol] 8.9 fL Normal 6.6-10.1 [facility] Comment on above: Performed By: #### H H #### [place] [address] [place] Platelets (Bld) [#/Vol] 146 10*3/uL Low 150-450 [facility] Comment on above: Performed By: #### H H #### [place] [address] [place] RBC (Bld) [#/Vol] 3.04 10*6/uL Low 3.90-5.60 [place] Comment on above: Performed By: #### H H #### [address] WBC (Bld) [#/Vol] 10.5 10*3/uL Normal 4.1-10.5 [place] Comment on above: Performed By: #### H H #### [facility] [address] Basic Metabolic Panelon 03-30 Anion gap [Moles/Vol] 7.3 mmol/L Normal 6.0-15.0 [facility] Comment on above: Performed By: #### C BCNO, BMP #### [facility] [address] Calcium [Mass/Vol] 8.2 mg/dL Low 8.6-10.3 [facility] Comment on above: Performed By: #### C BCNO, BMP #### [facility] [address] Chloride [Moles/Vol] 111 mmol/L High 98-107 [facility] Comment on above: Performed By: #### C BCNO, BMP #### [address] CO2 [Moles/Vol] 26.2 mmol/L Normal 21.0-31.0 [facility] Comment on above: Performed By: #### C BCNO, BMP #### [place] [address] [place] Creatinine [Mass/Vol] 1.54 mg/dL High 0.70-1.30 [facility] Comment on above: Performed By: #### C BCNO, BMP #### [address] Creatinine Clr Calc Pharmacy 35.07 [facility] Comment on above: Result Comment: PERF ORMED BY: [place] [address] PATHOLOGIST COMPOUNDING TECHNICIAN FEROZ DIEHL M.D. Performed By: #### C BCNO, BMP #### [address] GFR/1.73 sq M.predicted MDRD (S/P/Bld) [Vol rate/Area] 43.931 mL/min/{1.73_m2} [facility] Comment on above: Performed By: #### C BCNO, BMP #### [address] Glucose [Mass/Vol] 91 mg/dL Normal 70-100 [facility] Comment on above: Result Comment: Redig Glucose Reference Range is dependent on time and content of last meal. Glucose of more than 200 mg/dL in a nonstressed, ambulatory subject supports the diagnosis of Diabetes Mellitus. ADA recommended reference range Performed By: #### C WILBER, BMP #### [address] Potassium [Moles/Vol] 4.5 mmol/L Normal 3.5-5.1 [facility] Comment on above: Performed By: #### C WILBER, BMP #### [address] Sodium [Moles/Vol] 140 mmol/L Normal 136-145 [facility] Comment on above: Performed By: #### C WILBER, BMP #### [address] Urea nitrogen [Mass/Vol] 34 mg/dL High 7-25 [facility] Comment on above: Performed By: #### C WILBER, BMP #### [address] Hemoglobin and Hematocriton 04-09-2023 Hematocrit (Bld) [Volume fraction] 25.9 % Low 38.8-50.0 [facility] Comment on above: Result Comment: PERF ORMED BY: [place] [address] PATHOLOGIST COMPOUNDING TECHNICIAN FEROZ DIEHL M.D. Performed By: #### H H #### [address] Hemoglobin (Bld) [Mass/Vol] 8.4 g/dL Low 13.0-17.0 [facility] Comment on above: Performed By: #### H H #### [address] Hemogram CBC Without Diffon 04-09-2023 Erythrocyte distribution width (RBC) [Ratio] 17.3 % High 12.0-14.8 [facility] Comment on above: Performed By: #### C WILBER, BMP #### [address] Hematocrit (Bld) [Volume fraction] 22.7 % Low 38.8-50.0 [facility] Comment on above: Performed By: #### C WILBER, BMP #### [address] Hemoglobin (Bld) [Mass/Vol] 7.5 g/dL Low 13.0-17.0 [facility] Comment on above: Performed By: #### C WILBER, BMP #### [address] MCH (RBC) [Entitic mass] 26.1 pg Low 27.5-35.2 [facility] Comment on above: Performed By: #### C WILBER, BMP #### [address] MCV (RBC) [Entitic vol] 79.2 fL Low 83.5-101 [facility] Comment on above: Performed By: #### C WILBER, BMP #### [address] Mean Corpuscular HGB Conc 32.9 g/dL Normal 32.5-35.6 [facility] Comment on above: Performed By: #### C WILBER, BMP #### [address] Platelet mean volume (Bld) [Entitic vol] 9.0 fL Normal 6.6-10.1 [facility] Comment on above: Result Comment: PERF ORMED BY: [place] [address] PATHOLOGIST COMPOUNDING TECHNICIAN FEROZ DIEHL M.D. Performed By: #### C WILBER, BMP #### [address] Platelets (Bld) [#/Vol] 145 10*3/uL Low 150-450 [facility] Comment on above: Performed By: #### C ALONZONO, BMP #### [facility] [address] RBC (Bld) [#/Vol] 2.86 10*6/uL Low 3.90-5.60 [place] Comment on above: Performed By: #### C ALONZONO, BMP #### [facility] [address] WBC (Bld) [#/Vol] 9.9 10*3/uL Normal 4.1-10.5 [facility] Comment on above: Performed By: #### Musa MERINO, BMP #### [facility] [address] [place] [address] Naresh 04-09-2023 L Specimen: [id number] Received: 04/09/23 Status: BENITO Kyaw Num: [id number] Spec Type: Surgical Subm Dr: Sade Pinto MD Tissues: A GASTRIC FOR HP (GASTRIC HP) Procedures: HE/2, Gross/Micro L4, H PYLORI Age/ Patient Sex Location Account Attending Physician Feroz Juarez 87/M 4P [id number] Vitaly Kennedy MD SPEC NUM: [id number] RECD: 04/09/23 STATUS: BENITO CARD NUM: [id number] JAZLYN: 04/09/[address] [facility] DR: Sade Pinto MD ENTERED: 04/09/[address]: SPEC TYPE: Surgical DEPT: S ORDERED: [...] The microscopic examination confirms the diagnosis. Specimen: [id number] Received: 04/09/23 Status: BENITO Card Num: [id number] Spec Type: Surgical Subm Dr: Sade Pinto MD Tissues: A GASTRIC FOR HP (GASTRIC HP) Procedures: GÓMEZ/Munira Gross/Micro L4, H PYLORI Patient: LarryFeroz [id number] (Continued) Specimen: [id number] Received: 04/09/23 (Continued) Signed (signature on file) Porfirio Augustin MD 04/11/23 4936 Specimen: [id number] Received: 04/09/23 Status: BENITO Card Num: [id number] Spec Type: Surgical Subm Dr: Sade Pinto MD Tissues: A GASTRIC FOR HP (GASTRIC HP) Procedures: GÓMEZ/Munira, Gross/Micro L4, H PYLORI Patient: Feroz Juarez [id number] (Continued) Specimen: [id number] Received: 04/09/23 (Continued) CPT Codes 39368 Specimen: [id number] Received: 04/09/23 Status: BENITO Card Num: [id number] Spec Type: Surgical Subm Dr: Sade Pinto MD Tissues: A GASTRIC FOR HP (GASTRIC HP) Procedures: HE/2, Gross/Micro L4, H PYLORI Patient: Feroz Juarez [id number] (Continued) Signed (signature on file) Porfirio Augustin MD 04/11/23 1434 Normal [facility] Complete Blood Count Auto Di ffon 04-08-2023 Basophils (Bld) [#/Vol] 0.0 10*3/uL Normal 0.0-0.2 [facility] Comment on above: Result Comment: PERF ORMED BY: [place] [address] PATHOLOGIST COMPOUNDING TECHNICIAN FEROZ DIEHL M.D. Performed By: #### H H #### [facility] [address] [place] [address] Basophils/100 WBC (Bld) 0.5 % Normal . [facility] Comment on above: Performed By: #### H H #### [address] Eosinophils (Bld) [#/Vol] 0.1 10*3/uL Normal 0.0-0.45 [facility] Comment on above: Performed By: #### H H #### [address] Eosinophils/100 WBC (Bld) 1.0 % Normal . [facility] Comment on above: Performed By: #### H H #### [address] Erythrocyte distribution width (RBC) [Ratio] 15.9 % High 12.0-14.8 [facility] Comment on above: Performed By: #### H H #### [address] Lymphocytes (Bld) [#/Vol] 1.7 10*3/uL Normal 1.00-4.8 [facility] Comment on above: Performed By: #### H H #### [address] Lymphocytes/100 WBC (Bld) 16.6 % Normal . [facility] Comment on above: Performed By: #### H H #### [address] MCH (RBC) [Entitic mass] 26.5 pg Low 27.5-35.2 [facility] Comment on above: Performed By: #### H H #### [address] MCV (RBC) [Entitic vol] 81.8 fL Low 83.5-101 [facility] Comment on above: Performed By: #### H H #### [address] Mean Corpuscular HGB Conc 32.4 g/dL Low 32.5-35.6 [facility] Comment on above: Performed By: #### H H #### [address] Monocytes (Bld) [#/Vol] 0.5 10*3/uL Normal 0.0-0.8 [facility] Comment on above: Performed By: #### H H #### [address] Monocytes/100 WBC (Bld) 4.7 % Normal . [facility] Comment on above: Performed By: #### H H #### [address] Neutrophils (Bld) [#/Vol] 7.8 10*3/uL High 1.8-7.7 [facility] Comment on above: Performed By: #### H H #### [place] [address] [place] Neutrophils/100 WBC (Bld) 77.2 % Normal . [facility] Comment on above: Performed By: #### H H #### [address] NRBC% 0.3 /100{WBC} Normal 0-0.5 [facility] Comment on above: Performed By: #### H H #### [address] Platelet mean volume (Bld) [Entitic vol] 9.4 fL Normal 6.6-10.1 [facility] Comment on above: Performed By: #### H H #### [address] Platelets (Bld) [#/Vol] 173 10*3/uL Normal 150-450 [facility] Comment on above: Performed By: #### H H #### [address] RBC (Bld) [#/Vol] 2.98 10*6/uL Low 3.90-5.60 [place] Comment on above: Performed By: #### H H #### [address] WBC (Bld) [#/Vol] 10.1 10*3/uL Normal 4.1-10.5 [place] Comment on above: Performed By: #### H H #### [address] Comprehensive Metabolic Pane naresh 04-08-2023 Albumin [Mass/Vol] 3.1 g/dL Low 3.5-5.7 [facility] Comment on above: Performed By: #### H H #### [address] Albumin/Globulin [Mass ratio] 1.5 {ratio} Normal [facility] Comment on above: Performed By: #### H H #### [address] ALP [Catalytic activity/Vol] 41 U/L Normal 34-104 [facility] Comment on above: Performed By: #### H H #### [facility] [address] [place] [address] [place] ALT [Catalytic activity/Vol] 5 U/L Low 7-52 [facility] Comment on above: Performed By: #### H H #### [facility] [address] Anion gap [Moles/Vol] 10.0 mmol/L Normal 6.0-15.0 [facility] Comment on above: Performed By: #### H H #### [facility] [address] AST [Catalytic activity/Vol] 10 U/L Low 13-39 [facility] Comment on above: Performed By: #### H H #### [facility] [address] Bilirubin [Mass/Vol] 0.4 mg/dL Normal 0.3-1.0 [facility] Comment on above: Performed By: #### H H #### [facility] [address] [place] [address] [place] Calcium [Mass/Vol] 8.5 mg/dL Low 8.6-10.3 [facility] Comment on above: Performed By: #### H H #### [facility] [address] [place] [address] [place] Chloride [Moles/Vol] 113 mmol/L High 98-107 [facility] Comment on above: Performed By: #### H H #### [facility] [address] [place] [address] [place] CO2 [Moles/Vol] 23.1 mmol/L Normal 21.0-31.0 [facility] Comment on above: Performed By: #### H H #### [facility] [address] [place] [address] [place] Creatinine [Mass/Vol] 1.56 mg/dL High 0.70-1.30 [facility] Comment on above: Performed By: #### H H #### [place] [address] [place] Creatinine Clr Calc Pharmacy 34.62 [facility] Comment on above: Performed By: #### H H #### [place] [address] [place] GFR/1.73 sq M.predicted MDRD (S/P/Bld) [Vol rate/Area] 43.256 mL/min/{1.73_m2} [facility] Comment on above: Performed By: #### H H #### [address] Globulin (S) [Mass/Vol] 2.1 g/dL [facility] Comment on above: Performed By: #### H H #### [address] Glucose [Mass/Vol] 93 mg/dL Normal 70-100 [facility] Comment on above: Result Comment: Redig Glucose Reference Range is dependent on time and content of last meal. Glucose of more than 200 mg/dL in a nonstressed, ambulatory subject supports the diagnosis of Diabetes Mellitus. ADA recommended reference range Performed By: #### H H #### [address] Potassium [Moles/Vol] 4.1 mmol/L Normal 3.5-5.1 [facility] Comment on above: Performed By: #### H H #### [address] Protein [Mass/Vol] 5.2 g/dL Low 6.4-8.9 [facility] Comment on above: Performed By: #### H H #### [place] [address] [place] Sodium [Moles/Vol] 142 mmol/L Normal 136-145 [facility] Comment on above: Performed By: #### H H #### [address] Urea nitrogen [Mass/Vol] 47 mg/dL High 7-25 [facility] Comment on above: Performed By: #### H H #### [facility] [address] [place] [address] [place] Dipstick and Microscopicon 0 04-08-2023 Appearance (U) Clear Normal Clear [facility] Comment on above: Order Comment: Name Collection Type:: Voided Performed By: #### H H #### [place] [address] [place] Bacteria,Urine None Seen Normal None Seen [facility] Comment on above: Order Comment: Name Collection Type:: Voided Performed By: #### H H #### [place] [address] [place] Bilirubin,Urine Negative Normal Negative [facility] Comment on above: Order Comment: Name Collection Type:: Voided Performed By: #### H H #### [address] Color (U) Yellow Normal Yellow [facility] Comment on above: Order Comment: Name Collection Type:: Voided Performed By: #### H H #### [address] Glucose Ql (U) Normal Normal Normal [facility] Comment on above: Order Comment: Name Collection Type:: Voided Performed By: #### H H #### [place] [address] [place] Hyaline Casts,Urine None Seen Normal 0-8 [place] Comment on above: Order Comment: Name Collection Type:: Voided Result Comment: PERF ORMED BY: [place] [address] PATHOLOGIST COMPOUNDING TECHNICIAN FEROZ DIEHL M.D. Performed By: #### H H #### [place] [address] [place] Ketones Ql (U) Negative Normal Negative [facility] Comment on above: Order Comment: Name Collection Type:: Voided Performed By: #### H H #### [place] [address] [place] Leukocyte esterase Test strip Ql (U) 1+ High Negative [facility] Comment on above: Order Comment: Name Collection Type:: Voided Performed By: #### H H #### [facility] [facility] [address] [place] [address] [place] Nitrite,Urine Negative Normal Negative [facility] Comment on above: Order Comment: Name Collection Type:: Voided Performed By: #### H H #### [address] Occult Blood,Urine Negative Normal Negative [facility] Comment on above: Order Comment: Name Collection Type:: Voided Result Comment: PERF ORMED BY: [place] [address] PATHOLOGIST COMPOUNDING TECHNICIAN FEROZ DIEHL M.D. Performed By: #### H H #### [address] pH (U) 5.0 [pH] Normal 5.0-9.0 [facility] Comment on above: Order Comment: Name Collection Type:: Voided Performed By: #### H H #### [address] Protein,Urine Negative Normal Negative [facility] Comment on above: Order Comment: Name Collection Type:: Voided Performed By: #### H H #### [address] RBC,Urine None Seen Normal 0-4 [facility] Comment on above: Order Comment: Name Collection Type:: Voided Performed By: #### H H #### [address] Specificy [place],Urine 1.016 Normal 1.001-1.030 [facility] Comment on above: Order Comment: Name Collection Type:: Voided Performed By: #### H H #### [address] Squamous Epithelial Cell,Urine None Seen Normal 0-2 [facility] Comment on above: Order Comment: Name Collection Type:: Voided Performed By: #### H H #### [address] Urobilinogen,Urine Normal Normal Normal [facility] Comment on above: Order Comment: Name Collection Type:: Voided Performed By: #### H H #### [address] WBC LM.HPF (Urine sed) [#/Area] 0 /[HPF] Normal 0-4 [facility] Comment on above: Order Comment: Name Collection Type:: Voided Performed By: #### H H #### [address] Hemoglobin and Hematocriton 04-08-2023 Hematocrit (Bld) [Volume fraction] 25.0 % Low 38.8-50.0 [facility] Comment on above: Result Comment: PERF ORMED BY: [place] [address] PATHOLOGIST COMPOUNDING TECHNICIAN FEROZ DIEHL M.D. Performed By: #### H H #### [address] Hemoglobin (Bld) [Mass/Vol] 8.2 g/dL Low 13.0-17.0 [facility] Comment on above: Performed By: #### H H #### [address] Hematocrit (Bld) [Volume fraction] 22.3 % Low 38.8-50.0 [facility] Comment on above: Result Comment: PERF ORMED BY: [place] [address] PATHOLOGIST COMPOUNDING TECHNICIAN FEROZ DIEHL M.D. Performed By: #### H H #### [address] Hemoglobin (Bld) [Mass/Vol] 7.4 g/dL Low 13.0-17.0 [facility] Comment on above: Performed By: #### H H #### [address] Hematocrit (Bld) [Volume fraction] 24.3 % Low 38.8-50.0 [facility] Comment on above: Result Comment: PERF ORMED BY: [place] [address] PATHOLOGIST COMPOUNDING TECHNICIAN FEROZ DIEHL M.D. Performed By: #### H H #### [address] Hemoglobin (Bld) [Mass/Vol] 7.9 g/dL Low 13.0-17.0 [facility] Comment on above: Performed By: #### H H #### [address] Hematocrit (Bld) [Volume fraction] 24.4 % Low 38.8-50.0 [facility] Comment on above: Result Comment: PERF ORMED BY: [place] [address] PATHOLOGIST COMPOUNDING TECHNICIAN FEROZ DIEHL M.D. Performed By: #### H H #### [address] Hemoglobin (Bld) [Mass/Vol] 7.8 g/dL Low 13.0-17.0 [facility] Comment on above: Performed By: #### H H #### [address] Magnesiumon 04-08-2023 Magnesium [Mass/Vol] 1.6 mg/dL Low 1.9-2.7 [facility] Comment on above: Result Comment: PERF ORMED BY: [place] [address] PATHOLOGIST COMPOUNDING TECHNICIAN FEROZ DIEHL M.D. Performed By: #### H H #### [address] Prothrombin Time INRon 04-08 INR Coag (PPP) [Relative time] 1.1 {INR} Normal [facility] Comment on above: Result Comment: INR [...] heart valves: 3 - 4.5 PERFORMED BY: [place] [address] PATHOLOGIST COMPOUNDING TECHNICIAN FEROZ DIEHL M.D. Performed By: #### H H #### [address] PT Coag (PPP) [Time] 13.2 s High 9.0-12.9 [facility] Comment on above: Result Comment: A he matocrit value greater than 55% may lead to inaccurate results in coagulation testing. Patients having hematocrit values >55% require a special collection tube for coagulation studies. Please contact the laboratory at [phone] for redraw instructions. Performed By: #### H H #### [address] ABO/Rh Retypeon 04-07-2023 ABO/RH Recheck Result Positive Normal [facility] Comment on above: Result Comment: PERF ORMED BY: [place] [address] PATHOLOGIST COMPOUNDING TECHNICIAN FEROZ DIEHL M.D. Complete Blood Count Auto Di ffon 04-07-2023 Basophils (Bld) [#/Vol] 0.0 10*3/uL Normal 0.0-0.2 [facility] Comment on above: Result Comment: PERF ORMED BY: [place] [address] PATHOLOGIST COMPOUNDING TECHNICIAN FEROZ DIEHL M.D. Performed By: #### C BC, CMP #### [place] [address] [place] Basophils/100 WBC (Bld) 0.1 % Normal . [facility] Comment on above: Performed By: #### C BC, CMP #### [place] [address] [place] Eosinophils (Bld) [#/Vol] 0.0 10*3/uL Normal 0.0-0.45 [facility] Comment on above: Performed By: #### C BC, CMP #### [address] Eosinophils/100 WBC (Bld) 0.1 % Normal . [facility] Comment on above: Performed By: #### C BC, CMP #### [address] Erythrocyte distribution width (RBC) [Ratio] 16.1 % High 12.0-14.8 [facility] Comment on above: Performed By: #### C BC, CMP #### [address] Hematocrit (Bld) [Volume fraction] 26.6 % Low 38.8-50.0 [facility] Comment on above: Performed By: #### C BC, CMP #### [address] Hemoglobin (Bld) [Mass/Vol] 8.6 g/dL Low 13.0-17.0 [facility] Comment on above: Performed By: #### C BC, CMP #### [address] Lymphocytes (Bld) [#/Vol] 1.1 10*3/uL Normal 1.00-4.8 [facility] Comment on above: Performed By: #### C BC, CMP #### [place] [address] [place] Lymphocytes/100 WBC (Bld) 9.8 % Normal . [facility] Comment on above: Performed By: #### C BC, CMP #### [address] MCH (RBC) [Entitic mass] 26.3 pg Low 27.5-35.2 [facility] Comment on above: Performed By: #### C BC, CMP #### [address] MCV (RBC) [Entitic vol] 81.8 fL Low 83.5-101 [facility] Comment on above: Performed By: #### C BC, CMP #### [facility] [address] Mean Corpuscular HGB Conc 32.2 g/dL Low 32.5-35.6 [facility] Comment on above: Performed By: #### C BC, CMP #### [facility] [address] [place] [address] [place] Monocytes (Bld) [#/Vol] 0.5 10*3/uL Normal 0.0-0.8 [facility] Comment on above: Performed By: #### C BC, CMP #### [facility] [address] Monocytes/100 WBC (Bld) 4.3 % Normal . [facility] Comment on above: Performed By: #### C BC, CMP #### [facility] [address] Neutrophils (Bld) [#/Vol] 9.7 10*3/uL High 1.8-7.7 [facility] Comment on above: Performed By: #### C BC, CMP #### [facility] [address] Neutrophils/100 WBC (Bld) 85.7 % Normal . [facility] Comment on above: Performed By: #### C BC, CMP #### [facility] [address] [place] [address] [place] NRBC% 0.1 /100{WBC} Normal 0-0.5 [facility] Comment on above: Performed By: #### C BC, CMP #### [facility] [address] [place] [address] [place] Platelet mean volume (Bld) [Entitic vol] 9.4 fL Normal 6.6-10.1 [facility] Comment on above: Performed By: #### C BC, CMP #### [facility] [address] [place] [address] [place] Platelets (Bld) [#/Vol] 184 10*3/uL Normal 150-450 [facility] Comment on above: Performed By: #### C BC, CMP #### [facility] [address] RBC (Bld) [#/Vol] 3.25 10*6/uL Low 3.90-5.60 [place] Comment on above: Performed By: #### C BC, CMP #### [facility] [address] WBC (Bld) [#/Vol] 11.3 10*3/uL High 4.1-10.5 [place] Comment on above: Performed By: #### C BC, CMP #### [address] Comprehensive Metabolic Pane naresh 04-07-2023 Albumin [Mass/Vol] 3.2 g/dL Low 3.5-5.7 [facility] Comment on above: Performed By: #### C BC, CMP #### [address] Albumin/Globulin [Mass ratio] 1.5 {ratio} Normal [facility] Comment on above: Performed By: #### C BC, CMP #### [address] ALP [Catalytic activity/Vol] 43 U/L Normal 34-104 [facility] Comment on above: Performed By: #### C BC, CMP #### [facility] [address] [place] [address] ALT [Catalytic activity/Vol] 5 U/L Low 7-52 [facility] Comment on above: Performed By: #### C BC, CMP #### [address] Anion gap [Moles/Vol] 12.0 mmol/L Normal 6.0-15.0 [facility] Comment on above: Performed By: #### C BC, CMP #### [facility] [address] [place] [address] AST [Catalytic activity/Vol] 10 U/L Low 13-39 [facility] Comment on above: Performed By: #### C BC, CMP #### [facility] [address] [place] [address] [place] Bilirubin [Mass/Vol] 0.4 mg/dL Normal 0.3-1.0 [facility] Comment on above: Performed By: #### C BC, CMP #### [facility] [address] [place] [address] [place] Calcium [Mass/Vol] 8.2 mg/dL Low 8.6-10.3 [facility] Comment on above: Performed By: #### C BC, CMP #### [facility] [address] [place] [address] [place] Chloride [Moles/Vol] 110 mmol/L High 98-107 [facility] Comment on above: Performed By: #### C BC, CMP #### [facility] [address] [place] [address] [place] CO2 [Moles/Vol] 21.0 mmol/L Normal 21.0-31.0 [facility] Comment on above: Performed By: #### C BC, CMP #### [facility] [address] [place] [address] [place] Creatinine [Mass/Vol] 1.52 mg/dL High 0.70-1.30 [facility] Comment on above: Performed By: #### C BC, CMP #### [facility] [address] [place] [address] [place] Creatinine Clr Calc Pharmacy 35.53 [facility] Comment on above: Result Comment: PERF ORMED BY: [place] [address] PATHOLOGIST COMPOUNDING TECHNICIAN FEROZ DIEHL M.D. Performed By: #### C BC, CMP #### [facility] [address] [place] [address] [place] GFR/1.73 sq M.predicted MDRD (S/P/Bld) [Vol rate/Area] 44.626 mL/min/{1.73_m2} [facility] Comment on above: Performed By: #### C BC, CMP #### [facility] [address] Globulin (S) [Mass/Vol] 2.1 g/dL [facility] Comment on above: Performed By: #### C BC, CMP #### [facility] [address] Glucose [Mass/Vol] 106 mg/dL High 70-100 [facility] Comment on above: Result Comment: Redig Glucose Reference Range is dependent on time and content of last meal. Glucose of more than 200 mg/dL in a nonstressed, ambulatory subject supports the diagnosis of Diabetes Mellitus. ADA recommended reference range Performed By: #### C BC, CMP #### [facility] [address] [place] [address] Potassium [Moles/Vol] 4.0 mmol/L Normal 3.5-5.1 [facility] Comment on above: Performed By: #### C BC, CMP #### [address] Protein [Mass/Vol] 5.3 g/dL Low 6.4-8.9 [facility] Comment on above: Performed By: #### C BC, CMP #### [address] Sodium [Moles/Vol] 139 mmol/L Normal 136-145 [facility] Comment on above: Performed By: #### C BC, CMP #### [facility] [address] [place] [address] [place] Urea nitrogen [Mass/Vol] 55 mg/dL High 7-25 [facility] Comment on above: Performed By: #### C BC, CMP #### [place] [address] [place] LeukoReduced RBCon 3 LeukoReduced RBC TRANSFUSED 04/08/23 1406 [facility] Type and Screenon 04-07-2023 ABO and Rh group Nom (Bld) Blood group O Rh(D) positive [facility] Comment on above: Order Comment: Trans fuse now? Y Number of units to transfuse now? 1 INSULINon 04-19-2022 Insulin 8.1 uIU/mL Normal 2.6-24.9 [facility] Comment on above: Performed By: #### C MP, TSH, BNP, LIPID, T7 #### [facility] [place] [facility] [address] [address] [address] Juan Hill PSA, FREE AND TOTAL RATIOon 04-19-2022 % Free PSA 25.1 % Normal [facility] [place] [facility] Comment on above: Result Comment: The [...] C MP, TSH, BNP, LIPID, T7 #### [facility] [place] [facility] [address] [address] [address] Juan Hill Prostate specific Ag [Mass/Vol] 10.1 ng/mL Critically high 0.0-4.0 [facility] Comment on above: Result Comment: Roch e ECLIA methodology. . According to the [employer], Serum PSA should decrease and [...] C MP, TSH, BNP, LIPID, T7 #### [facility] [place] [facility] [address] [place], [place] [address] Dr. Juan Hill PSA, Free 2.54 ng/mL Normal N/A [facility] Comment on above: Result Comment: Roch e ECLIA methodology. Performed By: #### C MP, TSH, BNP, LIPID, T7 #### [facility] [place] [facility] [address] [place] [address] Dr. Juan Hill T4, T3U, FTI LABCORPon 04-19 Free Thyroxine Index 1.4 Normal 1.2-4.9 [facility] [place] [facility] Comment on above: Performed By: #### C MP, TSH, BNP, LIPID, T7 #### [facility] [place] [facility] [address] [place] [address] Dr. Juan Hill T3 Uptake 28 % Normal 24-39 [facility] [place] [facility] Comment on above: Performed By: #### C MP, TSH, BNP, LIPID, T7 #### [facility] [place] [facility] [address] [place] [address] Dr. Juan Hill T4 [Mass/Vol] 5.1 ug/dL Normal 4.5-12.0 [facility] Comment on above: Performed By: #### C MP, TSH, BNP, LIPID, T7 #### [facility] [place] [facility] [address] [place] [address] Dr. Juan Hill BNPon 04-18-2022 Natriuretic peptide B (Bld) [Mass/Vol] 360.0 pg/mL Normal <=1,800.0 [facility] [place] [facility] Comment on above: Performed By: #### U SUSANNAH, CMP, LIPID, TSH, BNP #### [facility] [place] [facility] [address] [place] [address] Dr. Juan Hill CBC AUTO DIFFon 04-18-2022 BASO # 0.1 103/ul Normal 0.0-0.1 [facility] [place] [facility] Comment on above: Performed By: #### C MP, TSH, BNP, LIPID, T7 #### [facility] [place] [facility] [address] [place] [address] Dr. Juan Hill Basophils/100 WBC (Bld) 0.9 % Normal 0.2-2.0 [facility] [place] [facility] Comment on above: Performed By: #### C MP, TSH, BNP, LIPID, T7 #### [facility] [place] [facility] [address] [place] [address] Dr. Juan Hill EO # 0.2 103/ul Normal 0.0-0.7 [facility] [place] [facility] Comment on above: Performed By: #### C MP, TSH, BNP, LIPID, T7 #### [facility] [place] [facility] [address] [place] [address] Dr. Juan Hill Eosinophils/100 WBC (Bld) 3.0 % Normal 0.9-7.0 [facility] [place] [facility] Comment on above: Performed By: #### C MP, TSH, BNP, LIPID, T7 #### [facility] [place] [facility] [address] [place] [address] Dr. Juan Hill Erythrocyte distribution width (RBC) [Ratio] 15.7 % Critically high 11.0-15.0 [facility] [place] [facility] Comment on above: Performed By: #### C MP, TSH, BNP, LIPID, T7 #### [facility] [place] [facility] [address] [place] [address] Dr. Juan Hill Hematocrit (Bld) [Volume fraction] 40.4 % Critically low 42.0-54.0 [facility] [place] [facility] Comment on above: Performed By: #### C MP, TSH, BNP, LIPID, T7 #### [facility] [place] [facility] [address] [place] [address] Dr. Juan Hill Hemoglobin (Bld) [Mass/Vol] 12.4 g/dL Critically low 14.0-18.0 [facility] [place] [facility] Comment on above: Performed By: #### C MP, TSH, BNP, LIPID, T7 #### [facility] [place] [facility] [address] [place] [address] Dr. Juan Hill IG # 0.02 10e3/ul Normal 0.00-0.03 [facility] [place] [facility] Comment on above: Performed By: #### C MP, TSH, BNP, LIPID, T7 #### [facility] [place] [facility] [address] [place] [address] Dr. Juan Hill IG % 0.3 % Normal 0.0-0.5 [facility] [place] [facility] Comment on above: Performed By: #### C MP, TSH, BNP, LIPID, T7 #### [facility] [place] [facility] [address] [place] [address] Dr. Juan Hill LYMPH # 1.2 103/ul Normal 1.2-3.8 [facility] [place] [facility] Comment on above: Performed By: #### C MP, TSH, BNP, LIPID, T7 #### [facility] [place] [facility] [address] [place] [address] Dr. Juan Hill Lymphocytes/100 WBC (Bld) 15.6 % Critically low 20.5-60.0 [facility] Comment on above: Performed By: #### C MP, TSH, BNP, LIPID, T7 #### [facility] [place] [facility] [address] [place] [address] Dr. Juan Hill MANUAL DIFF REQ NO Normal [facility] Comment on above: Performed By: #### C MP, TSH, BNP, LIPID, T7 #### [facility] [place] [facility] [address] [place] [address] Dr. Juan Hill MCH (RBC) [Entitic mass] 27.3 pg Normal 25.9-34.0 [facility] Comment on above: Performed By: #### C MP, TSH, BNP, LIPID, T7 #### [facility] [place] [facility] [address] [place] [address] Dr. Juan Hill MCHC (RBC) [Mass/Vol] 30.7 g/dL Normal 29.9-35.2 [facility] [place] [facility] Comment on above: Performed By: #### C MP, TSH, BNP, LIPID, T7 #### [facility] [place] [facility] [address] [place] [address] Dr. Juan Hill MCV (RBC) [Entitic vol] 89.0 fL Normal 80.0-94.0 [facility] [place] [facility] Comment on above: Performed By: #### C MP, TSH, BNP, LIPID, T7 #### [facility] [place] [facility] [address] [place] [address] Dr. Juan Hill MONO # 0.5 103/ul Normal 0.3-0.8 [facility] [place] [facility] Comment on above: Performed By: #### C MP, TSH, BNP, LIPID, T7 #### [facility] [place] [facility] [address] [place] [address] Dr. Juan Hill Monocytes/100 WBC (Bld) 6.2 % Normal 1.7-12.0 [facility] Comment on above: Performed By: #### C MP, TSH, BNP, LIPID, T7 #### [facility] [place] [facility] [address] [place] [address] Dr. Juan Hill NEUT # 5.9 103/ul Normal 1.4-6.5 [facility] Comment on above: Performed By: #### C MP, TSH, BNP, LIPID, T7 #### [facility] [place] [facility] [address] [place] [address] Dr. Juan Hill Neutrophils/100 WBC (Bld) 74.0 % Normal 43.0-75.0 [facility] Comment on above: Performed By: #### C MP, TSH, BNP, LIPID, T7 #### [facility] [place] [facility] [address] [place] [address] Dr. Juan Hill Platelet mean volume (Bld) [Entitic vol] 12.1 fL Normal 9.5-13.5 [facility] Comment on above: Performed By: #### C MP, TSH, BNP, LIPID, T7 #### [facility] [place] [facility] [address] [place] [address] Dr. Juan Hill PLT 180 103/ul Normal 150-450 [facility] Comment on above: Performed By: #### C MP, TSH, BNP, LIPID, T7 #### [facility] [place] [facility] [address] [place] [address] Dr. Juan Hill RBC 4.54 106/ul Critically low 4.70-6.10 [facility] Comment on above: Performed By: #### C MP, TSH, BNP, LIPID, T7 #### [facility] [place] [facility] [address] [place] [address] Dr. Juan Hill WBC 8.0 103/ul Normal 4.0-11.0 [facility] Comment on above: Performed By: #### C MP, TSH, BNP, LIPID, T7 #### [facility] [place] [facility] [address] [place] [address] Dr. Juan Hill GLYCOHEMOGLOBIN A1Con 2021 ADA RECOMMENDATION SEE BELOW Normal [facility] Comment on above: Result Comment: ADA RECOMMENDED LIMIT 4.0 - 6.0 ADA THERAPEUTIC TARGET < 7.0 ACTION SUGGESTED > 7.0 Performed By: #### C MP, TSH, BNP, LIPID, T7 #### [facility] [place] [facility] [address] [address] [address] Juan Hill Glucose [Mass/Vol] 100 mg/dL Normal [facility] Comment on above: Performed By: #### C MP, TSH, BNP, LIPID, T7 #### [facility] [place] [facility] [address] [address] [address] Juan Hill HbA1c (Bld) [Mass fraction] 5.1 % Normal 4.5-6.2 [facility] Comment on above: Performed By: #### C MP, TSH, BNP, LIPID, T7 #### [facility] [place] [facility] [address] [address] [address] Juan Hill LIPID PROFILEon 04-18-2022 CHOL-HDL RATIO NORM SEE BELOW Normal [facility] Comment on above: Result Comment: 3.3 - 4.4 LOW RISK 4.4 - 7.1 AVERAGE RISK 7.1 - 11.0 MODERATE RISK >11.0 HIGH RISK Performed By: #### U SUSANNAH, CMP, LIPID, TSH, BNP #### [facility] [place] [facility] [address] [address] [address] Juan Hill Cholesterol [Mass/Vol] 166 mg/dL Normal <=200 [facility] Comment on above: Performed By: #### U SUSANNAH, CMP, LIPID, TSH, BNP #### [facility] [place] [facility] [address] [address] [address] Juan Hill Cholesterol in HDL [Mass/Vol] 46 mg/dL Normal 40-60 [facility] Comment on above: Performed By: #### U SUSANNAH, CMP, LIPID, TSH, BNP #### [facility] [place] [facility] [address] [address] [address] Juan Hill Cholesterol in LDL [Mass/Vol] 90.6 mg/dL Normal [facility] Comment on above: Performed By: #### U SUSANNAH, CMP, LIPID, TSH, BNP #### [facility] [place] [facility] [address] [address] [address] Juan Hill Cholesterol.total/Cho lesterol in HDL [Mass ratio] 3.6 {ratio} Normal [facility] Comment on above: Performed By: #### U SUSANNAH, CMP, LIPID, TSH, BNP #### [facility] [place] [facility] [address] [address] [address] Juan Hill HDL NORMAL > or = 60 mg/dl - LOW CARDIOVASCULAR RISK <40 mg/dl - HIGH CARDIOVASCULAR RISK Normal [facility] Comment on above: Performed By: #### U SUSANNAH, CMP, LIPID, TSH, BNP #### [facility] [place] [facility] [address] [address] [address] Juan Hill LDL CALC NORMAL SEE BELOW Normal [facility] Comment on above: Result Comment: <100 mg/dl OPTIMAL 100 - 129 mg/dl NEAR OR ABOVE OPTIMAL 130 - 159 mg/dl BORDERLINE HIGH 160 - 189 mg/dl HIGH >190 mg/dl VERY HIGH Performed By: #### U SUSANNAH, CMP, LIPID, TSH, BNP #### [facility] [place] [facility] [address] [address] [address] Juan Hill Triglyceride [Mass/Vol] 147 mg/dL Normal <=150 [facility] Comment on above: Performed By: #### U SUSANNAH, CMP, LIPID, TSH, BNP #### [facility] [place] [facility] [address] [address] [address] Juan Hill VLDL CALC 29.4 mg/dL Normal [facility] Comment on above: Performed By: #### U SUSANNAH, CMP, LIPID, TSH, BNP #### [facility] [place] [facility] [address] [address] [address] Juan Hill PROF 14(COMP METB)on 022 Albumin [Mass/Vol] 4.0 g/dL Normal 3.4-5.0 [facility] Comment on above: Performed By: #### U SUSANNAH, CMP, LIPID, TSH, BNP #### [facility] [place] [facility] [address] [address] [address] Juan Hill Albumin/Globulin [Mass ratio] 1.2 {ratio} Normal [facility] Comment on above: Performed By: #### U SUSANNAH, CMP, LIPID, TSH, BNP #### [facility] [place] [facility] [address] [address] [address] Juan Hill ALP [Catalytic activity/Vol] 96 U/L Normal 46-116 [facility] Comment on above: Performed By: #### U SUSANNAH, CMP, LIPID, TSH, BNP #### [facility] [place] [facility] [address] [address] [address] Juan Hill ALT [Catalytic activity/Vol] 11 U/L Critically low 16-63 [facility] Comment on above: Performed By: #### U SUSANNAH, CMP, LIPID, TSH, BNP #### [facility] [place] [facility] [address] [address] [address] Juan Hill Anion gap [Moles/Vol] 11.9 mmol/L Normal [facility] [place] [facility] Comment on above: Performed By: #### U SUSANNAH, CMP, LIPID, TSH, BNP #### [facility] [place] [facility] [address] [place] [address] Dr. Juan Hill AST [Catalytic activity/Vol] 13 U/L Critically low 15-37 [facility] Comment on above: Performed By: #### U SUSANNAH, CMP, LIPID, TSH, BNP #### [facility] [place] [facility] [address] [place] [address] Dr. Juan Hill Bilirubin [Mass/Vol] 0.7 mg/dL Normal 0.2-1.0 [facility] Comment on above: Performed By: #### U SUSANNAH, CMP, LIPID, TSH, BNP #### [facility] [place] [facility] [address] [place] [address] Dr. Juan Hill Calcium [Mass/Vol] 9.2 mg/dL Normal 8.5-10.1 [facility] Comment on above: Performed By: #### U SUSANNAH, CMP, LIPID, TSH, BNP #### [facility] [place] [facility] [address] [place] [address] Dr. Juan Hill Chloride [Moles/Vol] 108 mmol/L Critically high 98-107 [facility] Comment on above: Performed By: #### U SUSANNAH, CMP, LIPID, TSH, BNP #### [facility] [place] [facility] [address] [place] [address] Dr. Juan Hill CO2 [Moles/Vol] 26.5 mmol/L Normal 21.0-32.0 [facility] Comment on above: Performed By: #### U SUSANNAH, CMP, LIPID, TSH, BNP #### [facility] [place] [facility] [address] [address] [address] Juan Hill Creatinine [Mass/Vol] 2.38 mg/dL Critically high 0.70-1.30 [facility] Comment on above: Performed By: #### U SUSANNAH, CMP, LIPID, TSH, BNP #### [facility] [place] [facility] [address] [place] [address] Dr. Juan Hill EGFR-AF BHUTANESE 32 mL/min/1.73m2 Critically low >=60 [facility] Comment on above: Performed By: #### U SUSANNAH, CMP, LIPID, TSH, BNP #### [facility] [place] [facility] [address] [place] [address] Dr. Juan Hill EGFR-NON AF BHUTANESE 26 mL/min/1.73m2 Critically low >=60 [facility] Comment on above: Performed By: #### U SUSANNAH, CMP, LIPID, TSH, BNP #### [facility] [place] [facility] [address] [place] [address] Dr. Juan Hill Globulin (S) [Mass/Vol] 3.4 g/dL Normal [facility] Comment on above: Performed By: #### U SUSANNAH, CMP, LIPID, TSH, BNP #### [facility] [place] [facility] [address] [place] [address] Dr. Juan Hill Glucose [Mass/Vol] 98 mg/dL Normal 74-106 [facility] Comment on above: Performed By: #### U SUSANNAH, CMP, LIPID, TSH, BNP #### [facility] [place] [facility] [address] [place] [address] Dr. Juan Hill Potassium [Moles/Vol] 4.4 mmol/L Normal 3.5-5.1 [facility] [place] [facility] Comment on above: Performed By: #### U SUSANNAH, CMP, LIPID, TSH, BNP #### [facility] [place] [facility] [address] [place] [address] Dr. Juan Hill Protein [Mass/Vol] 7.4 g/dL Normal 6.4-8.2 [facility] Comment on above: Performed By: #### U SUSANNAH, CMP, LIPID, TSH, BNP #### [facility] [place] [facility] [address] [address] [address] Juan Hill Sodium [Moles/Vol] 142 mmol/L Normal 136-145 [facility] Comment on above: Performed By: #### U SUSANNAH, CMP, LIPID, TSH, BNP #### [facility] [place] [facility] [address] [address] [address] Juan Hill Urea nitrogen [Mass/Vol] 36.0 mg/dL Critically high 7.0-18.0 [facility] Comment on above: Performed By: #### U SUSANNAH, CMP, LIPID, TSH, BNP #### [facility] [place] [facility] [address] [place] [address] Dr. Juan Hill Urea nitrogen/Creatinine [Mass ratio] 15.1 mg/mg Normal [facility] Comment on above: Performed By: #### U SUSANNAH, CMP, LIPID, TSH, BNP #### [facility] [place] [facility] [address] [place] [address] Dr. Juan Hill TSHon 04-18-2022 TSH 1.492 uIU/mL Normal 0.358-3.740 [facility] Comment on above: Performed By: #### U SUSANNAH, CMP, LIPID, TSH, BNP #### [facility] [place] [facility] [address] [place] [address] Dr. Juan Hill URIC ACID SERUMon 04-18-2022 Urate [Mass/Vol] 9.2 mg/dL Critically high 3.5-7.2 [facility] Comment on above: Performed By: #### C MP, TSH, BNP, LIPID, T7 #### [facility] [place] [facility] [address] [place] [address] Dr. Juan Hill VITAMIN D 25 OHon 04-18-2022 VIT D 25-OH 42.8 ng/mL Normal [facility] Comment on above: Performed By: #### V ITAD #### [facility] [place] [facility] [address] [place] [address] Dr. Juan Hill VIT D RANGES SEE BELOW Normal [facility] Comment on above: Result Comment: <20 ng/mL Vit D deficient 20 - <30 ng/mL Vit D insufficient 30 - 100 ng/mL Vit D sufficient >100 ng/mL Potential Toxicity Performed By: #### V ITAD #### [facility] [place] [facility] [id number] [address] Juan Hill PSA, FREE AND TOTAL RATIOon 06-03-2021 % Free PSA 28.1 % Normal [facility] Comment on above: Result Comment: The [...] C MP, TSH, BNP, LIPID, T7 #### [facility] [place] [facility] [id number] [address] Juan Hill Prostate specific Ag [Mass/Vol] 9.1 ng/mL Critically high 0.0-4.0 [facility] Comment on above: Result Comment: Sharda montenegro ECLIA methodology. . According to the [employer], Serum PSA should decrease and [...] C MP, TSH, BNP, LIPID, T7 #### [facility] [place] [facility] [id number] [address] Juan Hill PSA, Free 2.56 ng/mL Normal N/A [facility] Comment on above: Result Comment: Roch e ECLIA methodology. Performed By: #### C MP, TSH, BNP, LIPID, T7 #### [facility] [place] [facility] [id number] Juan Hill INSULINon 06-02-2021 Insulin 9.6 uIU/mL Normal 2.6-24.9 [facility] [place] [facility] Comment on above: Performed By: #### C MP, TSH, BNP, LIPID, T7 #### [facility] [place] [facility] [address] [place] [address] Dr. Juan Hill BNPon 06-01-2021 Natriuretic peptide B (Bld) [Mass/Vol] 269.0 pg/mL Normal <=1,800.0 [facility] [place] [facility] Comment on above: Performed By: #### C MP, TSH, BNP, LIPID, T7 #### [facility] [place] [facility] [address] [place] [address] Dr. Juan Hill CBC AUTO DIFFon 06-01-2021 BASO # 0.1 103/ul Normal 0.0-0.1 [facility] Comment on above: Performed By: #### C MP, TSH, BNP, LIPID, T7 #### [facility] [place] [facility] [address] [place] [address] Dr. Juan Hlil Basophils/100 WBC (Bld) 0.7 % Normal 0.2-2.0 [facility] Comment on above: Performed By: #### C MP, TSH, BNP, LIPID, T7 #### [facility] [place] [facility] [address] [place] [address] Dr. Juan Hill EO # 0.2 103/ul Normal 0.0-0.7 [facility] [place] [facility] Comment on above: Performed By: #### C MP, TSH, BNP, LIPID, T7 #### [facility] [place] [facility] [address] [place] [address] Dr. Juan Hill Eosinophils/100 WBC (Bld) 2.0 % Normal 0.9-7.0 [facility] [place] [facility] Comment on above: Performed By: #### C MP, TSH, BNP, LIPID, T7 #### [facility] [place] [facility] [address] [place] [address] Dr. Juan iHll Erythrocyte distribution width (RBC) [Ratio] 14.7 % Normal 11.0-15.0 [facility] Comment on above: Performed By: #### C MP, TSH, BNP, LIPID, T7 #### [facility] [place] [facility] [address] [place] [address] Dr. Juan Hill Hematocrit (Bld) [Volume fraction] 43.9 % Normal 42.0-54.0 [facility] Comment on above: Performed By: #### C MP, TSH, BNP, LIPID, T7 #### [facility] [place] [facility] [address] [place] [address] Dr. Juan Hill Hemoglobin (Bld) [Mass/Vol] 13.6 g/dL Critically low 14.0-18.0 [facility] Comment on above: Performed By: #### C MP, TSH, BNP, LIPID, T7 #### [facility] [place] [facility] [address] [place] [address] Dr. Juan Hill IG # 0.01 10e3/ul Normal 0.00-0.03 [facility] Comment on above: Performed By: #### C MP, TSH, BNP, LIPID, T7 #### [facility] [place] [facility] [address] [place] [address] Dr. Juan Hill IG % 0.1 % Normal 0.0-0.5 [facility] Comment on above: Performed By: #### C MP, TSH, BNP, LIPID, T7 #### [facility] [place] [facility] [address] [place] [address] Dr. Juan Hill LYMPH # 1.1 103/ul Critically low 1.2-3.8 [facility] Comment on above: Performed By: #### C MP, TSH, BNP, LIPID, T7 #### [facility] [place] [facility] [address] [place] [address] Dr. Juan Hill Lymphocytes/100 WBC (Bld) 14.9 % Critically low 20.5-60.0 [facility] Comment on above: Performed By: #### C MP, TSH, BNP, LIPID, T7 #### [facility] [place] [facility] [address] [place] [address] Dr. Juan Hill MANUAL DIFF REQ NO Normal [facility] Comment on above: Performed By: #### C MP, TSH, BNP, LIPID, T7 #### [facility] [place] [facility] [address] [place] [address] Dr. Juan Hill MCH (RBC) [Entitic mass] 28.0 pg Normal 25.9-34.0 [facility] [place] [facility] Comment on above: Performed By: #### C MP, TSH, BNP, LIPID, T7 #### [facility] [place] [facility] [address] [place] [address] Dr. Juan Hill MCHC (RBC) [Mass/Vol] 31.0 g/dL Normal 29.9-35.2 [facility] [place] [facility] Comment on above: Performed By: #### C MP, TSH, BNP, LIPID, T7 #### [facility] [place] [facility] [address] [address] [address] Juan Hill MCV (RBC) [Entitic vol] 90.5 fL Normal 80.0-94.0 [facility] [place] [facility] Comment on above: Performed By: #### C MP, TSH, BNP, LIPID, T7 #### [facility] [place] [facility] [address] [place] [address] Dr. Juan Hill MONO # 0.4 103/ul Normal 0.3-0.8 [facility] [place] [facility] Comment on above: Performed By: #### C MP, TSH, BNP, LIPID, T7 #### [facility] [place] [facility] [address] [place] [address] Dr. Juan Hill Monocytes/100 WBC (Bld) 6.0 % Normal 1.7-12.0 [facility] [place] [facility] Comment on above: Performed By: #### C MP, TSH, BNP, LIPID, T7 #### [facility] [place] [facility] [address] [place] [address] Dr. Juan Hill NEUT # 5.6 103/ul Normal 1.4-6.5 [facility] [place] [facility] Comment on above: Performed By: #### C MP, TSH, BNP, LIPID, T7 #### [facility] [place] [facility] [address] [place] [address] Dr. Juan Hill Neutrophils/100 WBC (Bld) 76.3 % Critically high 43.0-75.0 [facility] Comment on above: Performed By: #### C MP, TSH, BNP, LIPID, T7 #### [facility] [place] [facility] [address] [place] [address] Dr. Juan Hill Platelet mean volume (Bld) [Entitic vol] 11.6 fL Normal 9.5-13.5 [facility] Comment on above: Performed By: #### C MP, TSH, BNP, LIPID, T7 #### [facility] [place] [facility] [address] [address] [address] Juan Hill PLT 163 103/ul Normal 150-450 [facility] [place] [facility] Comment on above: Performed By: #### C MP, TSH, BNP, LIPID, T7 #### [facility] [place] [facility] [address] [address] [address] Juan Hill RBC 4.85 106/ul Normal 4.70-6.10 [facility] Comment on above: Performed By: #### C MP, TSH, BNP, LIPID, T7 #### [facility] [place] [facility] [address] [place] [address] Dr. Juan Hill WBC 7.4 103/ul Normal 4.0-11.0 [facility] Comment on above: Performed By: #### C MP, TSH, BNP, LIPID, T7 #### [facility] [place] [facility] [address] [place] [address] Dr. Juan Hill FREE THYROXINE INDEX T7on FTI 1.72 Normal [facility] Comment on above: Performed By: #### C MP, TSH, BNP, LIPID, T7 #### [facility] [place] [facility] [address] [place] [address] Dr. Juan Hill T3U 33.0 % Normal 23.5-40.5 [facility] Comment on above: Performed By: #### C MP, TSH, BNP, LIPID, T7 #### [facility] [place] [facility] [address] [place] [address] Dr. Juan Hill T4 [Mass/Vol] 5.20 ug/dL Critically low 5.53-11.00 [facility] Comment on above: Performed By: #### C MP, TSH, BNP, LIPID, T7 #### [facility] [place] [facility] [address] [place] [address] Dr. Juan Hill GLYCOHEMOGLOBIN A1Con 2020 ADA RECOMMENDATION ADA THERAPEUTIC TARGET 6.0 - 7.0 ACTION SUGGESTED > 7.0 Normal [facility] [place] [facility] Comment on above: Performed By: #### C MP, TSH, BNP, LIPID, T7 #### [facility] [place] [facility] [address] [address] [address] Juan Hill Glucose [Mass/Vol] 100 mg/dL Normal [facility] Comment on above: Performed By: #### C MP, TSH, BNP, LIPID, T7 #### [facility] [place] [facility] [address] [address] [address] Juan Hill HbA1c (Bld) [Mass fraction] 5.1 % Normal <=6.0 [facility] Comment on above: Performed By: #### C MP, TSH, BNP, LIPID, T7 #### [facility] [place] [facility] [address] [place] [address] Dr. Juan Hill IRONon 06-01-2021 Iron [Mass/Vol] 81.0 ug/dL Normal 49.0-181.0 [facility] Comment on above: Performed By: #### C MP, TSH, BNP, LIPID, T7 #### [facility] [place] [facility] [address] [place] [address] Dr. Juan Hill LIPID PROFILEon 06-01-2021 CHOL-HDL RATIO NORM SEE BELOW Normal [facility] Comment on above: Result Comment: 3.3 - 4.4 LOW RISK 4.4 - 7.1 AVERAGE RISK 7.1 - 11.0 MODERATE RISK >11.0 HIGH RISK Performed By: #### C MP, TSH, BNP, LIPID, T7 #### [facility] [place] [facility] [address] [place] [address] Dr. Juan Hill Cholesterol [Mass/Vol] 187 mg/dL Normal <=200 [facility] Comment on above: Performed By: #### C MP, TSH, BNP, LIPID, T7 #### [facility] [place] [facility] [address] [place] [address] Dr. Juan Hill Cholesterol in HDL [Mass/Vol] 48 mg/dL Normal [facility] Comment on above: Performed By: #### C MP, TSH, BNP, LIPID, T7 #### [facility] [place] [facility] [address] [place] [address] Dr. Juan Hill Cholesterol in LDL [Mass/Vol] 110.6 mg/dL Normal [facility] Comment on above: Performed By: #### C MP, TSH, BNP, LIPID, T7 #### [facility] [place] [facility] [address] [place] [address] Dr. Juan Hill Cholesterol.total/Cho lesterol in HDL [Mass ratio] 3.9 {ratio} Normal [facility] Comment on above: Performed By: #### C MP, TSH, BNP, LIPID, T7 #### [facility] [place] [facility] [address] [address] [address] Juan Hill HDL NORMAL > or = 60 mg/dl - LOW CARDIOVASCULAR RISK <40 mg/dl - HIGH CARDIOVASCULAR RISK Normal [facility] Comment on above: Performed By: #### C MP, TSH, BNP, LIPID, T7 #### [facility] [place] [facility] [address] [place] [address] Dr. Juan Hill LDL CALC NORMAL SEE BELOW Normal [facility] Comment on above: Result Comment: <100 mg/dl OPTIMAL 100 - 129 mg/dl NEAR OR ABOVE OPTIMAL 130 - 159 mg/dl BORDERLINE HIGH 160 - 189 mg/dl HIGH >190 mg/dl VERY HIGH Performed By: #### C MP, TSH, BNP, LIPID, T7 #### [facility] [place] [facility] [address] [place] [address] Dr. Juan Hill Triglyceride [Mass/Vol] 142 mg/dL Normal <=150 [facility] Comment on above: Performed By: #### C MP, TSH, BNP, LIPID, T7 #### [facility] [place] [facility] [address] [place] [address] Dr. Juan Hill VLDL CALC 28.4 mg/dL Normal [facility] Comment on above: Performed By: #### C MP, TSH, BNP, LIPID, T7 #### [facility] [place] [facility] [address] [place] [address] Dr. Juan Hill PROF 14(COMP METB)on 021 Albumin [Mass/Vol] 4.0 g/dL Normal 3.5-5.0 [facility] Comment on above: Performed By: #### C MP, TSH, BNP, LIPID, T7 #### [facility] [place] [facility] [address] [address] [address] Juan Hill Albumin/Globulin [Mass ratio] 1.1 {ratio} Normal [facility] Comment on above: Performed By: #### C MP, TSH, BNP, LIPID, T7 #### [facility] [place] [facility] [address] [address] [address] Juan Hill ALP [Catalytic activity/Vol] 99 U/L Normal 38-126 [facility] Comment on above: Performed By: #### C MP, TSH, BNP, LIPID, T7 #### [facility] [place] [facility] [address] [address] [address] Juan Hill ALT [Catalytic activity/Vol] 11 U/L Critically low 21-72 [facility] Comment on above: Performed By: #### C MP, TSH, BNP, LIPID, T7 #### [facility] [place] [facility] [address] [place] [address] Dr. Juan Hill Anion gap [Moles/Vol] 10.8 mmol/L Normal [facility] Comment on above: Performed By: #### C MP, TSH, BNP, LIPID, T7 #### [facility] [place] [facility] [address] [address] [address] Juan Hill AST [Catalytic activity/Vol] 12 U/L Critically low 17-59 [facility] Comment on above: Performed By: #### C MP, TSH, BNP, LIPID, T7 #### [facility] [place] [facility] [address] [address] [address] Juan Hill Bilirubin [Mass/Vol] 0.6 mg/dL Normal 0.2-1.3 [facility] Comment on above: Performed By: #### C MP, TSH, BNP, LIPID, T7 #### [facility] [place] [facility] [address] [address] [address] Juan Hill Calcium [Mass/Vol] 9.4 mg/dL Normal 8.4-10.2 [facility] Comment on above: Performed By: #### C MP, TSH, BNP, LIPID, T7 #### [facility] [place] [facility] [address] [address] [address] Juan Hill Chloride [Moles/Vol] 104 mmol/L Normal 98-107 [facility] Comment on above: Performed By: #### C MP, TSH, BNP, LIPID, T7 #### [facility] [place] [facility] [address] [place] [address] Dr. Juan Hill CO2 [Moles/Vol] 29.2 mmol/L Normal 22.0-30.0 [facility] Comment on above: Performed By: #### C MP, TSH, BNP, LIPID, T7 #### [facility] [place] [facility] [address] [address] [address] Juan Hill Creatinine [Mass/Vol] 2.04 mg/dL Critically high 0.66-1.25 [facility] Comment on above: Performed By: #### C MP, TSH, BNP, LIPID, T7 #### [facility] [place] [facility] [address] [place] [address] Dr. Juan Hill EGFR-AF BHUTANESE 38 mL/min/1.73m2 Critically low >=60 [facility] Comment on above: Performed By: #### C MP, TSH, BNP, LIPID, T7 #### [facility] [place] [facility] [address] [place] [address] Dr. Juan Hill EGFR-NON AF BHUTANESE 31 mL/min/1.73m2 Critically low >=60 [facility] Comment on above: Performed By: #### C MP, TSH, BNP, LIPID, T7 #### [facility] [place] [facility] [address] [place] [address] Dr. Juan Hill Globulin (S) [Mass/Vol] 3.7 g/dL Normal [facility] Comment on above: Performed By: #### C MP, TSH, BNP, LIPID, T7 #### [facility] [place] [facility] [address] [place] [address] Dr. Juan Hill Glucose [Mass/Vol] 98 mg/dL Normal 74-106 [facility] Comment on above: Performed By: #### C MP, TSH, BNP, LIPID, T7 #### [facility] [place] [facility] [address] [place] [address] Dr. Juan Hill Potassium [Moles/Vol] 5.0 mmol/L Normal 3.4-5.0 [facility] Comment on above: Performed By: #### C MP, TSH, BNP, LIPID, T7 #### [facility] [place] [facility] [address] [address] [address] Juan Hill Protein [Mass/Vol] 7.7 g/dL Normal 6.1-8.2 [facility] Comment on above: Performed By: #### C MP, TSH, BNP, LIPID, T7 #### [facility] [place] [facility] [address] [place] [address] Dr. Juan Hill Sodium [Moles/Vol] 139 mmol/L Normal 137-145 [facility] Comment on above: Performed By: #### C MP, TSH, BNP, LIPID, T7 #### [facility] [place] [facility] [address] [place] [address] Dr. Juan Hill Urea nitrogen [Mass/Vol] 26.0 mg/dL Critically high 9.0-20.0 [facility] Comment on above: Performed By: #### C MP, TSH, BNP, LIPID, T7 #### [facility] [place] [facility] [address] [place] [address] Dr. Juan Hill Urea nitrogen/Creatinine [Mass ratio] 12.7 mg/mg Normal [facility] [place] [facility] Comment on above: Performed By: #### C MP, TSH, BNP, LIPID, T7 #### [facility] [place] [facility] [address] [place] [address] Dr. Juan Hill TSHon 06-01-2021 TSH 2.986 uIU/mL Normal 0.470-4.680 [facility] Comment on above: Performed By: #### C MP, TSH, BNP, LIPID, T7 #### [facility] [place] [facility] [address] [place] [address] Dr. Juan Hill TSH RANGE SEE BELOW Normal [facility] [place] [facility] Comment on above: Result Comment: <0.3 4 UIU/ml HYPERTHYROID 0.34-5.60 UIU/ml EUTHYROID >5.60 UIU/ml HYPOTHYROID Performed By: #### C MP, TSH, BNP, LIPID, T7 #### [facility] [place] [facility] [address] [place] [address] Dr. Juan Hill VITAMIN D 25 OHon 06-01-2021 VIT D 25-OH 43.8 ng/mL Normal [facility] [place] [facility] Comment on above: Performed By: #### C MP, TSH, BNP, LIPID, T7 #### [facility] [place] [facility] [address] [place], [place] [address] Dr. Juan Hill VIT D RANGES SEE BELOW Normal [facility] Comment on above: Result Comment: <20 ng/mL Vit D deficient 20 - <30 ng/mL Vit D insufficient 30 - 100 ng/mL Vit D sufficient >100 ng/mL Potential Toxicity Performed By: #### C MP, TSH, BNP, LIPID, T7 #### [facility] [place] [facility] [address] [place], [place] [address] Dr. Juan Hill Encounters Encounter Date Encounter Type Care Provider Facility Start: 05-27-2024 End: 05-27-2024 Telephone encounter Marlin Gutierrez LPN [facility] Start: 05-21-2024 End: 05-21-2024 Telephone encounter Marlin Gutierrez LPN [facility] Start: 10-09-2023 End: 10-09-2023 Evaluation and management of inpatient CHAO CHAWLA [facility] Start: 10-08-2023 End: 10-08-2023 ambulatory [facility] Phone Call Provider 1 [facility] - Pre Admit Start: 10-08-2023 End: 10-08-2023 ambulatory SHILA FABIAN [facility] Start: 09-04-2023 End: 09-04-2023 ambulatory CHAO Hanna [facility] Start: 05-01-2023 ambulatory MONICA-Musa [facility] [place] Start: 04-07-2023 End: 04-10-2023 Evaluation and management of inpatient Shila Fabian Facility:[facility] Start: 04-18-2022 End: 04-19-[address] SHILA FABIAN Facility:[facility] Start: 06-01-2021 End: 06-02-[address] SHILA FABIAN Facility:[facility] Procedures Date Procedure Procedure Detail Performing Clinician Start: 09-04-2023 Follow-up visit Follow-up CHAO CHAWLA Start: 04-07-2023 Antibody screen Shila Fabian Comment on above: Order Comment: Trans fuse now? Y Number of units to transfuse now? 1 Result Comment: PERF ORMED BY: [facility] [place] [address] PATHOLOGIST COMPOUNDING TECHNICIAN FEROZ DIEHL M.D. Start: 06-01-[address] LÓPEZ FABIAN Comment on above: Performed By: #### C MP, TSH, BNP, LIPID, T7 #### [facility] [place] [facility] [address] [place], [place] [address] Dr. Juan Hill Plan of Treatment Date Care Activity Detail Author Start: 10-08-2024 Tobacco Screening Tobacco Screening [facility] Start: 09-04-2024 Adult BMI Screening Adult BMI Screening [facility] Start: 03-30-2024 COVID-19 Vaccine ( season) COVID-19 Vaccine ( season) [facility] Start: 03-30-2024 COVID-19 Vaccine ( season) COVID-19 Vaccine ( season) [facility] Start: 03-30-2024 Influenza vaccination Influenza Vaccine [facility] Start: 03-30-2023 COVID-19 Vaccine ( season) COVID-19 Vaccine ( season) [facility] Start: 03-30-2023 Influenza vaccination Influenza Vaccine [facility] Start: 2002 Fall Risk Screening Fall Risk Screening [facility] Start: 12-25-1987 Administration of varicella zoster vaccine Zoster (Shingles) Vaccine (1 of 2) [facility] Start: 1956 DTaP,Tdap and Td Vaccines (1 - Tdap) DTaP,Tdap and Td Vaccines (1 - Tdap) [facility] Start: 12-25-1955 Adult BMI Follow Up Plan Adult BMI Follow Up Plan [facility] Start: 1949 Depression Screening Depression Screening [facility] Start: 1937 Medicare Annual Wellness Visit Medicare Annual Wellness Visit [facility] Immunizations Immunization Date Immunization Notes Care Provider Fa cilidorita 09-16-2020 COVID-19, mRNA, LNP- S, PF, 100mcg/0.5mL Dose [facility] 1 [facility] 08-20-2020 COVID-19, mRNA, LNP- S, PF, 100mcg/0.5mL Dose [facility] 1 [facility] 06-18-2020 influenza virus vacc ine, unspecified formulation [facility] Hospital Payers Date Payer Category Payer Medicare [id number] 2023 Self-pay 2021 Medicare AETNA MEDICARE A ETNA MEDICARE PLAN (PPO) [id number] 2021-Present [phone] [address] [place] [address] [id number] 2021 Medicare HMO AETNA MEDICARE [id number] 1959 Medicare [id number] 1959 Medicare [id number] 1937 Unknown [id number] 1937 Unknown [id number] 1937 Unknown [id number] 1937 Unknown [id number] 1937 Unknown [id number] 1937 Unknown [id number] Unknown [id number] Social History Date Type Detail Facility Start: 04-20-2023 Tobacco smoking stat [email or web address]IS Ex-smoker [facility] History of tobacco use Current smoker [facility] Start: 04-20-2023 Tobacco use and exposure Smoke less tobacco non-user [facility] Start: 09-04-2023 End: 10-10-2023 Alcohol intake Current non-drinker of alcohol (finding) [facility] Start: 07-05-2018 End: 08-19-2020 History of Social function [facility] Start: 07-05-2018 End: 08-19-2020 Alcohol Use Disorder Identification Test - Consumption [AUDIT-C] [facility] Frequency of Alcohol Consumption Never [facility] Start: 1935 Sex Assigned At Not on file P [facility] Start: 03-04-2015 Sex Male (finding) [facility] Note 05-27-2024 Telephone Encounter - Marlin Gutierrez LPN - 05/27/2024 3:21 PM EDT Note Date & Type Note Facility 05-27-2024 Miscellaneous Notes Formattin g of this note might be different from the original. Pt. Was contacted under the direction of Janeth Moran PA-C to schedule a follow up after receiving the Pt.'s PSA value from his PCP's office. Last Pt. Appt was one year ago for a void trial. Janeth Moran PA-C would like a follow up to ensure the Pt. Is urinating with no difficulties. Pt. Did not answer, message was left. documented in this encounter [facility] Telephone encounter Note 05-27-2024 Telephone Encounter - Marlin Gutierrez LPN - 05/27/2024 3:21 PM EDT Note Date & Type Note Facility 05-27-2024 Telephone encount er Note Pt. Was contacted under the direction of Janeth Moran PA-C to schedule a follow up after receiving the Pt.'s PSA value from his PCP's office. Last Pt. Appt was one year ago for a void trial. Janeth Moran PA-C would like a follow up to ensure the Pt. Is urinating with no difficulties. Pt. Did not answer, message was left. [facility] Note 05-21-2024 Telephone Encounter - Marlin Gutierrez LPN - 05/21/2024 1:22 PM EDT Note Date & Type Note Facility 05-21-2024 Miscellaneous Notes Formattin g of this note might be different from the original. Received new PSA results from PCP. Sent to scanning. documented in this encounter [facility] Telephone encounter Note 05-21-2024 Telephone Encounter - Marlin Gutierrez LPN - 05/21/2024 1:22 PM EDT Note Date & Type Note Facility 05-21-2024 Telephone encount er Note Received new PSA results from PCP. Sent to scanning. [facility] Note 10-08-2023 Perioperative Nursing Note - [...] lobby at the registration desk near the [facility]. 2. If you have a Living Will/Durable Power of Performance Tester for Health Care that is not on file here, please bring a copy the day of surgery. 3. Please shower/tub bath the night before surgery or morning of. 4. NO powder, lotion, perfume/cologne, aftershave, make-up, nail syriac, deodorant, or hair products after you have [...] doctor for instructions documented in this encounter [facility] Nurse Note 10-08-2023 Perioperative Nursing Note - [...] lobby at the registration desk near the [facility]. 2. If you have a Living Will/Durable Power of Performance Tester for Health Care that is not on file here, please bring a copy the day of surgery. 3. Please shower/tub bath the night before surgery or morning of. 4. NO powder, lotion, perfume/cologne, aftershave, make-up, nail syriac, deodorant, or hair products after you have [...] capsule Check with prescribing doctor for instructions [facility] Instructions Note Date & Type Note Facility Instructions Not on filedocumented in this en counter [facility] Instructions Note Date & Type Note Facility Instructions Not on filedocumented in this en counter [facility] Summary Purpose Family History No Family History Records FoundNo Family History Records FoundNo Family History Records FoundNo Family History Records FoundNo Family History Records Found Advance Directives Documents on File Type Date Recorded Patient Manager Salt Expl anation Durable Power of Performance Tester 04/23/2023 9:17 AM [facility] / [facility] 08/12/12 Living Will 04/23/2023 9:15 AM [facility] / [facility] 08/12/12 Additional Source Comments (unrecognized sect ion and content) No Status Records FoundNo Status Records FoundNo Status Records FoundNo Status Records FoundNo Status Records Found INFORMATION SOURCE (unrecogn ized section and content) DATE CREATED AUTHOR 04/30/2022 [facility] DATE CREATED AUTHOR AUTHOR'S ORGANIZ ATION 04/19/2023 Edd Syed [facility] DATE CREATED AUTHOR AUTHOR'S ORGANIZ ATION 04/20/2023 [facility] DATE CREATED AUTHOR AUTHOR'S ORGANIZ ATION 09/10/2023 [facility] DATE CREATED AUTHOR AUTHOR'S ORGANIZ ATION 10/10/2023 [facility] Care Teams (unrecognized sec tion and content) Electronic Systems Technician Relationship Specialty Start Date End Date Shila Fabian MD [address] [place] [address] PCP - General 07/05/18 Electronic Systems Technician Relationship Specialty Start Date End Date Shila Fabian MD PCP - General 07/05/18 FOR RECORDS PERTAINING [...] BE BASED ON THE PRIMARY CLINICAL RECORDS. [facility] [employer] [facility]. provides no warranty or guarantee of the accuracy or completeness of information in this document.
--- NOTE | 2024-05-28 09:00 | CA_ITS ---
Patient Name: GABY KOO MR#: [id number] : 1935 Exam Date: 05/28/2024 Ordering Doctor: DR Deng Fabian . ECHOCARDIOGRAM REPORT PROCEDURE: CA ECHO DOPPLER COMPLETE INDICATIONS: Chest pain, CABGx2 COMPARISON: None. DESCRIPTION: COMPLETE ECHOCARDIOGRAM Real-time transthoracic echocardiography with 2D, M-mode, spectral and color flow Doppler performed. QUALITY: Technical quality was good. LEFT VENTRICLE: Normal chamber size. Moderate concentric left ventricular hypertrophy. LV EF: Normal left ventricular ejection fraction 60%, No regional wall motion abnormalities. DIASTOLIC: Normal diastolic function. ATRIAL SEPTUM: LEFT ATRIUM: Normal chamber size. RIGHT ATRIUM: Normal chamber size. RIGHT VENTRICLE: Normal chamber size. Decreased right ventricular systolic function. TRICUSPID VALVE: Normal mobility and thickness. No stenosis with trivial regurgitation. No evidence of pulmonary hypertension.RVSP 24 mmHg MITRAL VALVE: Normal mobility and thickness. No evidence of mitral valve stenosis. There is no mitral annular calcification. No mitral regurgitation. AORTIC VALVE: Normal trileaflet appearance. Moderately calcified aortic valve. Mildly diminished mobility. No aortic stenosis. Trivial aortic regurgitation. AORTIC ROOT: Normal diameter and appearance. Ascending aorta and aortic arch are normal in size. PULMONIC VALVE: Normal thickness and mobility. No stenosis. No regurgitation. PERICARDIUM: No evidence of pericardial effusion. IVC: Collapes with inspirations. PLEURA: CONCLUSION: Moderate concentric left ventricle hypertrophy Normal left ventricle systolic function, no wall motion abnormalities, EF 55-60% Normal diastolic function Aortic valve sclerosis without stenosis Trivial aortic regurgitation Mildly reduced right ventricle systolic function Normal right ventricle systolic pressure Adult Echocardiography Procedure Report Left Ventricle LVEDD (3.7 - 5.6 cm): 4.10 cm LVESD (2.2 - 4.0 cm): 2.94 cm LVIVS thickness (0.6 - 1.2 cm): 1.90 cm LVPW thickness (0.5 - 1.0 cm): 1.38 cm e': 0.10 m/s E - e': 4.20 LVOT Max Gradient: 1.91 mm[Hg] LVOT Area (cm2): 0.69 m/s Peak Velocity (LVOT): 0.69 m/s Mean Velocity (LVOT): 0.41 m/s LVOT Diameter 2.08 cm Left Ventricular Ejection Fraction: Left Atrium LA Volume Index (2D A2C): 31.50 ml/m2 Left Atrium Systolic Dimension: 3.39 cm Mitral Valve MV E to A Ratio: 0.61 MV Max Gradient: MV Mean Gradient: Mitral Valve A-Wave Peak Velocity: 0.68 m/s Mitral Valve E-Wave Peak Velocity: 0.41 m/s Cardiovascular Orifice Area: Right Ventricle RV Internal Diastolic Dimension: Aorta AO Root Diam: 3.93 cm Ascending Ao Diam: 3.56 cm Aortic Valve AoV Area ([place]): 1.63 cm2, 1.82 cm2 AoV Area (VTI): 2.12 cm2, 2.41 cm2 Deceleration Coke: Pressure Half-Time: Peak Velocity(Antegrade Flow): 1.29 m/s, 1.44 m/s, 1.35 m/s Peak Gradient(Antegrade Flow): 6.63 mm[Hg], 8.27 mm[Hg], 7.32 mm[Hg] Mean Velocity(Antegrade Flow): 0.83 m/s, 0.98 m/s, 0.90 m/s Mean Gradient(Antegrade Flow): 3.20 mm[Hg], 4.36 mm[Hg], 3.79 mm[Hg] Velocity Time Integral: 23.57 cm, 26.78 cm, 26.76 cm Tricuspid Valve Peak Velocity (Regurgitant Flow): 1.73 m/s, 2.28 m/s Peak Velocity: Pulmonic Valve Mean Gradient: 1.05 mm[Hg] Mean Velocity: 0.48 m/s Peak Velocity: 0.77 m/s, 0.73 m/s Peak Gradient: 2.14 mm[Hg], 2.36 mm[Hg] Right Atrium Right Atrium Systolic Pressure: 37.81 ml, 37.81 ml Dictated by: Ashley Garrison MD on 05/28/2024 at 17:31 Approved by: Ashley Garrison MD on 05/28/2024 at 17:39
== END 2024-05-28 08:30 | disposition home or self-care (01) ==
LOC: CARD 08:30
PROVIDERS: PCP Family Medicine; Visit Provider Family Medicine
DX: R07.9 Chest pain, unspecified (principal)
CPT/HCPCS: 93306

== ENCOUNTER 2024-05-30 07:37 | Outpatient (RCR) | payer MEDICARE, SELFPAY ==
[2024-05-30 00:08] VITALS: BP 141/74; PULSE 84; TEMP 36.6; O2SAT 96
[2024-05-30 09:08] LABS: Hematocrit 38.6 % (42.0-54.0); Hemoglobin 11.7 g/dL (14.0-18.0); Mean Corpuscular HGB Conc 30.3 g/dL (29.9-35.2); Mean Corpuscular Hemoglobin 25.7 pg (25.9-34.0); Mean Corpuscular Volume 84.8 fL (80.0-94.0); Platelet Count 146 10^3/uL (150-450); Red Blood Count 4.55 10^6/uL (4.70-6.10); Red Cell Distribution Width 15.9 % (11.0-15.0); White Blood Count 8.4 10^3/uL (4.0-11.0)
[2024-05-30 09:11] VITALS: BP 108/84; PULSE 69; TEMP 36.6; O2SAT 96
--- NOTE | 2024-05-30 09:13 | PC.NURSE ---
cbc drawn with iv start.
[2024-05-30 09:27] LABS: Eosinophils Absolute Manual 0.08 10^3/uL (0.00-0.70); Lymphocytes Absolute Manual 0.92 10^3/uL (1.20-3.80); Monocytes Absolute Manual 0.58 10^3/uL (0.30-0.80)
[2024-05-30] MEDS: IRON SUCROSE COMPLEX 300 MG in 0.9 % SODIUM CHLORIDE 250 ML 176.667 MG IV (09:39)
== END 2024-06-19 08:36 | disposition home or self-care (01) ==
LOC: INF 07:37
PROVIDERS: PCP Family Medicine; Visit Provider Family Medicine
DX: D50.9 Iron deficiency anemia, unspecified (principal)
CPT/HCPCS: 85007; 85027; 96365; 96366; J1756

== ENCOUNTER 2024-06-10 07:06 | Outpatient (OUT) | payer MEDICARE, SELFPAY ==
--- NOTE | 2024-06-10 | PCN_ITS ---
CARDIAC STRESS TEST Requesting Physician: Deng Fabian M.D. Procedure Date: 06/10/2024 REASON FOR TEST: Evaluation for chest pain. The patient consented to < > Baseline EKG showed sinus rhythm with first degree AV block with normal R-wave progression. Upon infusion of , < > with blood pressure of 114/62. Following infusion of Lexiscan the heart rate changed to 88 beats per minute, blood pressure was 118/60, achieving 65% of the heart rate. With infusion of the vasodilator, no evidence of any ischemic changes was seen. Occasional PVC was noted. INTERPRETATION: 1. No EKG evidence of ischemia seen on EKG. 2. Perfusion study to be dictated separately by radiologist. DANIELA
--- OUTSIDE RECORDS SUMMARY | 2024-06-10 07:10 | XMS_ITS | CCD ---
Author Organization [facility] Care Team Providers Care Refrigeration Systems Installer Name Role Phone DR SHILA FABIAN Attending [...] Unavailable Shila Fabian MD Primary Care Provider [phone] SHILA FABIAN Referring Unavailable SHILA FABIAN Primary Care Unavailable CAMMY, CHAO G Admitting Unavailable CAMMY, CHAO G Attending Unavailable CAMMY CAHO G Referring Unavailable SHILA FABIAN Primary Care Unavailable Shila Fabian MD Primary Care Provider [phone] Allergies Allergy Classification Reported Allergen(s) Allergy Type Date of Onset Reaction(s) Facility (1 source) No Known Medication Allergies; Translations: [No Known Medication Allergies] Propensity to adverse reactions (disorder) 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 Basic Metabolic Panelon 03-30 Anion gap [Moles/Vol] 9.8 mmol/L Normal 6.0-15.0 [facility] Comment on above: Performed By: #### H H #### [facility] [address] [place] [address] Calcium [Mass/Vol] 8.3 mg/dL Low 8.6-10.3 [facility] Comment on above: Performed By: #### H H #### [address] Chloride [Moles/Vol] 108 mmol/L High 98-107 [facility] Comment on above: Performed By: #### H H #### [facility] [address] [place] [address] CO2 [Moles/Vol] 26.2 mmol/L Normal 21.0-31.0 [facility] Comment on above: Performed By: #### H H #### [address] Creatinine [Mass/Vol] 1.47 mg/dL High 0.70-1.30 [facility] Comment on above: Performed By: #### H H #### [address] Creatinine Clr Calc Pharmacy 36.74 [facility] Comment on above: Result Comment: PERF ORMED BY: [place] [address] PATHOLOGIST LOAN COLLECTOR FEROZ DIEHL M.D. Performed By: #### H H #### [address] GFR/1.73 sq M.predicted MDRD (S/P/Bld) [Vol rate/Area] 46.453 mL/min/{1.73_m2} [facility] Comment on above: Performed By: #### H H #### [address] Glucose [Mass/Vol] 96 mg/dL Normal 70-100 [facility] Comment on above: Result Comment: [place] Glucose Reference Range is dependent on time and content of last meal. Glucose of more than 200 mg/dL in a nonstressed, ambulatory subject supports the diagnosis of Diabetes Mellitus. ADA recommended reference range Performed By: #### H H #### [address] Potassium [Moles/Vol] 4.0 mmol/L Normal 3.5-5.1 [facility] Comment on above: Performed By: #### H H #### [address] Sodium [Moles/Vol] 140 mmol/L Normal 136-145 [facility] Comment on above: Performed By: #### H H #### [address] Urea nitrogen [Mass/Vol] 21 mg/dL Normal 7-25 [facility] Comment on above: Performed By: #### H H #### [address] Complete Blood Count Auto Di ffon 04-10-2023 Basophils (Bld) [#/Vol] 0.1 10*3/uL Normal 0.0-0.2 [facility] Comment on above: Result Comment: PERF ORMED BY: [place] [address] PATHOLOGIST LOAN COLLECTOR FEROZ DIEHL M.D. Performed By: #### H H #### [address] Basophils/100 WBC (Bld) 0.5 % Normal . [facility] Comment on above: Performed By: #### H H #### [address] Eosinophils (Bld) [#/Vol] 0.2 10*3/uL Normal 0.0-0.45 [facility] Comment on above: Performed By: #### H H #### [place] [address] [place] Eosinophils/100 WBC (Bld) 1.5 % Normal . [facility] Comment on above: Performed By: #### H H #### [address] Erythrocyte distribution width (RBC) [Ratio] 17.1 % High 12.0-14.8 [facility] Comment on above: Performed By: #### H H #### [address] Hematocrit (Bld) [Volume fraction] 24.1 % Low 38.8-50.0 [facility] Comment on above: Performed By: #### H H #### [address] Hemoglobin (Bld) [Mass/Vol] 8.0 g/dL Low 13.0-17.0 [facility] Comment on above: Performed By: #### H H #### [address] Lymphocytes (Bld) [#/Vol] 0.8 10*3/uL Low 1.00-4.8 [facility] Comment on above: Performed By: #### H H #### [address] Lymphocytes/100 WBC (Bld) 8.1 % Normal . [facility] Comment on above: Performed By: #### H H #### [address] MCH (RBC) [Entitic mass] 26.3 pg Low 27.5-35.2 [facility] Comment on above: Performed By: #### H H #### [address] MCV (RBC) [Entitic vol] 79.4 fL Low 83.5-101 [facility] Comment on above: Performed By: #### H H #### [address] Mean Corpuscular HGB Conc 33.1 g/dL Normal 32.5-35.6 [facility] Comment on above: Performed By: #### H H #### [address] Monocytes (Bld) [#/Vol] 0.5 10*3/uL Normal 0.0-0.8 [facility] Comment on above: Performed By: #### H H #### [facility] [address] [place] [address] [place] Monocytes/100 WBC (Bld) 4.4 % Normal . [facility] Comment on above: Performed By: #### H H #### [facility] [address] Neutrophils (Bld) [#/Vol] 8.9 10*3/uL High 1.8-7.7 [facility] Comment on above: Performed By: #### H H #### [address] Neutrophils/100 WBC (Bld) 85.5 % Normal . [facility] Comment on above: Performed By: #### H H #### [address] NRBC% 0.0 /100{WBC} Normal 0-0.5 [facility] Comment on above: Performed By: #### H H #### [address] Platelet mean volume (Bld) [Entitic vol] 8.9 fL Normal 6.6-10.1 [facility] Comment on above: Performed By: #### H H #### [place] [address] [place] Platelets (Bld) [#/Vol] 146 10*3/uL Low 150-450 [facility] Comment on above: Performed By: #### H H #### [place] [address] [place] RBC (Bld) [#/Vol] 3.04 10*6/uL Low 3.90-5.60 [facility] Comment on above: Performed By: #### H H #### [address] WBC (Bld) [#/Vol] 10.5 10*3/uL Normal 4.1-10.5 [facility] Comment on above: Performed By: #### H H #### [facility] [address] Basic Metabolic Panelon 03-30 Anion gap [Moles/Vol] 7.3 mmol/L Normal 6.0-15.0 [facility] Comment on above: Performed By: #### C BCNO, BMP #### [facility] [address] Calcium [Mass/Vol] 8.2 mg/dL Low 8.6-10.3 [facility] Comment on above: Performed By: #### C BCNO, BMP #### [facility] [address] Chloride [Moles/Vol] 111 mmol/L High 98-107 [facility] Comment on above: Performed By: #### C BCNO, BMP #### [address] CO2 [Moles/Vol] 26.2 mmol/L Normal 21.0-31.0 [facility] Comment on above: Performed By: #### C BCNO, BMP #### [place] [address] [place] Creatinine [Mass/Vol] 1.54 mg/dL High 0.70-1.30 [facility] Comment on above: Performed By: #### C BCNO, BMP #### [address] Creatinine Clr Calc Pharmacy 35.07 [facility] Comment on above: Result Comment: PERF ORMED BY: [place] [address] PATHOLOGIST LOAN COLLECTOR FEROZ DIEHL M.D. Performed By: #### C BCNO, BMP #### [address] GFR/1.73 sq M.predicted MDRD (S/P/Bld) [Vol rate/Area] 43.931 mL/min/{1.73_m2} [facility] Comment on above: Performed By: #### C BCNO, BMP #### [address] Glucose [Mass/Vol] 91 mg/dL Normal 70-100 [facility] Comment on above: Result Comment: [place] Glucose Reference Range is dependent on time and content of last meal. Glucose of more than 200 mg/dL in a nonstressed, ambulatory subject supports the diagnosis of Diabetes Mellitus. ADA recommended reference range Performed By: #### C WILBER, BMP #### [address] Potassium [Moles/Vol] 4.5 mmol/L Normal 3.5-5.1 [facility] Comment on above: Performed By: #### C WILBER, BMP #### [address] Sodium [Moles/Vol] 140 mmol/L Normal 136-145 [facility] Comment on above: Performed By: #### C WILBER, BMP #### [address] Urea nitrogen [Mass/Vol] 34 mg/dL High 7-25 [facility] Comment on above: Performed By: #### C WILBER, BMP #### [address] Hemoglobin and Hematocriton 04-09-2023 Hematocrit (Bld) [Volume fraction] 25.9 % Low 38.8-50.0 [facility] Comment on above: Result Comment: PERF ORMED BY: [place] [address] PATHOLOGIST LOAN COLLECTOR FEROZ DIEHL M.D. Performed By: #### H H #### [address] Hemoglobin (Bld) [Mass/Vol] 8.4 g/dL Low 13.0-17.0 [facility] Comment on above: Performed By: #### H H #### [address] Hemogram CBC Without Diffon 04-09-2023 Erythrocyte distribution width (RBC) [Ratio] 17.3 % High 12.0-14.8 [facility] Comment on above: Performed By: #### C WILBER, BMP #### [address] Hematocrit (Bld) [Volume fraction] 22.7 % Low 38.8-50.0 [facility] Comment on above: Performed By: #### C WILBER, BMP #### [address] Hemoglobin (Bld) [Mass/Vol] 7.5 g/dL Low 13.0-17.0 [facility] Comment on above: Performed By: #### C WILBER, BMP #### [address] MCH (RBC) [Entitic mass] 26.1 pg Low 27.5-35.2 [facility] Comment on above: Performed By: #### C WILBER, BMP #### [address] MCV (RBC) [Entitic vol] 79.2 fL Low 83.5-101 [facility] Comment on above: Performed By: #### C WILBER, BMP #### [address] Mean Corpuscular HGB Conc 32.9 g/dL Normal 32.5-35.6 [facility] Comment on above: Performed By: #### C WILBER, BMP #### [address] Platelet mean volume (Bld) [Entitic vol] 9.0 fL Normal 6.6-10.1 [facility] Comment on above: Result Comment: PERF ORMED BY: [place] [address] PATHOLOGIST LOAN COLLECTOR FEROZ DIEHL M.D. Performed By: #### C WILBER, BMP #### [address] Platelets (Bld) [#/Vol] 145 10*3/uL Low 150-450 [facility] Comment on above: Performed By: #### C ALONZONO, BMP #### [facility] [address] RBC (Bld) [#/Vol] 2.86 10*6/uL Low 3.90-5.60 [facility] Comment on above: Performed By: #### C ALONZONO, BMP #### [facility] [address] WBC (Bld) [#/Vol] 9.9 10*3/uL Normal 4.1-10.5 [facility] Comment on above: Performed By: #### Musa MERINO, BMP #### [facility] [address] [place] [address] Naresh 04-09-2023 L Specimen: [id number] Received: 04/09/23 Status: BENITO Kyaw Num: [id number] Spec Type: Surgical Subm Dr: Sade Pinto MD Tissues: A GASTRIC FOR HP (GASTRIC HP) Procedures: HE/2, Gross/Micro L4, H PYLORI Age/ Patient Sex Location Account Attending Physician Feroz Juarez 87/M 4P [id number] Vitaly Kennedy MD SPEC NUM: [id number] RECD: 04/09/23 STATUS: BENITO CARD NUM: [id number] JAZLYN: 04/09/[address] [facility] [address]: Sade Pinto MD ENTERED: 04/09/23 [...] The microscopic examination confirms the diagnosis. Specimen: [id number] Received: 04/09/23 Status: BENITO Card Num: [id number] Spec Type: Surgical Subm Dr: Sade Pinto MD Tissues: A GASTRIC FOR HP (GASTRIC HP) Procedures: GÓMEZ/Munira Gross/Micro L4, H PYLORI Patient: LarryFeroz [id number] (Continued) Specimen: [id number] Received: 04/09/23 (Continued) Signed (signature on file) Porfirio Augustin MD 04/11/23 1036 Specimen: [id number] Received: 04/09/23 Status: BENITO Card Num: [id number] Spec Type: Surgical Subm Dr: Sade Pinto MD Tissues: A GASTRIC FOR HP (GASTRIC HP) Procedures: GÓMEZ/Munira, Gross/Micro L4, H PYLORI Patient: Feroz Juarez [id number] (Continued) Specimen: [id number] Received: 04/09/23 (Continued) CPT Codes 08343 Specimen: [id number] Received: 04/09/23 Status: BENITO Card Num: [id number] Spec Type: Surgical Subm Dr: Sade Pinto MD Tissues: A GASTRIC FOR HP (GASTRIC HP) Procedures: HE/2, Gross/Micro L4, H PYLORI Patient: Feroz Juarez [id number] (Continued) Signed (signature on file) Porfirio Augustin MD 04/11/[address] [facility] Complete Blood Count Auto Di ffon 04-08-2023 Basophils (Bld) [#/Vol] 0.0 10*3/uL Normal 0.0-0.2 [facility] Comment on above: Result Comment: PERF ORMED BY: [place] [address] PATHOLOGIST LOAN COLLECTOR FEROZ DIEHL M.D. Performed By: #### H H #### [facility] [address] [place] [address] Basophils/100 WBC (Bld) 0.5 % Normal . [facility] Comment on above: Performed By: #### H H #### [address] Eosinophils (Bld) [#/Vol] 0.1 10*3/uL Normal 0.0-0.45 [facility] Comment on above: Performed By: #### H H #### [address] Eosinophils/100 WBC (Bld) 1.0 % Normal . [facility] Comment on above: Performed By: #### H H #### [address] Erythrocyte distribution width (RBC) [Ratio] 15.9 % High 12.0-14.8 [facility] Comment on above: Performed By: #### H H #### [address] Lymphocytes (Bld) [#/Vol] 1.7 10*3/uL Normal 1.00-4.8 [facility] Comment on above: Performed By: #### H H #### [address] Lymphocytes/100 WBC (Bld) 16.6 % Normal . [facility] Comment on above: Performed By: #### H H #### [address] MCH (RBC) [Entitic mass] 26.5 pg Low 27.5-35.2 [facility] Comment on above: Performed By: #### H H #### [address] MCV (RBC) [Entitic vol] 81.8 fL Low 83.5-101 [facility] Comment on above: Performed By: #### H H #### [address] Mean Corpuscular HGB Conc 32.4 g/dL Low 32.5-35.6 [facility] Comment on above: Performed By: #### H H #### [address] Monocytes (Bld) [#/Vol] 0.5 10*3/uL Normal 0.0-0.8 [facility] Comment on above: Performed By: #### H H #### [address] Monocytes/100 WBC (Bld) 4.7 % Normal . [facility] Comment on above: Performed By: #### H H #### [address] Neutrophils (Bld) [#/Vol] 7.8 10*3/uL High 1.8-7.7 [facility] Comment on above: Performed By: #### H H #### [place] [address] [place] Neutrophils/100 WBC (Bld) 77.2 % Normal . [facility] Comment on above: Performed By: #### H H #### [address] NRBC% 0.3 /100{WBC} Normal 0-0.5 [facility] Comment on above: Performed By: #### H H #### [address] Platelet mean volume (Bld) [Entitic vol] 9.4 fL Normal 6.6-10.1 [facility] Comment on above: Performed By: #### H H #### [address] Platelets (Bld) [#/Vol] 173 10*3/uL Normal 150-450 [facility] Comment on above: Performed By: #### H H #### [address] RBC (Bld) [#/Vol] 2.98 10*6/uL Low 3.90-5.60 [facility] Comment on above: Performed By: #### H H #### [address] WBC (Bld) [#/Vol] 10.1 10*3/uL Normal 4.1-10.5 [facility] Comment on above: Performed By: #### H H #### [address] Comprehensive Metabolic Pane naresh 04-08-2023 Albumin [Mass/Vol] 3.1 g/dL Low 3.5-5.7 [facility] Comment on above: Performed By: #### H H #### [address] Albumin/Globulin [Mass ratio] 1.5 {ratio} Normal [facility] Comment on above: Performed By: #### H H #### [address] ALP [Catalytic activity/Vol] 41 U/L Normal 34-104 [facility] Comment on above: Performed By: #### H H #### [facility] [address] [place] [address] [place] ALT [Catalytic activity/Vol] 5 U/L Low 7-52 [facility] Comment on above: Performed By: #### H H #### [facility] [address] Anion gap [Moles/Vol] 10.0 mmol/L Normal 6.0-15.0 [facility] Comment on above: Performed By: #### H H #### [facility] [address] AST [Catalytic activity/Vol] 10 U/L Low 13-39 [facility] Comment on above: Performed By: #### H H #### [facility] [address] Bilirubin [Mass/Vol] 0.4 mg/dL Normal 0.3-1.0 [facility] Comment on above: Performed By: #### H H #### [facility] [address] [place] [address] [place] Calcium [Mass/Vol] 8.5 mg/dL Low 8.6-10.3 [facility] Comment on above: Performed By: #### H H #### [facility] [address] [place] [address] [place] Chloride [Moles/Vol] 113 mmol/L High 98-107 [facility] Comment on above: Performed By: #### H H #### [facility] [address] [place] [address] [place] CO2 [Moles/Vol] 23.1 mmol/L Normal 21.0-31.0 [facility] Comment on above: Performed By: #### H H #### [facility] [address] [place] [address] [place] Creatinine [Mass/Vol] 1.56 mg/dL High 0.70-1.30 [facility] Comment on above: Performed By: #### H H #### [place] [address] [place] Creatinine Clr Calc Pharmacy 34.62 [facility] Comment on above: Performed By: #### H H #### [place] [address] [place] GFR/1.73 sq M.predicted MDRD (S/P/Bld) [Vol rate/Area] 43.256 mL/min/{1.73_m2} [facility] Comment on above: Performed By: #### H H #### [address] Globulin (S) [Mass/Vol] 2.1 g/dL [facility] Comment on above: Performed By: #### H H #### [address] Glucose [Mass/Vol] 93 mg/dL Normal 70-100 [facility] Comment on above: Result Comment: [place] Glucose Reference Range is dependent on time and content of last meal. Glucose of more than 200 mg/dL in a nonstressed, ambulatory subject supports the diagnosis of Diabetes Mellitus. ADA recommended reference range Performed By: #### H H #### [address] Potassium [Moles/Vol] 4.1 mmol/L Normal 3.5-5.1 [facility] Comment on above: Performed By: #### H H #### [address] Protein [Mass/Vol] 5.2 g/dL Low 6.4-8.9 [facility] Comment on above: Performed By: #### H H #### [place] [address] [place] Sodium [Moles/Vol] 142 mmol/L Normal 136-145 [facility] Comment on above: Performed By: #### H H #### [address] Urea nitrogen [Mass/Vol] 47 mg/dL High 7-25 [facility] Comment on above: Performed By: #### H H #### [facility] [address] [place] [address] [place] Dipstick and Microscopicon 0 04-08-2023 Appearance (U) Clear Normal Clear [facility] Comment on above: Order Comment: Name Collection Type:: Voided Performed By: #### H H #### [place] [address] [place] Bacteria,Urine None Seen Normal None Seen [facility] Comment on above: Order Comment: Name Collection Type:: Voided Performed By: #### H H #### [place] [address] [place] Bilirubin,Urine Negative Normal Negative [facility] Comment on above: Order Comment: Name Collection Type:: Voided Performed By: #### H H #### [address] Color (U) Yellow Normal Yellow [facility] Comment on above: Order Comment: Name Collection Type:: Voided Performed By: #### H H #### [address] Glucose Ql (U) Normal Normal Normal [facility] Comment on above: Order Comment: Name Collection Type:: Voided Performed By: #### H H #### [place] [address] [place] Hyaline Casts,Urine None Seen Normal 0-8 [facility] Comment on above: Order Comment: Name Collection Type:: Voided Result Comment: PERF ORMED BY: [place] [address] PATHOLOGIST LOAN COLLECTOR FEROZ DIEHL M.D. Performed By: #### H H #### [place] [address] [place] Ketones Ql (U) Negative Normal Negative [facility] Comment on above: Order Comment: Name Collection Type:: Voided Performed By: #### H H #### [place] [address] [place] Leukocyte esterase Test strip Ql (U) 1+ High Negative [facility] Comment on above: Order Comment: Name Collection Type:: Voided Performed By: #### H H #### [facility] [address] [place] [address] [place] Nitrite,Urine Negative Normal Negative [facility] Comment on above: Order Comment: Name Collection Type:: Voided Performed By: #### H H #### [address] Occult Blood,Urine Negative Normal Negative [facility] Comment on above: Order Comment: Name Collection Type:: Voided Result Comment: PERF ORMED BY: [place] [address] PATHOLOGIST LOAN COLLECTOR FEROZ DIEHL M.D. Performed By: #### H H #### [address] pH (U) 5.0 [pH] Normal 5.0-9.0 [facility] Comment on above: Order Comment: Name Collection Type:: Voided Performed By: #### H H #### [address] Protein,Urine Negative Normal Negative [facility] Comment on above: Order Comment: Name Collection Type:: Voided Performed By: #### H H #### [address] RBC,Urine None Seen Normal 0-4 [facility] Comment on above: Order Comment: Name Collection Type:: Voided Performed By: #### H H #### [address] Specificy [place],Urine 1.016 Normal 1.001-1.030 [facility] Comment on above: Order Comment: Name Collection Type:: Voided Performed By: #### H H #### [address] Squamous Epithelial Cell,Urine None Seen Normal 0-2 [facility] Comment on above: Order Comment: Name Collection Type:: Voided Performed By: #### H H #### [address] Urobilinogen,Urine Normal Normal Normal [facility] Comment on above: Order Comment: Name Collection Type:: Voided Performed By: #### H H #### [address] WBC LM.HPF (Urine sed) [#/Area] 0 /[HPF] Normal 0-4 [facility] Comment on above: Order Comment: Name Collection Type:: Voided Performed By: #### H H #### [address] Hemoglobin and Hematocriton 04-08-2023 Hematocrit (Bld) [Volume fraction] 25.0 % Low 38.8-50.0 [facility] Comment on above: Result Comment: PERF ORMED BY: [place] [address] PATHOLOGIST LOAN COLLECTOR FEROZ DIEHL M.D. Performed By: #### H H #### [address] Hemoglobin (Bld) [Mass/Vol] 8.2 g/dL Low 13.0-17.0 [facility] Comment on above: Performed By: #### H H #### [address] Hematocrit (Bld) [Volume fraction] 22.3 % Low 38.8-50.0 [facility] Comment on above: Result Comment: PERF ORMED BY: [place] [address] PATHOLOGIST LOAN COLLECTOR FEROZ DIEHL M.D. Performed By: #### H H #### [address] Hemoglobin (Bld) [Mass/Vol] 7.4 g/dL Low 13.0-17.0 [facility] Comment on above: Performed By: #### H H #### [address] Hematocrit (Bld) [Volume fraction] 24.3 % Low 38.8-50.0 [facility] Comment on above: Result Comment: PERF ORMED BY: [place] [address] PATHOLOGIST LOAN COLLECTOR FEROZ DIEHL M.D. Performed By: #### H H #### [address] Hemoglobin (Bld) [Mass/Vol] 7.9 g/dL Low 13.0-17.0 [facility] Comment on above: Performed By: #### H H #### [address] Hematocrit (Bld) [Volume fraction] 24.4 % Low 38.8-50.0 [facility] Comment on above: Result Comment: PERF ORMED BY: [place] [address] PATHOLOGIST LOAN COLLECTOR FEROZ DIEHL M.D. Performed By: #### H H #### [address] Hemoglobin (Bld) [Mass/Vol] 7.8 g/dL Low 13.0-17.0 [facility] Comment on above: Performed By: #### H H #### [address] Magnesiumon 04-08-2023 Magnesium [Mass/Vol] 1.6 mg/dL Low 1.9-2.7 [facility] Comment on above: Result Comment: PERF ORMED BY: [place] [address] PATHOLOGIST LOAN COLLECTOR FEROZ DIEHL M.D. Performed By: #### H H #### [address] Prothrombin Time INRon 04-08 INR Coag (PPP) [Relative time] 1.1 {INR} Normal [facility] Comment on above: Result Comment: INR [...] heart valves: 3 - 4.5 PERFORMED BY: [place] [address] PATHOLOGIST LOAN COLLECTOR FEROZ DIEHL M.D. Performed By: #### H H #### [address] PT Coag (PPP) [Time] 13.2 s High 9.0-12.9 [facility] Comment on above: Result Comment: A he matocrit value greater than 55% may lead to inaccurate results in coagulation testing. Patients having hematocrit values >55% require a special collection tube for coagulation studies. Please contact the laboratory at [phone] for redraw instructions. Performed By: #### H H #### [address] ABO/Rh Retypeon 04-07-2023 ABO/RH Recheck Result Positive Normal [facility] Comment on above: Result Comment: PERF ORMED BY: [place] [address] PATHOLOGIST LOAN COLLECTOR FEROZ DIEHL M.D. Complete Blood Count Auto Di ffon 04-07-2023 Basophils (Bld) [#/Vol] 0.0 10*3/uL Normal 0.0-0.2 [facility] Comment on above: Result Comment: PERF ORMED BY: [place] [address] PATHOLOGIST LOAN COLLECTOR FEROZ DIEHL M.D. Performed By: #### C BC, CMP #### [place] [address] [place] Basophils/100 WBC (Bld) 0.1 % Normal . [facility] Comment on above: Performed By: #### C BC, CMP #### [place] [address] [place] Eosinophils (Bld) [#/Vol] 0.0 10*3/uL Normal 0.0-0.45 [facility] Comment on above: Performed By: #### C BC, CMP #### [address] Eosinophils/100 WBC (Bld) 0.1 % Normal . [facility] Comment on above: Performed By: #### C BC, CMP #### [address] Erythrocyte distribution width (RBC) [Ratio] 16.1 % High 12.0-14.8 [facility] Comment on above: Performed By: #### C BC, CMP #### [address] Hematocrit (Bld) [Volume fraction] 26.6 % Low 38.8-50.0 [facility] Comment on above: Performed By: #### C BC, CMP #### [address] Hemoglobin (Bld) [Mass/Vol] 8.6 g/dL Low 13.0-17.0 [facility] Comment on above: Performed By: #### C BC, CMP #### [address] Lymphocytes (Bld) [#/Vol] 1.1 10*3/uL Normal 1.00-4.8 [facility] Comment on above: Performed By: #### C BC, CMP #### [place] [address] [place] Lymphocytes/100 WBC (Bld) 9.8 % Normal . [facility] Comment on above: Performed By: #### C BC, CMP #### [address] MCH (RBC) [Entitic mass] 26.3 pg Low 27.5-35.2 [facility] Comment on above: Performed By: #### C BC, CMP #### [address] MCV (RBC) [Entitic vol] 81.8 fL Low 83.5-101 [facility] Comment on above: Performed By: #### C BC, CMP #### [facility] [place] [facility] [address] Mean Corpuscular HGB Conc 32.2 g/dL Low 32.5-35.6 [facility] Comment on above: Performed By: #### C BC, CMP #### [facility] [place] [facility] [address] [place] [address] [place] Monocytes (Bld) [#/Vol] 0.5 10*3/uL Normal 0.0-0.8 [facility] Comment on above: Performed By: #### C BC, CMP #### [facility] [address] Monocytes/100 WBC (Bld) 4.3 % Normal . [facility] Comment on above: Performed By: #### C BC, CMP #### [facility] [place] [facility] [address] Neutrophils (Bld) [#/Vol] 9.7 10*3/uL High 1.8-7.7 [facility] Comment on above: Performed By: #### C BC, CMP #### [facility] [address] Neutrophils/100 WBC (Bld) 85.7 % Normal . [facility] Comment on above: Performed By: #### C BC, CMP #### [facility] [address] [place] [address] [place] NRBC% 0.1 /100{WBC} Normal 0-0.5 [facility] Comment on above: Performed By: #### C BC, CMP #### [facility] [place] [facility] [address] [place] [address] [place] Platelet mean volume (Bld) [Entitic vol] 9.4 fL Normal 6.6-10.1 [facility] Comment on above: Performed By: #### C BC, CMP #### [facility] [place] [facility] [address] [place] [address] [place] Platelets (Bld) [#/Vol] 184 10*3/uL Normal 150-450 [facility] Comment on above: Performed By: #### C BC, CMP #### [facility] [place] [facility] [address] RBC (Bld) [#/Vol] 3.25 10*6/uL Low 3.90-5.60 [facility] Comment on above: Performed By: #### C BC, CMP #### [facility] [address] WBC (Bld) [#/Vol] 11.3 10*3/uL High 4.1-10.5 [facility] Comment on above: Performed By: #### C BC, CMP #### [address] Comprehensive Metabolic Pane naresh 04-07-2023 Albumin [Mass/Vol] 3.2 g/dL Low 3.5-5.7 [facility] Comment on above: Performed By: #### C BC, CMP #### [address] Albumin/Globulin [Mass ratio] 1.5 {ratio} Normal [facility] Comment on above: Performed By: #### C BC, CMP #### [address] ALP [Catalytic activity/Vol] 43 U/L Normal 34-104 [facility] Comment on above: Performed By: #### C BC, CMP #### [facility] [place] [facility] [address] [place] [address] ALT [Catalytic activity/Vol] 5 U/L Low 7-52 [facility] Comment on above: Performed By: #### C BC, CMP #### [address] Anion gap [Moles/Vol] 12.0 mmol/L Normal 6.0-15.0 [facility] Comment on above: Performed By: #### C BC, CMP #### [facility] [place] [facility] [address] [place] [address] AST [Catalytic activity/Vol] 10 U/L Low 13-39 [facility] Comment on above: Performed By: #### C BC, CMP #### [facility] [place] [facility] [address] [place] [address] [place] Bilirubin [Mass/Vol] 0.4 mg/dL Normal 0.3-1.0 [facility] Comment on above: Performed By: #### C BC, CMP #### [facility] [place] [facility] [address] [place] [address] [place] Calcium [Mass/Vol] 8.2 mg/dL Low 8.6-10.3 [facility] Comment on above: Performed By: #### C BC, CMP #### [facility] [place] [facility] [address] [place] [address] [place] Chloride [Moles/Vol] 110 mmol/L High 98-107 [facility] Comment on above: Performed By: #### C BC, CMP #### [facility] [place] [facility] [address] [place] [address] [place] CO2 [Moles/Vol] 21.0 mmol/L Normal 21.0-31.0 [facility] Comment on above: Performed By: #### C BC, CMP #### [facility] [place] [facility] [address] [place] [address] [place] Creatinine [Mass/Vol] 1.52 mg/dL High 0.70-1.30 [facility] Comment on above: Performed By: #### C BC, CMP #### [facility] [place] [facility] [address] [place] [address] [place] Creatinine Clr Calc Pharmacy 35.53 [facility] Comment on above: Result Comment: PERF ORMED BY: [place] [address] PATHOLOGIST LOAN COLLECTOR FEROZ DIEHL M.D. Performed By: #### C BC, CMP #### [facility] [address] [place] [address] [place] GFR/1.73 sq M.predicted MDRD (S/P/Bld) [Vol rate/Area] 44.626 mL/min/{1.73_m2} [facility] Comment on above: Performed By: #### C BC, CMP #### [facility] [place] [facility] [address] Globulin (S) [Mass/Vol] 2.1 g/dL [facility] Comment on above: Performed By: #### C BC, CMP #### [facility] [address] Glucose [Mass/Vol] 106 mg/dL High 70-100 [facility] Comment on above: Result Comment: [place] Glucose Reference Range is dependent on time and content of last meal. Glucose of more than 200 mg/dL in a nonstressed, ambulatory subject supports the diagnosis of Diabetes Mellitus. ADA recommended reference range Performed By: #### C BC, CMP #### [facility] [place] [facility] [address] [place] [address] Potassium [Moles/Vol] 4.0 mmol/L Normal 3.5-5.1 [facility] Comment on above: Performed By: #### C BC, CMP #### [address] Protein [Mass/Vol] 5.3 g/dL Low 6.4-8.9 [facility] Comment on above: Performed By: #### C BC, CMP #### [address] Sodium [Moles/Vol] 139 mmol/L Normal 136-145 [facility] Comment on above: Performed By: #### C BC, CMP #### [facility] [place] [facility] [address] [place] [address] [place] Urea nitrogen [Mass/Vol] 55 mg/dL High 7-25 [facility] Comment on above: Performed By: #### C BC, CMP #### [place] [address] [place] LeukoReduced RBCon 3 LeukoReduced RBC TRANSFUSED 04/08/23 1406 [facility] Type and Screenon 04-07-2023 ABO and Rh group Nom (Bld) Blood group O Rh(D) positive [facility] Comment on above: Order Comment: Trans fuse now? Y Number of units to transfuse now? 1 INSULINon 04-19-2022 Insulin 8.1 uIU/mL Normal 2.6-24.9 [facility] Comment on above: Performed By: #### C MP, TSH, BNP, LIPID, T7 #### [facility] [address] [address] [address] Juan Hill PSA, FREE AND TOTAL RATIOon 04-19-2022 % Free PSA 25.1 % Normal [facility] Comment on above: Result Comment: The [...] C MP, TSH, BNP, LIPID, T7 #### [facility] [address] [address] [address] Juan Hill Prostate specific Ag [Mass/Vol] 10.1 ng/mL Critically high 0.0-4.0 [facility] Comment on above: Result Comment: Roch e ECLIA methodology. . According to the [place] [employer], Serum PSA should decrease and [...] C MP, TSH, BNP, LIPID, T7 #### [facility] [address] [place], [place] [address] Dr. Juan Hill PSA, Free 2.54 ng/mL Normal N/A [facility] Comment on above: Result Comment: Roch e ECLIA methodology. Performed By: #### C MP, TSH, BNP, LIPID, T7 #### [facility] [address] [place] [address] Dr. Juan Hill T4, T3U, FTI LABCORPon 04-19 Free Thyroxine Index 1.4 Normal 1.2-4.9 [facility] Comment on above: Performed By: #### C MP, TSH, BNP, LIPID, T7 #### [facility] [address] [place] [address] Dr. Juan Hill T3 Uptake 28 % Normal 24-39 [facility] Comment on above: Performed By: #### C MP, TSH, BNP, LIPID, T7 #### [facility] [address] [place] [address] Dr. Juan Hill T4 [Mass/Vol] 5.1 ug/dL Normal 4.5-12.0 [facility] Comment on above: Performed By: #### C MP, TSH, BNP, LIPID, T7 #### [facility] [address] [place] [address] Dr. Juan Hill BNPon 04-18-2022 Natriuretic peptide B (Bld) [Mass/Vol] 360.0 pg/mL Normal <=1,800.0 [facility] Comment on above: Performed By: #### U SUSANNAH, CMP, LIPID, TSH, BNP #### [facility] [address] [place] [address] Dr. Juan Hill CBC AUTO DIFFon 04-18-2022 BASO # 0.1 103/ul Normal 0.0-0.1 [facility] Comment on above: Performed By: #### C MP, TSH, BNP, LIPID, T7 #### [facility] [address] [place] [address] Dr. Juan Hill Basophils/100 WBC (Bld) 0.9 % Normal 0.2-2.0 [facility] Comment on above: Performed By: #### C MP, TSH, BNP, LIPID, T7 #### [facility] [address] [place] [address] Dr. Juan Hill EO # 0.2 103/ul Normal 0.0-0.7 [facility] Comment on above: Performed By: #### C MP, TSH, BNP, LIPID, T7 #### [facility] [address] [place] [address] Dr. Juan Hill Eosinophils/100 WBC (Bld) 3.0 % Normal 0.9-7.0 [facility] Comment on above: Performed By: #### C MP, TSH, BNP, LIPID, T7 #### [facility] [address] [place] [address] Dr. Juan Hill Erythrocyte distribution width (RBC) [Ratio] 15.7 % Critically high 11.0-15.0 [facility] Comment on above: Performed By: #### C MP, TSH, BNP, LIPID, T7 #### [facility] [address] [place] [address] Dr. Juan Hill Hematocrit (Bld) [Volume fraction] 40.4 % Critically low 42.0-54.0 [facility] Comment on above: Performed By: #### C MP, TSH, BNP, LIPID, T7 #### [facility] [address] [place] [address] Dr. Juan Hill Hemoglobin (Bld) [Mass/Vol] 12.4 g/dL Critically low 14.0-18.0 [facility] Comment on above: Performed By: #### C MP, TSH, BNP, LIPID, T7 #### [facility] [address] [place] [address] Dr. Juan Hill IG # 0.02 10e3/ul Normal 0.00-0.03 [facility] Comment on above: Performed By: #### C MP, TSH, BNP, LIPID, T7 #### [facility] [address] [place] [address] Dr. Juan Hill IG % 0.3 % Normal 0.0-0.5 [facility] Comment on above: Performed By: #### C MP, TSH, BNP, LIPID, T7 #### [facility] [address] [place] [address] Dr. Juan Hill LYMPH # 1.2 103/ul Normal 1.2-3.8 [facility] Comment on above: Performed By: #### C MP, TSH, BNP, LIPID, T7 #### [facility] [address] [place] [address] Dr. Juan Hill Lymphocytes/100 WBC (Bld) 15.6 % Critically low 20.5-60.0 [facility] Comment on above: Performed By: #### C MP, TSH, BNP, LIPID, T7 #### [facility] [address] [place] [address] Dr. Juan Hill MANUAL DIFF REQ NO Normal [facility] Comment on above: Performed By: #### C MP, TSH, BNP, LIPID, T7 #### [facility] [address] [place] [address] Dr. Juan Hill MCH (RBC) [Entitic mass] 27.3 pg Normal 25.9-34.0 [facility] Comment on above: Performed By: #### C MP, TSH, BNP, LIPID, T7 #### [facility] [address] [place] [address] Dr. Juan Hill MCHC (RBC) [Mass/Vol] 30.7 g/dL Normal 29.9-35.2 [facility] Comment on above: Performed By: #### C MP, TSH, BNP, LIPID, T7 #### [facility] [address] [place] [address] Dr. Juan Hill MCV (RBC) [Entitic vol] 89.0 fL Normal 80.0-94.0 [facility] Comment on above: Performed By: #### C MP, TSH, BNP, LIPID, T7 #### [facility] [address] [place] [address] Dr. Juan Hill MONO # 0.5 103/ul Normal 0.3-0.8 [facility] Comment on above: Performed By: #### C MP, TSH, BNP, LIPID, T7 #### [facility] [address] [place] [address] Dr. Juan Hill Monocytes/100 WBC (Bld) 6.2 % Normal 1.7-12.0 [facility] Comment on above: Performed By: #### C MP, TSH, BNP, LIPID, T7 #### [facility] [address] [place] [address] Dr. Juan Hill NEUT # 5.9 103/ul Normal 1.4-6.5 [facility] Comment on above: Performed By: #### C MP, TSH, BNP, LIPID, T7 #### [facility] [address] [place] [address] Dr. Juan Hill Neutrophils/100 WBC (Bld) 74.0 % Normal 43.0-75.0 [facility] Comment on above: Performed By: #### C MP, TSH, BNP, LIPID, T7 #### [facility] [address] [place] [address] Dr. Juan Hill Platelet mean volume (Bld) [Entitic vol] 12.1 fL Normal 9.5-13.5 [facility] Comment on above: Performed By: #### C MP, TSH, BNP, LIPID, T7 #### [facility] [address] [place] [address] Dr. Juan Hill PLT 180 103/ul Normal 150-450 [facility] Comment on above: Performed By: #### C MP, TSH, BNP, LIPID, T7 #### [facility] [address] [place] [address] Dr. Juan Hill RBC 4.54 106/ul Critically low 4.70-6.10 [facility] Comment on above: Performed By: #### C MP, TSH, BNP, LIPID, T7 #### [facility] [address] [place] [address] Dr. Juan Hill WBC 8.0 103/ul Normal 4.0-11.0 [facility] Comment on above: Performed By: #### C MP, TSH, BNP, LIPID, T7 #### [facility] [address] [place] [address] Dr. Juan Hill GLYCOHEMOGLOBIN A1Con 2021 ADA RECOMMENDATION SEE BELOW Normal [facility] Comment on above: Result Comment: ADA RECOMMENDED LIMIT 4.0 - 6.0 ADA THERAPEUTIC TARGET < 7.0 ACTION SUGGESTED > 7.0 Performed By: #### C MP, TSH, BNP, LIPID, T7 #### [facility] [address] [address] [address] Juan Hill Glucose [Mass/Vol] 100 mg/dL Normal [facility] Comment on above: Performed By: #### C MP, TSH, BNP, LIPID, T7 #### [facility] [address] [address] [address] Juan Hill HbA1c (Bld) [Mass fraction] 5.1 % Normal 4.5-6.2 [facility] Comment on above: Performed By: #### C MP, TSH, BNP, LIPID, T7 #### [facility] [address] [address] [address] Juan Hill LIPID PROFILEon 04-18-2022 CHOL-HDL RATIO NORM SEE BELOW Normal [facility] Comment on above: Result Comment: 3.3 - 4.4 LOW RISK 4.4 - 7.1 AVERAGE RISK 7.1 - 11.0 MODERATE RISK >11.0 HIGH RISK Performed By: #### U SUSANNAH, CMP, LIPID, TSH, BNP #### [facility] [address] [address] [address] Juan Hill Cholesterol [Mass/Vol] 166 mg/dL Normal <=200 [facility] Comment on above: Performed By: #### U SUSANNAH, CMP, LIPID, TSH, BNP #### [facility] [address] [address] [address] Juan Hill Cholesterol in HDL [Mass/Vol] 46 mg/dL Normal 40-60 [facility] Comment on above: Performed By: #### U SUSANNAH, CMP, LIPID, TSH, BNP #### [facility] [address] [address] [address] Juan Hill Cholesterol in LDL [Mass/Vol] 90.6 mg/dL Normal [facility] Comment on above: Performed By: #### U SUSANNAH, CMP, LIPID, TSH, BNP #### [facility] [address] [address] [address] Juan Hill Cholesterol.total/Cho lesterol in HDL [Mass ratio] 3.6 {ratio} Normal [facility] Comment on above: Performed By: #### U SUSANNAH, CMP, LIPID, TSH, BNP #### [facility] [address] [address] [address] Juan Hill HDL NORMAL > or = 60 mg/dl - LOW CARDIOVASCULAR RISK <40 mg/dl - HIGH CARDIOVASCULAR RISK Normal [facility] Comment on above: Performed By: #### U SUSANNAH, CMP, LIPID, TSH, BNP #### [facility] [address] [address] [address] Juan Hill LDL CALC NORMAL SEE BELOW Normal [facility] Comment on above: Result Comment: <100 mg/dl OPTIMAL 100 - 129 mg/dl NEAR OR ABOVE OPTIMAL 130 - 159 mg/dl BORDERLINE HIGH 160 - 189 mg/dl HIGH >190 mg/dl VERY HIGH Performed By: #### U SUSANNAH, CMP, LIPID, TSH, BNP #### [facility] [address] [address] [address] Juan Hill Triglyceride [Mass/Vol] 147 mg/dL Normal <=150 [facility] Comment on above: Performed By: #### U SUSANNAH, CMP, LIPID, TSH, BNP #### [facility] [address] [address] [address] Juan Hill VLDL CALC 29.4 mg/dL Normal [facility] Comment on above: Performed By: #### U SUSANNAH, CMP, LIPID, TSH, BNP #### [facility] [address] [address] [address] Juan Hill PROF 14(COMP METB)on 022 Albumin [Mass/Vol] 4.0 g/dL Normal 3.4-5.0 [facility] Comment on above: Performed By: #### U SUSANNAH, CMP, LIPID, TSH, BNP #### [facility] [address] [address] [address] Juan Hill Albumin/Globulin [Mass ratio] 1.2 {ratio} Normal [facility] Comment on above: Performed By: #### U SUSANNAH, CMP, LIPID, TSH, BNP #### [facility] [address] [address] [address] Juan Hill ALP [Catalytic activity/Vol] 96 U/L Normal 46-116 [facility] Comment on above: Performed By: #### U SUSANNAH, CMP, LIPID, TSH, BNP #### [facility] [address] [address] [address] Juan Hill ALT [Catalytic activity/Vol] 11 U/L Critically low 16-63 [facility] Comment on above: Performed By: #### U SUSANNAH, CMP, LIPID, TSH, BNP #### [facility] [address] [address] [address] Juan Hill Anion gap [Moles/Vol] 11.9 mmol/L Normal [facility] Comment on above: Performed By: #### U SUSANNAH, CMP, LIPID, TSH, BNP #### [facility] [address] [place] [address] Dr. Juan Hill AST [Catalytic activity/Vol] 13 U/L Critically low 15-37 [facility] Comment on above: Performed By: #### U SUSANNAH, CMP, LIPID, TSH, BNP #### [facility] [address] [place] [address] Dr. Juan Hill Bilirubin [Mass/Vol] 0.7 mg/dL Normal 0.2-1.0 [facility] Comment on above: Performed By: #### U SUSANNAH, CMP, LIPID, TSH, BNP #### [facility] [address] [place] [address] Dr. Juan Hill Calcium [Mass/Vol] 9.2 mg/dL Normal 8.5-10.1 [facility] Comment on above: Performed By: #### U SUSANNAH, CMP, LIPID, TSH, BNP #### [facility] [address] [place] [address] Dr. Juan Hill Chloride [Moles/Vol] 108 mmol/L Critically high 98-107 [facility] Comment on above: Performed By: #### U SUSANNAH, CMP, LIPID, TSH, BNP #### [facility] [address] [place] [address] Dr. Juan Hill CO2 [Moles/Vol] 26.5 mmol/L Normal 21.0-32.0 [facility] Comment on above: Performed By: #### U SUSANNAH, CMP, LIPID, TSH, BNP #### [facility] [address] [address] [address] Juan Hill Creatinine [Mass/Vol] 2.38 mg/dL Critically high 0.70-1.30 [facility] Comment on above: Performed By: #### U SUSANNAH, CMP, LIPID, TSH, BNP #### [facility] [address] [place] [address] Dr. Juan Hill EGFR-AF GRENADIAN 32 mL/min/1.73m2 Critically low >=60 [facility] Comment on above: Performed By: #### U SUSANNAH, CMP, LIPID, TSH, BNP #### [facility] [address] [place] [address] Dr. Juan Hill EGFR-NON AF GRENADIAN 26 mL/min/1.73m2 Critically low >=60 [facility] Comment on above: Performed By: #### U SUSANNAH, CMP, LIPID, TSH, BNP #### [facility] [address] [place] [address] Dr. Juan Hill Globulin (S) [Mass/Vol] 3.4 g/dL Normal [facility] Comment on above: Performed By: #### U SUSANNAH, CMP, LIPID, TSH, BNP #### [facility] [address] [place] [address] Dr. Juan Hill Glucose [Mass/Vol] 98 mg/dL Normal 74-106 [facility] Comment on above: Performed By: #### U SUSANNAH, CMP, LIPID, TSH, BNP #### [facility] [address] [place] [address] Dr. Juan Hill Potassium [Moles/Vol] 4.4 mmol/L Normal 3.5-5.1 [facility] Comment on above: Performed By: #### U SUSANNAH, CMP, LIPID, TSH, BNP #### [facility] [address] [place] [address] Dr. Juan Hill Protein [Mass/Vol] 7.4 g/dL Normal 6.4-8.2 [facility] Comment on above: Performed By: #### U SUSANNAH, CMP, LIPID, TSH, BNP #### [facility] [address] [address] [address] Juan Hill Sodium [Moles/Vol] 142 mmol/L Normal 136-145 [facility] Comment on above: Performed By: #### U SUSANNAH, CMP, LIPID, TSH, BNP #### [facility] [address] [address] [address] Juan Hill Urea nitrogen [Mass/Vol] 36.0 mg/dL Critically high 7.0-18.0 [facility] Comment on above: Performed By: #### U SUSANNAH, CMP, LIPID, TSH, BNP #### [facility] [address] [place] [address] Dr. Juan Hill Urea nitrogen/Creatinine [Mass ratio] 15.1 mg/mg Normal [facility] Comment on above: Performed By: #### U SUSANNAH, CMP, LIPID, TSH, BNP #### [facility] [address] [place] [address] Dr. Juan Hill TSHon 04-18-2022 TSH 1.492 uIU/mL Normal 0.358-3.740 [facility] Comment on above: Performed By: #### U SUSANNAH, CMP, LIPID, TSH, BNP #### [facility] [address] [place] [address] Dr. Juan Hill URIC ACID SERUMon 04-18-2022 Urate [Mass/Vol] 9.2 mg/dL Critically high 3.5-7.2 [facility] Comment on above: Performed By: #### C MP, TSH, BNP, LIPID, T7 #### [facility] [address] [place] [address] Dr. Juan Hill VITAMIN D 25 OHon 04-18-2022 VIT D 25-OH 42.8 ng/mL Normal [facility] Comment on above: Performed By: #### V ITAD #### [facility] [address] [place] [address] Dr. Juan Hill VIT D RANGES SEE BELOW Normal [facility] Comment on above: Result Comment: <20 ng/mL Vit D deficient 20 - <30 ng/mL Vit D insufficient 30 - 100 ng/mL Vit D sufficient >100 ng/mL Potential Toxicity Performed By: #### V ITAD #### [facility] [id number] Juan Hill PSA, FREE AND TOTAL RATIOon 06-03-2021 % Free PSA 28.1 % Normal [facility] Comment on above: Result Comment: The table [...] C MP, TSH, BNP, LIPID, T7 #### [facility] [id number] Juan Hill Prostate specific Ag [Mass/Vol] 9.1 ng/mL Critically high 0.0-4.0 [facility] Comment on above: Result Comment: Sharda montenegro ECLIA methodology. . According to the [employer] [employer], Serum PSA should decrease and [...] C MP, TSH, BNP, LIPID, T7 #### [facility] [id number] Juan Hill PSA, Free 2.56 ng/mL Normal N/A [facility] Comment on above: Result Comment: Roch e ECLIA methodology. Performed By: #### C MP, TSH, BNP, LIPID, T7 #### [facility] [id number] Juan Hill INSULINon 06-02-2021 Insulin 9.6 uIU/mL Normal 2.6-24.9 [facility] Comment on above: Performed By: #### C MP, TSH, BNP, LIPID, T7 #### [facility] [address] [place] [address] Dr. Juan Hill BNPon 06-01-2021 Natriuretic peptide B (Bld) [Mass/Vol] 269.0 pg/mL Normal <=1,800.0 [facility] Comment on above: Performed By: #### C MP, TSH, BNP, LIPID, T7 #### [facility] [address] [place] [address] Dr. Juan Hill CBC AUTO DIFFon 06-01-2021 BASO # 0.1 103/ul Normal 0.0-0.1 [facility] Comment on above: Performed By: #### C MP, TSH, BNP, LIPID, T7 #### [facility] [address] [place] [address] Dr. Juan Hill Basophils/100 WBC (Bld) 0.7 % Normal 0.2-2.0 [facility] Comment on above: Performed By: #### C MP, TSH, BNP, LIPID, T7 #### [facility] [address] [place] [address] Dr. Juan Hill EO # 0.2 103/ul Normal 0.0-0.7 [facility] Comment on above: Performed By: #### C MP, TSH, BNP, LIPID, T7 #### [facility] [address] [place] [address] Dr. Juan Hill Eosinophils/100 WBC (Bld) 2.0 % Normal 0.9-7.0 [facility] Comment on above: Performed By: #### C MP, TSH, BNP, LIPID, T7 #### [facility] [address] [place] [address] Dr. Juan Hill Erythrocyte distribution width (RBC) [Ratio] 14.7 % Normal 11.0-15.0 [facility] Comment on above: Performed By: #### C MP, TSH, BNP, LIPID, T7 #### [facility] [address] [place] [address] Dr. Juan Hill Hematocrit (Bld) [Volume fraction] 43.9 % Normal 42.0-54.0 [facility] Comment on above: Performed By: #### C MP, TSH, BNP, LIPID, T7 #### [facility] [address] [place] [address] Dr. Juan Hill Hemoglobin (Bld) [Mass/Vol] 13.6 g/dL Critically low 14.0-18.0 [facility] Comment on above: Performed By: #### C MP, TSH, BNP, LIPID, T7 #### [facility] [address] [place] [address] Dr. Juan Hill IG # 0.01 10e3/ul Normal 0.00-0.03 [facility] Comment on above: Performed By: #### C MP, TSH, BNP, LIPID, T7 #### [facility] [address] [place] [address] Dr. Juan Hill IG % 0.1 % Normal 0.0-0.5 [facility] Comment on above: Performed By: #### C MP, TSH, BNP, LIPID, T7 #### [facility] [address] [place] [address] Dr. Juan Hill LYMPH # 1.1 103/ul Critically low 1.2-3.8 [facility] Comment on above: Performed By: #### C MP, TSH, BNP, LIPID, T7 #### [facility] [address] [place] [address] Dr. Juan Hill Lymphocytes/100 WBC (Bld) 14.9 % Critically low 20.5-60.0 [facility] Comment on above: Performed By: #### C MP, TSH, BNP, LIPID, T7 #### [facility] [address] [place] [address] Dr. Juan Hill MANUAL DIFF REQ NO Normal [facility] Comment on above: Performed By: #### C MP, TSH, BNP, LIPID, T7 #### [facility] [address] [place] [address] Dr. Juan Hill MCH (RBC) [Entitic mass] 28.0 pg Normal 25.9-34.0 [facility] Comment on above: Performed By: #### C MP, TSH, BNP, LIPID, T7 #### [facility] [address] [place] [address] Dr. Juan Hill MCHC (RBC) [Mass/Vol] 31.0 g/dL Normal 29.9-35.2 [facility] Comment on above: Performed By: #### C MP, TSH, BNP, LIPID, T7 #### [facility] [address] [address] [address] Juan Hill MCV (RBC) [Entitic vol] 90.5 fL Normal 80.0-94.0 [facility] Comment on above: Performed By: #### C MP, TSH, BNP, LIPID, T7 #### [facility] [address] [place] [address] Dr. Juan Hill MONO # 0.4 103/ul Normal 0.3-0.8 [facility] Comment on above: Performed By: #### C MP, TSH, BNP, LIPID, T7 #### [facility] [address] [place] [address] Dr. Juan Hill Monocytes/100 WBC (Bld) 6.0 % Normal 1.7-12.0 [facility] Comment on above: Performed By: #### C MP, TSH, BNP, LIPID, T7 #### [facility] [address] [place] [address] Dr. Juan Hill NEUT # 5.6 103/ul Normal 1.4-6.5 [facility] Comment on above: Performed By: #### C MP, TSH, BNP, LIPID, T7 #### [facility] [address] [place] [address] Dr. uJan Hill Neutrophils/100 WBC (Bld) 76.3 % Critically high 43.0-75.0 [facility] Comment on above: Performed By: #### C MP, TSH, BNP, LIPID, T7 #### [facility] [address] [place] [address] Dr. Juan Hill Platelet mean volume (Bld) [Entitic vol] 11.6 fL Normal 9.5-13.5 [facility] Comment on above: Performed By: #### C MP, TSH, BNP, LIPID, T7 #### [facility] [address] [address] [address] Juan Hill PLT 163 103/ul Normal 150-450 [facility] Comment on above: Performed By: #### C MP, TSH, BNP, LIPID, T7 #### [facility] [address] [address] [address] Juan Hill RBC 4.85 106/ul Normal 4.70-6.10 [facility] Comment on above: Performed By: #### C MP, TSH, BNP, LIPID, T7 #### [facility] [address] [place] [address] Dr. Juan Hill WBC 7.4 103/ul Normal 4.0-11.0 [facility] Comment on above: Performed By: #### C MP, TSH, BNP, LIPID, T7 #### [facility] [address] [place] [address] Dr. Juan Hill FREE THYROXINE INDEX T7on FTI 1.72 Normal [facility] Comment on above: Performed By: #### C MP, TSH, BNP, LIPID, T7 #### [facility] [address] [place] [address] Dr. Juan Hill T3U 33.0 % Normal 23.5-40.5 [facility] Comment on above: Performed By: #### C MP, TSH, BNP, LIPID, T7 #### [facility] [address] [place] [address] Dr. Juan Hill T4 [Mass/Vol] 5.20 ug/dL Critically low 5.53-11.00 [facility] Comment on above: Performed By: #### C MP, TSH, BNP, LIPID, T7 #### [facility] [address] [place] [address] Dr. Juan Hill GLYCOHEMOGLOBIN A1Con 2020 ADA RECOMMENDATION ADA THERAPEUTIC TARGET 6.0 - 7.0 ACTION SUGGESTED > 7.0 Normal [facility] Comment on above: Performed By: #### C MP, TSH, BNP, LIPID, T7 #### [facility] [address] [address] [address] Juan Hill Glucose [Mass/Vol] 100 mg/dL Normal [facility] Comment on above: Performed By: #### C MP, TSH, BNP, LIPID, T7 #### [facility] [address] [address] [address] Juan Hill HbA1c (Bld) [Mass fraction] 5.1 % Normal <=6.0 [facility] Comment on above: Performed By: #### C MP, TSH, BNP, LIPID, T7 #### [facility] [address] [place] [address] Dr. Juan Hill IRONon 06-01-2021 Iron [Mass/Vol] 81.0 ug/dL Normal 49.0-181.0 [facility] Comment on above: Performed By: #### C MP, TSH, BNP, LIPID, T7 #### [facility] [address] [place] [address] Dr. Juan Hill LIPID PROFILEon 06-01-2021 CHOL-HDL RATIO NORM SEE BELOW Normal [facility] Comment on above: Result Comment: 3.3 - 4.4 LOW RISK 4.4 - 7.1 AVERAGE RISK 7.1 - 11.0 MODERATE RISK >11.0 HIGH RISK Performed By: #### C MP, TSH, BNP, LIPID, T7 #### [facility] [address] [place] [address] Dr. Juan Hill Cholesterol [Mass/Vol] 187 mg/dL Normal <=200 [facility] Comment on above: Performed By: #### C MP, TSH, BNP, LIPID, T7 #### [facility] [address] [place] [address] Dr. Juan Hill Cholesterol in HDL [Mass/Vol] 48 mg/dL Normal [facility] Comment on above: Performed By: #### C MP, TSH, BNP, LIPID, T7 #### [facility] [address] [place] [address] Dr. Juan Hill Cholesterol in LDL [Mass/Vol] 110.6 mg/dL Normal [facility] Comment on above: Performed By: #### C MP, TSH, BNP, LIPID, T7 #### [facility] [address] [place] [address] Dr. Juan Hill Cholesterol.total/Cho lesterol in HDL [Mass ratio] 3.9 {ratio} Normal [facility] Comment on above: Performed By: #### C MP, TSH, BNP, LIPID, T7 #### [facility] [address] [address] [address] Juan Hill HDL NORMAL > or = 60 mg/dl - LOW CARDIOVASCULAR RISK <40 mg/dl - HIGH CARDIOVASCULAR RISK Normal [facility] Comment on above: Performed By: #### C MP, TSH, BNP, LIPID, T7 #### [facility] [address] [place] [address] Dr. Juan Hill LDL CALC NORMAL SEE BELOW Normal [facility] Comment on above: Result Comment: <100 mg/dl OPTIMAL 100 - 129 mg/dl NEAR OR ABOVE OPTIMAL 130 - 159 mg/dl BORDERLINE HIGH 160 - 189 mg/dl HIGH >190 mg/dl VERY HIGH Performed By: #### C MP, TSH, BNP, LIPID, T7 #### [facility] [address] [place] [address] Dr. Juan Hill Triglyceride [Mass/Vol] 142 mg/dL Normal <=150 [facility] Comment on above: Performed By: #### C MP, TSH, BNP, LIPID, T7 #### [facility] [address] [place] [address] Dr. Juan Hill VLDL CALC 28.4 mg/dL Normal [facility] Comment on above: Performed By: #### C MP, TSH, BNP, LIPID, T7 #### [facility] [address] [place] [address] Dr. Juan Hill PROF 14(COMP METB)on 021 Albumin [Mass/Vol] 4.0 g/dL Normal 3.5-5.0 [facility] Comment on above: Performed By: #### C MP, TSH, BNP, LIPID, T7 #### [facility] [address] [address] [address] Juan Hill Albumin/Globulin [Mass ratio] 1.1 {ratio} Normal [facility] Comment on above: Performed By: #### C MP, TSH, BNP, LIPID, T7 #### [facility] [address] [address] [address] Juan Hill ALP [Catalytic activity/Vol] 99 U/L Normal 38-126 [facility] Comment on above: Performed By: #### C MP, TSH, BNP, LIPID, T7 #### [facility] [address] [address] [address] Juan Hill ALT [Catalytic activity/Vol] 11 U/L Critically low 21-72 [facility] Comment on above: Performed By: #### C MP, TSH, BNP, LIPID, T7 #### [facility] [address] [place] [address] Dr. Juan Hill Anion gap [Moles/Vol] 10.8 mmol/L Normal [facility] Comment on above: Performed By: #### C MP, TSH, BNP, LIPID, T7 #### [facility] [address] [address] [address] Juan Hill AST [Catalytic activity/Vol] 12 U/L Critically low 17-59 [facility] Comment on above: Performed By: #### C MP, TSH, BNP, LIPID, T7 #### [facility] [address] [address] [address] Juan Hill Bilirubin [Mass/Vol] 0.6 mg/dL Normal 0.2-1.3 [facility] Comment on above: Performed By: #### C MP, TSH, BNP, LIPID, T7 #### [facility] [address] [address] [address] Juan Hill Calcium [Mass/Vol] 9.4 mg/dL Normal 8.4-10.2 [facility] Comment on above: Performed By: #### C MP, TSH, BNP, LIPID, T7 #### [facility] [address] [address] [address] Juan Hill Chloride [Moles/Vol] 104 mmol/L Normal 98-107 [facility] Comment on above: Performed By: #### C MP, TSH, BNP, LIPID, T7 #### [facility] [address] [place] [address] Dr. Juan Hill CO2 [Moles/Vol] 29.2 mmol/L Normal 22.0-30.0 [facility] Comment on above: Performed By: #### C MP, TSH, BNP, LIPID, T7 #### [facility] [address] [address] [address] Juan Hill Creatinine [Mass/Vol] 2.04 mg/dL Critically high 0.66-1.25 [facility] Comment on above: Performed By: #### C MP, TSH, BNP, LIPID, T7 #### [facility] [address] [place] [address] Dr. Juan Hill EGFR-AF GRENADIAN 38 mL/min/1.73m2 Critically low >=60 [facility] Comment on above: Performed By: #### C MP, TSH, BNP, LIPID, T7 #### [facility] [address] [place] [address] Dr. Juan Hill EGFR-NON AF GRENADIAN 31 mL/min/1.73m2 Critically low >=60 [facility] Comment on above: Performed By: #### C MP, TSH, BNP, LIPID, T7 #### [facility] [address] [place] [address] Dr. Juan Hill Globulin (S) [Mass/Vol] 3.7 g/dL Normal [facility] Comment on above: Performed By: #### C MP, TSH, BNP, LIPID, T7 #### [facility] [address] [place] [address] Dr. Juan Hill Glucose [Mass/Vol] 98 mg/dL Normal 74-106 [facility] Comment on above: Performed By: #### C MP, TSH, BNP, LIPID, T7 #### [facility] [address] [place] [address] Dr. Juan Hill Potassium [Moles/Vol] 5.0 mmol/L Normal 3.4-5.0 [facility] Comment on above: Performed By: #### C MP, TSH, BNP, LIPID, T7 #### [facility] [address] [address] [address] Juan Hill Protein [Mass/Vol] 7.7 g/dL Normal 6.1-8.2 [facility] Comment on above: Performed By: #### C MP, TSH, BNP, LIPID, T7 #### [facility] [address] [place] [address] Dr. Juan Hill Sodium [Moles/Vol] 139 mmol/L Normal 137-145 [facility] Comment on above: Performed By: #### C MP, TSH, BNP, LIPID, T7 #### [facility] [address] [place] [address] Dr. Juan Hill Urea nitrogen [Mass/Vol] 26.0 mg/dL Critically high 9.0-20.0 [facility] Comment on above: Performed By: #### C MP, TSH, BNP, LIPID, T7 #### [facility] [address] [place] [address] Dr. Juan Hill Urea nitrogen/Creatinine [Mass ratio] 12.7 mg/mg Normal [facility] Comment on above: Performed By: #### C MP, TSH, BNP, LIPID, T7 #### [facility] [address] [place] [address] Dr. Juan Hill TSHon 06-01-2021 TSH 2.986 uIU/mL Normal 0.470-4.680 [facility] Comment on above: Performed By: #### C MP, TSH, BNP, LIPID, T7 #### [facility] [address] [place] [address] Dr. Juan Hill TSH RANGE SEE BELOW Normal [facility] Comment on above: Result Comment: <0.3 4 UIU/ml HYPERTHYROID 0.34-5.60 UIU/ml EUTHYROID >5.60 UIU/ml HYPOTHYROID Performed By: #### C MP, TSH, BNP, LIPID, T7 #### [facility] [address] [place] [address] Dr. Juan Hill VITAMIN D 25 OHon 06-01-2021 VIT D 25-OH 43.8 ng/mL Normal [facility] Comment on above: Performed By: #### C MP, TSH, BNP, LIPID, T7 #### [facility] [address] [place], [place] [address] Dr. Juan Hill VIT D RANGES SEE BELOW Normal [facility] Comment on above: Result Comment: <20 ng/mL Vit D deficient 20 - <30 ng/mL Vit D insufficient 30 - 100 ng/mL Vit D sufficient >100 ng/mL Potential Toxicity Performed By: #### C MP, TSH, BNP, LIPID, T7 #### [facility] [address] [place], [place] [address] Dr. Juan Hill Encounters Encounter Date Encounter Type Care Provider Facility Start: 05-27-2024 End: 05-27-2024 Telephone encounter Marlin Gutierrez LPN [facility] Start: 05-21-2024 End: 05-21-2024 Telephone encounter Marlin Gutierrez LPN [facility] Start: 10-09-2023 End: 10-09-2023 Evaluation and management of inpatient CHAO CHAWLA [facility] Start: 10-08-2023 End: 10-08-2023 ambulatory [facility] Pat Phone Call Provider 1 [facility] - Pre Admit Start: 10-08-2023 End: 10-08-2023 amb[address] FABIAN [facility] Start: 09-04-2023 End: 09-04-2023 ambulatory CHAO [facility] Start: 05-01-2023 ambulatory MONICA[facility] ac[facility] [place] Start: 04-07-2023 End: 04-10-2023 Evaluation and management of inpatient Shila Fabian Facility:[facility] Start: 04-18-2022 End: 04-19-[address] SHILA FABIAN Facility:[facility] Start: 06-01-2021 End: 06-02-[address] SHILA FABIAN Facility:[facility] Procedures Date Procedure Procedure Detail Performing Clinician Start: 09-04-2023 Follow-up visit Follow-up CHAO CHAWLA Start: 04-07-2023 Antibody screen Shila Fabian Comment on above: Order Comment: Trans fuse now? Y Number of units to transfuse now? 1 Result Comment: PERF ORMED BY: [facility] [address] PATHOLOGIST LOAN COLLECTOR FEROZ DIEHL M.D. Start: 06-01-[address] LÓPEZ FABIAN Comment on above: Performed By: #### C MP, TSH, BNP, LIPID, T7 #### [facility] [address] [place], [place] [address] Dr. Juan Hill Plan of Treatment Date Care Activity Detail Author Start: 10-08-2024 Tobacco Screening Tobacco Screening [facility] Start: 09-04-2024 Adult BMI Screening Adult BMI Screening [facility] Start: 03-30-2024 COVID-19 Vaccine ( season) COVID-19 Vaccine ( season) [facility] Start: 03-30-2024 COVID-19 Vaccine ( season) COVID-19 Vaccine ( season) [facility] Start: 03-30-2024 Influenza vaccination Influenza Vaccine [facility] Start: 03-30-2023 COVID-19 Vaccine ( season) COVID-19 Vaccine ( season) [facility] Start: 03-30-2023 Influenza vaccination Influenza Vaccine [facility] Start: 2002 Fall Risk Screening Fall Risk Screening [facility] Start: 12-25-1987 Administration of varicella zoster vaccine Zoster (Shingles) Vaccine (1 of 2) [facility] Start: 1956 DTaP,Tdap and Td Vaccines (1 - Tdap) DTaP,Tdap and Td Vaccines (1 - Tdap) [facility] Start: 12-25-1955 Adult BMI Follow Up Plan Adult BMI Follow Up Plan [facility] Start: 1949 Depression Screening Depression Screening [facility] Start: 1935 Medicare Annual Wellness Visit Medicare Annual Wellness Visit [facility] Immunizations Immunization Date Immunization Notes Care Provider Fa cilidorita 09-16-2020 COVID-19, mRNA, LNP- S, PF, 100mcg/0.5mL Dose [facility] 08-20-2020 COVID-19, mRNA, LNP- S, PF, 100mcg/0.5mL Dose [facility] 06-18-2020 influenza virus vacc ine, unspecified formulation [facility] Payers Date Payer Category Payer Medicare [id number] 2023 Self-pay 2021 Medicare A[employer] MEDICARE A ETNA MEDICARE PLAN (PPO) [id number] 2021-Present [phone] [address] [place] [address] [id number] 2021 Medicare HMO [employer] MEDICARE [id number] 1959 Medicare [id number] 1959 Medicare [id number] 1935 Unknown [id number] 1937 Unknown [id number] 1937 Unknown [id number] 1937 Unknown [id number] 1937 Unknown [id number] 1937 Unknown [id number] Unknown [id number] Social History Date Type Detail Facility Start: [facility] History of tobacco use Current smoker [facility] Start: 04-20-2023 Tobacco use and exposure Smoke less tobacco non-user [facility] Start: 09-04-2023 End: 10-10-2023 Alcohol intake Current non-drinker of alcohol (finding) [facility] Start: 07-05-2018 End: 08-19-2020 History of Social function [facility] Start: 07-05-2018 End: 08-19-2020 Alcohol Use Disorder Identification Test - Consumption [AUDIT-C] [facility] Frequency of Alcohol Consumption Never [facility] Start: 1935 Sex Assigned At Not on file P [facility] Start: 03-04-2015 Sex Male (finding) [facility] Note 05-27-2024 Telephone Encounter - Marlin [...] message was left. documented in this encounter [facility] Telephone encounter Note 05-27-2024 Telephone Encounter - Marlin Gutierrez LPN - 05/27/2024 3:21 PM EDT Note Date & Type Note Facility 05-27-2024 Telephone encount er Note Pt. Was contacted under the direction of Janeth Moarn PA-C to schedule a follow up after receiving the Pt.'s PSA value from his PCP's office. Last Pt. Appt was one year ago for a void trial. Janeth Moran PA-C would like a follow up to ensure the Pt. Is urinating with no difficulties. Pt. Did not answer, message was left. [facility] Note 05-21-2024 Telephone Encounter - Marlin Gutierrez LPN - 05/21/2024 1:22 PM EDT Note Date & Type Note Facility 05-21-2024 Miscellaneous Notes Formattin g of this note might be different from the original. Received new PSA results from PCP. Sent to scanning. documented in this encounter [facility] Telephone encounter Note 05-21-2024 Telephone Encounter - Marlin Gutierrez LPN - 05/21/2024 1:22 PM EDT Note Date & Type Note Facility 05-21-2024 Telephone encount er Note Received new PSA results from PCP. Sent to scanning. [facility] Note 10-08-2023 Perioperative Nursing Note - [...] lobby at the registration desk near the [facility]. 2. If you have a Living Will/Durable Power of Trichologist for Health Care that is not on file here, please bring a copy the day of surgery. 3. Please shower/tub bath the night before surgery or morning of. 4. NO powder, lotion, perfume/cologne, aftershave, make-up, nail ukrainian, deodorant, or hair products after you have [...] doctor for instructions documented in this encounter [facility] Nurse Note 10-08-2023 Perioperative Nursing Note - [...] lobby at the registration desk near the [facility]. 2. If you have a Living Will/Durable Power of Trichologist for Health Care that is not on file here, please bring a copy the day of surgery. 3. Please shower/tub bath the night before surgery or morning of. 4. NO powder, lotion, perfume/cologne, aftershave, make-up, nail ukrainian, deodorant, or hair products after you have [...] capsule Check with prescribing doctor for instructions [facility] Instructions Note Date & Type Note Facility Instructions Not on filedocumented in this en counter [facility] Instructions Note Date & Type Note Facility Instructions Not on filedocumented in this en counter [facility] Summary Purpose Family History No Family History Records FoundNo Family History Records FoundNo Family History Records FoundNo Family History Records FoundNo Family History Records Found Advance Directives Documents on File Type Date Recorded 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 08/12/12 Living Will 04/23/2023 9:15 AM [facility] / [facility] LIVING WILL 08/12/12 Additional Source Comments (unrecognized sect ion and content) No Status Records FoundNo Status Records FoundNo Status Records FoundNo Status Records FoundNo Status Records Found INFORMATION SOURCE (unrecogn ized section and content) DATE CREATED AUTHOR 04/30/2022 [facility] DATE CREATED AUTHOR AUTHOR'S ORGANIZ ATION 04/19/2023 [place] [facility] DATE CREATED AUTHOR AUTHOR'S ORGANIZ ATION 04/20/2023 [facility] DATE CREATED AUTHOR AUTHOR'S ORGANIZ ATION 09/10/2023 [facility] DATE CREATED AUTHOR AUTHOR'S ORGANIZ ATION 10/10/2023 [facility] Care Teams (unrecognized sec tion and content) [employer] Installer Relationship Specialty Start Date End Date Shila Fabian MD [address] [place] [address] PCP - General 07/05/18 [employer] Installer Relationship Specialty Start Date End Date Shila [...] BE BASED ON THE PRIMARY CLINICAL RECORDS. [facility] [employer] [facility]. provides no warranty or guarantee of the accuracy or completeness of information in this document.
--- NOTE | 2024-06-10 07:15 | NM_ITS ---
Patient Name: GABY KOO MR#: [id number] : 1935 Exam Date: 06/10/2024 Ordering Doctor: DR Deng Fabian . RADIOLOGY REPORT PROCEDURE: NM YORDY PERF SPECT REST STR COMPARISON: None. INDICATIONS: CHEST PAIN TECHNIQUE: Exam Description: Stress/Rest one day protocol gated SPECT Rest Imagin.9 mCi Tc-99m Cardiolite IV on 06/10/24 Stress Imaging 29.7 mCi Tc-99m Cardiolite IV on 06/10/24 Exercise Protocol: 0.4 mg Lexiscan given IV Heart Rate (bpm): Rest: 65 Max: 88 PMHR: 65 Blood Pressure: Rest: 114/62 Max: 118/62 Symptoms: Rest and peak stress ECG findings were normal and the exercise portion of the study was normal per attending physician Dr. Hernandez . For more details please see separate cardiac stress test report. FINDINGS: QUALITY OF STUDY: Excellent. PERFUSION DEFECT: None. LOCATION: N/A SIZE: N/A. SEVERITY: N/A. TYPE: N/A. WALL MOTION: Normal. LV SIZE: Normal. 92 mL. TID / TCD: None; 1.0 LVEF: Normal. Calculated EF 58%. SUMMARY: Myocardial perfusion imaging study is NORMAL. CONCLUSION: 1. Normal nuclear medicine myocardial perfusion scan. Dictated by: Petr Bryant M.D. on 06/12/2024 at 10:43 Approved by: Petr Bryant M.D. on 06/12/2024 at 10:46
[2024-06-10] MEDS: REGADENOSON 0.4 MG/5 ML SYRINGE IV (09:38)
== END 2024-06-10 07:07 | disposition home or self-care (01) ==
LOC: NM 07:07
PROVIDERS: PCP Family Medicine; Visit Provider Family Medicine
DX: R07.9 Chest pain, unspecified (principal)
CPT/HCPCS: 78452; 93017; A9500; J2785

== ENCOUNTER 2025-02-13 07:49 | Outpatient (OUT) | payer MEDICARE, SELFPAY ==
--- OUTSIDE RECORDS SUMMARY | 2024-11-24 04:30 | XMS_ITS ---
Author Organization [facility] [place] Address [address] [place] [address] Care Team Providers Care Medical Customer Service Representative Name Role Phone Jordin Fabian Primary Care Provider REASON FOR VISIT Presents to office alone for 3 month check up Medications Medication SIG (Take, Route, Frequency, Duration) Notes Start Date End Date Status Test Strips - use with meter Dx: E 11.9 Once daily for 90 days 03/26/2023 Active Ferrous Sulfate 325 (65 Fe) MG 1 tablet Orally Twice Daily for 30 days 04/23/2023 Active Meclizine HCl 25 MG TAKE 1 TABLET BY EMANI TH 4 TIMES DAILY NEEDED Q 6 hours for 30 days Active Pantoprazole Sodium 40 MG 1 tablet Orall y Once a day Active Simvastatin 20 MG Take 1 tablet by emani th once daily for 90 Active Clindamycin Phosphate 1 % 1 application Externally Twice a day affected area for 30 days Active Blood Glucose Meter -- use to check bloo d sugar levels Dx: E11.9 Once daily for 365 days 03/26/2023 Active Celecoxib 100 MG TAKE 1 CAPSULE BY MO [facility] ONCE DAILY WITH FOOD for 30 Active Clopidogrel Bisulfate 75 MG Take 1 table t by mouth once daily for 90 Active Social History Tobacco Use: Social History Observation Description Date Details (start date - stop date) Former Smoker [birth year]/30/1949 - 07/30/2021 Tobacco Use/Smoking Question Answer Notes Patient is a former smoker When did you start smoking? 07/30/1949 When did you stop smoking? 07/30/2021 How long has it been since you last smoked? 1-5 years Tobacco use other than smoking: Question Answer Notes Are you an other tobacco user? c igars AUDIT-C (Standard) Question Answer Notes Did you have a drink containing alcohol in the p ast year? 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) Active confirmed Vital Signs Weight 166.8 lbs 11/24/2024 Height 69 in 11/24/2024 Blood pressure systolic 144 mm Hg 11/25/19 25 Blood pressure diastolic 70 mm Hg 025 BMI 24.63 kg/m2 11/24/2024 Encounters Encounter Location Date Provider Diagnosis [facility] [address] [place] [address] 11/24/2024 Jordin Fabian Pulmonary hypertensi on, unspecified I27.20 ; Chronic kidney disease, stage 3b N18.32 ; Chronic kidney disease due to diabetes mellitus E11.22 and Type 2 diabetes w diabetic peripheral angiopath w/o gangrene E11.51 Assessments Encounter Date Diagnosis (ICD Code) Assessment Notes Treatment Notes Treatment Clinical Notes Section Notes 11/24/2024 Pulmonary hypertension, unspecified (ICD-10 - I27.20) no ADAME 11/24/2024 Chronic kidney disease, stage 3b (ICD-10 - N18.32) 11/24/2024 Chronic kidney disease due to diabetes mellitus (ICD-10 - E11.22) stabel labs 11/24/2024 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.51) sugars are goood Plan Of Treatment Medication Medication Name Sig Start Date Stop Date Notes Clindamycin Phosphate 1 % 1 application Externally Twice a day affected area for 30 days Treatment Notes Assessment Notes Pulmonary hypertension, unspecified no D OE Chronic kidney disease due to diabetes david gold stabel labs Type 2 diabetes w diabetic peripheral an giopath w/o gangrene sugars are goood Next Appt Details Provider Name:Jordin Donis Caren, 08:30:00 AM, [address] [facility], [place], [address], Progress Notes * Feroz KOO DDOB:[birth year] (88 yo M)Acc No.[id number]:11/24/2024 Progress Note Patient: Freoz BISWAS Provider: Jeremy Fabian ([facility])MD :1935 A ge:88 Y S ex:Male Date:11/24/2024 Address:[address] [place] [address], [id number] Check In:08:06 AM ESTCheck O ut:08:49 AM EST Subjective: * Chief Complaints: * P resents to office alone for 3 month check up * HPI: G eneral: GERD - styabdl sugars are good - 114 on plavix - no bleein on chol mmeds no se. * ROS: E ENT: hearing changes d enies. v isual changes d enies.�non-healing mouth sores d enies. s wollen glands or neck lumps d enies. h oarseness d enies. s ore throat d enies. d ifficulty swallowing d enies. n ose bleeds d enies. n alvaro congestion d enies. e ar ache d enies. e ar discharge�denies. r inging in ears d enies. l ight sensitivity d enies. e ye pain d enies. b lurring d enies. e ye irritation d enies. d ouble vision d enies.�vision loss d enies. G eneral/Constitutional: Sweats: D enies. F atigue d enies. S leep problems d enies. A norexia d enies. M alaise d enies. W eight loss d enies.�Fatigue or Weakness d enies. F ever or Chills d enies. C ardiovascular: Shortness of Breath w/lying flat d enies. L ightheadedness/dizziness d enies. C hest tightness/ heavy pressure d enies. S welling of legs, ankles, or feet d enies. W aking up with shortness of breath d enies. C hest pain denies. P alpitations d enies. W eight gain d enies. R espiratory: Chronic or frequent cough d enies. C oughing up blood�denies. D ifficulty breathing d enies. P roductive cough d enies. S noring�denies. S hortness of breath that awakens from sleep (PND) d enies. C hest pain d enies. S putum production d enies. W heezing d enies. M usculoskeletal: Joint pain d enies. J oint Fluid d enies. B ack pain d enies. K nee pain d enies. N felipa pain d enies. J oint Stiffness d enies. M uscle cramps d enies. W eakness of muscles d enies. A rthritis d enies. M uscle aches d enies. P ain in shoulder(s) d enies. S wollen joints d enies. 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 Modified On:01/16/2023U Status:confirmed I10 Essential (primary) hypertension Modified On:08/20/2023U Status:confirmed E78.00 Pure hypercholestero lemia, unspecified Modified On:08/20/2023U Status:confirmed K92.2 Gastrointestinal hem orrhage, unspecified Modified On:04/09/2023U Status:confirmed K92.1 Melena Modified On:04/09/2023U Status:confirmed K25.3 Acute gastric ulcer Modified On:04/19/2023U Status:confirmed R07.9 Chest pain Modified On:05/21/2024U Status:confirmed I27.20 Pulmonary hypertensi on, unspecified Modified On:11/24/2024U Status:confirmed N18.32 Chronic kidney disea se, stage 3b Modified On:11/24/2024U Status:confirmed E11.22 Chronic kidney disea se due to diabetes mellitus Modified On:11/24/2024W/U Status:confirmed E11.51 Type 2 diabetes w di abetic peripheral angiopath w/o gangrene Modified On:11/24/2024W/U Status:confirmed * Medical History: * Surgical History: E GD 04/07/2023 * Hospitalization/Major Diagno stic Procedure: * Family History: F ather: . M other: , diagnosed with Diabetes mellitus without mention of complication, type II or unspecified type, not stated as uncontrolled. B rother(s): . Daughter(s): alive. 3 brother(s) . 1 daughter(s) - healthy. . * Social History: T obacco Use: T obacco use other than smoking A re you an other tobacco user? c igars Tobacco Use/Smoking P atient is a f ormer smoker W hen did you start smoking? 0 [birth year]/30/1949 W hen did you stop smoking? 0 07/30/2021 H ow long has it been since you last smoked?�1-5 years D rug/Alcohol: A SERENE-C (Standard) D id you have a drink containing alcohol in the past year? N o P oints 0 I nterpretation N egative * Medications: T akingBlood Glucose Meter -- -- use to check blood sugar levels Dx: E11.9 Once daily Celecoxib 100 MG Capsule TAKE 1 CAPSULE BY MOUTH ONCE DAILY WITH FOOD Clindamycin Phosphate 1 % Gel 1 application Externally Twice a day affected area Clopidogrel Bisulfate 75 MG Tablet Take 1 tablet by mouth once daily Ferrous Sulfate 325 (65 Fe) MG Tablet 1 tablet Orally Twice Daily Meclizine HCl 25 MG Tablet TAKE 1 TABLET BY MOUTH 4 TIMES DAILY NEEDED Q 6 hours Pantoprazole Sodium 40 MG Tablet Delayed Release 1 tablet Orally Once a day Simvastatin 20 MG Tablet Take 1 tablet by mouth once daily Test Strips - - use with meter Dx: E11.9 Once daily Medication List reviewed and reconciled with the patientTaking Blood Glucose Meter -- -- use to check blood sugar levels Dx: E11.9 Once daily Taking Celecoxib 100 MG Capsule TAKE 1 CAPSULE BY MOUTH ONCE DAILY WITH FOOD Taking Clindamycin Phosphate 1 % Gel 1 application Externally Twice a day affected area Taking Clopidogrel Bisulfate 75 MG Tablet Take 1 tablet by mouth once daily Taking Ferrous Sulfate 325 (65 Fe) MG Tablet 1 tablet Orally Twice Daily Taking Meclizine HCl 25 MG Tablet TAKE 1 TABLET BY MOUTH 4 TIMES DAILY NEEDED Q 6 hours Taking Pantoprazole Sodium 40 MG Tablet Delayed Release 1 tablet Orally Once a day Taking Simvastatin 20 MG Tablet Take 1 tablet by mouth once daily Taking Test Strips - - use with meter Dx: E11.9 Once daily Medication List reviewed and reconciled with the patient Objective: * Vitals: W t:166.8lbs, Ht: 69 in, BP:144/70mm Hg, BMI:24.63Index, Ht-cm: 175.26 cm, Wt-k.66 kg. * Examination: P hysical Exam: GENERAL: w ell developed, well nourished, in no acute distress. HEAD: n ormocephalic/atraumatic. EYES: p upils equal, round and reactive to light, conjunctivae and sclerae normal. EARS: n o deformity or lesion of external ear, canals and TM appear normal bilaterally, TM's intact, not inflamed with normal light reflex, hearing grossly normal to conversational speech. NOSE: n o deformity, discharge, inflammation, or lesions.� MOUTH: m ucous membranes moist, normal oropharynx and posterior pharynx without lesions or exudates, tongue normal, dentition normal. NECK: n felipa supple, no masses or palpable cervical nodes, trachea midline, thyroid without nodules, masses, tenderness, or enlargement. CHEST: n o chest wall deformity, no chest wall tenderness.� LUNGS: n ormal respiratory effort and clear to auscultation, no wheezes, rales, or rhonchi, good air exchange. CARDIO: r egular rate and rhythm, normal S1 and S2, nor murmur, rub, or gallop. PULSES: n ormal capillary refill. ABDOMEN: s oft, non-distended, non-tender, no masses. MUSCULOSKELETAL: n o deformity or scoliosis noted, normal range of motion, joints normal, no erythema, edema, effusion, or ecchymosis. EXTREMITY: n o clubbing, cyanosis, edema, or deformity with normal ROM in both upper and lower bilateral extremities. NEUROLOGIC: g rossly normal. SKIN: n o rashes, ulcerations, or suspicious lesions. LYMPH NODES: n o cervical adenopathy, nodes normal. MENTAL STATUS: a lert and oriented x3, normal mood and affect. Assessment: * Assessment: 1. P ulmonary hypertension, unspecified - I27.20 (Primary) 2 . C hronic kidney disease, stage 3b - N18.32 3 . 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 T ype 2 diabetes w diabetic peripheral angiopath w/o gangrene - E11.51 Plan: * Treatment: 2. C hronic kidney disease due to diabetes mellitus Notes: stabel labs 3. T ype 2 diabetes w diabetic peripheral angiopath w/o gangrene Notes: sugars are goood * Procedure Codes: * Preventive Medicine: Screenings/Counseling: F ALL RISK SCREENING Fall Risk Assessment: N o falls in the past year * * Sign off status: Completed Visit Status: C HK (Check Out) true * Provider: Jeremy Fabian ([facility])MD Date: 0 11/24/2024 Generated for Printi ng/Faxing/eTransmitting on: 0 02/13/2025 07:54 AM EDT History and Physical Notes * HPI (History of Present Illness) Category Sub-Category Detail Notes Category Not es General GERD - styabdl sugars are good - 114 on plavix - no bleein on chol mmeds no se Examination Category Sub-Category Detail Notes Category Not es Physical Exam GENERAL: well developed, well nourished, in no acute distress HEAD: normocephalic/atraum atic EYES: pupils equal, round and reactive to light, conjunctivae and sclerae normal EARS: no deformity or lesi on of external ear, canals and TM appear normal bilaterally, TM's intact, not inflamed with normal light reflex, hearing grossly normal to conversational speech NOSE: no deformity, discha rge, inflammation, or lesions MOUTH: mucous membranes basilio st, normal oropharynx and posterior pharynx without lesions or exudates, tongue normal, dentition normal NECK: neck supple, no mass es or palpable cervical nodes, trachea midline, thyroid without nodules, masses, tenderness, or enlargement CHEST: no chest wall deform ity, no chest wall tenderness LUNGS: normal respiratory e ffort and clear to auscultation, no wheezes, rales, or rhonchi, good air exchange CARDIO: regular rate and rhy thm, normal S1 and S2, nor murmur, rub, or gallop PULSES: normal capillary ref ill ABDOMEN: soft, non-distended, non-tender, no masses RECTAL: MUSCULOSKELETAL: no deformity or scol iosis noted, normal range of motion, joints normal, no erythema, edema, effusion, or ecchymosis EXTREMITY: no clubbing, cyanosi s, edema, or deformity with normal ROM in both upper and lower bilateral extremities NEUROLOGIC: grossly normal SKIN: no rashes, ulceratio ns, or suspicious lesions LYMPH NODES: no cervical adenopat hy, nodes normal MENTAL STATUS: alert and oriented x 3, normal mood and affect
--- OUTSIDE RECORDS SUMMARY | 2024-11-25 04:06 | XMS_ITS ---
Author Organization The [facility] in [place] Address [address] [place] [address] Care Team Providers Care Medicine Worker Name Role Phone Jordin Fabian Primary Care Provider REASON FOR VISIT clindamycin not covered Medications Medication SIG (Take, Route, Frequency, Duration) Notes Start Date End Date Status Mupirocin 2 % 1 application Child Day Care Teacher ally Twice a day for 5 days 11/25/2024 Active Encounters Encounter Location Date Provider Diagnosis [facility] [address] [place] [address] 11/25/2024 Jordin Fabian Pulmonary hypertensi on, unspecified I27.20 Assessments Encounter Date Diagnosis (ICD Code) Assessment Notes Treatment Notes Treatment Clinical Notes Section Notes 11/25/2024 Pulmonary hypertension, unspecified (ICD-10 - I27.20) Plan Of Treatment Medication Medication Name Sig Start Date Stop Date Notes Clindamycin Phosphate 1 % 1 application Externally Twice a day affected area Mupirocin 2 % 1 application Child Day Care Teacher ally Twice a day for 5 days 11/25/2024 Next Appt Details Provider Name:Jordin Fabian, 08:30:00 AM, [address] [place], [address], Progress Notes * Feroz KOO DDOB:[birth year] (88 yo M)Acc No.[id number]:11/25/2024 Patient: Feroz BISWAS :1935 A ge:88 Y S ex:Male Address:[address] [place] [address], [phone] * Refills Start Mupirocin Ointment, 2 %, Externally, 1, 1 application, Twice a day, 5 days, Refills=1 Stop Clindamycin Phosphate Gel, 1 %, Externally, 1 application, Twice a day affected area * true * Date: Generated for Aziza curtis/Nola/Joseline on: 0 02/13/2025 07:54 AM EDT
--- OUTSIDE RECORDS SUMMARY | 2025-02-11 11:06 | XMS_ITS ---
Author Organization The [facility] in [place] Address [address] [place] [address] Care Team Providers Care Primary Health Care Nurse Name Role Phone CarenJordin Primary Care Provider [phone] REASON FOR VISIT dizziness- labs Encounters Encounter Location Date Provider Diagnosis [facility] ([place], [place]) [address] [place] [address] 02/11/2025 Jordin Fabian Diabetes mellitus E1 1.9 ; Advanced COPD J44.9 ; Pulmonary hypertension, unspecified I27.20 ; Chronic kidney disease, stage 3b N18.32 and Dizziness R42 Assessments Encounter Date Diagnosis (ICD Code) Assessment Notes Treatment Notes Treatment Clinical Notes Section Notes 02/11/2025 Diabetes mellitus (ICD-10 - E11.9) 02/11/2025 Advanced COPD (ICD-10 - J44.9) 02/11/2025 Pulmonary hypertension, unspecified (ICD-10 - I27.20) 02/11/2025 Chronic kidney disease, stage 3b (ICD-10 - N18.32) 02/11/2025 Dizziness (ICD-10 - R42) Plan Of Treatment Pending Test Test Name Order Date COMPREHENSIVE METABOLIC PROFILE WITH GFR 02/11/2025 OCCULT BLOOD, FECAL, IMMUNOASSAY 025 CBC W/AUTO DIFF 02/11/2025 High Sensitivity Troponin 02/11/2025 BNP 02/11/2025 GLYCOHEMOGLOBIN A1C 02/11/2025 THYROID PANEL (T4/TSH/FREE T3) Vitamin D 02/11/2025 Lipid Panel 02/11/2025 Next Appt Details Provider Name:Jordin Fabian, 08:30:00 AM, [address] [place], [address], Progress Notes * Feroz KOO DDOB:[birth year] (89 yo M)Acc No.[id number]:02/11/2025 Patient: Feroz BISWAS :1935 A ge:89 Y S ex:Male Address:[address] [place] [address], [phone] Subjective: * Chief Complaints: * D izziness- labs * Medical History: * Surgical History: * Hospitalization/Major Diagno stic Procedure: * Medications: Objective: * Vitals: * Physical Examination: Assessment: * Assessment: 1. D iabetes mellitus - E11.9 (Primary) 2 . A dvanced COPD - J44.9 � 3 . P ulmonary hypertension, unspecified - I27.20 4 . C hronic kidney disease, stage 3b - N18.32 5 . D izziness - R42 Plan: * Treatment: 2. A dvanced COPD L AB: COMPREHENSIVE METABOLIC PROFILE WITH GFR L AB: OCCULT BLOOD, FECAL, IMMUNOASSAY L AB: CBC W/AUTO DIFF L AB: BNP L AB: GLYCOHEMOGLOBIN A1C L AB: THYROID PANEL (T4/TSH/FREE T3) L AB: Vitamin D L AB: Lipid Panel 3. P ulmonary hypertension, unspecified L AB: COMPREHENSIVE METABOLIC PROFILE WITH GFR L AB: OCCULT BLOOD, FECAL, IMMUNOASSAY L AB: CBC W/AUTO DIFF L AB: BNP L AB: GLYCOHEMOGLOBIN A1C L AB: THYROID PANEL (T4/TSH/FREE T3) L AB: Vitamin D L AB: Lipid Panel 4. C hronic kidney disease, stage 3b L AB: COMPREHENSIVE METABOLIC PROFILE WITH GFR L AB: OCCULT BLOOD, FECAL, IMMUNOASSAY L AB: CBC W/AUTO DIFF L AB: BNP L AB: GLYCOHEMOGLOBIN A1C L AB: THYROID PANEL (T4/TSH/FREE T3) L AB: Vitamin D L AB: Lipid Panel 5. D izziness L AB: High Sensitivity Troponin * Procedure Codes: * true * Date: Generated for Printi ng/Faxing/eTransmitting on: 0 02/13/2025 07:54 AM EDT
--- OUTSIDE RECORDS SUMMARY | 2025-02-13 07:54 | XMS_ITS | Encounter Summary ---
Author Organization [employer] Address [facility] [id number] [address] [place] [address] Care Team Providers Care Security Systems Administrator Name Role Phone Deng Fabain MD Primary Care Provider +-4 Encounter Details Date Type Department Care Team (Late Contact Info) Description 09/10/2023 Orders Only [facility] [address] [place] [address] External, Scanning Provider Social History Tobacco Use Types Packs/Day Years Used Date Smoking Tobacco: Former Smokeless Tobacco: Never Alcohol Use Standard Drinks/Week Comments No 0 (1 standard drink = 0.6 oz pur e alcohol) AUDIT-C Answer Date Recorded Frequency of Alcohol Consumption Never 07/05/2018 Average Number of Drinks Not on file 018 Frequency of Binge Drinking Not on file 01/2018 Childcare Answer Date Recorded Childcare Unknown 01/08/2019 Employment Answer Date Recorded Employment Unknown 01/08/2019 Hunger Screening Answer Date Recorded Within the past 12 months we worried whether our food would run out before we got money to buy more. Never True 09/04/2023 Within the past 12 months th e food we bought just didn't last and we didn't have money to get more. Never True 09/04/2023 Purpose - Life Answer Date Recorded Purpose and direction in life Unknown Sex and Gender Information Value Date Recorded Sex Assigned at Not on file Legal Sex Male 11:21 AM EDT Gender Identity Not on file Sexual Orientation Not on file documented as of this encounter Plan of Treatment Upcoming Encounters Date Type Department Care Team (Late st Contact Info) Description 01/12/2026 1:00 PM EDT Office Visit [facility] [address] [place] [address] [place] [place] [place] [address] Jna Turner MD [facility] [place], [place] [id number] documented as of this encounter Procedures Procedure Name Priority Date/Time Associated Diagnosis Comments US RETROPERITONEAL COMPLETE Routine 08/31/2023 11:31 AM EST PROSTATIC SPECIFIC ANTIGEN, DIAGNOSTIC Routine 08/31/2023 11:23 AM EST documented in this encounter Results * Ultrasound retroperitoneal complete (08/31/2023 11:31 AM EST) Anatomical Region Laterality Modality Body Ultrasound us Scanning Provider External IMG US ORDERABLES Sadi tami Result - Final * Prostatic specific antigen, diagnostic (08/31/2023 11:23 AM EST) Psa 11.43 MANUALLY TRANSCRIBED RESULTS us Scanning Provider External LAB BLOOD ORDERABLES Edited Result - Final MANUALLY TRANSCRIBED RESULTS documented in this encounter Visit Diagnoses Not on filedocumented in this encounter Care Teams Security Systems Administrator Relationship Specialty Start Date End Date Deng Fabian MD PCP - General 07/05/18 documented as of this encounter
--- OUTSIDE RECORDS SUMMARY | 2025-02-13 07:54 | XMS_ITS | Encounter Summary ---
Author Organization [employer] Address [facility] [place] [facility] [id number] [address] [place] [address] Care Team Providers Care Title Officer Name Role Phone Deng Fabian MD Primary Care Provider +-4 Encounter Details Date Type Department Care Team (Late st Contact Info) Description 09/04/2023 Telephone [facility] [address] [place] [phone] Jan Turner MD [address] [place] [address] Social History Tobacco Use Types Packs/Day Years [...] on file documented as of this encounter Miscellaneous Notes * Telephone Encounter - Jan Turner MD - 09/04/2023 12:48 PM EST Please schedule for cysto, local, [place] Diagnosis bladder lesion by ultrasound Please schedule with his daughter Liane [phone] * Telephone Encounter - Lorraine Johnson - 09/04/2023 12:48 PM EST SPOKE WITH DAUGHTER AND SCHEDULED FOR 10/09/23 AT 1030A ARRIVE AT 930A documented in this encounter Plan of Treatment Upcoming Encounters Date Type Department Care Team (Late st Contact Info) Description 01/12/2026 1:00 PM EDT Office Visit [facility] [address] [place] [address] [place] [address] Jan Turner MD [address] [place] [address] documented as of this encounter Visit Diagnoses Not on filedocumented in this encounter Care Teams Title Officer Relationship Specialty Start Date End Date Deng Fabian MD PCP - General 07/05/18 documented as of this encounter
--- OUTSIDE RECORDS SUMMARY | 2025-02-13 07:54 | XMS_ITS | Encounter Summary ---
Author Organization [employer] Address [id number] [address] [place] [address] Care Team Providers Care Back Tender Pulp Drier Name Role Phone Deng Fabian MD Primary Care Provider +-4 Encounter Details Date Type Department Care Team (Late Contact Info) Description 05/30/2024 Orders Only [facility] [address] [place] [address] External, Scanning Provider Social History [...] Office Visit [facility] [address] [place] [address] [place] [address] [place] [address] Jan Turner MD [address] [place] [address] documented as of this encounter Procedures Procedure Name Priority Date/Time Associated Diagnosis Comments PSA, TOTAL AND FREE Routine 05/19/2024 1 1:58 AM EDT documented in this encounter Results * PSA, total and free (05/19/2024 11:58 AM EDT) PSA, Free Pct 28.3 % MANUAL LY TRANSCRIBED RESULTS Psa free 2.18 MANUALLY TRANSCRIBED RESULTS Psa 7.7 MANUALLY TRANSCRIBED RESULTS us Scanning Provider External LAB BLOOD ORDERABLES Edited Result - Final MANUALLY TRANSCRIBED RESULTS documented in this encounter Visit Diagnoses Not on filedocumented in this encounter Care Teams Back Tender Pulp Drier Relationship Specialty Start Date End Date Deng Fabian MD PCP - General 07/05/18 documented as of this encounter
--- OUTSIDE RECORDS SUMMARY | 2025-02-13 07:54 | XMS_ITS | Patient Health Record ---
Author Organization The [facility] in [place] Address [address] [place] [address] Care Team Providers Care Senior C Web Developer Name Role Phone Jordin Fabian Primary Care Provider Allergies No Known Allergies Results Component Value Reference Range Notes CBC AUTO DIFF Reviewed date:06/01/2024 10:37:44 AM Interpretation: Performing Lab: Notes/Report: [facility] , White Blood Count 8.4 4.0-11.0 10 3/uL Red Blood Count 4.55 4.70-6.10 10 6/uL Hemoglobin 11.7 14.0-18.0 g/dL Hematocrit 38.6 42.0-54.0 % Mean Corpuscular Volume 84.8 80.0-94.0 fL Mean Corpuscular Hemoglobin 25.7 25.9-34.0 pg Mean Corpuscular HGB Conc 30.3 29.9-35.2 g/dL Red Cell Distribution Width 15.9 11.0-15.0 % Platelet Count 146 150-450 10 3/uL Mean Platelet Volume 12.0 9.5-13.5 fL Performing Lab: see note ML - [facility] LB CA echo doppler complete Reviewed date:06/01/2024 10:37:44 AM Interpretation: Performing Lab: Notes/Report: Source Facility: [facility]-[address] [place] [address] [place] [address] Cardiology Report Signed Patient: HAYESFEROZ Jeremy MR#: [id number] : 1935 Acct:[id number] Age/Sex: 88 / M ADM Date: 05/28/24 Loc: CARD Attending Dr: Deng Fabian M.D. Ordering Physician: Deng Fabian M.D. Date of Service: 05/28/24 Procedure(s): CA echo doppler complete Accession Number(s): [id number] cc: Deng Fabian M.D. Patient Name: FEROZ KOO MR#: [id number] : 1935 Exam Date: 05/28/2024 Ordering Doctor: DR Deng Fabian . ECHOCARDIOGRAM REPORT PROCEDURE: CA ECHO DOPPLER COMPLETE INDICATIONS: Chest pain, CABGx2 COMPARISON: None. DESCRIPTION: COMPLETE ECHOCARDIOGRAM Real-time transthoracic echocardiography with 2D, M-mode, spectral and color flow Doppler performed. QUALITY: Technical quality was good. LEFT VENTRICLE: Normal chamber size. Moderate concentric left ventricular hypertrophy. LV EF: Normal left ventricular ejection fraction 60%, No regional wall motion abnormalities. DIASTOLIC: Normal diastolic function. ATRIAL SEPTUM: LEFT ATRIUM: Normal chamber size. RIGHT ATRIUM: Normal chamber size. RIGHT VENTRICLE: Normal chamber size. Decreased right ventricular systolic function. TRICUSPID VALVE: Normal mobility and thickness. No stenosis with trivial regurgitation. No evidence of pulmonary hypertension.RVSP 24 mmHg MITRAL VALVE: Normal mobility and thickness. No evidence of mitral valve stenosis. There is no mitral annular calcification. No mitral regurgitation. AORTIC VALVE: Normal trileaflet appearance. Moderately calcified aortic valve. Mildly diminished mobility. No aortic stenosis. Trivial aortic regurgitation. AORTIC ROOT: Normal diameter and appearance. Ascending aorta and aortic arch are normal in size. PULMONIC VALVE: Normal thickness and mobility. No stenosis. No regurgitation. PERICARDIUM: No evidence of pericardial effusion. IVC: Collapes with inspirations. PLEURA: CONCLUSION: Moderate concentric left ventricle hypertrophy Normal left ventricle systolic function, no wall motion abnormalities, EF 55-60% Normal diastolic function Aortic valve sclerosis without stenosis Trivial aortic regurgitation Mildly reduced right ventricle systolic function Normal right ventricle systolic pressure Adult Echocardiography Procedure Report Left Ventricle LVEDD (3.7 - 5.6 cm): 4.10 cm LVESD (2.2 - 4.0 cm): 2.94 cm LVIVS thickness (0.6 - 1.2 cm): 1.90 cm LVPW thickness (0.5 - 1.0 cm): 1.38 cm e': 0.10 m/s E - e': 4.20 LVOT Max Gradient: 1.91 mm[Hg] LVOT Area (cm2): 0.69 m/s Peak Velocity (LVOT): 0.69 m/s Mean Velocity (LVOT): 0.41 m/s LVOT Diameter 2.08 cm Left Ventricular Ejection Fraction: Left Atrium LA Volume Index (2D A2C): 31.50 ml/m2 Left Atrium Systolic Dimension: 3.39 cm Mitral Valve MV E to A Ratio: 0.61 MV Max Gradient: MV Mean Gradient: Mitral Valve A-Wave Peak Velocity: 0.68 m/s Mitral Valve E-Wave Peak Velocity: 0.41 m/s Cardiovascular Orifice Area: Right Ventricle RV Internal Diastolic Dimension: Aorta AO Root Diam: 3.93 cm Ascending Ao Diam: 3.56 cm Aortic Valve AoV Area (Peak Mateo): 1.63 cm2, 1.82 cm2 AoV Area (VTI): 2.12 cm2, 2.41 cm2 Deceleration [place]: Pressure Half-Time: Peak Velocity(Antegrade Flow): 1.29 m/s, 1.44 m/s, 1.35 m/s Peak Gradient(Antegrade Flow): 6.63 mm[Hg], 8.27 mm[Hg], 7.32 mm[Hg] Mean Velocity(Antegrade Flow): 0.83 m/s, 0.98 m/s, 0.90 m/s Mean Gradient(Antegrade Flow): 3.20 mm[Hg], 4.36 mm[Hg], 3.79 mm[Hg] Velocity Time Integral: 23.57 cm, 26.78 cm, 26.76 cm Tricuspid Valve Peak Velocity (Regurgitant Flow): 1.73 m/s, 2.28 m/s Peak Velocity: Pulmonic Valve Mean Gradient: 1.05 mm[Hg] Mean Velocity: 0.48 m/s Peak Velocity: 0.77 m/s, 0.73 m/s Peak Gradient: 2.14 mm[Hg], 2.36 mm[Hg] Right Atrium Right Atrium Systolic Pressure: 37.81 ml, 37.81 ml Dictated by: Ashley Garrison MD on 05/28/2024 at 17:31 Approved by: Ashley Garrison MD on 05/28/2024 at 17:39 Dictated By: Ashley Garrison M.D. Signed By: 05/28/241740 DD/ 173 TD/TT: Service Officer: [place] [address] Cardiology Report Signed Patient: MONICA KOO MR#: [id number] : 1935 Acct:[id number] Age/Sex: 88 / M ADM Date: 05/28/24 Loc: CARD Attending Dr: Pankaj Fabian M.D. Ordering Physician: Deng Fabian M.D. Date of Service: 05/28/24 Procedure(s): CA ech o doppler complete Accession Number(s): [id number] cc: Deng Fabian M.D. Patient Name: FEROZ KOO MR#: [id number] : 1935 Exam Date: 05/28/2024 Ordering Doctor: DR Deng Fabian . ECHOCARDIOGRAM REPORT PROCEDURE: CA ECHO DOPPLER COMPLETE INDICATIONS: Chest p ain, CABGx2 COMPARISON: None. DESCRIPTION: COMPLET E ECHOCARDIOGRAM Real-time transthoracic echocardiography wit h 2D, M-mode, spectral and color flow Doppler performed. QUALITY: Technical quality was good. LEFT VENTRICLE: Norm al chamber size. Moderate concentric left ventricular hypertrophy. LV EF: Normal left ventricular ejection fraction 60%, No regional wall motion abnormalities. DIASTOLIC: Normal diastolic function. ATRIAL SEPTUM: LEFT ATRIUM: Normal chamber size. RIGHT ATRIUM: Normal chamber size. RIGHT VENTRICLE: Nor mal chamber size. Decreased right ventricular systolic function. TRICUSPID VALVE: Nor mal mobility and thickness. No stenosis with trivial regurgitation. No evidence of pulmonary hypertension.RVSP 24 mmHg MITRAL VALVE: Normal mobility and thickness. No evidence of mitral valve stenosis. There is n o mitral annular calcification. No mitral regurgitation. AORTIC VALVE: Normal trileaflet appearance. Moderately calcified aortic valve. Mildly dimini shed mobility. No aortic stenosis. Trivial aortic regurgitation. AORTIC ROOT: Normal diameter and appearance. Ascending aorta and aortic arch are normal in size. PULMONIC VALVE: Norm al thickness and mobility. No stenosis. No regurgitation. PERICARDIUM: No evid ence of pericardial effusion. IVC: Collapes with inspirations. PLEURA: CONCLUSION: Moderate concentric left ventricle hypertrophy Normal left ventricl e systolic function, no wall motion abnormalities, EF 55-60% Normal diastolic function Aortic valve scleros is without stenosis Trivial aortic regurgitation Mildly reduced right ventricle systolic function Normal right ventric le systolic pressure Adult Echocardiograp hy Procedure Report Left Ventricle LVEDD (3.7 - 5.6 cm) : 4.10 cm LVESD (2.2 - 4.0 cm) : 2.94 cm LVIVS thickness (0.6 - 1.2 cm): 1.90 cm LVPW thickness (0.5 - 1.0 cm): 1.38 cm e': 0.10 m/s E - e': 4.20 LVOT Max Gradient: 1 .91 mm[Hg] LVOT Area (cm2): 0.6 9 m/s Peak Velocity (LVOT) : 0.69 m/s Mean Velocity (LVOT) : 0.41 m/s LVOT Diameter 2.08 cm Left Ventricular Ejection Fraction: Left Atrium LA Volume Index (2D A2C): 31.50 ml/m2 Left Atrium Systolic Dimension: 3.39 cm Mitral Valve MV E to A Ratio: 0.61 MV Max Gradient: MV Mean Gradient: Mitral Valve A-Wave Peak Velocity: 0.68 m/s Mitral Valve E-Wave Peak Velocity: 0.41 m/s Cardiovascular Orifi ce Area: Right Ventricle RV Internal Diastoli c Dimension: Aorta AO Root Diam: 3.93 cm Ascending Ao Diam: 3 .56 cm Aortic Valve AoV Area (Peak Mateo): 1.63 cm2, 1.82 cm2 AoV Area (VTI): 2.12 cm2, 2.41 cm2 Deceleration [place]: Pressure Half-Time: Peak Velocity(Antegr luis Flow): 1.29 m/s, 1.44 m/s, 1.35 m/s Peak Gradient(Antegr luis Flow): 6.63 mm[Hg], 8.27 mm[Hg], 7.32 mm[Hg] Mean Velocity(Antegr luis Flow): 0.83 m/s, 0.98 m/s, 0.90 m/s Mean Gradient(Antegr luis Flow): 3.20 mm[Hg], 4.36 mm[Hg], 3.79 mm[Hg] Velocity Time Integr al: 23.57 cm, 26.78 cm, 26.76 cm Tricuspid Valve Peak Velocity (Regurgitant Flow): 1.73 m/s, 2.28 m/s Peak Velocity: Pulmonic Valve Mean Gradient: 1.05 mm[Hg] Mean Velocity: 0.48 m/s Peak Velocity: 0.77 m/s, 0.73 m/s Peak Gradient: 2.14 mm[Hg], 2.36 mm[Hg] Right Atrium Right Atrium Systoli c Pressure: 37.81 ml, 37.81 ml Dictated by: Ashley Garrison MD on 05/28/2024 at 17:31 Approved by: Ashley Garrison MD on 05/28/2024 at 17:39 Dictated By: Ashley Garrison M.D. Signed By: 05/28/24 1741 DD/ 1739 TD/TT: Service Officer: PSA Total+% Free Reviewed date:05/20/2024 06:56:24 AM Interpretation: Performing Lab: Notes/Report: [facility] , Prostate Specific Ag 7.7 0.0-4.0 ng/mL Suzanna ECLIA methodology. According to the [employer], Serum PSA should decrease and [...] the presence or absence of malignant disease. PSA, Free 2.18 N/A ng/mL Suzanna ECLIA methodology. % Free PSA 28.3 . % The table below lists the probability of [...] for any other population of men. Performed at: [facility] [address] [id number] Barking Machine Feeder: Julian Sanchez PhD, Phone: [phone] Performing Lab: see note LC - [facility] LB TSH Reviewed date:05/19/2024 01:05:36 PM Interpretation: Performing Lab: Notes/Report: [facility] , Thyroid Stimulating Hormone 2.667 0.358-3.740 uIU/mL Performing Lab: see note ML - [facility] PROF 14(COMP METB) Reviewed date:05/19/2024 01:05:36 PM Interpretation: Performing Lab: Notes/Report: [facility] , Sodium 142 136-145 mmol/L Potassium 4.1 3.5-5.1 mmol/L Chloride 107 98-107 mmol/L Carbon Dioxide 25.3 21.0-32.0 mmol/L Anion Gap 13.8 Glucose 99 74-106 mg/dL Blood Urea Nitrogen 21.0 7.0-18.0 mg/dL Creatinine 1.93 0.70-1.30 mg/dL Estimated GFR ( Regina 40 >=60 mL/min/1.73m 2 Estimated GFR (Non- Ashlee 33 >=60 mL/min/1.73m 2 BUN Creatinine Ratio 10.9 Calcium 9.1 8.5-10.1 mg/dL Bilirubin Total 0.8 0.2-1.0 mg/dL Aspartate Amino Transferase 11 15-37 U/L Alanine Aminotransferase <6 16-63 U/L Alkaline Phosphatase 85 46-116 U/L Total Protein 7.1 6.4-8.2 g/dL Albumin Level 3.6 3.4-5.0 g/dL Globulin 3.5 Albumin Globulin Ratio 1.0 Performing Lab: see note ML - [facility] FREE T4 Reviewed date:05/19/2024 01:05:36 PM Interpretation: Performing Lab: Notes/Report: [facility] , Free T4 1.02 0.76-1.46 ng/dL Performing Lab: see note ML - [facility] FREE T3 Reviewed date:05/19/2024 01:05:36 PM Interpretation: Performing Lab: Notes/Report: [facility] , Free T3 2.11 2.18-3.98 pg/mL Performing Lab: see note ML - [facility] NM jameson perf SPECT rest str Reviewed date:06/12/2024 09:22:22 PM Interpretation: Performing Lab: Notes/Report: Source Facility: [address] [address] [place] [address] Nuclear Medicine Report Signed Patient: FEROZ KOO MR#: [id number] : 1935 Acct:[id number] Age/Sex: 88 / M ADM Date: 06/10/24 Loc: NM Attending Dr: Deng Fabian M.D. Ordering Physician: Deng Fabian M.D. Date of Service: 06/10/24 Procedure(s): NM jameson perf SPECT rest str Accession Number(s): [id number] cc: Deng Fabian M.D. Patient Name: FEROZ KOO MR#: [id number] : 1935 Exam Date: 06/10/2024 Ordering Doctor: DR Deng Fabian . RADIOLOGY REPORT PROCEDURE: NM JAMESON PERF SPECT REST STR COMPARISON: None. INDICATIONS: CHEST PAIN TECHNIQUE: Exam Description: Stress/Rest one day protocol gated SPECT Rest Imagin.9 mCi Tc-99m Cardiolite IV on 06/10/24 Stress Imaging 29.7 mCi Tc-99m Cardiolite IV on 06/10/24 Exercise Protocol: 0.4 mg Lexiscan given IV Heart Rate (bpm): Rest: 65 Max: 88 PMHR: 65 Blood Pressure: Rest: 114/62 Max: 118/62 Symptoms: Rest and peak stress ECG findings were normal and the exercise portion of the study was normal per attending physician Dr. Hernandez . For more details please see separate cardiac stress test report. FINDINGS: QUALITY OF STUDY: Excellent. PERFUSION DEFECT: None. LOCATION: N/A SIZE: N/A. SEVERITY: N/A. TYPE: N/A. WALL MOTION: Normal. LV SIZE: Normal. 92 mL. TID / TCD: None; 1.0 LVEF: Normal. Calculated EF 58%. SUMMARY: Myocardial perfusion imaging study is NORMAL. CONCLUSION: 1. Normal nuclear medicine myocardial perfusion scan. Dictated by: Petr Bryatn M.D. on 06/12/2024 at 10:43 Approved by: Petr Bryant M.D. on 06/12/2024 at 10:46 Dictated By: Petr Bryant M.D. Signed By: 06/12/24 1047 DD/ 1046 TD/TT: Service Officer: The [address] [address] Nuclear Medicine Report Signed Patient: MONICA KOO MR#: [id number] : 1935 Acct:[id number] Age/Sex: 88 / M ADM Date: 06/10/24 Loc: NM Attending Dr: Pankaj Fabian M.D. Ordering Physician: Deng Fabian M.D. Date of Service: 06/10/24 Procedure(s): NM jameson perf SPECT rest str Accession Number(s): [id number] cc: Deng Fabian M.D. Patient Name: FEROZ KOO MR#: [id number] : 1935 Exam Date: 06/10/2024 Ordering Doctor: DR Deng Fabian . RADIOLOGY REPORT PROCEDURE: NM JAMESON PE RF SPECT REST STR COMPARISON: None. INDICATIONS: CHEST PAIN TECHNIQUE: Exam Description: Stress/Rest one day protocol gated SPECT Rest Imagin.9 mC i Tc-99m Cardiolite IV on 06/10/24 Stress Imaging 29.7 mCi Tc-99m Cardiolite IV on 06/10/24 Exercise Protocol: 0 .4 mg Lexiscan given IV Heart Rate (bpm): Re st: 65 Max: 88 PMHR: 65 Blood Pressure: Rest : 114/62 Max: 118/62 Symptoms: Rest and peak stress ECG findings were normal and the exercise portion of the study was normal per attending physician Dr. Hernandez . For more details please see separate cardiac stress test report. FINDINGS: QUALITY OF STUDY: Excellent. PERFUSION DEFECT: None. LOCATION: N/A SIZE: N/A. SEVERITY: N/A. TYPE: N/A. WALL MOTION: Normal. LV SIZE: Normal. 92 mL. TID / TCD: None; 1.0 LVEF: Normal. Calcul ated EF 58%. SUMMARY: Myocardial perfusion imaging study is NORMAL. CONCLUSION: 1. Normal nuclear medicine myocardial perfusion scan. Dictated by: Petr Bryant M.D. on 06/12/2024 at 10:43 Approved by: Petr Bryant M.D. on 06/12/2024 at 10:46 Dictated By: Petr Bryant M.D. Signed By: 06/12/24 1047 DD/ 1046 TD/TT: Service Officer: Manual Differential Reviewed date:06/01/2024 10:37:44 AM Interpretation: Performing Lab: Notes/Report: [facility] , Segmented Neutrophils % Manual 81.0 43.0-75.0 Lymphocytes Percent Manual 11.0 20.5-60.0 % Monocytes Percent Manual 7.0 1.7-12.0 % Eosinophils Percent Manual 1.0 0.9-7.0 % Basophils Percent Manual 0.0 0.2-2.0 % Segmented Neut Absolute Manual 6.80 1.4-6.5 10 3/uL Lymphocytes Absolute Manual 0.92 1.20-3.80 10 3/uL Monocytes Absolute Manual 0.58 0.30-0.80 10 3/uL Eosinophils Absolute Manual 0.08 0.00-0.70 10 3/uL Basophils Abs Manual 0.00 0.00-0.10 1 0 3/uL Performing Lab: see note ML - [facility] LB LIPID PROFILE Reviewed date:05/19/2024 01:05:36 PM Interpretation: Performing Lab: Notes/Report: [facility] , Triglycerides 114 <=150 mg/dL Cholesterol 161 <=200 mg/dL HDL Cholesterol 72 40-60 mg/dL > or =60 mg/dl - LOW CARDIOVASCULAR RISK <40 mg/dl - HIGH CARDIOVASCULAR RISK LDL Cholesterol Calculated 67.0 <100 mg/dl OPTIMAL 100-129 mg/dl NEAR OR ABOVE OPTIMAL 130-159 mg/dl BORDERLINE HIGH 160-189 mg/dl HIGH >190 mg/dl VERY HIGH VLDL CHOLESTEROL 22.8 Chol HDL Ratio 2.2 3.3 - 4.4 LOW RISK 4.4 - 7.1 AVERAGE RISK 7.1 - 11.0 MODERATE RISK >11.0 HIGH RISK Performing Lab: see note ML - [facility] LB GLYCOHEMOGLOBIN A1C Reviewed date:05/19/2024 01:05:36 PM Interpretation: Performing Lab: Notes/Report: [facility] , Glycohemoglobin A1C 4.9 4.5-6.2 % ADA RECOMMENDED LIMIT 4.0 - 6.0 ADA THERAPEUTIC TARGET < 7.0 ACTION SUGGESTED > 7.0 Estimated Average Glucose 94 Performing Lab: see note ML - [facility] LB CBC AUTO DIFF Reviewed date:05/19/2024 01:05:36 PM Interpretation: Performing Lab: Notes/Report: [facility] , White Blood Count 7.1 4.0-11.0 10 3/uL Red Blood Count 4.98 4.70-6.10 10 6/uL Hemoglobin 12.6 14.0-18.0 g/dL Hematocrit 42.0 42.0-54.0 % Mean Corpuscular Volume 84.3 80.0-94.0 fL Mean Corpuscular Hemoglobin 25.3 25.9-34.0 pg Mean Corpuscular HGB Conc 30.0 29.9-35.2 g/dL Red Cell Distribution Width 15.6 11.0-15.0 % Platelet Count 151 150-450 10 3/uL Mean Platelet Volume 12.6 9.5-13.5 fL Neutrophils Percent Auto 72.2 43.0-75.0 % Lymphocytes Percent Auto 19.1 20.5-60.0 % Monocytes Percent Auto 6.1 1.7-12.0 % Eosinophils Percent Auto 1.8 0.9-7.0 % Basophils Percent Auto 0.7 0.2-2.0 % Immature Granulocytes Pct Auto 0.1 0.0-0.5 % Neutrophils Absolute Auto 5.1 1.4-6.5 10 3/uL Lymphocytes Absolute Auto 1.4 1.2-3.8 10 3/uL Monocytes Absolute Auto 0.4 0.3-0.8 10 3/uL Eosinophils Absolute Auto 0.1 0.0-0.7 10 3/uL Basophils Absolute Auto 0.1 0.0-0.1 10 3/uL Immature Granulocytes Abs Auto 0.01 0.00-0.03 10 3/uL Performing Lab: see note ML - [facility] Reason For Referral No Information Medications Medication SIG (Take, Route, Frequency, Duration) Notes Start Date End Date Status Test Strips - use with meter Dx: E 11.9 Once daily for 90 days 03/26/2023 Active Ferrous Sulfate 325 (65 Fe) MG 1 tablet Orally Twice Daily for 30 days 04/23/2023 Active Mupirocin 2 % 1 application [employer] ally Twice a day for 5 days 11/25/2024 Active Meclizine HCl 25 MG TAKE 1 TABLET BY EMANI TH 4 TIMES DAILY NEEDED Q 6 hours for 30 days Active Pantoprazole Sodium 40 MG 1 tablet Orall y Once a day Active Simvastatin 20 MG Take 1 tablet by emani th once daily for 90 Active Blood Glucose Meter -- use to check bloo d sugar levels Dx: E11.9 Once daily for 365 days 03/26/2023 Active Celecoxib 100 MG TAKE 1 CAPSULE BY MO [facility] ONCE DAILY WITH FOOD for 30 Active Clopidogrel Bisulfate 75 MG Take 1 table t by mouth once daily for 90 Active Immunizations Vaccine Route Administration Date Status Comme nts Flu, Fluad (82338) 65 yrs + High Dose Seasonal (1189-5517) IM Intramuscular 08/20/2023 Administered Flu, Fluad (48412) 65 yrs and older, single-dose syringe IM Intramuscular 05/21/2024 Administered Social History Tobacco Use: Social History Observation Description Date Details (start date - stop date) Former Smoker [birth year]/30/1949 - 07/30/2021 Tobacco Use/Smoking Question Answer Notes Patient is a former smoker When did you start smoking? 07/30/1949 When did you stop smoking? 07/30/2021 How long has it been since you last smoked? 1-5 years Alcohol Screen (Audit-C) Question Answer Notes Did you have a drink containing alcohol in the p ast year? No Points 0 Interpretation Negative Tobacco use other than smoking: Question Answer Notes Are you an other tobacco user? c igars AUDIT-C (Standard) Question Answer Notes Did you have a drink containing alcohol in the p ast year? 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) Active confirmed Problem Essential hypertension (61939201) Essential (primary) hypertension (I10) Active confirmed Problem 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 Problem 39718776 Pure hypercholesterolemi a, unspecified (E78.00) Active confirmed Problem Pulmonary hypertension (91130702) Pulmonary hypertension, unspecified (I27.20) Active confirmed Problem 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 Problem Diabetes mellitus (96628955) Diabetes mellitus (E11.9) Active confirmed Problem Chronic kidney disease stage 3B (disorder) (096953832) Chronic kidney disease, stage 3b (N18.32) Active confirmed Vital Signs Blood pressure diastolic 70 mm Hg 11/24/2024 Height 69 in 11/24/2024 Blood pressure systolic 144 mm Hg 11/24/2024 Weight 166.8 lbs 11/24/2024 BMI 24.63 kg/m2 11/24/2024 Procedures Procedure Date Ordered Date Performed Result Body Sit e CARDIO Echocardiogram 05/21/2024 N/A *CARDIO Stress Test - Lexiscan Nuclear 05/21/2024 N/A CARDIO Stress Test - Cardiolite 08/26/2024 N/A *CARDIO Stress Test - Lexiscan Nuclear 09/01/2024 N/A Encounters Encounter Location Date Provider Diagnosis [address] [place] [address] 05/21/2024 Jordin Fabian Essential (primary) hypertension I10 ; Pure hypercholesterolemia, unspecified E78.00 ; Diabetes mellitus E11.9 ; Acute gastric ulcer K25.3 ; Chest pain R07.9 and Encounter for immunization Z23 [facility] [address] [place] [address] 08/26/2024 Jordin Fabian Advanced COPD J44.9 ; Diabetes mellitus E11.9 ; Pure hypercholesterolemia, unspecified E78.00 ; Chest pain R07.9 and Essential (primary) hypertension I10 [address] [place] [address] 11/24/2024 Jordin Fabian Pulmonary hypertensi on, unspecified I27.20 ; Chronic kidney disease, stage 3b N18.32 ; Chronic kidney disease due to diabetes mellitus E11.22 and Type 2 diabetes w diabetic peripheral angiopath w/o gangrene E11.51 [facility] [address] [place] [address] 02/11/2025 Jordin Fabian Diabetes mellitus E1 1.9 ; Advanced COPD J44.9 ; Pulmonary hypertension, unspecified I27.20 ; Chronic kidney disease, stage 3b N18.32 and Dizziness R42 [facility] [address] [place] [address] 06/01/2024 Jordin Fabian [facility] [address] [place] [address] 06/12/2024 Jordin Fabian [facility] [address] [place] [address] 07/08/2024 Jordin Kerry Influenza vaccinatio n given Z23 [facility] [address] [place] [address] 08/07/2024 Jordin Kerry Influenza vaccinatio n given Z23 [facility] [address] [place] [address] 09/01/2024 Jordin Fabian Chest pain R07.9 [facility] [address] [place] [address] 11/25/2024 Jordin Fabian Pulmonary hypertensi on, unspecified I27.20 [facility] [address] [place] [address] 05/12/2024 Jordin Fabian Diabetes mellitus E1 1.9 ; Pure hypercholesterolemia, unspecified E78.00 ; Essential (primary) hypertension I10 ; Fatigue R53.83 and Screening for prostate cancer Z12.5 [facility] [address] [place] [address] 05/19/2024 Jordin Fabian [facility] [address] [place] [address] 05/20/2024 Jordin Fabian Assessments Encounter Date Diagnosis (ICD Code) Assessment Notes Treatment Notes Treatment Clinical Notes Section Notes 05/21/2024 Essential (primary) hypertension (ICD-10 - I10) 05/21/2024 Pure hypercholesterole virgie, unspecified (ICD-10 - E78.00) 08/26/2024 Advanced COPD (ICD-10 - J44.9) 08/26/2024 Diabetes mellitus (ICD-10 - E11.9) 11/24/2024 Pulmonary hypertension, unspecified (ICD-10 - I27.20) no ADAME 11/24/2024 Chronic kidney disease, stage 3b (ICD-10 - N18.32) 07/08/2024 Influenza vaccination given (ICD-10 - Z23) 08/07/2024 Influenza vaccination given (ICD-10 - Z23) 09/01/2024 Chest pain (ICD-10 - R07.9) 11/25/2024 Pulmonary hypertension, unspecified (ICD-10 - I27.20) 02/11/2025 Diabetes mellitus (ICD-10 - E11.9) 02/11/2025 Advanced COPD (ICD-10 - J44.9) 05/12/2024 Diabetes mellitus (ICD-10 - E11.9) 05/12/2024 Pure hypercholesterole virgie, unspecified (ICD-10 - E78.00) 05/12/2024 Essential (primary) hypertension (ICD-10 - I10) 02/11/2025 Pulmonary hypertension, unspecified (ICD-10 - I27.20) 11/24/2024 Chronic kidney disease due to diabetes mellitus (ICD-10 - E11.22) stabel labs 08/26/2024 Pure hypercholesterole virgie, unspecified (ICD-10 - E78.00) 05/21/2024 Diabetes mellitus (ICD-10 - E11.9) 05/21/2024 Acute gastric ulcer (ICD-10 - K25.3) 08/26/2024 Chest pain (ICD-10 - R07.9) 11/24/2024 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.51) sugars are goood 02/11/2025 Chronic kidney disease, stage 3b (ICD-10 - N18.32) 02/11/2025 Dizziness (ICD-10 - R42) 08/26/2024 Essential (primary) hypertension (ICD-10 - I10) 05/21/2024 Chest pain (ICD-10 - R07.9) 05/12/2024 Fatigue (ICD-10 - R53.83) 05/12/2024 Screening for prostate cancer (ICD-10 - Z12.5) 05/21/2024 Encounter for immunization (ICD-10 - Z23) Plan Of Treatment Pending Test Test Name Order Date CMP (COMPLETE METABOLIC PANEL) 3 CMP (COMPLETE METABOLIC PANEL) 4 HEMOGLOBIN A1C (GLYCO) 01/16/2023 INSULIN, TOTAL 01/16/2023 LIPID PANEL (CHOL/TRIG/HDL/LDL) 01/17/20 23 CBC WITH DIFF 01/16/2023 PSA, PROSTATE-SPECIFIC ANTIGEN 3 URIC ACID 01/16/2023 T3 FREE, T4 FREE and TSH 05/12/2024 CARDIO Stress Test - Cardiolite 08/26/19 25 CARDIO Echocardiogram 05/21/2024 FECAL OCCULT BLOOD 05/12/2024 COMPREHENSIVE METABOLIC PROFILE WITH GFR 12/25/2023 COMPREHENSIVE METABOLIC PROFILE WITH GFR 02/11/2025 OCCULT BLOOD, FECAL, IMMUNOASSAY 025 CBC W/AUTO DIFF 02/11/2025 CBC W/AUTO DIFF 12/25/2023 PSA, TOTAL 08/20/2023 High Sensitivity Troponin 02/11/2025 STOOL OCCULT BLOOD 01/16/2023 BNP 01/16/2023 BNP 02/11/2025 CBC AUTO DIFF 08/20/2023 GLYCOHEMOGLOBIN A1C 02/11/2025 PROF 14(COMP METB) 08/20/2023 PROTIME 04/19/2023 US KIDNEYS BLADDER 08/20/2023 XR CHEST 2 V 12/25/2023 THYROID PANEL (T4/TSH/FREE T3) 5 THYROID PANEL (T4/TSH/FREE T3) 3 Free PSA 05/12/2024 Vitamin D 02/11/2025 Lipid Panel 02/11/2025 *CARDIO Stress Test - Lexiscan Nuclear 0 09/01/2024 *CARDIO Stress Test - Lexiscan Nuclear 1 Next Appt Details Provider Name:Jordin Fabian, 08:30:00 AM, [address] [place], [address], Insurance Providers Payer Name Payer Address Payer Phone Subscriber Number Group Number Insured Name Patient Relationship to Insured Coverage Start Date Coverage End Date [employer]ARE [address] [facility] [place] [address] [id number] Feroz Koo Self - patient is the insured 2 Medical (General) History Medical History History ICD Code Anxiety F41.9 Depression F32.A Aortic regurgitation I35.1 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 0 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
--- OUTSIDE RECORDS SUMMARY | 2025-02-13 07:54 | XMS_ITS | Clinical Summary ---
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 Name Role Phone Unavailable Primary Care Provider Unavailabl e Social History Tobacco Use Types Packs/Day Years Used Date Smoking Tobacco: Never Assessed Sex and Gender Information Value Date Recorded Sex Assigned at Not on file Legal Sex Male 9:43 PM EDT Gender Identity Not on file Sexual Orientation Not on file Last Filed Vital Signs Vital Sign Reading Time Taken Comments Blood Pressure 114/67 12/03/2019 9:08 AM EDT Pulse - - Temperature - - Respiratory Rate - - Oxygen Saturation 95% 12/03/2019 9:06 AM EDT Inhaled Oxygen Concentration - - Weight 82.1 kg (181 lb) 12/03/2019 9:05 AM EDT Height 175.3 cm (5' 9 ) 12/03/2019 9:05 AM EDT Body Mass Index 26.73 12/03/2019 9:05 AM EDT Plan of Treatment Health Maintenance Due Date Last Done Comments Diabetes: Hemoglobin A1C 1935 Medicare Annual Wellness (AWV) 1935 Diabetes: Retinopathy Screening 12/25/1947 Depression Screening 1949 Diabetes: Urine Protein Screening 1954 Pneumococcal Vaccine: 50+ Years (1 of 2 - PCV) 1954 Adult Tetanus 12/25/1959 Zoster Vaccines (1 of 2) 12/25/1987 Fall Risk Screening 2002 COVID-19 Vaccine (2023-2 5 season) 2024 09/16/2020, 08/20/2020 Influenza Vaccine (#1) 2025 HIB Vaccines Aged Out No longer eligi ble based on patient's age to complete this topic HPV Vaccines Aged Out No longer eligi ble based on patient's age to complete this topic IPV Vaccines Aged Out No longer eligi ble based on patient's age to complete this topic Meningococcal B Vaccine Aged Out No l onger eligible based on patient's age to complete this topic Meningococcal Vaccine Aged Out No hannah jesus eligible based on patient's age to complete this topic Rotavirus Vaccines Aged Out No longer eligible based on patient's age to complete this topic Insurance AETNA MEDICARE ADVANTAGE
--- OUTSIDE RECORDS SUMMARY | 2025-02-13 07:54 | XMS_ITS | Clinical Summary ---
Author Organization [facility] Address [id number] [address] 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 30 tablet 07/05/2018 Active pantoprazole (PROTONIX) 40 mg EC tablet Take 1 tablet (40 mg total) by mouth in the morning. Oral for 8 weeks take twice daily then once daily. 04/10/2023 Active simvastatin (ZOCOR) 20 mg tablet Take 1 tablet (20 mg total) by mouth nightly. Take one daily 04/10/2023 Active clopidogreL (PLAVIX) 75 mg tablet Take 1 tablet (75 mg total) by mouth in the morning. Active metoprolol tartrate (LOPRESSOR) 25 mg tablet Take 1 tablet (25 mg total) by mouth in the morning and 1 tablet (25 mg total) before bedtime. Active tamsulosin (FLOMAX) 0.4 mg capsule Take 2 capsules (0.8 mg total) by mouth every morning. TAKE 2 CAPSULES BY MOUTH IN THE MORNING 180 capsule 3 01/07/2025 Active Active Problems Problem Noted Date Diagnosed Date Lesion of bladder 09/04/2023 Urinary retention 04/20/2023 Overview (01/07/2025): 04/20/23: Recent retention following hospitalization for GI bleed. We will start Flomax 0.4 mg and have him come back next week for a void trial in [place]. If successful, we will see him back in 1 month to check a PVR 05/23/23: He feels he is voiding well. PVR 157. Continue with Flomax 09/04/2023: Worsening lower urinary tract symptoms with rising PVR. Recommendation was to increase his Flomax to 0.8 mg. Additionally has findings on his ultrasound that need a cysto to further evaluate which has been ordered. 10/09/2023: Cysto with BPH, trabeculations and cellules. No mass. Improvement in voiding at night with 0.8 mg Flomax nightly. Plan to have him take 0.4 mg b.i.d. 01/07/25: Doing well with Flomax. No current concerns. Assessment & Plan (04/20/2023 2:10 PM EDT): I told him to watch for dizziness/lightheadedness with the Flomax and to discontinue if any problems. If he fails his void trial, we will have him get a repeat void trial a few weeks after that. If persistent retention, cystoscopy may be necessary Elevated PSA 04/20/2023 Overview (01/07/2025): 04/20/23: History of elevated PSA, previously followed with Dr. Adams. Office note states that he had benign DEISI. PSA went from 9 to 6.6. We discussed that we typically do not continue screening for prostate cancer at his age group, but could consider if he requests. 05/23/23: He does not want to have PSA checked at this time 08/31/23: PSA 11. Elevated but similar to prior. Discussed with his daughter psa nd limitations especially in light of his age. Would follow for now 01/07/25: PSA 05/19/24: 7.7. He declines any further testing for now. Encounters Date Type Department Care Team Description 01/07/2025 10:45 AM EDT Office Visit [facility] [address] [facility] [place] [id number] [place] Elevated PSA (Primary Dx); Urinary retention 11/28/2024 Refill [facility] [address] [place] [id number] Jan Turner MD from Last 3 Months Immunizations Immunization Administration Dates Next Due COVID-19, mRNA, LNP-S, PF, 100mcg/0.5mL Dose ,08/20/2020 Family History Medical History Relation Name Comments Diabetes Mother Relation Name Status Comments Father Mother Social History Tobacco Use Types Packs/Day Years Used Date Smoking Tobacco: Former Smokeless Tobacco: Never Tobacco Cessation:Counseling Given: Not Answered Alcohol Use Standard Drinks/Week Comments No 0 [...] got money to buy more. Never True 01/07/2025 Within the past 12 months th e food we bought just didn't last and we didn't have money to get more. Never True 01/07/2025 Purpose - Life Answer Date Recorded Purpose and direction in life Unknown Sex and Gender Information Value Date Recorded Sex Assigned at Not on file Legal Sex Male 11:21 AM EDT Gender Identity Not on file Sexual Orientation Not on file Last Filed Vital Signs Vital Sign Reading Time Taken Comments Blood Pressure 113/64 05/23/2023 8:45 AM EDT Pulse 69 05/23/2023 8:45 AM EDT Temperature 36.4 C (97.6 F) 07/05/2018 3:46 PM EST Respiratory Rate 18 07/05/2018 4:55 PM EST Oxygen Saturation 99% 07/05/2018 4:55 PM EST Inhaled Oxygen Concentration - - Weight 75.8 kg (167 lb) 01/07/2025 10:54 AM EDT Height 172.7 cm (5' 8 ) 01/07/2025 10:54 AM EDT Body Mass Index 25.39 01/07/2025 10:54 AM EDT Plan of Treatment Upcoming Encounters Date Type Department Care Team (Late st Contact Info) Description 01/12/2026 1:00 PM EDT Office Visit [facility] [address] [place] [address] [place] [address] [place] [address] Jan Turner MD [address] [place] [address] Health Maintenance Due Date Last Done Comments Depression Screening 1947 DTaP,Tdap and Td Vaccines (1 - Tdap) 1956 Zoster (Shingles) Vaccine (1 of 2) 12/25/1987 Fall Risk Screening 2002 COVID-19 Vaccine (2023-2 5 season) 2024 05/24/2024, 06/13/2021, 09/16/2020, Additional history exists Influenza Vaccine 03/30/2025 06/18/2020, , 04/25/2017, Additional history exists Tobacco Screening 01/07/2026 01/07/2025 Medical Devices Not on file Insurance [employer] MEDICARE Advance Directives Documents on File Type Date Recorded 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
--- OUTSIDE RECORDS SUMMARY | 2025-02-13 07:55 | XMS_ITS | CCD ---
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 Name Role Phone DR SHILA FABIAN Attending [...] hartley Admitting Unavailable Asaad, Imad Consulting Unavailable SHILA FABIAN Referring Unavailable SHILA FABIAN Primary Care Unavailable JAN TURNER Admitting Unavailable JAN TURNER Attending Unavailable JAN TURNER Referring Unavailable SHILA FABIAN Primary Care Unavailable Shila Fabian MD Primary Care Provider [phone] Shila Fabian MD Primary Care Provider [phone] Shila Fabian MD Primary Care Provider [id number] REDDY MORAN I Attending Unavailable SHILA FABIAN Referring Unavailable SHILA FABIAN Primary Care Unavailable Allergies Allergy Classification Reported Allergen(s) Allergy Type Date of Onset Reaction(s) Facility (1 source) No Known Medication Allergies; Translations: [No Known Medication Allergies] Propensity to adverse reactions (disorder) [facility] Repository Medications Current Medications Medication Drug Class(es) Dates Sig (Normalized) Sig (Original) clopidogrel 75 mg oral tablet (7 sources) P2Y12 Platelet Inhibitor take 1 tablet by mouth in the morning clopidogreL (PLAVIX) 75 mg tablet Take 1 tablet (75 mg total) by mouth in the morning. Active ibuprofen 600 mg oral tablet (7 sources) Nonsteroidal Anti-inflammatory Drug Start: 07-05-2018 take 1 tablet by mouth every six hours as needed for pain ibuprofen (ADVIL,MOTRIN) 600 mg tablet Take 1 tablet (600 mg total) by mouth every 6 (six) hours as needed for pain for up to 30 doses. 30 tablet 07/05/2018 Active metoprolol tartrate 25 mg oral tablet (7 sources) beta-Adrenergic Jerry take 1 tablet by mouth in the morning, then take 1 tablet by mouth at bedtime metoprolol tartrate (LOPRESSOR) 25 mg tablet Take 1 tablet (25 mg total) by mouth in the morning and 1 tablet (25 mg total) before bedtime. Active pantoprazole 40 mg delayed release oral tablet (7 sources) Proton Pump Inhibitor Start: 04-10-2023 pantoprazole (PROTONIX) 40 mg EC tablet Take 1 tablet (40 mg total) by mouth in the morning. Oral for 8 weeks take twice daily then once daily. 04/10/2023 Active simvastatin 20 mg oral tablet (7 sources) HMG-CoA Reductase Inhibitor Start: 04-10-2023 take 1 tablet by mouth once daily, then take 1 tablet by mouth once daily simvastatin (ZOCOR) 20 mg tablet Take 1 tablet (20 mg total) by mouth nightly. Take one daily 04/10/2023 Active tamsulosin hydrochloride 0.4 mg oral capsule (10 sources) alpha-Adrenergic Jerry Start: 11-26-2023 End: 01-07-2025 take 2 capsules by mouth once daily in the morning tamsulosin (FLOMAX) 0.4 mg capsule Take 2 capsules (0.8 mg total) by mouth every morning. TAKE 2 CAPSULES BY MOUTH IN THE MORNING 180 capsule 3 01/07/2025 Active Start: 05-23-2023 End: 11-26-2023 take 1 capsule by mouth in the morning tamsulosin (FLOMAX) 0.4 mg capsule Take 1 capsule (0.4 mg total) by mouth in the morning. 30 capsule 11 05/23/2023 11/26/2023 Discontinued Problems Active Problems Problem Classification Problem Date Documented Da te Episodic/Chronic Acute posthemorrhagic anemia (1 source) Acute posthemorrhagic anemia; Translations: [Acute posthemorrhagic anemia] Onset: Episodic Chronic obstructive pulmonary disease and bronchiectasis (1 source) Chronic obstructive pulmonary disease, unspecified; Translations: [COPD UNSPECIFIED] Onset: 2 Chronic Congestive heart failure; nonhypertensive (1 source) Unspecified diastolic (congestive) heart failure; Translations: [UNSPECIFIED DIASTOLIC HEART FAILURE] Onset: 2 Chronic Coronary atherosclerosis and other heart disease (1 source) Atherosclerotic heart disease of [place] coronary artery without angina pectoris; Translations: [Atherosclerotic heart disease of [place] coronary artery without angina pectoris] Onset: 3 [...] hemorrhage; Translations: [Gastrointestinal hemorrhage, unspecified] Onset: 3 Genitourinary symptoms and ill-defined conditions (8 sources) Retention of urine; Translations: [Retention of urine, unspecified] Onset: 3 10-09-2023 Episodic Hyperplasia of prostate (1 source) Benign prostatic [...] Onset: 3 Episodic Other aftercare (1 source) intermediate (current) use of non-steroidal anti-inflammatories (NSAID); Translations: [intermediate (current) use of non-steroidal anti-inflammatories (NSAID)] Onset: 3 Episodic Other diseases of bladder and urethra (1 source) Bladder disorder, unspecified; Translations: [Bladder disorder, unspecified] Onset: 4 Chronic Other diseases of bladder and urethra (8 sources) Lesion of bladder; Translations: [Bladder disorder, unspecified] Onset: 4 09-13-2023 Chronic Other diseases of kidney and ureters (1 source) Disorder of kidney and ureter, unspecified; Translations: [Disorder of kidney and ureter, unspecified] Onset: 3 Episodic Other nutritional; endocrine; and metabolic disorders (1 source) Abnormal weight loss; Translations: [ABNORMAL WEIGHT LOSS] Onset: 2 Episodic Other screening for suspected conditions (not mental disorders or infectious disease) (9 sources) Encounter for screening for malignant neoplasm of prostate; Translations: [Raised prostate specific antigen] Onset: 2 09-04-2023 Episodic Pulmonary heart disease (1 source) Pulmonary hypertension, unspecified; Translations: [PULMONARY HYPERTENSION UNSPECIFIED] Onset: 1 Chronic Unclassified (1 source) Med Refill Onset: 5 Past or Other Problems Problem Classification Problem Date Documented Da te Episodic/Chronic Deficiency and other anemia (1 source) Anemia, unspecified; Translations: [ANEMIA UNSPECIFIED] Onset: 06-09-2021 Episodic Other lower respiratory disease (1 source) Shortness of breath; Translations: [SHORTNESS OF BREATH] Onset: 06-09-2021 Episodic Results Test Name Value Interpretation Reference Range Facility Auth for Release of Medical Recordson 04-18-2023 Auth for Release of Medical Records [id number] 1.00CD:127 Normal [facility] Basic Metabolic Panelon 03-30 Anion gap [Moles/Vol] 9.8 mmol/L Normal 6.0-15.0 [facility] Comment on above: Performed By: #### H H #### [facility] [address] Calcium [Mass/Vol] 8.3 mg/dL Low 8.6-10.3 [facility] Comment on above: Performed By: #### H H #### [facility] [address] [place] [address] [place] Chloride [Moles/Vol] 108 mmol/L High 98-107 [facility] Comment on above: Performed By: #### H H #### [address] CO2 [Moles/Vol] 26.2 mmol/L Normal 21.0-31.0 [facility] Comment on above: Performed By: #### H H #### [place] [address] [place] Creatinine [Mass/Vol] 1.47 mg/dL High 0.70-1.30 [facility] Comment on above: Performed By: #### H H #### [place] [address] [place] Creatinine Clr Calc Pharmacy 36.74 [facility] Comment on above: Result Comment: PERF ORMED BY: [place] [address] PATHOLOGIST CARPET REPAIRER FEROZ DIEHL M.D. Performed By: #### H H #### [place] [address] [place] GFR/1.73 sq M.predicted MDRD (S/P/Bld) [Vol rate/Area] 46.453 mL/min/{1.73_m2} [facility] Comment on above: Performed By: #### H H #### [place] [address] [place] Glucose [Mass/Vol] 96 mg/dL Normal 70-100 [facility] Comment on above: Result Comment: [place] Glucose Reference Range is dependent on time and content of last meal. Glucose of more than 200 mg/dL in a nonstressed, ambulatory subject supports the diagnosis of Diabetes Mellitus. ADA recommended reference range Performed By: #### H H #### [address] Potassium [Moles/Vol] 4.0 mmol/L Normal 3.5-5.1 [facility] Comment on above: Performed By: #### H H #### [address] Sodium [Moles/Vol] 140 mmol/L Normal 136-145 [facility] Comment on above: Performed By: #### H H #### [address] Urea nitrogen [Mass/Vol] 21 mg/dL Normal 7-25 [facility] Comment on above: Performed By: #### H H #### [address] Complete Blood Count Auto Di ffon 04-10-2023 Basophils (Bld) [#/Vol] 0.1 10*3/uL Normal 0.0-0.2 [facility] Comment on above: Result Comment: PERF ORMED BY: [place] [address] PATHOLOGIST CARPET REPAIRER FEROZ DIEHL M.D. Performed By: #### H H #### [place] [address] [place] Basophils/100 WBC (Bld) 0.5 % Normal . [facility] Comment on above: Performed By: #### H H #### [address] Eosinophils (Bld) [#/Vol] 0.2 10*3/uL Normal 0.0-0.45 [facility] Comment on above: Performed By: #### H H #### [place] [address] [place] Eosinophils/100 WBC (Bld) 1.5 % Normal . [facility] Comment on above: Performed By: #### H H #### [address] Erythrocyte distribution width (RBC) [Ratio] 17.1 % High 12.0-14.8 [facility] Comment on above: Performed By: #### H H #### [address] Hematocrit (Bld) [Volume fraction] 24.1 % Low 38.8-50.0 [facility] Comment on above: Performed By: #### H H #### [address] Hemoglobin (Bld) [Mass/Vol] 8.0 g/dL Low 13.0-17.0 [facility] Comment on above: Performed By: #### H H #### [address] Lymphocytes (Bld) [#/Vol] 0.8 10*3/uL Low 1.00-4.8 [facility] Comment on above: Performed By: #### H H #### [address] Lymphocytes/100 WBC (Bld) 8.1 % Normal . [facility] Comment on above: Performed By: #### H H #### [address] MCH (RBC) [Entitic mass] 26.3 pg Low 27.5-35.2 [facility] Comment on above: Performed By: #### H H #### [address] MCV (RBC) [Entitic vol] 79.4 fL Low 83.5-101 [facility] Comment on above: Performed By: #### H H #### [address] Mean Corpuscular HGB Conc 33.1 g/dL Normal 32.5-35.6 [facility] Comment on above: Performed By: #### H H #### [facility] [address] [place] [address] [place] Monocytes (Bld) [#/Vol] 0.5 10*3/uL Normal 0.0-0.8 [facility] Comment on above: Performed By: #### H H #### [facility] [address] [place] [address] [place] Monocytes/100 WBC (Bld) 4.4 % Normal . [facility] Comment on above: Performed By: #### H H #### [facility] [address] [place] [address] [place] Neutrophils (Bld) [#/Vol] 8.9 10*3/uL High 1.8-7.7 [facility] Comment on above: Performed By: #### H H #### [address] Neutrophils/100 WBC (Bld) 85.5 % Normal . [facility] Comment on above: Performed By: #### H H #### [place] [address] [place] NRBC% 0.0 /100{WBC} Normal 0-0.5 [facility] Comment on above: Performed By: #### H H #### [address] Platelet mean volume (Bld) [Entitic vol] 8.9 fL Normal 6.6-10.1 [facility] Comment on above: Performed By: #### H H #### [place] [address] [place] Platelets (Bld) [#/Vol] 146 10*3/uL Low 150-450 [facility] Comment on above: Performed By: #### H H #### [place] [address] [place] RBC (Bld) [#/Vol] 3.04 10*6/uL Low 3.90-5.60 [facility] Comment on above: Performed By: #### H H #### [facility] [address] WBC (Bld) [#/Vol] 10.5 10*3/uL Normal 4.1-10.5 [facility] Comment on above: Performed By: #### H H #### [facility] [address] Basic Metabolic Panelon 03-30 Anion gap [Moles/Vol] 7.3 mmol/L Normal 6.0-15.0 [facility] Comment on above: Performed By: #### C BCNO, BMP #### [facility] [address] Calcium [Mass/Vol] 8.2 mg/dL Low 8.6-10.3 [facility] Comment on above: Performed By: #### C BCNO, BMP #### [facility] [address] Chloride [Moles/Vol] 111 mmol/L High 98-107 [facility] Comment on above: Performed By: #### C BCNO, BMP #### [facility] [address] CO2 [Moles/Vol] 26.2 mmol/L Normal 21.0-31.0 [facility] Comment on above: Performed By: #### C BCNO, BMP #### [facility] [address] Creatinine [Mass/Vol] 1.54 mg/dL High 0.70-1.30 [facility] Comment on above: Performed By: #### C BCNO, BMP #### [facility] [address] [place] [address] Creatinine Clr Calc Pharmacy 35.07 Normal [facility] Comment on above: Result Comment: PERF ORMED BY: [place] [address] PATHOLOGIST CARPET REPAIRER FEROZ DIEHL M.D. Performed By: #### C BCNO, BMP #### [address] GFR/1.73 sq M.predicted MDRD (S/P/Bld) [Vol rate/Area] 43.931 mL/min/{1.73_m2} Normal [facility] Comment on above: Performed By: #### C WILBER, BMP #### [address] Glucose [Mass/Vol] 91 mg/dL Normal 70-100 [facility] Comment on above: Result Comment: [facility] Glucose Reference Range is dependent on time and content of last meal. Glucose of more than 200 mg/dL in a nonstressed, ambulatory subject supports the diagnosis of Diabetes Mellitus. ADA recommended reference range Performed By: #### C WILBER, BMP #### [address] Potassium [Moles/Vol] 4.5 mmol/L Normal 3.5-5.1 [facility] Comment on above: Performed By: #### C WILBER, BMP #### [address] Sodium [Moles/Vol] 140 mmol/L Normal 136-145 [facility] Comment on above: Performed By: #### C WIBLER, BMP #### [address] Urea nitrogen [Mass/Vol] 34 mg/dL High 7-25 [facility] Comment on above: Performed By: #### C WILBER, BMP #### [address] Hemoglobin and Hematocriton 04-09-2023 Hematocrit (Bld) [Volume fraction] 25.9 % Low 38.8-50.0 [facility] Comment on above: Result Comment: PERF ORMED BY: [place] [address] PATHOLOGIST CARPET REPAIRER FEROZ DIEHL M.D. Performed By: #### H H #### [address] Hemoglobin (Bld) [Mass/Vol] 8.4 g/dL Low 13.0-17.0 [facility] Comment on above: Performed By: #### H H #### [address] Hemogram CBC Without Diffon 04-09-2023 Erythrocyte distribution width (RBC) [Ratio] 17.3 % High 12.0-14.8 [facility] Comment on above: Performed By: #### C WILBER, BMP #### [address] Hematocrit (Bld) [Volume fraction] 22.7 % Low 38.8-50.0 [facility] Comment on above: Performed By: #### C WILBER, BMP #### [address] Hemoglobin (Bld) [Mass/Vol] 7.5 g/dL Low 13.0-17.0 [facility] Comment on above: Performed By: #### C WILBER, BMP #### [address] MCH (RBC) [Entitic mass] 26.1 pg Low 27.5-35.2 [facility] Comment on above: Performed By: #### C WILBER, BMP #### [address] MCV (RBC) [Entitic vol] 79.2 fL Low 83.5-101 [facility] Comment on above: Performed By: #### C WILBER, BMP #### [address] Mean Corpuscular HGB Conc 32.9 g/dL Normal 32.5-35.6 [facility] Comment on above: Performed By: #### C WILBER, BMP #### [address] Platelet mean volume (Bld) [Entitic vol] 9.0 fL Normal 6.6-10.1 [facility] Comment on above: Result Comment: PERF ORMED BY: [place] [address] PATHOLOGIST CARPET REPAIRER FEROZ DIEHL M.D. Performed By: #### C BCNO, BMP #### [facility] [address] [place] [address] Platelets (Bld) [#/Vol] 145 10*3/uL Low 150-450 [facility] Comment on above: Performed By: #### C ALONZONO, BMP #### [facility] [address] [place] [address] RBC (Bld) [#/Vol] 2.86 10*6/uL Low 3.90-5.60 [facility] Comment on above: Performed By: #### C ALONZONO, BMP #### [facility] [address] [place] [address] WBC (Bld) [#/Vol] 9.9 10*3/uL Normal 4.1-10.5 [facility] Comment on above: Performed By: #### Musa ROSADONO, BMP #### [place] [id number] [facility] 04-09-2023 L Specimen: [id number] Received: 04/09/23 Status: BENITO Card Num: [id number] Spec Type: Surgical Subm Dr: Sade Pinto MD Tissues: A GASTRIC FOR HP (GASTRIC HP) Procedures: HE/2, Gross/Micro L4, H PYLORI Age/ Patient Sex Location Account Attending Physician Feroz Juarez 87/M 4P [id number] Vitaly Kennedy MD SPEC NUM: [id number] RECD: 04/09/23 STATUS: BENITO CARD NUM: [id number] JAZLYN: 04/09/23- [facility] DR: Sade Pinto MD ENTERED: 04/09/[address]: CHELE TYPE: Surgical DEPT: S ORDERED: HE/2, Gross/Micro [...] The microscopic examination confirms the diagnosis. Specimen: [id number] Received: 04/09/23 Status: BENITO Card Num: [id number] Spec Type: Surgical Subm Dr: Sade Pinto MD Tissues: A GASTRIC FOR HP (GASTRIC HP) Procedures: HE/2, Gross/Micro L4, H PYLORI Patient: Feroz Juarez [id number] (Continued) Specimen: [id number] Received: 04/09/23 (Continued) Signed (signature on file) Porfirio Augustin MD 04/11/23 8586 Specimen: [id number] Received: 04/09/23 Status: BENITO Card Num: [id number] Spec Type: Surgical Subm Dr: Sade Pinto MD Tissues: A GASTRIC FOR HP (GASTRIC HP) Procedures: HE/2, Gross/Micro L4, H PYLORI Patient: Feroz Juarez [id number] (Continued) Specimen: [id number] Received: 04/09/23 (Continued) CPT Codes 20660 Specimen: [id number] Received: 04/09/23 Status: BENITO Card Num: [id number] Spec Type: Surgical Subm Dr: Sade Pinto MD Tissues: A GASTRIC FOR HP (GASTRIC HP) Procedures: HE/2, Gross/Micro L4, H PYLORI Patient: Feroz Juarez [id number] (Continued) Signed (signature on file) Porfirio Augustin MD 04/11/23 1434 Normal [facility] Complete Blood Count Auto Di ffon 04-08-2023 Basophils (Bld) [#/Vol] 0.0 10*3/uL Normal 0.0-0.2 [facility] Comment on above: Result Comment: PERF ORMED BY: [place] [address] PATHOLOGIST CARPET REPAIRER FEROZ DIEHL M.D. Performed By: #### H H #### [facility] [address] [place] [address] [place] Basophils/100 WBC (Bld) 0.5 % Normal . [facility] Comment on above: Performed By: #### H H #### [facility] [address] [place] [address] [place] Eosinophils (Bld) [#/Vol] 0.1 10*3/uL Normal 0.0-0.45 [facility] Comment on above: Performed By: #### H H #### [facility] [address] [place] [address] [place] Eosinophils/100 WBC (Bld) 1.0 % Normal . [facility] Comment on above: Performed By: #### H H #### [address] Erythrocyte distribution width (RBC) [Ratio] 15.9 % High 12.0-14.8 [facility] Comment on above: Performed By: #### H H #### [address] Lymphocytes (Bld) [#/Vol] 1.7 10*3/uL Normal 1.00-4.8 [facility] Comment on above: Performed By: #### H H #### [address] Lymphocytes/100 WBC (Bld) 16.6 % Normal . [facility] Comment on above: Performed By: #### H H #### [address] MCH (RBC) [Entitic mass] 26.5 pg Low 27.5-35.2 [facility] Comment on above: Performed By: #### H H #### [address] MCV (RBC) [Entitic vol] 81.8 fL Low 83.5-101 [facility] Comment on above: Performed By: #### H H #### [address] Mean Corpuscular HGB Conc 32.4 g/dL Low 32.5-35.6 [facility] Comment on above: Performed By: #### H H #### [address] Monocytes (Bld) [#/Vol] 0.5 10*3/uL Normal 0.0-0.8 [facility] Comment on above: Performed By: #### H H #### [address] Monocytes/100 WBC (Bld) 4.7 % Normal . [facility] Comment on above: Performed By: #### H H #### [address] Neutrophils (Bld) [#/Vol] 7.8 10*3/uL High 1.8-7.7 [facility] Comment on above: Performed By: #### H H #### [address] Neutrophils/100 WBC (Bld) 77.2 % Normal . [facility] Comment on above: Performed By: #### H H #### [address] NRBC% 0.3 /100{WBC} Normal 0-0.5 [facility] Comment on above: Performed By: #### H H #### [address] Platelet mean volume (Bld) [Entitic vol] 9.4 fL Normal 6.6-10.1 [facility] Comment on above: Performed By: #### H H #### [address] Platelets (Bld) [#/Vol] 173 10*3/uL Normal 150-450 [facility] Comment on above: Performed By: #### H H #### [address] RBC (Bld) [#/Vol] 2.98 10*6/uL Low 3.90-5.60 [facility] Comment on above: Performed By: #### H H #### [address] WBC (Bld) [#/Vol] 10.1 10*3/uL Normal 4.1-10.5 [facility] Comment on above: Performed By: #### H H #### [address] Comprehensive Metabolic Pane hannah 04-08-2023 Albumin [Mass/Vol] 3.1 g/dL Low 3.5-5.7 [facility] Comment on above: Performed By: #### H H #### [address] Albumin/Globulin [Mass ratio] 1.5 {ratio} Normal [facility] Comment on above: Performed By: #### H H #### [facility] [address] ALP [Catalytic activity/Vol] 41 U/L Normal 34-104 [facility] Comment on above: Performed By: #### H H #### [facility] [address] ALT [Catalytic activity/Vol] 5 U/L Low 7-52 [facility] Comment on above: Performed By: #### H H #### [facility] [address] Anion gap [Moles/Vol] 10.0 mmol/L Normal 6.0-15.0 [facility] Comment on above: Performed By: #### H H #### [facility] [address] AST [Catalytic activity/Vol] 10 U/L Low 13-39 [facility] Comment on above: Performed By: #### H H #### [facility] [address] Bilirubin [Mass/Vol] 0.4 mg/dL Normal 0.3-1.0 [facility] Comment on above: Performed By: #### H H #### [facility] [address] Calcium [Mass/Vol] 8.5 mg/dL Low 8.6-10.3 [facility] Comment on above: Performed By: #### H H #### [facility] [address] Chloride [Moles/Vol] 113 mmol/L High 98-107 [facility] Comment on above: Performed By: #### H H #### [facility] [address] CO2 [Moles/Vol] 23.1 mmol/L Normal 21.0-31.0 [facility] Comment on above: Performed By: #### H H #### [facility] [address] Creatinine [Mass/Vol] 1.56 mg/dL High 0.70-1.30 [facility] Comment on above: Performed By: #### H H #### [facility] [address] [place] [address] [place] Creatinine Clr Calc Pharmacy 34.62 [facility] Comment on above: Performed By: #### H H #### [place] [address] [place] GFR/1.73 sq M.predicted MDRD (S/P/Bld) [Vol rate/Area] 43.256 mL/min/{1.73_m2} [facility] Comment on above: Performed By: #### H H #### [address] Globulin (S) [Mass/Vol] 2.1 g/dL [facility] Comment on above: Performed By: #### H H #### [address] Glucose [Mass/Vol] 93 mg/dL Normal 70-100 [facility] Comment on above: Result Comment: [place] Glucose Reference Range is dependent on time and content of last meal. Glucose of more than 200 mg/dL in a nonstressed, ambulatory subject supports the diagnosis of Diabetes Mellitus. ADA recommended reference range Performed By: #### H H #### [place] [address] [place] Potassium [Moles/Vol] 4.1 mmol/L Normal 3.5-5.1 [facility] Comment on above: Performed By: #### H H #### [address] Protein [Mass/Vol] 5.2 g/dL Low 6.4-8.9 [facility] Comment on above: Performed By: #### H H #### [address] Sodium [Moles/Vol] 142 mmol/L Normal 136-145 [facility] Comment on above: Performed By: #### H H #### [facility] [address] Urea nitrogen [Mass/Vol] 47 mg/dL High 02-20 [facility] Comment on above: Performed By: #### H H #### [facility] [address] [place] [address] [place] Dipstick and Microscopicon 0 04-08-2023 Appearance (U) Clear Normal Clear [facility] Comment on above: Order Comment: Name Collection Type:: Voided Performed By: #### H H #### [place] [address] [place] Bacteria,Urine None Seen Normal None Seen [facility] Comment on above: Order Comment: Name Collection Type:: Voided Performed By: #### H H #### [place] [address] [place] Bilirubin,Urine Negative Normal Negative [facility] Comment on above: Order Comment: Name Collection Type:: Voided Performed By: #### H H #### [place] [address] [place] Color (U) Yellow Normal Yellow [facility] Comment on above: Order Comment: Name Collection Type:: Voided Performed By: #### H H #### [place] [address] [place] Glucose Ql (U) Normal Normal Normal [facility] Comment on above: Order Comment: Name Collection Type:: Voided Performed By: #### H H #### [place] [address] [place] Hyaline Casts,Urine None Seen Normal 0-8 [facility] [place] [facility] Comment on above: Order Comment: Name Collection Type:: Voided Result Comment: PERF ORMED BY: [place] [address] PATHOLOGIST CARPET REPAIRER FEROZ DIEHL M.D. Performed By: #### H H #### [facility] [address] [place] [address] [place] Ketones Ql (U) Negative Normal Negative [facility] Comment on above: Order Comment: Name Collection Type:: Voided Performed By: #### H H #### [address] Leukocyte esterase Test strip Ql (U) 1+ High Negative [facility] Comment on above: Order Comment: Name Collection Type:: Voided Performed By: #### H H #### [address] Nitrite,Urine Negative Normal Negative [facility] Comment on above: Order Comment: Name Collection Type:: Voided Performed By: #### H H #### [address] Occult Blood,Urine Negative Normal Negative [facility] Comment on above: Order Comment: Name Collection Type:: Voided Result Comment: PERF ORMED BY: [place] [address] PATHOLOGIST CARPET REPAIRER FEROZ DIEHL M.D. Performed By: #### H H #### [address] pH (U) 5.0 [pH] Normal 5.0-9.0 [facility] Comment on above: Order Comment: Name Collection Type:: Voided Performed By: #### H H #### [address] Protein,Urine Negative Normal Negative [facility] Comment on above: Order Comment: Name Collection Type:: Voided Performed By: #### H H #### [address] RBC,Urine None Seen Normal 0-4 [facility] Comment on above: Order Comment: Name Collection Type:: Voided Performed By: #### H H #### [address] Specificy Dafter,Urine 1.016 Normal 1.001-1.030 [facility] Comment on above: Order Comment: Name Collection Type:: Voided Performed By: #### H H #### [address] Squamous Epithelial Cell,Urine None Seen Normal 0-2 [facility] Comment on above: Order Comment: Name Collection Type:: Voided Performed By: #### H H #### [address] Urobilinogen,Urine Normal Normal Normal [facility] Comment on above: Order Comment: Name Collection Type:: Voided Performed By: #### H H #### [address] WBC LM.HPF (Urine sed) [#/Area] 0 /[HPF] Normal 0-4 [facility] Comment on above: Order Comment: Name Collection Type:: Voided Performed By: #### H H #### [address] Hemoglobin and Hematocriton 04-08-2023 Hematocrit (Bld) [Volume fraction] 25.0 % Low 38.8-50.0 [facility] Comment on above: Result Comment: PERF ORMED BY: [place] [address] PATHOLOGIST CARPET REPAIRER FEROZ DIEHL M.D. Performed By: #### H H #### [address] Hemoglobin (Bld) [Mass/Vol] 8.2 g/dL Low 13.0-17.0 [facility] Comment on above: Performed By: #### H H #### [address] Hematocrit (Bld) [Volume fraction] 22.3 % Low 38.8-50.0 [facility] Comment on above: Result Comment: PERF ORMED BY: [place] [address] PATHOLOGIST CARPET REPAIRER EFROZ DIEHL M.D. Performed By: #### H H #### [address] Hemoglobin (Bld) [Mass/Vol] 7.4 g/dL Low 13.0-17.0 [facility] Comment on above: Performed By: #### H H #### [address] Hematocrit (Bld) [Volume fraction] 24.3 % Low 38.8-50.0 [facility] Comment on above: Result Comment: PERF ORMED BY: [address] [place] [address] PATHOLOGIST CARPET REPAIRER FEROZ DIEHL M.D. Performed By: #### H H #### [address] Hemoglobin (Bld) [Mass/Vol] 7.9 g/dL Low 13.0-17.0 [facility] Comment on above: Performed By: #### H H #### [address] Hematocrit (Bld) [Volume fraction] 24.4 % Low 38.8-50.0 [facility] Comment on above: Result Comment: PERF ORMED BY: [place] [address] PATHOLOGIST CARPET REPAIRER FEROZ DIEHL M.D. Performed By: #### H H #### [address] Hemoglobin (Bld) [Mass/Vol] 7.8 g/dL Low 13.0-17.0 [facility] Comment on above: Performed By: #### H H #### [address] Magnesiumon 04-08-2023 Magnesium [Mass/Vol] 1.6 mg/dL Low 1.9-2.7 [facility] Comment on above: Result Comment: PERF ORMED BY: [place] [address] PATHOLOGIST CARPET REPAIRER FEROZ DIEHL M.D. Performed By: #### H H #### [address] Prothrombin Time INRon 04-08 INR Coag (PPP) [Relative time] 1.1 {INR} Normal [facility] Comment on above: Result Comment: INR Therapeutic [...] heart valves: 3 - 4.5 PERFORMED BY: [place] [address] PATHOLOGIST CARPET REPAIRER FEROZ DIEHL M.D. Performed By: #### H H #### [address] PT Coag (PPP) [Time] 13.2 s High 9.0-12.9 [facility] Comment on above: Result Comment: A he matocrit value greater than 55% may lead to inaccurate results in coagulation testing. Patients having hematocrit values >55% require a special collection tube for coagulation studies. Please contact the laboratory at [phone] for redraw instructions. Performed By: #### H H #### [address] ABO/Rh Retypeon 04-07-2023 ABO/RH Recheck Result Positive Normal [facility] Comment on above: Result Comment: PERF ORMED BY: [place] [address] PATHOLOGIST CARPET REPAIRER FEROZ DIEHL M.D. Complete Blood Count Auto Di ffon 04-07-2023 Basophils (Bld) [#/Vol] 0.0 10*3/uL Normal 0.0-0.2 [facility] Comment on above: Result Comment: PERF ORMED BY: [place] [address] PATHOLOGIST CARPET REPAIRER FEROZ DIEHL M.D. Performed By: #### C BC, CMP #### [facility] [address] [place] [address] [place] Basophils/100 WBC (Bld) 0.1 % Normal . [facility] Comment on above: Performed By: #### C BC, CMP #### [facility] [address] [place] [address] [place] Eosinophils (Bld) [#/Vol] 0.0 10*3/uL Normal 0.0-0.45 [facility] Comment on above: Performed By: #### C BC, CMP #### [facility] [address] [place] [address] [place] Eosinophils/100 WBC (Bld) 0.1 % Normal . [facility] Comment on above: Performed By: #### C BC, CMP #### [facility] [address] Erythrocyte distribution width (RBC) [Ratio] 16.1 % High 12.0-14.8 [facility] Comment on above: Performed By: #### C BC, CMP #### [address] Hematocrit (Bld) [Volume fraction] 26.6 % Low 38.8-50.0 [facility] Comment on above: Performed By: #### C BC, CMP #### [place] [address] [place] Hemoglobin (Bld) [Mass/Vol] 8.6 g/dL Low 13.0-17.0 [facility] Comment on above: Performed By: #### C BC, CMP #### [place] [address] [place] Lymphocytes (Bld) [#/Vol] 1.1 10*3/uL Normal 1.00-4.8 [facility] Comment on above: Performed By: #### C BC, CMP #### [facility] [address] [place] [address] [place] Lymphocytes/100 WBC (Bld) 9.8 % Normal . [facility] Comment on above: Performed By: #### C BC, CMP #### [facility] [address] [place] [address] [place] MCH (RBC) [Entitic mass] 26.3 pg Low 27.5-35.2 [facility] Comment on above: Performed By: #### C BC, CMP #### [facility] [address] MCV (RBC) [Entitic vol] 81.8 fL Low 83.5-101 [facility] Comment on above: Performed By: #### C BC, CMP #### [facility] [address] Mean Corpuscular HGB Conc 32.2 g/dL Low 32.5-35.6 [facility] Comment on above: Performed By: #### C BC, CMP #### [facility] [address] Monocytes (Bld) [#/Vol] 0.5 10*3/uL Normal 0.0-0.8 [facility] Comment on above: Performed By: #### C BC, CMP #### [facility] [address] Monocytes/100 WBC (Bld) 4.3 % Normal . [facility] Comment on above: Performed By: #### C BC, CMP #### [facility] [address] [place] [address] [place] Neutrophils (Bld) [#/Vol] 9.7 10*3/uL High 1.8-7.7 [facility] Comment on above: Performed By: #### C BC, CMP #### [facility] [address] [place] [address] [place] Neutrophils/100 WBC (Bld) 85.7 % Normal . [facility] Comment on above: Performed By: #### C BC, CMP #### [facility] [address] [place] [address] [place] NRBC% 0.1 /100{WBC} Normal 0-0.5 [facility] Comment on above: Performed By: #### C BC, CMP #### [facility] [address] Platelet mean volume (Bld) [Entitic vol] 9.4 fL Normal 6.6-10.1 [facility] Comment on above: Performed By: #### C BC, CMP #### [address] Platelets (Bld) [#/Vol] 184 10*3/uL Normal 150-450 [facility] Comment on above: Performed By: #### C BC, CMP #### [address] RBC (Bld) [#/Vol] 3.25 10*6/uL Low 3.90-5.60 [facility] [place] [facility] Comment on above: Performed By: #### C BC, CMP #### [address] WBC (Bld) [#/Vol] 11.3 10*3/uL High 4.1-10.5 [facility] [place] [facility] Comment on above: Performed By: #### C BC, CMP #### [address] Comprehensive Metabolic Pane hannah 04-07-2023 Albumin [Mass/Vol] 3.2 g/dL Low 3.5-5.7 [facility] Comment on above: Performed By: #### C BC, CMP #### [address] Albumin/Globulin [Mass ratio] 1.5 {ratio} Normal [facility] Comment on above: Performed By: #### C BC, CMP #### [address] ALP [Catalytic activity/Vol] 43 U/L Normal 34-104 [facility] Comment on above: Performed By: #### C BC, CMP #### [address] ALT [Catalytic activity/Vol] 5 U/L Low 7-52 [facility] Comment on above: Performed By: #### C BC, CMP #### [address] Anion gap [Moles/Vol] 12.0 mmol/L Normal 6.0-15.0 [facility] Comment on above: Performed By: #### C BC, CMP #### [facility] [address] [place] [address] [place] AST [Catalytic activity/Vol] 10 U/L Low 13-39 [facility] Comment on above: Performed By: #### C BC, CMP #### [facility] [address] Bilirubin [Mass/Vol] 0.4 mg/dL Normal 0.3-1.0 [facility] Comment on above: Performed By: #### C BC, CMP #### [facility] [address] Calcium [Mass/Vol] 8.2 mg/dL Low 8.6-10.3 [facility] Comment on above: Performed By: #### C BC, CMP #### [facility] [address] [place] [address] [place] Chloride [Moles/Vol] 110 mmol/L High 98-107 [facility] Comment on above: Performed By: #### C BC, CMP #### [facility] [address] [place] [address] [place] CO2 [Moles/Vol] 21.0 mmol/L Normal 21.0-31.0 [facility] Comment on above: Performed By: #### C BC, CMP #### [facility] [address] [place] [address] [place] Creatinine [Mass/Vol] 1.52 mg/dL High 0.70-1.30 [facility] Comment on above: Performed By: #### C BC, CMP #### [facility] [address] [place] [address] [place] Creatinine Clr Calc Pharmacy 35.53 Normal [facility] Comment on above: Result Comment: PERF ORMED BY: [place] [address] PATHOLOGIST CARPET REPAIRER FEROZ DIEHL M.D. Performed By: #### C BC, CMP #### [facility] [address] [place] [address] [place] GFR/1.73 sq M.predicted MDRD (S/P/Bld) [Vol rate/Area] 44.626 mL/min/{1.73_m2} [facility] Comment on above: Performed By: #### C BC, CMP #### [facility] [address] Globulin (S) [Mass/Vol] 2.1 g/dL [facility] Comment on above: Performed By: #### C BC, CMP #### [facility] [address] Glucose [Mass/Vol] 106 mg/dL High 70-100 [facility] Comment on above: Result Comment: [facility] Glucose Reference Range is dependent on time and content of last meal. Glucose of more than 200 mg/dL in a nonstressed, ambulatory subject supports the diagnosis of Diabetes Mellitus. ADA recommended reference range Performed By: #### C BC, CMP #### [address] Potassium [Moles/Vol] 4.0 mmol/L Normal 3.5-5.1 [facility] Comment on above: Performed By: #### C BC, CMP #### [address] Protein [Mass/Vol] 5.3 g/dL Low 6.4-8.9 [facility] Comment on above: Performed By: #### C BC, CMP #### [place] [address] [place] Sodium [Moles/Vol] 139 mmol/L Normal 136-145 [facility] Comment on above: Performed By: #### C BC, CMP #### [place] [address] [place] Urea nitrogen [Mass/Vol] 55 mg/dL High 7-25 [facility] Comment on above: Performed By: #### C BC, CMP #### [place] [address] [place] LeukoReduced RBCon 3 LeukoReduced RBC TRANSFUSED 04/08/23 1406 [facility] Type and Screenon 04-07-2023 ABO and Rh group Nom (Bld) Blood group O Rh(D) positive [facility] Comment on above: Order Comment: Trans fuse now? Y Number of units to transfuse now? 1 INSULINon 04-19-2022 Insulin 8.1 uIU/mL Normal 2.6-24.9 [facility] Comment on above: Performed By: #### C MP, TSH, BNP, LIPID, T7 #### [facility] [place] [facility] [address] [place], [place] [address] Dr. Juan Hill PSA, FREE AND TOTAL RATIOon 04-19-2022 % Free PSA 25.1 % Normal [facility] Comment on above: Result Comment: The [...] C MP, TSH, BNP, LIPID, T7 #### [facility] [place] [facility] [address] [place], [place] [address] Dr. Juan Hill Prostate specific Ag [Mass/Vol] 10.1 ng/mL Critically high 0.0-4.0 [facility] [place] Comment on above: Result Comment: Sharda montenegro ECLIA methodology. . According to the [place] [employer], Serum PSA should decrease and [...] C MP, TSH, BNP, LIPID, T7 #### [facility] [place] [facility] [address] [place] [address] Dr. Juan Hill PSA, Free 2.54 ng/mL Normal N/A [facility] [place] Comment on above: Result Comment: Sharda TRACY methodology. Performed By: #### C MP, TSH, BNP, LIPID, T7 #### [facility] [place] [facility] [address] [place] [address] Dr. Juan Hill T4, T3U, FTI LABCORPon 04-19 Free Thyroxine Index 1.4 Normal 1.2-4.9 [facility] Comment on above: Performed By: #### C MP, TSH, BNP, LIPID, T7 #### [facility] [place] [facility] [address] [place] [address] Dr. Juan Hill T3 Uptake 28 % Normal 24-39 [facility] [place] Comment on above: Performed By: #### C MP, TSH, BNP, LIPID, T7 #### [facility] [place] [facility] [address] [place] [address] Dr. Juan Hill T4 [Mass/Vol] 5.1 ug/dL Normal 4.5-12.0 [facility] Comment on above: Performed By: #### C MP, TSH, BNP, LIPID, T7 #### [facility] [place] [facility] [address] [place] [address] Dr. Juan Hill BNPon 04-18-2022 Natriuretic peptide B (Bld) [Mass/Vol] 360.0 pg/mL Normal <=1,800.0 [facility] [place] Comment on above: Performed By: #### U SUSANNAH, CMP, LIPID, TSH, BNP #### [facility] [place] [facility] [address] [place] [address] Dr. Juan Hill CBC AUTO DIFFon 04-18-2022 BASO # 0.1 103/ul Normal 0.0-0.1 [facility] [place] Comment on above: Performed By: #### C MP, TSH, BNP, LIPID, T7 #### [facility] [place] [facility] [address] [place] [address] Dr. Juan Hill Basophils/100 WBC (Bld) 0.9 % Normal 0.2-2.0 [facility] [place] Comment on above: Performed By: #### C MP, TSH, BNP, LIPID, T7 #### [facility] [place] [facility] [address] [place] [address] Dr. Juan Hill EO # 0.2 103/ul Normal 0.0-0.7 [facility] [place] Comment on above: Performed By: #### C MP, TSH, BNP, LIPID, T7 #### [facility] [place] [facility] [address] [place] [address] Dr. Juan Hill Eosinophils/100 WBC (Bld) 3.0 % Normal 0.9-7.0 [facility] [place] Comment on above: Performed By: #### C MP, TSH, BNP, LIPID, T7 #### [facility] [place] [facility] [address] [place] [address] Dr. Juan Hill Erythrocyte distribution width (RBC) [Ratio] 15.7 % Critically high 11.0-15.0 [facility] Comment on above: Performed By: #### C MP, TSH, BNP, LIPID, T7 #### [facility] [place] [facility] [address] [place] [address] Dr. Juan Hill Hematocrit (Bld) [Volume fraction] 40.4 % Critically low 42.0-54.0 [facility] Comment on above: Performed By: #### C MP, TSH, BNP, LIPID, T7 #### [facility] [place] [facility] [address] [place] [address] Dr. Juan Hill Hemoglobin (Bld) [Mass/Vol] 12.4 g/dL Critically low 14.0-18.0 [facility] Comment on above: Performed By: #### C MP, TSH, BNP, LIPID, T7 #### [facility] [place] [facility] [address] [place] [address] Dr. Juan Hill IG # 0.02 10e3/ul Normal 0.00-0.03 [facility] [place] Comment on above: Performed By: #### C MP, TSH, BNP, LIPID, T7 #### [facility] [place] [facility] [address] [place] [address] Dr. Juan Hill IG % 0.3 % Normal 0.0-0.5 [facility] [place] Comment on above: Performed By: #### C MP, TSH, BNP, LIPID, T7 #### [facility] [place] [facility] [address] [place] [address] Dr. Juan Hill LYMPH # 1.2 103/ul Normal 1.2-3.8 [facility] Comment on above: Performed By: #### C MP, TSH, BNP, LIPID, T7 #### [facility] [place] [facility] [address] [place] [address] Dr. Juan Hill Lymphocytes/100 WBC (Bld) 15.6 % Critically low 20.5-60.0 [facility] Comment on above: Performed By: #### C MP, TSH, BNP, LIPID, T7 #### [facility] [place] [facility] [address] [place] [address] Dr. Juan Hill MANUAL DIFF REQ NO Normal [facility] Comment on above: Performed By: #### C MP, TSH, BNP, LIPID, T7 #### [facility] [place] [facility] [address] [place] [address] Dr. Juan Hill MCH (RBC) [Entitic mass] 27.3 pg Normal 25.9-34.0 [facility] Comment on above: Performed By: #### C MP, TSH, BNP, LIPID, T7 #### [facility] [place] [facility] [address] [place] [address] Dr. Juan Hill MCHC (RBC) [Mass/Vol] 30.7 g/dL Normal 29.9-35.2 [facility] Comment on above: Performed By: #### C MP, TSH, BNP, LIPID, T7 #### [facility] [place] [facility] [address] [place] [address] Dr. Juan Hill MCV (RBC) [Entitic vol] 89.0 fL Normal 80.0-94.0 [facility] Comment on above: Performed By: #### C MP, TSH, BNP, LIPID, T7 #### [facility] [place] [facility] [address] [place] [address] Dr. Juan Hill MONO # 0.5 103/ul Normal 0.3-0.8 [facility] Comment on above: Performed By: #### C MP, TSH, BNP, LIPID, T7 #### [facility] [place] [facility] [address] [place] [address] [address] Juan Hill Monocytes/100 WBC (Bld) 6.2 % Normal 1.7-12.0 [facility] [place] Comment on above: Performed By: #### C MP, TSH, BNP, LIPID, T7 #### [facility] [place] [facility] [address] [place] [address] [address] Juan Hill NEUT # 5.9 103/ul Normal 1.4-6.5 [facility] [place] Comment on above: Performed By: #### C MP, TSH, BNP, LIPID, T7 #### [facility] [place] [facility] [address] [place] [address] [address] Juan Hill Neutrophils/100 WBC (Bld) 74.0 % Normal 43.0-75.0 [facility] Comment on above: Performed By: #### C MP, TSH, BNP, LIPID, T7 #### [facility] [place] [facility] [address] [place] [address] Dr. Juan Hill Platelet mean volume (Bld) [Entitic vol] 12.1 fL Normal 9.5-13.5 [facility] Comment on above: Performed By: #### C MP, TSH, BNP, LIPID, T7 #### [facility] [place] [facility] [address] [place] [address] Dr. Juan Hill PLT 180 103/ul Normal 150-450 [facility] [place] Comment on above: Performed By: #### C MP, TSH, BNP, LIPID, T7 #### [facility] [place] [facility] [address] [place] [address] Dr. Juan Hill RBC 4.54 106/ul Critically low 4.70-6.10 [facility] Comment on above: Performed By: #### C MP, TSH, BNP, LIPID, T7 #### [facility] [place] [facility] [address] [place] [address] Dr. Juan Hill WBC 8.0 103/ul Normal 4.0-11.0 [facility] Comment on above: Performed By: #### C MP, TSH, BNP, LIPID, T7 #### [facility] [place] [facility] [address] [place] [address] Dr. Jaun Hill GLYCOHEMOGLOBIN A1Con 2021 ADA RECOMMENDATION SEE BELOW Normal [facility] Comment on above: Result Comment: ADA RECOMMENDED LIMIT 4.0 - 6.0 ADA THERAPEUTIC TARGET < 7.0 ACTION SUGGESTED > 7.0 Performed By: #### C MP, TSH, BNP, LIPID, T7 #### [facility] [place] [facility] [address] [place] [address] [address] Juan Hill Glucose [Mass/Vol] 100 mg/dL Normal [facility] Comment on above: Performed By: #### C MP, TSH, BNP, LIPID, T7 #### [facility] [place] [facility] [address] [place] [address] [address] Juan Hill HbA1c (Bld) [Mass fraction] 5.1 % Normal 4.5-6.2 [facility] Comment on above: Performed By: #### C MP, TSH, BNP, LIPID, T7 #### [facility] [place] [facility] [address] [place] [address] [address] Juan Hill LIPID PROFILEon 04-18-2022 CHOL-HDL RATIO NORM SEE BELOW Normal [facility] Comment on above: Result Comment: 3.3 - 4.4 LOW RISK 4.4 - 7.1 AVERAGE RISK 7.1 - 11.0 MODERATE RISK >11.0 HIGH RISK Performed By: #### U SUSANNAH, CMP, LIPID, TSH, BNP #### [facility] [place] [facility] [address] [place] [address] [address] Juan Hill Cholesterol [Mass/Vol] 166 mg/dL Normal <=200 [facility] Comment on above: Performed By: #### U SUSANNAH, CMP, LIPID, TSH, BNP #### [facility] [place] [facility] [address] [place] [address] [address] Juan Hill Cholesterol in HDL [Mass/Vol] 46 mg/dL Normal 40-60 [facility] Comment on above: Performed By: #### U SUSANNAH, CMP, LIPID, TSH, BNP #### [facility] [place] [facility] [address] [place] [address] [address] Juan Hill Cholesterol in LDL [Mass/Vol] 90.6 mg/dL Normal [facility] [facility] Comment on above: Performed By: #### U SUSANNAH, CMP, LIPID, TSH, BNP #### [facility] [place] [facility] [address] [address] [address] Juan Hill Cholesterol.total/Cho lesterol in HDL [Mass ratio] 3.6 {ratio} Normal [facility] Comment on above: Performed By: #### U SUSANNAH, CMP, LIPID, TSH, BNP #### [facility] [place] [facility] [address] [address] [address] Juan Hill HDL NORMAL > or = 60 mg/dl - LOW CARDIOVASCULAR RISK <40 mg/dl - HIGH CARDIOVASCULAR RISK Normal [facility] Comment on above: Performed By: #### U SUSANNAH, CMP, LIPID, TSH, BNP #### [facility] [place] [facility] [address] [address] [address] Juan Hill LDL CALC NORMAL SEE BELOW Normal [facility] Comment on above: Result Comment: <100 mg/dl OPTIMAL 100 - 129 mg/dl NEAR OR ABOVE OPTIMAL 130 - 159 mg/dl BORDERLINE HIGH 160 - 189 mg/dl HIGH >190 mg/dl VERY HIGH Performed By: #### U SUSANNAH, CMP, LIPID, TSH, BNP #### [facility] [place] [facility] [address] [address] [address] Juan Hill Triglyceride [Mass/Vol] 147 mg/dL Normal <=150 [facility] Comment on above: Performed By: #### U SUSANNAH, CMP, LIPID, TSH, BNP #### [facility] [place] [facility] [address] [address] [address] Juan Hill VLDL CALC 29.4 mg/dL Normal [facility] Comment on above: Performed By: #### U SUSANNAH, CMP, LIPID, TSH, BNP #### [facility] [place] [facility] [address] [address] [address] Juan Hill PROF 14(COMP METB)on 022 Albumin [Mass/Vol] 4.0 g/dL Normal 3.4-5.0 [facility] Comment on above: Performed By: #### U SUSANNAH, CMP, LIPID, TSH, BNP #### [facility] [place] [facility] [address] [address] [address] Juan Hill Albumin/Globulin [Mass ratio] 1.2 {ratio} Normal [facility] Comment on above: Performed By: #### U SUSANNAH, CMP, LIPID, TSH, BNP #### [facility] [place] [facility] [address] [address] [address] Juan Hill ALP [Catalytic activity/Vol] 96 U/L Normal 46-116 [facility] Comment on above: Performed By: #### U SUSANNAH, CMP, LIPID, TSH, BNP #### [facility] [place] [facility] [address] [address] [address] Juan Hill ALT [Catalytic activity/Vol] 11 U/L Critically low 16-63 [facility] Comment on above: Performed By: #### U SUSANNAH, CMP, LIPID, TSH, BNP #### [facility] [place] [facility] [address] [place] [address] Dr. Juan Hill Anion gap [Moles/Vol] 11.9 mmol/L Normal [facility] Comment on above: Performed By: #### U SUSANNAH, CMP, LIPID, TSH, BNP #### [facility] [place] [facility] [address] [place] [address] Dr. Juan Hill AST [Catalytic activity/Vol] 13 U/L Critically low 15-37 [facility] Comment on above: Performed By: #### U SUSANNAH, CMP, LIPID, TSH, BNP #### [facility] [place] [facility] [address] [place] [address] Dr. Juan Hill Bilirubin [Mass/Vol] 0.7 mg/dL Normal 0.2-1.0 [facility] Comment on above: Performed By: #### U SUSANNAH, CMP, LIPID, TSH, BNP #### [facility] [place] [facility] [address] [place] [address] Dr. Juan Hill Calcium [Mass/Vol] 9.2 mg/dL Normal 8.5-10.1 [facility] Comment on above: Performed By: #### U SUSANNAH, CMP, LIPID, TSH, BNP #### [facility] [place] [facility] [address] [place] [address] Dr. Juan Hill Chloride [Moles/Vol] 108 mmol/L Critically high 98-107 [facility] Comment on above: Performed By: #### U SUSANNAH, CMP, LIPID, TSH, BNP #### [facility] [place] [facility] [address] [address] [address] Juan Hill CO2 [Moles/Vol] 26.5 mmol/L Normal 21.0-32.0 [facility] Comment on above: Performed By: #### U SUSANNAH, CMP, LIPID, TSH, BNP #### [facility] [place] [facility] [address] [address] [address] Juan Hill Creatinine [Mass/Vol] 2.38 mg/dL Critically high 0.70-1.30 [facility] Comment on above: Performed By: #### U SUSANNAH, CMP, LIPID, TSH, BNP #### [facility] [address] [address] [address] Juan Hill EGFR-AF STATELESS 32 mL/min/1.73m2 Critically low >=60 [facility] Comment on above: Performed By: #### U SUSANNAH, CMP, LIPID, TSH, BNP #### [facility] [place] [facility] [address] [place] [address] Dr. Juan Hill EGFR-NON AF STATELESS 26 mL/min/1.73m2 Critically low >=60 [facility] Comment on above: Performed By: #### U SUSANNAH, CMP, LIPID, TSH, BNP #### [facility] [place] [facility] [address] [place] [address] Dr. Juan Hill Globulin (S) [Mass/Vol] 3.4 g/dL Normal [facility] Comment on above: Performed By: #### U SUSANNAH, CMP, LIPID, TSH, BNP #### [facility] [place] [facility] [address] [address] [address] Juan Hill Glucose [Mass/Vol] 98 mg/dL Normal 74-106 [facility] Comment on above: Performed By: #### U SUSANNAH, CMP, LIPID, TSH, BNP #### [facility] [place] [facility] [address] [place] [address] Dr. Juan Hill Potassium [Moles/Vol] 4.4 mmol/L Normal 3.5-5.1 [facility] Comment on above: Performed By: #### U SUSANNAH, CMP, LIPID, TSH, BNP #### [facility] [place] [facility] [address] [address] [address] Juan Hill Protein [Mass/Vol] 7.4 g/dL Normal 6.4-8.2 [facility] Comment on above: Performed By: #### U SUSANNAH, CMP, LIPID, TSH, BNP #### [facility] [place] [facility] [address] [place] [address] Dr. Juan Hill Sodium [Moles/Vol] 142 mmol/L Normal 136-145 [facility] Comment on above: Performed By: #### U SUSANNAH, CMP, LIPID, TSH, BNP #### [facility] [address] [address] [address] Juan Hill Urea nitrogen [Mass/Vol] 36.0 mg/dL Critically high 7.0-18.0 [facility] Comment on above: Performed By: #### U SUSANNAH, CMP, LIPID, TSH, BNP #### [facility] [address] [place] [address] Dr. Juan Hill Urea nitrogen/Creatinine [Mass ratio] 15.1 mg/mg Normal [facility] Comment on above: Performed By: #### U SUSANNAH, CMP, LIPID, TSH, BNP #### [facility] [address] [place] [address] Dr. Juan Hill TSHon 04-18-2022 TSH 1.492 uIU/mL Normal 0.358-3.740 [facility] Comment on above: Performed By: #### U SUSANNAH, CMP, LIPID, TSH, BNP #### [facility] [address] [place] [address] Dr. Juan Hill URIC ACID SERUMon 04-18-2022 Urate [Mass/Vol] 9.2 mg/dL Critically high 3.5-7.2 [facility] Comment on above: Performed By: #### C MP, TSH, BNP, LIPID, T7 #### [facility] [address] [place] [address] Dr. Juan Hill VITAMIN D 25 OHon 04-18-2022 VIT D 25-OH 42.8 ng/mL Normal [facility] Comment on above: Performed By: #### V ITAD #### [facility] [address] [address] [address] Juan Hill VIT D RANGES SEE BELOW Normal [facility] Comment on above: Result Comment: <20 ng/mL Vit D deficient 20 - <30 ng/mL Vit D insufficient 30 - 100 ng/mL Vit D sufficient >100 ng/mL Potential Toxicity Performed By: #### V ITAD #### [facility] [address] [place], [place] [address] Dr. Juan Hill PSA, FREE AND TOTAL RATIOon 06-03-2021 % Free PSA 28.1 % Normal [facility] Comment on above: Result Comment: The [...] C MP, TSH, BNP, LIPID, T7 #### [facility] [id number] Juan Hill Prostate specific Ag [Mass/Vol] 9.1 ng/mL Critically high 0.0-4.0 [facility] Comment on above: Result Comment: Sharda TRACY methodology. . According to the [employer] [employer], Serum PSA should decrease and [...] C MP, TSH, BNP, LIPID, T7 #### [facility] [id number] Juan Hill PSA, Free 2.56 ng/mL Normal N/A [facility] Comment on above: Result Comment: Sharda TRACY methodology. Performed By: #### C MP, TSH, BNP, LIPID, T7 #### [facility] [address] [place] [address] Dr. Juan Hill INSULINon 06-02-2021 Insulin 9.6 uIU/mL Normal 2.6-24.9 [facility] Comment on above: Performed By: #### C MP, TSH, BNP, LIPID, T7 #### [facility] [address] [place] [address] Dr. Juan Hill BNPon 06-01-2021 Natriuretic peptide B (Bld) [Mass/Vol] 269.0 pg/mL Normal <=1,800.0 [facility] Comment on above: Performed By: #### C MP, TSH, BNP, LIPID, T7 #### [facility] [address] [place] [address] Dr. Juan Hill CBC AUTO DIFFon 06-01-2021 BASO # 0.1 103/ul Normal 0.0-0.1 [facility] Comment on above: Performed By: #### C MP, TSH, BNP, LIPID, T7 #### [facility] [address] [place] [address] Dr. Juan Hill Basophils/100 WBC (Bld) 0.7 % Normal 0.2-2.0 [facility] Comment on above: Performed By: #### C MP, TSH, BNP, LIPID, T7 #### [facility] [address] [place] [address] Dr. Juan Hill EO # 0.2 103/ul Normal 0.0-0.7 [facility] Comment on above: Performed By: #### C MP, TSH, BNP, LIPID, T7 #### [facility] [address] [place] [address] Dr. Juan Hill Eosinophils/100 WBC (Bld) 2.0 % Normal 0.9-7.0 [facility] Comment on above: Performed By: #### C MP, TSH, BNP, LIPID, T7 #### [facility] [address] [place] [address] Dr. Juan Hill Erythrocyte distribution width (RBC) [Ratio] 14.7 % Normal 11.0-15.0 [facility] Comment on above: Performed By: #### C MP, TSH, BNP, LIPID, T7 #### [facility] [address] [place] [address] Dr. Juan Hill Hematocrit (Bld) [Volume fraction] 43.9 % Normal 42.0-54.0 [facility] Comment on above: Performed By: #### C MP, TSH, BNP, LIPID, T7 #### [facility] [address] [place] [address] Dr. Juan Hill Hemoglobin (Bld) [Mass/Vol] 13.6 g/dL Critically low 14.0-18.0 [facility] Comment on above: Performed By: #### C MP, TSH, BNP, LIPID, T7 #### [facility] [address] [place] [address] Dr. Juan Hill IG # 0.01 10e3/ul Normal 0.00-0.03 [facility] Comment on above: Performed By: #### C MP, TSH, BNP, LIPID, T7 #### [facility] [address] [place] [address] Dr. Juan Hill IG % 0.1 % Normal 0.0-0.5 [facility] Comment on above: Performed By: #### C MP, TSH, BNP, LIPID, T7 #### [facility] [address] [place] [address] Dr. Juan Hill LYMPH # 1.1 103/ul Critically low 1.2-3.8 [facility] Comment on above: Performed By: #### C MP, TSH, BNP, LIPID, T7 #### [facility] [address] [place] [address] Dr. Juan Hill Lymphocytes/100 WBC (Bld) 14.9 % Critically low 20.5-60.0 [facility] Comment on above: Performed By: #### C MP, TSH, BNP, LIPID, T7 #### [facility] [address] [place] [address] Dr. Juan Hill MANUAL DIFF REQ NO Normal [facility] Comment on above: Performed By: #### C MP, TSH, BNP, LIPID, T7 #### [facility] [address] [place] [address] Dr. Juan Hill MCH (RBC) [Entitic mass] 28.0 pg Normal 25.9-34.0 [facility] Comment on above: Performed By: #### C MP, TSH, BNP, LIPID, T7 #### [facility] [address] [place] [address] Dr. Juan Hill MCHC (RBC) [Mass/Vol] 31.0 g/dL Normal 29.9-35.2 [facility] Comment on above: Performed By: #### C MP, TSH, BNP, LIPID, T7 #### [facility] [address] [place] [address] Dr. Juan Hill MCV (RBC) [Entitic vol] 90.5 fL Normal 80.0-94.0 [facility] Comment on above: Performed By: #### C MP, TSH, BNP, LIPID, T7 #### [facility] [address] [place] [address] Dr. Juan Hill MONO # 0.4 103/ul Normal 0.3-0.8 [facility] Comment on above: Performed By: #### C MP, TSH, BNP, LIPID, T7 #### [facility] [address] [place] [address] Dr. Juan Hill Monocytes/100 WBC (Bld) 6.0 % Normal 1.7-12.0 [facility] Comment on above: Performed By: #### C MP, TSH, BNP, LIPID, T7 #### [facility] [address] [place] [address] Dr. Juan Hill NEUT # 5.6 103/ul Normal 1.4-6.5 [facility] Comment on above: Performed By: #### C MP, TSH, BNP, LIPID, T7 #### [facility] [address] [place] [address] Dr. Juan Hill Neutrophils/100 WBC (Bld) 76.3 % Critically high 43.0-75.0 [facility] Comment on above: Performed By: #### C MP, TSH, BNP, LIPID, T7 #### [facility] [address] [place] [address] Dr. Juan Hill Platelet mean volume (Bld) [Entitic vol] 11.6 fL Normal 9.5-13.5 [facility] Comment on above: Performed By: #### C MP, TSH, BNP, LIPID, T7 #### [facility] [address] [place] [address] Dr. Juan Hill PLT 163 103/ul Normal 150-450 [facility] Comment on above: Performed By: #### C MP, TSH, BNP, LIPID, T7 #### [facility] [address] [place] [address] Dr. Juan Hill RBC 4.85 106/ul Normal 4.70-6.10 [facility] Comment on above: Performed By: #### C MP, TSH, BNP, LIPID, T7 #### [facility] [address] [place] [address] Dr. Juan Hill WBC 7.4 103/ul Normal 4.0-11.0 [facility] Comment on above: Performed By: #### C MP, TSH, BNP, LIPID, T7 #### [facility] [address] [place] [address] Dr. Juan Hill FREE THYROXINE INDEX T7on FTI 1.72 Normal [facility] Comment on above: Performed By: #### C MP, TSH, BNP, LIPID, T7 #### [facility] [address] [place] [address] Dr. Juan Hill T3U 33.0 % Normal 23.5-40.5 [facility] Comment on above: Performed By: #### C MP, TSH, BNP, LIPID, T7 #### [facility] [address] [place] [address] Dr. Juan Hill T4 [Mass/Vol] 5.20 ug/dL Critically low 5.53-11.00 [facility] Comment on above: Performed By: #### C MP, TSH, BNP, LIPID, T7 #### [facility] [address] [address] [address] Juan Hill GLYCOHEMOGLOBIN A1Con 2020 ADA RECOMMENDATION ADA THERAPEUTIC TARGET 6.0 - 7.0 ACTION SUGGESTED > 7.0 Normal [facility] Comment on above: Performed By: #### C MP, TSH, BNP, LIPID, T7 #### [facility] [address] [address] [address] Juan Hill Glucose [Mass/Vol] 100 mg/dL Normal [facility] Comment on above: Performed By: #### C MP, TSH, BNP, LIPID, T7 #### [facility] [address] [address] [address] Juan Hill HbA1c (Bld) [Mass fraction] 5.1 % Normal <=6.0 [facility] Comment on above: Performed By: #### C MP, TSH, BNP, LIPID, T7 #### [facility] [address] [place] [address] Dr. Juan Hill IRONon 06-01-2021 Iron [Mass/Vol] 81.0 ug/dL Normal 49.0-181.0 [facility] Comment on above: Performed By: #### C MP, TSH, BNP, LIPID, T7 #### [facility] [address] [place] [address] Dr. Juan Hill LIPID PROFILEon 06-01-2021 CHOL-HDL RATIO NORM SEE BELOW Normal [facility] Comment on above: Result Comment: 3.3 - 4.4 LOW RISK 4.4 - 7.1 AVERAGE RISK 7.1 - 11.0 MODERATE RISK >11.0 HIGH RISK Performed By: #### C MP, TSH, BNP, LIPID, T7 #### [facility] [address] [address] [address] Juan Hill Cholesterol [Mass/Vol] 187 mg/dL Normal <=200 [facility] Comment on above: Performed By: #### C MP, TSH, BNP, LIPID, T7 #### [facility] [address] [address] [address] Juan Hill Cholesterol in HDL [Mass/Vol] 48 mg/dL Normal [facility] Comment on above: Performed By: #### C MP, TSH, BNP, LIPID, T7 #### [facility] [address] [address] [address] Juan Hill Cholesterol in LDL [Mass/Vol] 110.6 mg/dL Normal [facility] Comment on above: Performed By: #### C MP, TSH, BNP, LIPID, T7 #### [facility] [address] [place] [address] Dr. Juan Hill Cholesterol.total/Cho lesterol in HDL [Mass ratio] 3.9 {ratio} Normal [facility] Comment on above: Performed By: #### C MP, TSH, BNP, LIPID, T7 #### [facility] [address] [place] [address] Dr. Juan Hill HDL NORMAL > or = 60 mg/dl - LOW CARDIOVASCULAR RISK <40 mg/dl - HIGH CARDIOVASCULAR RISK Normal [facility] Comment on above: Performed By: #### C MP, TSH, BNP, LIPID, T7 #### [facility] [address] [place] [address] Dr. Juan Hill LDL CALC NORMAL SEE BELOW Normal [facility] Comment on above: Result Comment: <100 mg/dl OPTIMAL 100 - 129 mg/dl NEAR OR ABOVE OPTIMAL 130 - 159 mg/dl BORDERLINE HIGH 160 - 189 mg/dl HIGH >190 mg/dl VERY HIGH Performed By: #### C MP, TSH, BNP, LIPID, T7 #### [facility] [address] [place] [address] Dr. Juan Hill Triglyceride [Mass/Vol] 142 mg/dL Normal <=150 [facility] Comment on above: Performed By: #### C MP, TSH, BNP, LIPID, T7 #### [facility] [address] [place] [address] Dr. Juan Hill VLDL CALC 28.4 mg/dL Normal [facility] Comment on above: Performed By: #### C MP, TSH, BNP, LIPID, T7 #### [facility] [address] [place] [address] Dr. Juan Hill PROF 14(COMP METB)on 021 Albumin [Mass/Vol] 4.0 g/dL Normal 3.5-5.0 [facility] Comment on above: Performed By: #### C MP, TSH, BNP, LIPID, T7 #### [facility] [address] [place] [address] Dr. Juan Hill Albumin/Globulin [Mass ratio] 1.1 {ratio} Normal [facility] Comment on above: Performed By: #### C MP, TSH, BNP, LIPID, T7 #### [facility] [address] [address] [address] Juan Hill ALP [Catalytic activity/Vol] 99 U/L Normal 38-126 [facility] Comment on above: Performed By: #### C MP, TSH, BNP, LIPID, T7 #### [facility] [address] [place] [address] Dr. Juan Hill ALT [Catalytic activity/Vol] 11 U/L Critically low 21-72 [facility] Comment on above: Performed By: #### C MP, TSH, BNP, LIPID, T7 #### [facility] [address] [address] [address] Juan Hill Anion gap [Moles/Vol] 10.8 mmol/L Normal [facility] Comment on above: Performed By: #### C MP, TSH, BNP, LIPID, T7 #### [facility] [place] [facility] [address] [place] [address] Dr. Juan Hill AST [Catalytic activity/Vol] 12 U/L Critically low 17-59 [facility] Comment on above: Performed By: #### C MP, TSH, BNP, LIPID, T7 #### [facility] [address] [place] [address] Dr. Juan Hill Bilirubin [Mass/Vol] 0.6 mg/dL Normal 0.2-1.3 [facility] [place] Comment on above: Performed By: #### C MP, TSH, BNP, LIPID, T7 #### [facility] [place] [facility] [address] [place] [address] Dr. Juan Hill Calcium [Mass/Vol] 9.4 mg/dL Normal 8.4-10.2 [facility] Comment on above: Performed By: #### C MP, TSH, BNP, LIPID, T7 #### [facility] [place] [facility] [address] [place] [address] Dr. Juan Hill Chloride [Moles/Vol] 104 mmol/L Normal 98-107 [facility] [place] Comment on above: Performed By: #### C MP, TSH, BNP, LIPID, T7 #### [facility] [place] [facility] [address] [place] [address] Dr. Juan Hill CO2 [Moles/Vol] 29.2 mmol/L Normal 22.0-30.0 [facility] Comment on above: Performed By: #### C MP, TSH, BNP, LIPID, T7 #### [facility] [place] [facility] [address] [place] [address] Dr. Juan Hill Creatinine [Mass/Vol] 2.04 mg/dL Critically high 0.66-1.25 [facility] Comment on above: Performed By: #### C MP, TSH, BNP, LIPID, T7 #### [facility] [place] [facility] [address] [place] [address] Dr. Juan Hill EGFR-AF STATELESS 38 mL/min/1.73m2 Critically low >=60 [facility] [place] Comment on above: Performed By: #### C MP, TSH, BNP, LIPID, T7 #### [facility] [place] [facility] [address] [place] [address] Dr. Juan Hill EGFR-NON AF STATELESS 31 mL/min/1.73m2 Critically low >=60 [facility] [facility] Comment on above: Performed By: #### C MP, TSH, BNP, LIPID, T7 #### [facility] [place] [facility] [address] [place] [address] Dr. Juan Hill Globulin (S) [Mass/Vol] 3.7 g/dL Normal [facility] [place] Comment on above: Performed By: #### C MP, TSH, BNP, LIPID, T7 #### [facility] [place] [facility] [address] [place] [address] Dr. Juan Hill Glucose [Mass/Vol] 98 mg/dL Normal 74-106 [facility] Comment on above: Performed By: #### C MP, TSH, BNP, LIPID, T7 #### [facility] [place] [facility] [address] [place] [address] Dr. Juan Hill Potassium [Moles/Vol] 5.0 mmol/L Normal 3.4-5.0 [facility] Comment on above: Performed By: #### C MP, TSH, BNP, LIPID, T7 #### [facility] [place] [facility] [address] [place] [address] Dr. Juan Hill Protein [Mass/Vol] 7.7 g/dL Normal 6.1-8.2 [facility] Comment on above: Performed By: #### C MP, TSH, BNP, LIPID, T7 #### [facility] [place] [facility] [address] [place] [address] Dr. Juan Hill Sodium [Moles/Vol] 139 mmol/L Normal 137-145 [facility] Comment on above: Performed By: #### C MP, TSH, BNP, LIPID, T7 #### [facility] [place] [facility] [address] [place] [address] Dr. Juan Hill Urea nitrogen [Mass/Vol] 26.0 mg/dL Critically high 9.0-20.0 [facility] Comment on above: Performed By: #### C MP, TSH, BNP, LIPID, T7 #### [facility] [place] [facility] [address] [place] [address] Dr. Juan Hill Urea nitrogen/Creatinine [Mass ratio] 12.7 mg/mg Normal [facility] Comment on above: Performed By: #### C MP, TSH, BNP, LIPID, T7 #### [facility] [place] [facility] [address] [place] [address] Dr. Juan Hill TSHon 06-01-2021 TSH 2.986 uIU/mL Normal 0.470-4.680 [facility] Comment on above: Performed By: #### C MP, TSH, BNP, LIPID, T7 #### [facility] [place] [facility] [address] [place] [address] Dr. Juan Hill TSH RANGE SEE BELOW Normal The [facility] Comment on above: Result Comment: <0.3 4 UIU/ml HYPERTHYROID 0.34-5.60 UIU/ml EUTHYROID >5.60 UIU/ml HYPOTHYROID Performed By: #### C MP, TSH, BNP, LIPID, T7 #### [facility] [place] [facility] [address] [place], [place] [address] Dr. Juan Hill VITAMIN D 25 OHon 06-01-2021 VIT D 25-OH 43.8 ng/mL Normal [facility] Comment on above: Performed By: #### C MP, TSH, BNP, LIPID, T7 #### [facility] [place] [facility] [address] [place], [place] [address] Dr. Juan Hill VIT D RANGES SEE BELOW Normal [facility] Comment on above: Result Comment: <20 ng/mL Vit D deficient 20 - <30 ng/mL Vit D insufficient 30 - 100 ng/mL Vit D sufficient >100 ng/mL Potential Toxicity Performed By: #### C MP, TSH, BNP, LIPID, T7 #### [facility] [address] [place], [place] [address] Dr. Juan Hill Vital Signs Date Time Vital Sign Value Performing Clinician Faci lity 01-07-2025 10:54-0400 Body height 172.7 cm Reddy ANDERSON Work Phone: [facility] 01-07-2025 10:54-0400 Body mass index (BMI) [Ratio] 25.39 kg/m2 Reddy ANDERSON Work Phone: [facility] 01-07-2025 10:54-0400 Body weight 75.75 kg Reddy ANDERSON Work Phone: [facility] Encounters Encounter Date Encounter Type Care Provider Facility Start: 01-07-2025 End: 01-07-2025 Office outpatient visit 15 minutes Reddy ANDERSON Work Phone: [facility] Comment on above: Elevated PSA (Primar y Dx); Urinary retention Start: 01-07-2025 End: 01-07-2025 ambulatory REDDY MORAN [facility] Start: 11-28-2024 End: 12-01-2024 Refill Jan Turner MD Work Phone: [facility] Start: 05-27-2024 End: 05-27-2024 Telephone encounter Marlin Gutierrez LPN [facility] Start: 05-21-2024 End: 05-21-2024 Telephone encounter Marlin Gutierrez LPN [facility] Start: 11-26-2023 End: 11-26-2023 Telephone encounter Rajeev Lee CMA [facility] Start: 10-09-2023 End: 10-09-2023 Evaluation and management of inpatient JAN TURNER [facility] Start: 10-08-2023 End: 10-08-2023 ambulatory [facility] Phone Call Provider 1 [facility] - Pre Admit Start: 10-08-2023 End: 10-08-2023 ambulatory SHILA FABIAN [facility] Start: 05-01-2023 ambulatory DIO Ambrocio acility:[facility] [place] Start: 04-07-2023 End: 04-10-2023 Evaluation and management of inpatient Shila Fabian Facility:[facility] Start: 04-18-2022 End: 04-19-[address] SHILA FABIAN Facility:[facility] Start: 06-01-2021 End: 06-02-[address] SHILA FABIAN Facility:[facility] Procedures Date Procedure Procedure Detail Performing Clinician Start: 01-07-2025 Follow-up visit Follow-up MONTSE MORAN Start: 04-07-2023 Antibody screen Shila Fabian Comment on above: Order Comment: Trans fuse now? Y Number of units to transfuse now? 1 Result Comment: PERF ORMED BY: [facility] [address] [place] [address] PATHOLOGIST CARPET REPAIRER FEROZ DIEHL M.D. Start: 06-01-[address] LÓPEZ FABIAN Comment on above: Performed By: #### C MP, TSH, BNP, LIPID, T7 #### [facility] [place] [facility] [address] [place] [address] [address] Juan Hill Plan of Treatment Date Care Activity Detail Author Start: 01-12-2026 End: 01-12-2026 Patient encounter procedure 01/12/2026 1:00 PM EDT Office Visit [facility] [address] [place] [address] [place] [phone] Jan Turner MD [address] [place] [address] [facility] Start: 01-07-2026 Tobacco Screening Tobacco Screening [facility] Start: 03-30-2025 Influenza vaccination Influenza Vaccine [facility] Start: 01-07-2025 End: 01-07-2025 Patient encounter procedure 01/07/2025 10:45 AM EDT Office Visit [facility] [address] [place] [address] [place] [phone] Reddy Moran PA [address] [place] [id number] [facility] Start: 11-22-2024 COVID-19 Vaccine ( season) COVID-19 Vaccine () [facility] Start: 10-08-2024 Tobacco Screening Tobacco Screening [facility] Start: 09-04-2024 Adult BMI Screening Adult BMI Screening [facility] Start: 03-30-2024 COVID-19 Vaccine ( season) COVID-19 Vaccine () [facility] Start: 03-30-2024 COVID-19 Vaccine ( season) COVID-19 Vaccine ( season) [facility] Start: 03-30-2024 Influenza vaccination Influenza Vaccine [facility] Start: 03-30-2023 COVID-19 Vaccine ( season) COVID-19 Vaccine ( season) [facility] Start: 03-30-2023 Influenza vaccination Influenza Vaccine [facility] Start: 2002 Fall Risk Screening Fall Risk Screening [facility] Start: 12-25-1987 Administration of varicella zoster vaccine Zoster (Shingles) Vaccine (1 of 2) [facility] Start: 1956 DTaP,Tdap and Td Vaccines (1 - Tdap) DTaP,Tdap and Td Vaccines (1 - Tdap) [facility] Start: 12-25-1955 Adult BMI Follow Up Plan Adult BMI Follow Up Plan [facility] Start: 1949 Depression Screening Depression Screening [facility] Start: 1937 Medicare Annual Wellness Visit Medicare Annual Wellness Visit [facility] Immunizations Immunization Date Immunization Notes Care Provider Fa cility 09-16-2020 COVID-19, mRNA, LNP- S, PF, 100mcg/0.5mL Dose [facility] 1 [facility] 08-20-2020 COVID-19, mRNA, LNP- S, PF, 100mcg/0.5mL Dose [facility] 1 [facility] 06-18-2020 influenza virus vacc ine, unspecified formulation [facility] 1 [facility] Payers Date Payer Category Payer Medicare [id number] 2023 Self-pay 2021 Medicare A[employer] MEDICARE A ETNA MEDICARE PLAN (PPO) [id number] 2021-Present [phone] [address] [place] [address] [id number] 2021 Medicare HMO [employer] MEDICARE [id number] 1959 Medicare [id number] 1959 Medicare [id number] 1935 Unknown [id number] 1937 Unknown [id number] 1937 Unknown [id number] 1937 Unknown [id number] 1937 Unknown [id number] 1937 Unknown [id number] Unknown [id number] Social History Date Type Detail Facility Start: 04-20-2023 Tobacco smoking stat [facility] Ex-smoker [facility] History of tobacco use Current smoker [facility] Start: 04-20-2023 Tobacco use and exposure Smoke less tobacco non-user [facility] Start: 09-04-2023 End: 01-07-2025 Alcohol intake Current non-drinker of alcohol (finding) [facility] Start: 07-05-2018 End: 08-19-2020 History of Social function [facility] Start: 07-05-2018 End: 08-19-2020 Alcohol Use Disorder Identification Test - Consumption [AUDIT-C] [facility] Frequency of Alcohol Consumption Never [facility] Start: 1935 Sex Assigned At Not on file [facility] Start: 03-04-2015 Sex Male (finding) [facility] Clinical Notes 10-08-2023 to 01-07-2025 MONICA Perez - 01/07/2025 10:45 AM EDTTelephone Encounter - Marlni Gutierrez LPN - 05/27/2024 3:21 PM EDTTelephone Encounter - Marlin Gutierrez LPN - 05/27/2024 3:21 PM EDT Note Date & Type Note Facility 01-07-2025 History of Presen t illness Narrative Images from the original note were not included. [address] [place] [address] [address] [facility] [phone] Patient: Feroz Juarez Date of : 1935 Encounter Date: 01/07/2025 History of Present Illness: The patient is a 89 y.o. male, an established patient, and is here for Med refills. Please see his history below. He underwent cystoscopy 10/09/2023 He is still taking Flomax 0.8mg daily. No side effects. He denies any gross hematuria or dysuria. No current Urologic concerns. PSA 05/19/24: 7.7 Summary of old records: notes from Dr. Turner 09/04/2023: The patient is a 87 y.o. male, an established patient, and is here for follow-up with his daughter. He had been seen initially in March 2023 having been discharged from [facility] with urinary retention. He previously had been on tamsulosin which had stopped. It was restarted at 0.4 mg. He subsequently passed a void trial and was last seen in the office May 23, 2023. PVR at that time was only 157 cc. He reports today that he is continued on the medication but has had progressive worsening lower urinary tract symptoms. Having some increased frequency and some dysuria. He also had an ultrasound performed August 31, 2023 at an outside facility. That report suggested the upper tracts are normal with no evidence of hydronephrosis. His residual urine on that was increased to 257 cc. There also was layering material within the bladder which was suspected to represent either blood products or proteinaceous material although an underlying nodule or stone could not be eliminated by that. He additionally had a PSA drawn August 31, 2023 which is elevated to 11.4. Has a history of elevated PSA which has fluctuated in the past up to 9. No prior biospy Urinalysis today: No results for input(s): EXTPOCURCO , EXTPOCURCH , EXTPOCAPP , EXTPOCURBS , EXTPOCURBIL , EXTPOCUKET , EXTPOCUSPG , EXTPOCUHGB , EXTPOCUPRO , EXTPOCUURO , EXTPOCULEU , EXTPOCUNIT , EXTPOCUWBC , EXTPOCUBLD , EXTPOCURBC , EXTPOCUCRY , EXTPOCUBAC , EXTPOCUTREP , EXTPOCUPH in the last 72 hours. Last BUN and creatinine: No results found for: BUN No results found for: CREATININE Last PSA: Lab Results Component Value Date PSA 7.7 05/19/2024 PSA 11.43 08/31/2023 No results found for: PROSTATICSP Past Medical, Family, and Social History Update: The following portions of the patient's history were reviewed and updated as appropriate: allergies, current medications, past family history, past medical history, past social history, past surgical history and problem list. Past Medical History: Diagnosis Date Diabetes ([facility]) Hyperlipidemia Hypertension Peptic ulcer Prostatitis Visual impairment Past Surgical History: Procedure Laterality Date CORONARY ARTERY BYPASS GRAFT CYSTOSCOPY N/A 10/09/2023 Performed by Jan Turner MD at [facility] D[facility] Family History Problem Relation Age of Onset Diabetes Mother Current Outpatient Medications Medication Sig Dispense Refill clopidogreL (PLAVIX) 75 mg tablet Take 1 tablet (75 mg total) by mouth in the morning. ibuprofen (ADVIL,MOTRIN) 600 mg tablet Take 1 tablet (600 mg total) by mouth every 6 (six) hours as needed for pain for up to 30 doses. 30 tablet 0 metoprolol tartrate (LOPRESSOR) 25 mg tablet Take 1 tablet (25 mg total) by mouth in the morning and 1 tablet (25 mg total) before bedtime. pantoprazole (PROTONIX) 40 mg EC tablet Take 1 tablet (40 mg total) by mouth in the morning. Oral for 8 weeks take twice daily then once daily. simvastatin (ZOCOR) 20 mg tablet Take 1 tablet (20 mg total) by mouth nightly. Take one daily tamsulosin (FLOMAX) 0.4 mg capsule Take 2 capsules (0.8 mg total) by mouth every morning. TAKE 2 CAPSULES BY MOUTH IN THE MORNING 180 capsule 3 No current facility-administered medications for this visit. (All medications reviewed and updated by provider since last office visit or hospitalization) Allergies: Patient has no known allergies. Tobacco History: Social History Tobacco Use Smoking Status Former Smokeless Tobacco Never (If patient a smoker, smoking cessation counseling offered) Social History: Social History Substance and Sexual Activity Alcohol Use No Review of Systems: General: Negative for chills and fever. Cardiovascular: Negative for chest pain and shortness of breath. Gastrointestinal: Otherwise negative Physical Exam: Ht 172.7 cm (5' 8 ) Wt 75.8 kg (167 lb) BMI 25.39 kg/m Constitutional: He appears well-developed. No distress. Pulmonary/Chest: Effort normal. No respiratory distress. Neurological: He is alert and oriented for age. Gait: uses a cane Nursing note and vitals reviewed. Assessment and Plan: Feroz was seen today for follow-up and med refill. Diagnoses and all orders for this visit: Elevated PSA Urinary retention Other orders - tamsulosin (FLOMAX) 0.4 mg capsule; Take 2 capsules (0.8 mg total) by mouth every morning. TAKE 2 CAPSULES BY MOUTH IN THE MORNING Problem List Genitourinary Urinary retention Overview 04/20/23: Recent retention following hospitalization for GI bleed. We will start Flomax 0.4 mg and have him come back next week for a void trial in [place]. If successful, we will see him back [...] Doing well with Flomax. No current concerns. Other Elevated PSA - Primary Overview 04/20/23: History of elevated PSA, previously followed [...] He declines any further testing for now. Follow-up: Dr. Turner in one year MONICA PEREZ This note was created with the assistance of a speech recognition program. While intending to generate a timely document that accurately reflects the content of the visit, no guarantee can be provided that every grammatical or spelling mistake has been or will be identified or corrected. Thank you for your understanding. MONICA Perez 01/07/25 1449 documented in this encounter [facility] 05-27-2024 Miscellaneous Notes Formattin g of this note might be different from the original. Pt. Was contacted under the direction of Reddy Moran PA-C to schedule a follow up after receiving the Pt.'s PSA value from his PCP's office. Last Pt. Appt was one year ago for a void trial. Reddy Moran PA-C would like a follow up to ensure the Pt. Is urinating with no difficulties. Pt. Did not answer, message was left. documented in this encounter [facility] 05-27-2024 Telephone encount er Note Pt. Was contacted under the direction of Reddy Moran PA-C to schedule a follow up after receiving the Pt.'s PSA value from his PCP's office. Last Pt. Appt was one year ago for a void trial. Reddy Moran PA-C would like a follow up to ensure the Pt. Is urinating with no difficulties. Pt. Did not answer, message was left. [facility] 05-21-2024 Miscellaneous Notes Formattin g of this note might be different from the original. Received new PSA results from PCP. Sent to scanning. documented in this encounter [facility] 05-21-2024 Telephone encount er Note Received new PSA results from PCP. Sent to scanning. [facility] 11-26-2023 Miscellaneous Notes Formattin g of this note might be different from the original. Patient's daughter called in stating that Feroz needs an updated prescription for his Tamsulosin. She states at his last office visit he was told to start taking to capsules a day instead of 1. [facility] needs an update order. documented in this encounter [facility] 11-26-2023 Telephone encount er Note Patient's daughter called in stating that Feroz needs an updated prescription for his Tamsulosin. She states at his last office visit he was told to start taking to capsules a day instead of 1. [facility] needs an update order. [facility] 10-08-2023 Miscellaneous Notes Formattin g of this note is different from the original. Preoperative Education Checklist- General Surgery date: 10/10/23 Surgery time: 1030 Arrival time: 0930 1. Bring a photo ID and your insurance card with you the day of surgery. You will check in at the main lobby at the registration desk near the [facility]. 2. If you have a Living Will/Durable Power of Patron Attendant for Health Care that is not on file here, please bring a copy the day of surgery. 3. Please shower/tub bath the night before surgery or morning of. 4. NO powder, lotion, perfume/cologne, aftershave, make-up, nail chilean, deodorant, or hair products after you have [...] doctor for instructions [facility] Note Preoperative Education Checklist- General Surgery date: 10/10/23 Surgery time: 1030 Arrival time: 929 1. Bring a photo ID and your insurance card with you the day of surgery. You will check in at the main lobby at the registration desk near the [facility]. 2. If you have a Living Will/Durable Power of Patron Attendant for Health Care that is not on file here, please bring a copy the day of surgery. 3. Please shower/tub bath the night before surgery or morning of. 4. NO powder, lotion, perfume/cologne, aftershave, make-up, nail chilean, deodorant, or hair products after you have [...] capsule Check with prescribing doctor for instructions [facility] Evaluation note Diagnosis Elevated PSA- Primary Elevated prostate specific antigen (PSA) Urinary retention Unspecified retention of urine Elevated PSA- Primary Elevated prostate specific antigen (PSA) Urinary retention Unspecified retention of urine documented in this [facility] this [facility] filedocumented in this encounter [facility] filedocumented in this [facility] Summary Purpose Family History No Family History Records FoundNo Family History Records FoundNo Family History Records FoundNo Family History Records FoundNo Family History Records Found Advance Directives No Advanced Directives Records FoundDocuments on File Type Date 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 08/12/12 Living Will 04/23/2023 9:15 AM [facility] / [facility] 08/12/12 Additional Source Comments (unrecognized sect ion and content) No Status Records FoundNo Status Records FoundNo Status Records FoundNo Status Records FoundNo Status Records Found INFORMATION SOURCE (unrecogn ized section and content) DATE CREATED AUTHOR 04/30/2022 [facility] DATE CREATED AUTHOR AUTHOR'S ORGANIZ ATION 04/19/2023 [facility] DATE CREATED AUTHOR AUTHOR'S ORGANIZ ATION 04/20/2023 [facility] DATE CREATED AUTHOR AUTHOR'S ORGANIZ ATION 10/10/2023 [facility] DATE CREATED AUTHOR AUTHOR'S ORGANCHRISTIANO ATMARKO 01/09/2025 [facility] Care Teams (unrecognized sec tion and content) 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 Relationship Specialty Start Date End Date Shila Fabian MD [address] [place] [address] PCP - General 07/05/18 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 Relationship Specialty Start Date End Date Shila Fabian MD [address] [place] [address] PCP - General 07/05/18 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 [employer] provides no warranty or guarantee of the accuracy or completeness of information in this document.
[2025-02-13 08:26] LABS: Hematocrit 31.3 % (42.0-54.0); Hemoglobin 9.4 g/dL (14.0-18.0); Immature Granulocytes Abs Auto 0.01 10^3/uL (0.00-0.03); Immature Granulocytes Pct Auto 0.2 % (0.0-0.5); Lymphocytes Absolute Auto 1.4 10^3/uL (1.2-3.8); Mean Corpuscular HGB Conc 30.0 g/dL (29.9-35.2); Mean Corpuscular Hemoglobin 22.8 pg (25.9-34.0); Mean Corpuscular Volume 76.0 fL (80.0-94.0); Platelet Count 136 10^3/uL (150-450); Red Blood Count 4.12 10^6/uL (4.70-6.10); White Blood Count 6.1 10^3/uL (4.0-11.0)
[2025-02-13 09:07] LABS: Alanine Aminotransferase 14 U/L (16-63); Albumin Globulin Ratio 1.1; Albumin Level 3.6 g/dL (3.4-5.0); Alkaline Phosphatase 79 U/L (46-116); Anion Gap 17.5; Aspartate Amino Transferase 14 U/L (15-37); Blood Urea Nitrogen 21.0 mg/dL (7.0-18.0); Calcium 8.9 mg/dL (8.5-10.1); Carbon Dioxide 22.2 mmol/L (21.0-32.0); Chloride 107 mmol/L (98-107); Cholesterol 148 mg/dL (<=200); Estimated GFR (African America 44 (>=60 mL/min/1.73m^2); Estimated GFR (Non-African Ame 36 (>=60 mL/min/1.73m^2); Free T3 2.02 pg/mL (2.18-3.98); Globulin 3.2 g/dL; Glucose 109 mg/dL (74-106); HDL Cholesterol 59 mg/dL (40-60); NT Pro B Type Natriuretic Pept 1738.0 pg/mL (<=1800.0); Potassium 3.7 mmol/L (3.5-5.1); Sodium 143 mmol/L (136-145); Thyroid Stimulating Hormone 1.685 uIU/mL (0.358-3.740); Total Protein 6.8 g/dL (6.4-8.2); Triglycerides 116 mg/dL (<=150); VLDL CHOLESTEROL 23.2 mg/dL
== END 2025-02-13 07:50 | disposition home or self-care (01) ==
LOC: LAB 07:52
PROVIDERS: PCP Family Medicine; Visit Provider Family Medicine
DX: J44.9 Chronic obstructive pulmonary disease, unspecified (principal); E11.9 Type 2 diabetes mellitus without complications; I27.20 Pulmonary hypertension, unspecified; N18.32 Chronic kidney disease, stage 3b
CPT/HCPCS: 36415; 80053; 80061; 82306; 83036; 83880; 84436; 84443; 84481; 84484